=== PATIENT | female | born 1940 | race Caucasian/White ===

== ENCOUNTER → 2018-06-20 11:43 | Outpatient (CLI) | payer MEDICARE, OTHER, SELFPAY ==
[2018-06-20 12:21] LABS: Add Manual Diff / Slide Review NO; Basophils Percent Auto 0.9 % (0-2); Eosinophils Percent Auto 4.3 % (2-4); Hematocrit 35.1 % (36-46); Hemoglobin 11.6 g/dL (12.0-16.0); Lymphocytes Percent Auto 18.4 % (25-40); Mean Corpuscular HGB Conc 32.9 % (30-36); Mean Corpuscular Hemoglobin 31.2 PG (26-34); Mean Corpuscular Volume 94.6 fL (80-100); Monocytes Percent Auto 9.6 % (3-14); Neutrophils Absolute Auto 6400 /uL (3000-5900); Neutrophils Percent Auto 66.8 % (50-75); Platelet Count 270 X10^3/uL (150-400); Red Blood Cell Count 3.71 X10^6/uL (4.0-5.2); Red Cell Distribution Width 14.1 % (11.6-14.8); White Blood Cell Count 9.6 X10^3/uL (4.5-11.0)
[2018-06-20 12:30] LABS: Alanine Aminotransferase 37 IU/L (9-52); Albumin 4.2 g/dL (3.5-5.0); Albumin Globulin Ratio 1.2 (1.0-2.8); Alkaline Phosphatase 73 U/L (38-126); Aspartate Aminotransferase 25 IU/L (14-36); BUN Creatinine Ratio 19.2 (6-22); Bilirubin Total 0.5 mg/dL (0.2-1.3); Blood Urea Nitrogen 25 mg/dL (7-17); Calcium 9.4 mg/dL (8.4-10.2); Carbon Dioxide 23 mmol/L (22-32); Chloride 109 mmol/L (98-107); Estimated Glomerular Filt Rate 39.9 mL/min (>60); Globulin 3.4 g/dL (1.7-4.1); Glucose 107 mg/dL (80-110); HEMOLYSIS < 15 (0-50); Potassium 4.5 mmol/L (3.4-5.1); Sodium 146 mmol/L (137-145); Total Protein 7.6 g/dL (6.3-8.2)
== END ==
PROVIDERS: Family Provider Internal Medicine; PCP Internal Medicine; Visit Provider Internal Medicine Hematology & Oncology
DX: N18.9 Chronic kidney disease, unspecified (principal); D63.1 Anemia in chronic kidney disease
CPT/HCPCS: 36415; 80053; 82728; 85025

== ENCOUNTER 2018-06-24 11:16 | Oncology outpatient (ONC) | payer MEDICARE, OTHER, SELFPAY ==
[2018-06-24 11:56] VITALS: BP 123/42; PULSE 67; RESP 18; TEMP 36.4; O2SAT 97
--- NOTE | 2018-06-24 12:04 | P.PNONC_ITS ---
PN -Subjective Interval history: Chief complaint 77-year-old female with anemia of chronic kidney disease here for scheduled follow-up History of present illness 77-year-old female who has been followed by Dr. Mcgee and recently seen by Dr. Fisher for anemia of chronic kidney disease. In the past, she used to have erythropoietin injection. But recently he he has been off the treatment. And her hemoglobin and hematocrit level have been stable. The etiology of her chronic kidney disease has not been clear according to patient. Patient presents here today for scheduled follow-up visit. Patient had laboratory workup on June 20, 2018. And the lab showed WBC 9.6, hemoglobin 11.6, hematocrit 35.1, platelets 270, BUN 25, creatinine 1.3. She has other multiple chronic diseases including hypothyroidism, fibromyalgia, osteoarthritis, positive lupus anticoagulant, depression and anxiety. She also has chronic pain problems likely due to arthritis and fibromyalgia and is followed at the [facility] in [place]. - Additional ROS All systems PM: reviewed and no additional remarkable complaints except as stated Home Medications and Allergies Home Medications Medication Instructions Recorded Confirmed Type [CALCIUM W/ VIT D] 500 mg PO BID #0 05/02/13 05/13/18 History cyanocobalamin (vitamin B-12) 1,000 mcg IM #0 05/02/13 05/13/18 History ascorbic acid (vitamin C) 1,000 mg PO QDAY #0 tab 05/06/16 05/13/18 History ferrous sulfate [Iron (ferrous PO DAILY #0 05/06/16 05/13/18 History sulfate)] [stool softener] 2 tab PO BID #0 10/28/16 05/13/18 History Disabled Parking Permit ea #1 11/20/16 05/13/18 Rx oxycodone 20 mg PO TID #0 01/07/18 05/13/18 History oxycodone [OxyContin] 10 mg PO Q4H PRN #0 01/07/18 05/13/18 History topiramate 25 mg tablet 50 mg PO BID 02/04/18 05/13/18 History warfarin 1 mg tablet 1 mg PO SEE INSTRUCTIONS #200 tab 03/03/18 05/13/18 Rx warfarin 5 mg tablet 5 mg PO DAILY #100 tab 03/03/18 05/13/18 Rx nitroglycerin 0.4 mg sublingual 0.4 mg SUBLINGUAL PRN #25 tab 03/14/18 05/13/18 Rx tablet pantoprazole [Protonix] 40 mg PO BID #180 tab 03/31/18 05/13/18 Rx spironolactone [Aldactone] 0 PO Q DAY #90 tab 03/31/18 05/13/18 Rx bupropion HCl 300 mg PO QDAY #30 tab 04/27/18 05/13/18 Rx triamcinolone acetonide 0.1 % 1 applictn TOP BID #80 gram 05/02/18 05/13/18 Rx topical cream atomoxetine [Strattera] 40 mg PO QDAY #30 tab 06/23/18 Rx levothyroxine 100 mcg PO QAM #90 tab 06/23/18 Rx lisinopril 10 mg PO QDAY #90 tab 06/23/18 Rx alprazolam 0.5 mg PO QID PRN 06/24/18 History duloxetine 60 mg PO DAILY 06/24/18 06/24/18 History nortriptyline See Label Instructions .ROUTE 06/24/18 History .COMPLEX Allergies Allergy/AdvReac Type Severity Reaction Status Date / Time codeine [CODEINE] Allergy Severe Rash Verified 05/13/18 10:01 morphine [MORPHINE] Allergy Severe Rash, Verified 05/13/18 10:01 Agitation diphenhydramine Allergy Mild AGITATION Verified 05/13/18 10:01 [DIPHENHYDRAMINE] Iodine and Iodide Containing Allergy Mild Verified 05/13/18 10:01 Produc [IODINE AND IODIDE CONTAINING PRODUC] latex [LATEX] Allergy Mild ITCHING, Verified 05/13/18 10:01 SWELLING..BANDAIDS Penicillins [PENICILLINS] Allergy Mild Verified 05/13/18 10:01 CRAB Allergy Mild Uncoded 05/13/18 10:01 Exam Vital signs: Temperature 97.9?, heart rate 67, respiratory rate 18, blood pressure 123/42, saturation 97% on room air, weight 108 kilos. ECOG 1. Narrative: Constitutional: Well developed, well nourished, obese, not in any acute respiratory distress, well groomed, pleasant and cooperative. HEENT: Normocephalic atraumatic. Extraocular muscle movement intact. Pupils are round, equal and reactive to light and accommodations. Anicteric sclera. No hearing difficulty; Oral mucus membrane moist and without ulcers. Neck: Supple, symmetrical, and tracheal midline; No palpable thyromegaly and no palpable lymph nodes. Respiratory: No use of accessory muscles. Clear to auscultation, and no wheezes or rales or rubs. Cardiovascular: Regular rate and rhythm, S1 and S2 normal, no murmurs gallops or rubs. No JVD. No pitting edema of lower extremities. Abdomen: Soft, nontender, non-distended, bowel sounds normal, no palpable organomegaly, no hernia, no palpable masses. Lower extremities: No palpable pedal edema. Lymphatic: no palpable lymph nodes in the neck, axillae, or groins. Musculoskeletal: normal gait and station, no clubbing, no cyanosis, no pitting edema. Skin: no rashes, no ulcers, no petechiae Neurological: Awake and alert and oriented x3. CN II-XII grossly intact. No focal motor or sensory deficit. Psychiatric: Good judgment, good insight, normal affect, normal thought process , cooperative, no depression, no anxiety. Results - Labs See documentation in history of present illness - Imaging Additional studies: Procedures Closure of skin and subcutaneous tissue of other sites (11/25/11) Colonoscopy (10/24/12) Esophagogastroduodenoscopy [EGD] with closed biopsy (04/20/13) Insertion of intraocular lens prosthesis at time of cataract extraction, one- stage (06/12/14) Phacoemulsification and aspiration of cataract (06/12/14) Release of carpal tunnel (05/31/14) Assessment and Plan (1) Anemia in chronic kidney disease I talked with the patient that her hemoglobin and hematocrit level have been stable even without the use of erythropointin. I will continue current active surveillance. We will bring her back in 6 months, repeat CBC and CMP. I explained that if her hemoglobin level decreases to be below 10, I will recommend injection with erythropointin. I usually use Aranesp once a month. Patient verbalized understanding.
== END 2018-06-25 12:00 ==
LOC: ONC 11:17
PROVIDERS: Family Provider Internal Medicine; PCP Internal Medicine; Visit Provider Internal Medicine Hematology & Oncology
DX: N18.9 Chronic kidney disease, unspecified (principal); D63.1 Anemia in chronic kidney disease
CPT/HCPCS: 99213

== ENCOUNTER → 2018-11-22 15:49 | Outpatient (CLI) | payer MEDICARE, OTHER, SELFPAY ==
--- NOTE | 2018-11-22 | DI.MRI.S_ITS ---
PROCEDURE: MR LUMBAR SPINE WO CON INDICATIONS: RADICULOPATHY OF LUMBAR SPINE TECHNIQUE: Noncontrast sagittal T1 spin echo and T2 fast echo, sagittal STIR, axial T1 and T2 fast spin echo through the lumbar spine. In cases with scoliosis, additional coronal T2 fast spin echo may be performed. COMPARISON: [facility], MR, L-SPINE WITHOUT CONTRAST, 05/12/2010, 18:01. [facility], MR, L-SPINE WITHOUT CONTRAST, 10/30/2015, 9:49. FINDINGS: Image quality: Excellent. Alignment and Curvature: There is moderate to severe scoliosis. There is grade 1 anterolisthesis of L4-L5. Bone Marrow: Degenerative endplate signal changes are present. No acute vertebral body compression fractures. Spinal Cord: Conus medullaris terminates at the L1-L2 level. Visualized cord demonstrates normal signal and size. Paraspinous Soft Tissues: No paravertebral masses. L1-L2: Preserved disc height. Mild disc desiccation. There is diffuse posterior disc bulge. The central canal is patent. Mild left foraminal stenosis. There is no significant change compared to the last exam on 10/30/2015. L2-L3: Afmq-yh-lxpijhvo loss of disc height and disc signal. There is diffuse posterior disc bulge and disc osteophyte complex. Mild bilateral facet arthropathy and hypertrophy of ligamentum flavum. The central canal is mildly narrowed. Mild bilateral foraminal stenosis. There is no significant change compared to the last exam on 10/30/2015. L3-L4: Preserved disc height. Moderate loss of disc signal. There is diffuse posterior disc bulge and disc osteophyte complex. Severe bilateral facet arthropathy and hypertrophy of ligamentum flavum. The central canal is moderately narrowed. Afgnwhwf-re-dtnpjl right and mild left foraminal stenosis. There is no significant change compared to the last exam on 10/30/2015. L4-L5: Ujfo-vb-wzwlfelr loss of disc height and loss of disc signal. There is diffuse posterior disc bulge and broad posterior disc protrusion. Severe bilateral facet arthropathy and hypertrophy of ligamentum flavum. The central canal is severely narrowed. Severe right and mild left foraminal stenosis. There is increased central canal stenosis compared to the last exam on 10/30/2015. Foraminal stenoses appears unchanged. L5-S1: Preserved disc height. Mild loss of disc signal. There is mild posterior disc bulge. Mild bilateral facet arthropathy. The central canal is minimally narrowed. No foraminal stenosis. There is no significant change compared to the last exam on 10/30/2015. IMPRESSION: 1. Multilevel degenerative disc disease and facet arthropathy as described. 2. Severe central canal stenosis at L4-L5 and moderate central canal stenosis at L3-L4. 3. Multilevel foraminal stenosis as described. 4. Moderate to severe scoliosis. Dictated by: Hiren Haile M.D. on 11/22/2018 at 16:35 Approved by: Hiren Haile M.D. on 11/22/2018 at 17:30
== END ==
PROVIDERS: PCP Internal Medicine; Visit Provider Acupuncturist
DX: M51.16 Intervertebral disc disorders with radiculopathy, lumbar region (principal); M51.17 Intervertebral disc disorders with radiculopathy, lumbosacral region; M48.061 Spinal stenosis, lumbar region without neurogenic claudication; M47.26 Other spondylosis with radiculopathy, lumbar region; M47.27 Other spondylosis with radiculopathy, lumbosacral region; M41.9 Scoliosis, unspecified
CPT/HCPCS: 72148

== ENCOUNTER → 2019-03-28 12:06 | Outpatient (CLI) | payer MEDICARE, OTHER, SELFPAY ==
[2019-03-28 12:47] LABS: Add Manual Diff / Slide Review NO; Basophils Absolute Auto 0 /uL (0-100); Basophils Percent Auto 0.1 % (0-2); Eosinophils Absolute Auto 0 /uL (0-450); Hematocrit 40.4 % (36-46); Hemoglobin 13.2 g/dL (12.0-16.0); Lymphocytes Absolute Auto 700 /uL (1100-4500); Lymphocytes Percent Auto 10.7 % (25-40); Mean Corpuscular HGB Conc 32.7 % (30-36); Mean Corpuscular Volume 94.7 fL (80-100); Monocytes Absolute Auto 400 /uL (0-900); Monocytes Percent Auto 6.3 % (3-14); Neutrophils Absolute Auto 5500 /uL (1500-7000); Neutrophils Percent Auto 82.9 % (50-75); Platelet Count 298 X10^3/uL (150-400); Red Blood Cell Count 4.26 X10^6/uL (4.0-5.2); Red Cell Distribution Width 13.6 % (11.6-14.8); White Blood Cell Count 6.7 X10^3/uL (4.5-11.0)
[2019-03-28 13:15] LABS: Alanine Aminotransferase 62 IU/L (9-52); Albumin 4.6 g/dL (3.5-5.0); Albumin Globulin Ratio 1.2 (1.0-2.8); Alkaline Phosphatase 96 U/L (38-126); Aspartate Aminotransferase 48 IU/L (14-36); BUN Creatinine Ratio 14.4 (6-22); Bilirubin Total 0.6 mg/dL (0.2-1.3); Blood Urea Nitrogen 23 mg/dL (7-17); Carbon Dioxide 25 mmol/L (22-32); Chloride 105 mmol/L (98-107); Estimated Glomerular Filt Rate 31.3 mL/min (>60); Globulin 3.7 g/dL (1.7-4.1); Glucose 169 mg/dL (80-110); HEMOLYSIS < 15 (0-50); Potassium 5.3 mmol/L (3.4-5.1); Sodium 144 mmol/L (137-145); Total Protein 8.3 g/dL (6.3-8.2)
== END ==
PROVIDERS: PCP Internal Medicine; Visit Provider Internal Medicine Hematology & Oncology
DX: N18.9 Chronic kidney disease, unspecified (principal)
CPT/HCPCS: 36415; 80053; 85025

== ENCOUNTER → 2019-10-27 12:12 | Outpatient (CLI) | payer MEDICARE, OTHER, SELFPAY ==
[2019-10-27 13:40] LABS: Add Manual Diff / Slide Review NO; Basophils Absolute Auto 0 /uL (0-100); Basophils Percent Auto 0.3 % (0-2); Eosinophils Absolute Auto 100 /uL (0-450); Hematocrit 36.4 % (36-46); Lymphocytes Absolute Auto 1800 /uL (1100-4500); Lymphocytes Percent Auto 16.9 % (25-40); Mean Corpuscular Hemoglobin 30.7 PG (26-34); Monocytes Absolute Auto 1000 /uL (0-900); Neutrophils Absolute Auto 7500 /uL (1500-7000); Neutrophils Percent Auto 71.8 % (50-75); Platelet Count 270 X10^3/uL (150-400); Red Blood Cell Count 3.91 X10^6/uL (4.0-5.2); Red Cell Distribution Width 13.7 % (11.6-14.8); White Blood Cell Count 10.5 X10^3/uL (4.5-11.0)
[2019-10-27 14:00] LABS: Alanine Aminotransferase 47 IU/L (<35); Albumin 4.2 g/dL (3.5-5.0); Albumin Globulin Ratio 1.1 (1.0-2.8); Alkaline Phosphatase 90 U/L (38-126); Aspartate Aminotransferase 37 IU/L (14-36); BUN Creatinine Ratio 27.5 (6-22); Bilirubin Total 0.4 mg/dL (0.2-1.3); Blood Urea Nitrogen 33 mg/dL (7-17); Calcium 9.6 mg/dL (8.4-10.2); Carbon Dioxide 27 mmol/L (22-32); Chloride 106 mmol/L (98-107); Estimated Glomerular Filt Rate 43.7 mL/min (>60); Globulin 3.9 g/dL (1.7-4.1); Glucose 129 mg/dL (80-110); HEMOLYSIS < 15 (0-50); Potassium 4.5 mmol/L (3.4-5.1); Sodium 142 mmol/L (137-145); Total Protein 8.1 g/dL (6.3-8.2)
[2019-10-27 14:14] LABS: Free T4, Direct Thyroxine 0.98 ng/dL (0.78-2.19)
[2019-10-27 14:28] LABS: Thyroid Stimulating Hormone 2.82 uIU/mL (0.47-4.68)
== END ==
PROVIDERS: PCP Internal Medicine; Referring Provider Internal Medicine; Visit Provider Internal Medicine
DX: D68.51 Activated protein C resistance (principal); I10 Essential (primary) hypertension; N18.3 Chronic kidney disease, stage 3 (moderate); Z79.01 Long term (current) use of anticoagulants
CPT/HCPCS: 36415; 80053; 84439; 84443; 85025

== ENCOUNTER → 2019-11-24 12:18 | Outpatient (CLI) | payer MEDICARE, OTHER, SELFPAY ==
--- NOTE | 2019-11-24 12:21 | DI.RAD.S_ITS ---
PROCEDURE: XR CHEST 2V INDICATIONS: SOB TECHNIQUE: 2 views of the chest were acquired. COMPARISON: [facility], , CHEST 1 VIEW, 09/20/2012, 6:25. FINDINGS: Surgical changes and devices: None. Lungs and pleura: Bibasilar atelectasis/aspiration. No definite focal consolidation. No pleural effusions or pneumothorax. Mediastinum: Mediastinal contours are normal. Heart size is normal. Bones and chest wall: No suspicious bony abnormalities. Soft tissues appear unremarkable. IMPRESSION: Bilateral lower lobe atelectasis/aspiration versus scarring.If there is persistent clinical diagnostic uncertainty, continued surveillance with short interval chest radiographs after treatment is recommended. . Dictated by: Godwin Fisher M.D. on 11/24/2019 at 17:17 Approved by: Godwin Fisher M.D. on 11/24/2019 at 17:19
== END ==
PROVIDERS: PCP Internal Medicine; Referring Provider Internal Medicine; Visit Provider Internal Medicine
DX: R06.02 Shortness of breath (principal)
CPT/HCPCS: 71046

== ENCOUNTER → 2020-01-03 13:40 | Outpatient (CLI) | payer MEDICARE, OTHER, SELFPAY ==
--- NOTE | 2020-01-03 13:44 | DI.ECHO.S_ITS ---
[facility] +---------+ : : [address] [place] [address] : : : : [id number] : : : : Phone: [phone]+ Echocardiogram Report + + :Name: CINTIA ESCALERA Study Date: 01/03/2020 Height: 63 in : :[facility] Weight: 262 lb : : Gender: Female BSA: 2.2 m2 : :: 1940 Age: 79 yrs BP: 144/78 mmHg: :Reason For Study: Shortness of Breath : :Ordering Physician: Dr. Santana : :Angelica Performed By: Molly Bernabe : :Referring: INDIGO BRAND R : + + Interpretation Summary The ejection fraction is estimated to be 60-65%. There is mild aortic valve sclerosis. Procedure: A two-dimensional transthoracic echocardiogram with color flow and Doppler was performed. Most of the acoustic windows were suboptimal, but the best imaging was obtained from the apical window. There is no prior echocardiogram noted for this patient. The patient was in normal sinus rhythm during the exam. Left Ventricle: The left ventricle is normal in size. Left ventricular wall thickness is mildly increased. The ejection fraction is estimated to be 60- 65%. Left ventricular wall motion is normal. Right Ventricle: The right ventricle is normal in size and function. Atria: Both atria are normal in size. There is no Doppler evidence for an interatrial shunt. Mitral Valve: The mitral valve is normal in structure and function. There is trace mitral regurgitation. Aortic Valve: The aortic valve is not well visualized. There is mild aortic valve sclerosis. There is trace aortic regurgitation. Tricuspid Valve: The tricuspid valve is not well visualized, but is grossly normal. There is a trace or physiologic amount of tricuspid regurgitation. Pulmonic Valve: The pulmonic valve is not well visualized. Great Vessels: The aortic root is normal size. The ascending aorta could not be visualized. The inferior vena cava was not visualized. Pericardium/ Pleura There is no pericardial effusion. There is no pleural effusion. MMode/2D Measurements & Calculations LVIDd: 5.1 cm LVOT diam: 2.0 cm LVIDs: 3.3 cm Ao root diam: 2.7 cm FS: 35.6 % Ao Arch Diam (Prox Trans): 3.1 cm IVSd: 1.3 cm LVPWd: 1.1 cm LV klein. diameter/BSA (cm/m^2): 2.3 LV sys. diameter/BSA (cm/m^2): 1.5 LA A2 area: 18.5 cm2 RA long axis: 4.6 cm LA A4 area: 21.6 cm2 RA area: 17.8 cm2 LA length (vol): 5.7 cm RA vol: 58.6 ml LA vol: 59.6 ml RA : 27.0 ml/m2 LA vol index: 27.5 ml/m2 RVD1 (basal): 3.1 cm TAPSE: 2.7 cm Doppler Measurements & Calculations Ao V2 max: 202.2 cm/sec LVOT Max Dax: 128.8 cm/sec Ao V2 mean: 130.0 cm/sec LV V1 max P.7 mmHg Ao max P.4 mmHg LV V1 VTI: 26.1 cm Ao mean P.0 mmHg JENNIFER(I,D): 2.1 cm2 Ao V2 VTI: 38.6 cm JENNIFER(V,D): 1.9 cm2 sev ratio: 0.68 JENNIFER indexed to BSA (cm^2/m^2): 0.95 MV E max dax: 88.8 cm/sec TR max dax: 242.8 cm/sec MV A max dax: 90.8 cm/sec TR max P.6 mmHg MV E/A: 0.98 PA V2 max: 110.0 cm/sec Med Peak E' Dax: 7.7 cm/sec PA V2 mean: 70.8 cm/sec E/E' med: 11.5 PA mean P.4 mmHg Lat Peak E' Dax: 10.8 cm/sec PA pr(Accel): 34.5 mmHg E/E' lat: 8.2 E/e' average: 9.9 MV dec time: 0.28 sec SV(LVOT): 79.8 ml Reading Physician:11:28 AM
== END ==
PROVIDERS: PCP Internal Medicine; Referring Provider Internal Medicine; Visit Provider Internal Medicine
DX: I35.8 Other nonrheumatic aortic valve disorders (principal); R06.02 Shortness of breath
CPT/HCPCS: 93306

== ENCOUNTER → 2020-01-12 08:13 | Outpatient (CLI) | payer MEDICARE, OTHER, SELFPAY ==
--- NOTE | 2020-01-12 08:15 | DI.NM.S_ITS ---
PROCEDURE: NM EUGENE PERF SPECT SINGLE STUDY Exercise myocardial perfusion SPECT with gated imaging and ejection fraction RADIOPHARMACEUTICAL: 25.4 mCi Tc-99m sestamibi IV after injection of lexiscan. INDICATIONS: shortness of breath TECHNIQUE: Radiopharmaceutical was injected at peak stress test. SPECT images were obtained, with perfusion images in short axis, horizontal long axis, and vertical long axis views. Gated images were reviewed using [employer] software. COMPARISON: None. CARDIAC STRESS: Patien received lexiscan 0.4mg IV X1 as a stress agent. Symptoms: Patient denied anginal chest pain during exercise. EKG: No diagnostic changes of ischemia; no ectopy. FINDINGS: Raw data: There is good labeling of myocardium by radiotracer. No significant motion artifacts. Ahve-mm-dessf ratio is 0.18 (normal is less than 0.38 for sestamibi tracer, and less than 0.50 for thallium tracer). Left ventricular function: Gated images demonstrate normal left ventricle wall thickening. No segmental wall motion abnormalities. Left ventricle end diastolic volume is 113 mL. Left ventricle stress ejection fraction is 73% ; normal values are above 45%. Myocardial perfusion: There is normal distribution of activity in the left and right ventricular myocardium, without focal perfusion defects. IMPRESSION: Low risk, normal pharmaceutical nuclear stress only study. 1) No perfusion evidence of ischemia or infarction. 2) Normal left ventricular size, wall motion, and systolic function (EF post stress 73%). 3) No ECG evidence of ischemia. 4) No angina during the study. 5) No prior nuclear stress test available for comparison. Dictated by: Edwin Mandujano MD on 01/12/2020 at 13:08 Approved by: Edwin Mandujano MD on 01/12/2020 at 13:11
--- NOTE | 2020-01-12 09:21 | PM.TREADMILL ---
Cardiac Stress Test Report Referral & Results Date Patient Seen: 01/12/20 Requesting provider: Max Dominguez Indication: Severe shortness of breath with activity, minor at rest Rest ECG: Unremarkable Procedure Note: After both written and verbal informed consent the patient had an IV started by the diagnostic imaging RN, and then was hooked up to the treadmill monitoring system. The Lexiscan material, and then the Cardiolite tracer, were administered sequentially. An additional 3 min was spent monitoring the patient while supine on the gurney. The patient had a normal response to all infused materials. Impression: Patient quite dyspneic without obvious evidence ischemia. Await perfusion imaging report If negative strongly consider CT angiography of the chest despite her chronic anticoagulation Please note: Actual ECG tracings can be found in the PACS system.
== END ==
PROVIDERS: PCP Internal Medicine; Referring Provider Internal Medicine; Visit Provider Internal Medicine
DX: R06.02 Shortness of breath (principal); Z79.01 Long term (current) use of anticoagulants
CPT/HCPCS: 78451; 93016; 93017; 93018; A9502; J2785

== ENCOUNTER → 2020-01-18 10:51 | Outpatient (CLI) | payer MEDICARE, OTHER, SELFPAY ==
--- NOTE | 2020-01-18 10:54 | DI.CT.S_ITS ---
PROCEDURE: CT ANGIO CHEST INDICATIONS: SOB, DVT, chest pain TECHNIQUE: After the administration of intravenous contrast, 2 mm thick sections acquired from the pulmonary apices to the posterior costophrenic angles. 3-dimensional maximum intensity projection (MIP) coronal and sagittal reformats were then acquired through the thorax. For radiation dose reduction, the following was used: automated exposure control, adjustment of mA and/or kV according to patient size. COMPARISON: [facility], CT, ABDOMEN/PELVIS WITH CONTRAST, 09/29/2012, 10:28. FINDINGS: Image quality: Excellent. Pulmonary arteries: Pulmonary arteries are normal in size, and demonstrate no intraluminal filling defects to suggest central pulmonary embolism. Lungs and pleura: Lungs are clear. No pleural effusions or pneumothorax. Central and peripheral airways are patent. Mediastinum: Heart size is normal, without pericardial effusion. No mediastinal or hilar adenopathy. Thoracic aorta is normal in caliber and enhancement. Esophagus is normal in caliber, without hiatal hernia. Bones and chest wall: No suspicious bony lesions. Ribs and thoracic spine appear intact throughout. Thyroid gland is unremarkable. No axillary or supraclavicular adenopathy. Abdomen: Diffuse hepatic steatosis. Question cirrhotic change in the liver. Remote splenectomy. Shotty portal adenopathy. IMPRESSION: 1. No evidence pulmonary emboli. No evidence acute pulmonary process. 2. Diffuse hepatic steatosis. 3. Probable cirrhosis. 4. Remote splenectomy. Dictated by: Shahzad Calvo M.D. on 01/18/2020 at 12:07 Approved by: Shahzad Calvo M.D. on 01/18/2020 at 12:13
[2020-01-18 11:25] LABS: BUN Creatinine Ratio 21.1 (6-22); Blood Urea Nitrogen 31 mg/dL (7-17); Estimated Glomerular Filt Rate 34.5 mL/min (>60)
== END ==
PROVIDERS: PCP Internal Medicine; Referring Provider Internal Medicine; Visit Provider Internal Medicine
DX: I82.409 Acute embolism and thrombosis of unspecified deep veins of unspecified lower extremity (principal); R06.02 Shortness of breath; R07.9 Chest pain, unspecified; K76.0 Fatty (change of) liver, not elsewhere classified; Z01.812 Encounter for preprocedural laboratory examination
CPT/HCPCS: 36415; 71275; 82565; 84520; Q9967

== ENCOUNTER → 2020-01-24 10:46 | Outpatient (CLI) | payer MEDICARE, OTHER, SELFPAY ==
[2020-01-24 12:02] LABS: Alanine Aminotransferase 67 IU/L (<35); Albumin 4.2 g/dL (3.5-5.0); Albumin Globulin Ratio 1.1 (1.0-2.8); Alkaline Phosphatase 96 U/L (38-126); Aspartate Aminotransferase 52 IU/L (14-36); BUN Creatinine Ratio 19.2 (6-22); Bilirubin Total 0.5 mg/dL (0.2-1.3); Blood Urea Nitrogen 30 mg/dL (7-17); Calcium 9.9 mg/dL (8.4-10.2); Carbon Dioxide 22 mmol/L (22-32); Chloride 109 mmol/L (98-107); Estimated Glomerular Filt Rate 32.2 mL/min (>60); Globulin 3.9 g/dL (1.7-4.1); Glucose 131 mg/dL (80-110); HEMOLYSIS < 15 (0-50); Potassium 4.6 mmol/L (3.4-5.1); Sodium 140 mmol/L (137-145); Total Protein 8.1 g/dL (6.3-8.2)
[2020-01-24 12:15] LABS: Free T4, Direct Thyroxine 0.98 ng/dL (0.78-2.19)
[2020-01-24 12:28] LABS: Add Manual Diff / Slide Review NO; Basophils Absolute Auto 100 /uL (0-100); Basophils Percent Auto 0.7 % (0-2); Eosinophils Absolute Auto 100 /uL (0-450); Eosinophils Percent Auto 0.7 % (2-4); Hematocrit 35.1 % (36-46); Hemoglobin 11.7 g/dL (12.0-16.0); Lymphocytes Absolute Auto 1800 /uL (1100-4500); Lymphocytes Percent Auto 15.5 % (25-40); Mean Corpuscular HGB Conc 33.5 % (30-36); Mean Corpuscular Hemoglobin 31.2 PG (26-34); Mean Corpuscular Volume 93.2 fL (80-100); Monocytes Absolute Auto 1100 /uL (0-900); Monocytes Percent Auto 9.3 % (3-14); Neutrophils Absolute Auto 8300 /uL (1500-7000); Neutrophils Percent Auto 73.8 % (50-75); Platelet Count 259 X10^3/uL (150-400); Red Blood Cell Count 3.76 X10^6/uL (4.0-5.2); Red Cell Distribution Width 14.1 % (11.6-14.8); White Blood Cell Count 11.3 X10^3/uL (4.5-11.0)
[2020-01-24 12:30] LABS: Thyroid Stimulating Hormone 4.64 uIU/mL (0.47-4.68)
== END ==
PROVIDERS: PCP Internal Medicine; Referring Provider Internal Medicine; Visit Provider Internal Medicine
DX: E66.01 Morbid (severe) obesity due to excess calories (principal); I10 Essential (primary) hypertension; N18.3 Chronic kidney disease, stage 3 (moderate); Z68.41 Body mass index [BMI] 40.0-44.9, adult
CPT/HCPCS: 36415; 80053; 84439; 84443; 85025

== ENCOUNTER → 2020-02-13 15:11 | Outpatient (CLI) | payer MEDICARE, OTHER, SELFPAY ==
[2020-02-14 14:34] LABS: COVID19 Sendout Not Detected (Not Detect)
== END ==
PROVIDERS: PCP Internal Medicine; Visit Provider Registered Nurse
DX: Z01.818 Encounter for other preprocedural examination (principal)
CPT/HCPCS: 87635

== ENCOUNTER → 2020-02-16 14:47 | Outpatient (CLI) | payer MEDICARE, OTHER, SELFPAY ==
--- NOTE | 2020-02-21 10:30 | PM.PFT.1 ---
Pulmonary Function Test Referral & Results Date Patient Seen: 02/16/20 Requesting provider: Max Dominguez Indication: Shortness of breath Results: The spirometry demonstrates an FVC of 1.48 L which is 56% of predicted. The FEV1 was measured at 1.18 L which is 60% of predicted. The FEV1/FVC ratio was 80 which is 107% of predicted. Following the administration of bronchodilator there was a 60% improvement in FEV1 and a 67% improvement in FEF 25-75%. Lung volumes show an SVC of 4.0 L which is 152% of predicted. The diffusing capacity was measured at 11.16 which is 48% of predicted. No hemoglobin value was provided, so no correction for potential anemia could be made, if appropriate. The maximum voluntary ventilation was severely reduced Interpretation: This study suggests modestly severe obstructive lung disease based on significant reduction in FEV1 and there is some limited evidence of benefit following bronchodilator based on improvement in FEV1 and FEV 25-75% as above. However lung volumes are abnormally high suggesting element of air trapping although by report patient had difficulty performing the test which may have impacted this as well Patient's diffusing capacity is severely limited suggesting significant disease at the capillary alveolar level as well. Overall this is consistent with a pattern of possible restrictive lung disease, although she did benefit from bronchodilator as above Compared to PFTs performed in October 2007, current study shows decline in FEV1 a decline in diffusing capacity and previously the lung volumes were diminished somewhat which of course as above is not true on current study Clinical correlation suggested
== END ==
PROVIDERS: PCP Internal Medicine; Referring Provider Internal Medicine; Visit Provider Internal Medicine
DX: J44.9 Chronic obstructive pulmonary disease, unspecified (principal); R06.09 Other forms of dyspnea; Z87.891 Personal history of nicotine dependence
CPT/HCPCS: 94060; 94664; 94726; 94729

== ENCOUNTER 2020-03-23 21:06 | Emergency (ER) | payer MEDICARE, OTHER, SELFPAY ==
--- NOTE | 2020-03-23 21:08 | ED.GENADULT ---
HPI - General Adult General Chief complaint: Head Injury Stated complaint: GLF on Warfarin Time Seen by Provider: 03/23/20 21:06 Source: patient Mode of arrival: EMS Limitations: no limitations History of Present Illness HPI narrative: Patient is a 79-year-old female. States that she was coming out of her house and tripped over either the step for her feed her another object. She was unsure what it was. She states she 1st landed on her knees and then braced her fall with her right hand and then fell and hit her face on the ground. There was no loss of consciousness. She is on anticoagulation. Arrived by EMS. Reports bilateral knee pain and right hand pain and then also abrasions to her face. No neck pain. Arrived not on a backboard. Not in a cervical collar. Modified trauma called secondary to fall on anticoagulation. Related Data Home Medications Medication Instructions Recorded Confirmed [CALCIUM W/ VIT D] 500 mg PO BID #0 05/02/13 03/11/20 ascorbic acid (vitamin C) 1,000 mg PO QDAY #0 tab 05/06/16 03/11/20 ferrous sulfate [Iron (ferrous 324 mg PO BID #0 05/06/16 03/11/20 sulfate)] [stool softener] 2 tab PO BID #0 10/28/16 03/11/20 cyanocobalamin (vitamin B-12) 1,000 mcg IM Q2W #0 ml 08/28/19 03/11/20 1,000 mcg/mL injection solution oxycodone 10 mg tablet 10 mg PO Q6H tab 08/28/19 03/11/20 warfarin 5 mg tablet 7.5 mg PO .6DAYSWEEK tab 08/28/19 03/11/20 warfarin 5 mg tablet See Rx Instructions PO .COMPLEX 08/28/19 03/11/20 tab Previous Rx's Medication Instructions Recorded Disabled Parking Permit ea #1 11/20/16 nitroglycerin 0.4 mg sublingual 0.4 mg SUBLINGUAL PRN #25 tab 03/14/18 tablet pantoprazole 40 mg tablet,delayed 40 mg PO BID #180 tab 02/17/19 release mirabegron 25 mg tablet,extended 25 mg PO DAILY #90 tab 04/20/19 release 24 hr spironolactone 100 mg tablet See Rx Instructions .ROUTE 08/01/19 .COMPLEX #90 tablet duloxetine 60 mg capsule,delayed 60 mg PO DAILY #90 cap 12/25/19 release bupropion HCl 150 mg 24 hr tablet, 150 mg PO QAM #30 tab 01/24/20 extended release lisinopril 10 mg tablet 10 mg PO QDAY #90 tab 02/19/20 atomoxetine 40 mg capsule 40 mg PO QDAY #90 tab 02/27/20 levothyroxine 100 mcg tablet 100 mcg PO QAM #90 tab 02/27/20 fluticasone 500 mcg-salmeterol 50 1 inhalation INHALATION BID #60 03/11/20 mcg/dose blistr powdr for each inhalation Allergies Allergy/AdvReac Type Severity Reaction Status Date / Time codeine [CODEINE] Allergy Severe Rash Verified 03/23/20 21:13 morphine [MORPHINE] Allergy Severe Rash, Verified 03/23/20 21:13 Agitation diphenhydramine Allergy Mild AGITATION Verified 03/23/20 21:13 [DIPHENHYDRAMINE] Iodine and Iodide Containing Allergy Mild Verified 03/23/20 21:13 Produc [IODINE AND IODIDE CONTAINING PRODUC] latex [LATEX] Allergy Mild ITCHING, Verified 03/23/20 21:13 SWELLING..BANDAIDS Penicillins [PENICILLINS] Allergy Mild Verified 03/23/20 21:13 CRAB Allergy Mild Uncoded 03/23/20 21:13 Review of Systems Constitutional Constitutional: Denies frequent falls and Denies headache(s) Eyes Eyes: Denies blurry vision and Denies change in vision ENT Ears, Nose, Mouth, and Throat: Denies vertigo and Denies headache(s) Comments: No dental pain. Abrasions to upper lip and bridge of nose. Cardiovascular Cardiovascular: Denies chest pain, Denies rapid heart rate and Denies dyspnea Respiratory Respiratory: Denies dyspnea Gastrointestinal Gastrointestinal: Denies abdominal pain and Denies change in bowel habits Musculoskeletal Comments: Bilateral knee pain, right hand pain Integumentary/Breasts Comments: Abrasions to face Neurologic Neurologic: Denies behavioral changes, Denies confusion, Denies vertigo, Denies frequent falls and Denies headache(s) Psychiatric Psychiatric: Denies behavioral changes and Denies confusion Hematologic/Lymphatic Comments: On Coumadin Allergic/Immunologic Allergic/Immunologic: Denies urticaria Patient History Medical History Anemia in chronic kidney disease (Chronic 06/17/15) Arthralgia (Chronic 09/10/14) Arthralgia of both knees (Chronic 09/27/15) Attention deficit disorder with hyperactivity (Chronic) Body mass index (BMI) of 40.0 to 44.9 in adult (Chronic 12/10/16) Chronic midline thoracic back pain (Chronic 01/02/16) Chronic radicular lumbar pain (Chronic 09/27/15) Essential hypertension (Chronic) Factor 5 Leiden mutation, heterozygous (Chronic) Hypothyroidism (Chronic) [facility] current use of anticoagulant therapy (Chronic 02/15/13) Morbid obesity with body mass index (BMI) of 40.0 to 44.9 in adult (Chronic 09/27/15) VIRGEN (nonalcoholic steatohepatitis) (Chronic) Obstructive sleep apnea syndrome (Chronic 04/17/11) Restrictive lung disease (Chronic) Spinal stenosis (Chronic) Unspecified asthma (Chronic 04/17/11) Ventral incisional hernia (Chronic) Surgical History (Updated 05/04/19 @ 14:00 by Madelyn Contreras MD) History of bowel resection (Resolved) History of gynecologic surgery (Resolved) S/P total abdominal hysterectomy and bilateral salpingo-oophorectomy (Resolved) Status post appendectomy (Resolved) Status post tonsillectomy and adenoidectomy (Resolved 1994) Social History marital status: number of children: 2 household members: spouse lives independently: Yes caregiver/support person: No housing: house pets and animals: Yes education level: high school occupational status: other current occupational exposures/hazards: No 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 leisure activities: other Smoking Status: Former smoker Tobacco: How many years used: 5 Smokeless tobacco user: other quit status: quit date established second hand exposure: Yes alcohol intake: never substance use type: does not use Smoking Status: Former smoker Exam Initial Vital Signs Initial Vital Signs: Vital Signs Temperature 98.5 F 03/23/20 21:13 Pulse Rate 94 H 03/23/20 21:13 Respiratory Rate 28 H 03/23/20 21:13 Blood Pressure 176/79 H 03/23/20 21:13 Pulse Oximetry 95 03/23/20 21:13 Const General: cooperative and comfortable Limitations: mental status not altered HENMT Head: normal to inspection and normocephalic Ears: hearing grossly normal bilaterally Nose: other (Superficial cut over bridge of nose) Mouth: lip normal (Upper lip swelling) Eyes Pupils: PERRL Chest Chest: No crepitus and No tenderness Resp Effort & Inspection: normal respiratory effort Auscultation: clear to auscultation bilaterally Cardio Rate: regular rate Rhythm: regular rhythm GI Inspection: non-distended Palpation: soft Skin Other: Superficial abrasion under the right nares. Also over the bridge of the nose. Neuro General: patient alert, patient awake and patient oriented x3 Cognition: normal cognition Speech: speech normal Extrem General: normal to inspection and capillary refill normal Psych Appearance: grossly normal and well kempt Scores GCS [place] coma scale eye opening: Spontaneous [place] coma scale verbal response: Orientated [place] coma scale motor response: Obey commands [place] coma scale total score: 15 Course Orders Ordered: ED Orders 03/23/20 21:18 Urine Microscopic Stat 03/23/20 21:27 XR hand RT min 3V Stat XR knee LT 3V Stat XR knee RT 3V Stat 03/23/20 21:28 CT head/brain wo con Stat 03/23/20 22:05 Basic Metabolic Panel Stat Complete Blood Count AUTO DIFF Stat Prothrombin Time INR Stat Vital Signs Vital signs: Vital Signs - 8 hr 03/23/20 21:13 03/23/20 22:50 Temperature 98.5 F Pulse Rate 94 H 93 H Respiratory Rate 28 H Blood Pressure 176/79 H 145/65 H Pulse Oximetry 95 96 Medical Decision Making Lab Data Result diagrams: 03/23/20 22:05 03/23/20 22:05 Labs: Lab Results 03/23/20 03/23/20 03/23/20 Range/Units 21:18 22:05 22:05 WBC 12.4 H (4.5-11.0) X10^3/uL RBC 3.61 L (4.0-5.2) X10^6/uL Hgb 10.8 L (12.0-16.0) g/dL Hct 33.5 L (36-46) % MCV 92.9 (80-100) fL MCH 30.0 (26-34) PG MCHC 32.3 (30-36) % RDW 14.1 (11.6-14.8) % Plt Count 280 (150-400) X10^3/uL Neut % (Auto) 78.3 H (50-75) % Lymph % (Auto) 11.9 L (25-40) % [place] % (Auto) 7.7 (3-14) % Eos % (Auto) 1.5 L (2-4) % Baso % (Auto) 0.6 (0-2) % Neut # (Auto) 9700 H (7321-3740) /uL Lymph # (Auto) 1500 (0836-6478) /uL [place] # (Auto) 1000 H (0-900) /uL Eos # (Auto) 200 (0-450) /uL Baso # (Auto) 100 (0-100) /uL PT 59.3 H (10.1-12.7) SECONDS INR 5.2 H* (0.9-1.3) Sodium (137-145) mmol/L Potassium (3.4-5.1) mmol/L Chloride (98-107) mmol/L Carbon Dioxide (22-32) mmol/L BUN (7-17) mg/dL Creatinine (0.52-1.04) mg/dL Estimated GFR (>60) mL/min BUN/Creatinine Ratio (6-22) Glucose (80-110) mg/dL Calcium (8.4-10.2) mg/dL Urine RBC None seen (0-5/HPF) Urine WBC None seen (0-5/HPF) Ur Squamous Epith Cells 0-1 /hpf (0-5/HPF) Urine Bacteria None seen (None) Ur Culture Indicated? Cult not indicated 03/23/20 Range/Units 22:05 WBC (4.5-11.0) X10^3/uL RBC (4.0-5.2) X10^6/uL Hgb (12.0-16.0) g/dL Hct (36-46) % MCV (80-100) fL MCH (26-34) PG MCHC (30-36) % RDW (11.6-14.8) % Plt Count (150-400) X10^3/uL Neut % (Auto) (50-75) % Lymph % (Auto) (25-40) % [place] % (Auto) (3-14) % Eos % (Auto) (2-4) % Baso % (Auto) (0-2) % Neut # (Auto) (6320-2280) /uL Lymph # (Auto) (3558-8491) /uL [place] # (Auto) (0-900) /uL Eos # (Auto) (0-450) /uL Baso # (Auto) (0-100) /uL PT (10.1-12.7) SECONDS INR (0.9-1.3) Sodium 139 (137-145) mmol/L Potassium 4.9 (3.4-5.1) mmol/L Chloride 109 H (98-107) mmol/L Carbon Dioxide 24 (22-32) mmol/L BUN 34 H (7-17) mg/dL Creatinine 1.67 H (0.52-1.04) mg/dL Estimated GFR 29.7 L (>60) mL/min BUN/Creatinine Ratio 20.4 (6-22) Glucose 163 H (80-110) mg/dL Calcium 9.3 (8.4-10.2) mg/dL Urine RBC (0-5/HPF) Urine WBC (0-5/HPF) Ur Squamous Epith Cells (0-5/HPF) Urine Bacteria (None) Ur Culture Indicated? Urine Dip Bedside Urine Glucose Negative Bedside Urine Bilirubin - Negative Bedside Urine Ketone - Negative Urine Specific [place] 1.015 Bedside Urine Protein +++ 300 Bedside Urine Urobilinogen - Negative Bedside Urine Nitrite - Negative Bedside Urine Leukocytes - Negative Esterase Point of care testing: Urine Dip Bedside Urine Glucose Negative Bedside Urine Bilirubin - Negative Bedside Urine Ketone - Negative Urine Specific [place] 1.015 Bedside Urine Protein +++ 300 Bedside Urine Urobilinogen - Negative Bedside Urine Nitrite - Negative Bedside Urine Leukocytes - Negative Esterase Imaging Data CT scan - head: Radiologist's Impression: [address] [address] [address] Scan Report Signed Patient: Mirela CharlesMR#: [id number] : 3Acct:[id number] Age/Sex: 79 / FDate of Service: 03/23/20 Loc: ED Accession Number: [id number] Procedure: CT head/brain wo con Ordering Provider: Mal Dougherty D.O. PROCEDURE: CT HEAD/BRAIN WO CON INDICATIONS: Fall on Coumadin TECHNIQUE: Noncontrast 4.5 mm thick angled axial sections acquired from the foramen magnum to the vertex, with coronal and sagittal reformats. For radiation dose reduction, the following was used: automated exposure control, adjustment of mA and/or kV according to patient size. COMPARISON: CT, SINUS, 11/08/2007, 14:36. FINDINGS: Image quality: Excellent. CSF spaces: Basal cisterns are patent. No extra-axial fluid collections. The ventricles are symmetric in size and shape. Brain: No intracranial bleeds or masses. There is cerebral volume loss for age, with resultant ventricular and sulcal prominence. There are periventricular and deep white matter chronic small vessel ischemic changes. There is intracranial internal carotid artery atherosclerosis. Skull and face: Calvarium and visualized facial bones appear intact, without suspicious lesions. Sinuses: Visualized sinuses and mastoids are clear. IMPRESSION: 1. No acute intracranial process. 2. Moderate atrophy and chronic microvascular ischemic changes. Dictated by: Laina Flynn M.D. on 03/23/2020 at 22:01 Approved by: Laina Flynn M.D. on 03/23/2020 at 22:02 Extremity x-ray #1: Radiologist's Impression: [place] [address] XRay Report Signed Patient: Mriela CharlesMR#: [id number] : 3Acct:[id number] Age/Sex: 79 / FDate of Service: 03/23/20 Loc: ED Accession Number: [id number] Procedure: XR hand RT min 3V Ordering Provider: Mal Dougherty D.O. PROCEDURE: XR HAND RT MIN 3V INDICATIONS: pain after fall TECHNIQUE: 3 views of the hand(s) acquired. COMPARISON: [facility], , HAND MIN 3VW (RT), 05/06/2010, 15:49. FINDINGS: Bones: Small areas of ossification are noted at the base of the distal first phalanx. Carpal bones are normally aligned. No suspicious bony lesions. Moderate first CMC degenerative narrowing. Soft tissues: No suspicious soft tissue calcifications. IMPRESSION: Small calcifications noted at the base of the distal first phalanx. These could be related to recent trauma, remote, or degenerative change. Recommend correlation with point tenderness. Dictated by: Laina Flynn M.D. on 03/23/2020 at 22:02 Approved by: Laina Flynn M.D. on 03/23/2020 at 22:04 Extremity x-ray #2: Radiologist's Impression: [address] [address] XRay Report Signed Patient: Ross Charles#: [id number] : 3Acct:[id number] Age/Sex: 79 / FDate of Service: 03/23/20 Loc: ED Accession Number: [id number] Procedure: XR knee RT 3V Ordering Provider: Mal Dougherty D.O. PROCEDURE: XR KNEE RT 3V INDICATIONS: pain after fall TECHNIQUE: 3 views of the knee were acquired. COMPARISON: [facility], , KNEE 3V LEFT, 12/14/2013, 12:14. FINDINGS: Bones: No fractures or dislocations. No suspicious bony lesions. Patellar spur is present. Moderate degenerative medial and patellofemoral compartment narrowing. Soft tissues: Mild joint effusion. No suspicious soft tissue calcifications. IMPRESSION: Mild effusion. No visualized acute fracture or dislocation. However, if clinical concern and/or pain persist, short interval imaging followup in 7-10 days is recommended, as occult injury cannot be definitively excluded. Dictated by: Laina Flynn M.D. on 03/23/2020 at 22:07 Approved by: Laina Flynn M.D. on 03/23/2020 at 22:[address] [facility] Narrative Medical decision making narrative: Patient's CT scans/x-rays unremarkable. She is supratherapeutic on her INR. She does not have any active bleeding. We did discuss conservative treatment for the abrasions on her face and nose. Neither of which need intervention here in the ER. She will skip her dose of Coumadin tomorrow. She will take half the dose on Wednesday. She has follow-up next week to have her INR recheck did already scheduled. Will hold on further workup for now. Discharge Plan Departure Patient Disposition: Home Clinical Impression: Supratherapeutic INR Abrasion of face Qualifiers: Encounter type: initial encounter Qualified Code(s): S00.81XA - Abrasion of other part of head, initial encounter Fall Qualifiers: Encounter type: initial encounter Qualified Code(s): W19.XXXA - Unspecified fall, initial encounter Discharge Date/Time: 03/23/20 23:14 Instructions: How to Prevent Falls Activity Restrictions/Additional Instructions: Your INR level today was elevated. I recommend that tomorrow (Wednesday) you skip your Coumadin/warfarin dose altogether. On Wednesday I recommend that you take 5 mg and then on Wednesday start your regular dosing. Keep all of your scheduled medical appointments. Return to the emergency department for any new or worsening symptoms. Prescriptions: No Action [CALCIUM W/ VIT D] 500 mg PO BID Qty: 0 RF: 0 ascorbic acid (vitamin C) 500 MG tablet 1,000 mg PO QDAY Qty: 0 RF: 0 ferrous sulfate [Iron (ferrous sulfate)] 325 mg (65 mg iron) Tablet 324 mg PO BID Qty: 0 RF: 0 [stool softener] 2 tab PO BID Qty: 0 RF: 0 Disabled Parking Permit Qty: 1 RF: 0 pantoprazole [Protonix] 40 mg tablet,delayed release (DR/EC) 40 mg PO BID Qty: 180 RF: 3 Myrbetriq 25 mg tablet extended release 24 hr 25 mg PO DAILY Qty: 90 RF: 3 spironolactone 100 mg tablet See Rx Instructions .ROUTE .COMPLEX Qty: 90 RF: 3 cyanocobalamin (vitamin B-12) 1,000 mcg/mL solution 1,000 mcg IM Q2W Qty: 0 RF: 0 duloxetine 60 mg capsule,delayed release(DR/EC) 60 mg PO DAILY Qty: 90 RF: 3 lisinopril 10 mg tablet 10 mg PO QDAY Qty: 90 RF: 3 atomoxetine [Strattera] 40 mg capsule 40 mg PO QDAY Qty: 90 RF: 3 levothyroxine 100 mcg tablet 100 mcg PO QAM Qty: 90 RF: 3 warfarin 5 mg tablet See Rx Instructions PO .COMPLEX RF: 0 warfarin 5 mg tablet 7.5 mg PO .6DAYSWEEK RF: 0 oxycodone 10 mg tablet 10 mg PO Q6H RF: 0 fluticasone propion-salmeterol [Advair Diskus] 500-50 mcg/dose blister with device 1 inhalation INHALATION BID Qty: 60 RF: 4 nitroglycerin [Nitrostat] 0.4 mg tablet, sublingual 0.4 mg Sublingual PRN Qty: 25 RF: 4 bupropion HCl 150 mg tablet extended release 24 hr 150 mg PO QAM Qty: 30 RF: 3 Referrals: Max Dominguez MD [Primary Care Provider] -
[2020-03-23 21:13] VITALS: BP 176/79; PULSE 94; RESP 28; TEMP 36.9; O2SAT 95; BMI 45.1
--- NOTE | 2020-03-23 21:27 | DI.RAD.S_ITS ---
PROCEDURE: XR KNEE RT 3V INDICATIONS: pain after fall TECHNIQUE: 3 views of the knee were acquired. COMPARISON: [facility], , KNEE 3V LEFT, 12/14/2013, 12:14. FINDINGS: Bones: No fractures or dislocations. No suspicious bony lesions. Patellar spur is present. Moderate degenerative medial and patellofemoral compartment narrowing. Soft tissues: Mild joint effusion. No suspicious soft tissue calcifications. IMPRESSION: Mild effusion. No visualized acute fracture or dislocation. However, if clinical concern and/or pain persist, short interval imaging followup in 7-10 days is recommended, as occult injury cannot be definitively excluded. Dictated by: Laina Flynn M.D. on 03/23/2020 at 22:07 Approved by: Laina Flynn M.D. on 03/23/2020 at 22:08
--- NOTE | 2020-03-23 21:27 | DI.RAD.S_ITS ---
PROCEDURE: XR HAND RT MIN 3V INDICATIONS: pain after fall TECHNIQUE: 3 views of the hand(s) acquired. COMPARISON: [facility], [place], HAND MIN 3VW (RT), 05/06/2010, 15:49. FINDINGS: Bones: Small areas of ossification are noted at the base of the distal first phalanx. Carpal bones are normally aligned. No suspicious bony lesions. Moderate first CMC degenerative narrowing. Soft tissues: No suspicious soft tissue calcifications. IMPRESSION: Small calcifications noted at the base of the distal first phalanx. These could be related to recent trauma, remote, or degenerative change. Recommend correlation with point tenderness. Dictated by: Laina Flynn M.D. on 03/23/2020 at 22:02 Approved by: Laina Flynn M.D. on 03/23/2020 at 22:04
--- NOTE | 2020-03-23 21:27 | DI.RAD.S_ITS ---
PROCEDURE: XR KNEE LT 3V INDICATIONS: pain after fall TECHNIQUE: A 12/14/13 views of the knee were acquired. COMPARISON: None. FINDINGS: Bones: No fractures or dislocations. No suspicious bony lesions. Moderate to severe degenerative arthritis with tricompartment osteophytes and moderately severe medial compartment joint space loss. Soft tissues: No joint effusion. No suspicious soft tissue calcifications. IMPRESSION: Degenerative arthritis of the knee. No evidence acute bony abnormality of the left knee. If clinical suspicion and/or symptoms persist, further assessment with repeat plain films, or advanced imaging (e.g., CT, MRI, or bone scan) may be helpful for further assessment. Dictated by: Shahzad Calvo M.D. on 03/24/2020 at 7:02 Approved by: Shahzad Calvo M.D. on 03/24/2020 at 7:03
--- NOTE | 2020-03-23 21:28 | DI.CT.S_ITS ---
PROCEDURE: CT HEAD/BRAIN WO CON INDICATIONS: Fall on Coumadin TECHNIQUE: Noncontrast 4.5 mm thick angled axial sections acquired from the foramen magnum to the vertex, with coronal and sagittal reformats. For radiation dose reduction, the following was used: automated exposure control, adjustment of mA and/or kV according to patient size. COMPARISON: CT, SINUS, 11/08/2007, 14:36. FINDINGS: Image quality: Excellent. CSF spaces: Basal cisterns are patent. No extra-axial fluid collections. The ventricles are symmetric in size and shape. Brain: No intracranial bleeds or masses. There is cerebral volume loss for age, with resultant ventricular and sulcal prominence. There are periventricular and deep white matter chronic small vessel ischemic changes. There is intracranial internal carotid artery atherosclerosis. Skull and face: Calvarium and visualized facial bones appear intact, without suspicious lesions. Sinuses: Visualized sinuses and mastoids are clear. IMPRESSION: 1. No acute intracranial process. 2. Moderate atrophy and chronic microvascular ischemic changes. Dictated by: Laina Flynn M.D. on 03/23/2020 at 22:01 Approved by: Laina Flynn M.D. on 03/23/2020 at 22:02
[2020-03-23 21:35] LABS: Bacteria Urine None Seen; RBC Urine None Seen (0-5/HPF); WBC Urine None Seen (0-5/HPF)
[2020-03-23 21:49] LABS: Culture Indicated Urine Cult Not Indicated; Squamous Epithelial Cell Urine 0-1 /HPF (0-5/HPF)
[2020-03-23 22:15] LABS: Add Manual Diff / Slide Review NO; Basophils Absolute Auto 100 /uL (0-100); Basophils Percent Auto 0.6 % (0-2); Eosinophils Absolute Auto 200 /uL (0-450); Eosinophils Percent Auto 1.5 % (2-4); Hematocrit 33.5 % (36-46); Hemoglobin 10.8 g/dL (12.0-16.0); Lymphocytes Absolute Auto 1500 /uL (1100-4500); Lymphocytes Percent Auto 11.9 % (25-40); Mean Corpuscular HGB Conc 32.3 % (30-36); Mean Corpuscular Volume 92.9 fL (80-100); Monocytes Absolute Auto 1000 /uL (0-900); Monocytes Percent Auto 7.7 % (3-14); Neutrophils Absolute Auto 9700 /uL (1500-7000); Neutrophils Percent Auto 78.3 % (50-75); Platelet Count 280 X10^3/uL (150-400); Red Blood Cell Count 3.61 X10^6/uL (4.0-5.2); Red Cell Distribution Width 14.1 % (11.6-14.8); White Blood Cell Count 12.4 X10^3/uL (4.5-11.0)
[2020-03-23 22:22] LABS: BUN Creatinine Ratio 20.4 (6-22); Blood Urea Nitrogen 34 mg/dL (7-17); Calcium 9.3 mg/dL (8.4-10.2); Carbon Dioxide 24 mmol/L (22-32); Chloride 109 mmol/L (98-107); Estimated Glomerular Filt Rate 29.7 mL/min (>60); Glucose 163 mg/dL (80-110); HEMOLYSIS < 15 (0-50); Potassium 4.9 mmol/L (3.4-5.1); Sodium 139 mmol/L (137-145)
[2020-03-23 22:24] LABS: Prothrombin Time 59.3 SECONDS (10.1-12.7)
[2020-03-23 22:33] LABS: INR 5.2 (0.9-1.3)
[2020-03-23 22:50] VITALS: BP 145/65; PULSE 93; O2SAT 96
== END 2020-03-23 23:14 | disposition home or self-care (01) ==
PROVIDERS: Emergency Provider Emergency Medicine; PCP Internal Medicine
DX: S00.81XA Abrasion of other part of head, initial encounter (principal); R79.1 Abnormal coagulation profile; Z79.01 Long term (current) use of anticoagulants; W19.XXXA Unspecified fall, initial encounter; M79.641 Pain in right hand; M25.562 Pain in left knee; M25.561 Pain in right knee
CPT/HCPCS: 36415; 70450; 73130; 73562; 80048; 81003; 81015; 85025; 85610; 99284

== ENCOUNTER → 2020-04-08 12:10 | Outpatient (CLI) | payer MEDICARE, OTHER, SELFPAY ==
--- NOTE | 2020-04-08 12:12 | DI.RAD.S_ITS ---
PROCEDURE: XR SHOULDER RT MIN 2V INDICATIONS: right shoulder pain TECHNIQUE: 3 views of the shoulder were acquired. COMPARISON: [facility], , SHOULDER MINIMUM 2VIEW RIGHT, 10/08/2017, 12:15. FINDINGS: Bones: No fractures or dislocations. No new suspicious bony lesions. There has been progression of an osteochondral defect at the superior margin of the right humeral head, with the osseous fragment within the defect now largely absent. This likely has fragmented and likely is present within the joint space as several angular intra-articular loose bodies seen on plain film imaging. A total of 5-6 loose bodies are found, and additional smaller fragments may be present within the inferior recess of the joint space seen on the frontal projection imaging. Visualized ribs appear intact. Soft tissues: No suspicious soft tissue calcifications separate from the joint space.. IMPRESSION: Osteochondral loose body appears to have fragmented, the osteochondral defect is present at the humeral head superior surface and multiple small faintly visualized intra-articular loose bodies now are present with reference to the prior plain film imaging from September 2017. Dictated by: Titi Humphries M.D. on 04/08/2020 at 14:41 Approved by: Titi Humphries M.D. on 04/08/2020 at 14:44
== END ==
PROVIDERS: PCP Internal Medicine; Referring Provider Internal Medicine; Visit Provider Internal Medicine
DX: M25.511 Pain in right shoulder (principal); M24.011 Loose body in right shoulder
CPT/HCPCS: 73030

== ENCOUNTER → 2020-04-26 11:51 | Outpatient (CLI) | payer MEDICARE, OTHER, SELFPAY | PROVIDERS: PCP Internal Medicine; Referring Provider Anesthesiology Pain Medicine; Visit Provider Anesthesiology Pain Medicine | DX: M25.519 Pain in unspecified shoulder (principal); Z53.20 Procedure and treatment not carried out because of patient's decision for unspecified reasons ==

== ENCOUNTER → 2020-04-26 12:38 | Oncology outpatient (ONC) | payer MEDICARE, OTHER, SELFPAY ==
[2018-12-29 12:14] LABS: Add Manual Diff / Slide Review NO; Basophils Absolute Auto 0 /uL (0-100); Basophils Percent Auto 0.6 % (0-2); Eosinophils Absolute Auto 300 /uL (0-450); Eosinophils Percent Auto 3.8 % (2-4); Hematocrit 34.9 % (36-46); Hemoglobin 11.5 g/dL (12.0-16.0); Lymphocytes Absolute Auto 1900 /uL (1100-4500); Lymphocytes Percent Auto 22.5 % (25-40); Mean Corpuscular Hemoglobin 31.3 PG (26-34); Mean Corpuscular Volume 94.9 fL (80-100); Monocytes Absolute Auto 1000 /uL (0-900); Monocytes Percent Auto 11.5 % (3-14); Neutrophils Absolute Auto 5200 /uL (1500-7000); Neutrophils Percent Auto 61.6 % (50-75); Platelet Count 269 X10^3/uL (150-400); Red Blood Cell Count 3.68 X10^6/uL (4.0-5.2); Red Cell Distribution Width 13.7 % (11.6-14.8); White Blood Cell Count 8.4 X10^3/uL (4.5-11.0)
[2018-12-29 12:54] LABS: Alanine Aminotransferase 45 IU/L (9-52); Albumin 4.2 g/dL (3.5-5.0); Albumin Globulin Ratio 1.2 (1.0-2.8); Alkaline Phosphatase 84 U/L (38-126); Aspartate Aminotransferase 37 IU/L (14-36); BUN Creatinine Ratio 13.6 (6-22); Bilirubin Total 0.3 mg/dL (0.2-1.3); Blood Urea Nitrogen 19 mg/dL (7-17); Calcium 9.1 mg/dL (8.4-10.2); Carbon Dioxide 21 mmol/L (22-32); Chloride 110 mmol/L (98-107); Estimated Glomerular Filt Rate 36.6 mL/min (>60); Globulin 3.4 g/dL (1.7-4.1); Glucose 102 mg/dL (80-110); HEMOLYSIS < 15 (0-50); Potassium 4.7 mmol/L (3.4-5.1); Sodium 143 mmol/L (137-145); Total Protein 7.6 g/dL (6.3-8.2)
[2019-04-17 15:52] VITALS: BP 150/46; PULSE 68; RESP 20; TEMP 37.2; O2SAT 96
--- NOTE | 2019-04-17 16:03 | P.PNONC_ITS ---
PN -Subjective Interval history: Chief complaint 78-year-old female with anemia of chronic kidney disease here for scheduled follow-up. Interim Events: Since her previous visit, she has been complaining of back pain. She said it is not new. She has been dealing with more years. No bleeding events. No nausea and vomiting. No shortness of breath, no chest pain, no abdominal pain. Patient is also being followed by Dr. Dominguez. No other new events. - Patient Self-Reported Symptoms SR Constitution: Fatigue/Malaise SR ears, nose, mouth, throat issues: Ears ringing, Congestion SR respiratory issues: Cough, Shortness of breath SR Skin issues: Skin rash or itching SR Gastrointestinal issues: Nausea SR Neuro issues: Numbness or tingling - Additional ROS All systems PM: reviewed and no additional remarkable complaints except as stated Home Medications and Allergies Home Medications Medication Instructions Recorded Confirmed Type [CALCIUM W/ VIT D] 500 mg PO BID #0 05/02/13 03/27/19 History cyanocobalamin (vitamin B-12) 1,000 mcg IM #0 05/02/13 03/27/19 History ascorbic acid (vitamin C) 1,000 mg PO QDAY #0 tab 05/06/16 03/27/19 History ferrous sulfate [Iron (ferrous 324 mg PO BID #0 05/06/16 03/27/19 History sulfate)] [stool softener] 2 tab PO BID #0 10/28/16 03/27/19 History Disabled Parking Permit ea #1 11/20/16 03/27/19 Rx nitroglycerin 0.4 mg sublingual 0.4 mg SUBLINGUAL PRN #25 tab 03/14/18 03/27/19 Rx tablet spironolactone [Aldactone] 0 PO Q DAY #90 tab 09/14/18 03/27/19 Rx duloxetine 60 mg capsule,delayed 60 mg PO DAILY #90 cap 01/03/19 03/27/19 Rx release warfarin 1 mg tablet 1 mg PO SEE INSTRUCTIONS #200 tab 01/03/19 03/27/19 Rx mirabegron ER 25 mg 25 mg PO DAILY #30 tab 02/03/19 03/27/19 Rx tablet,extended release 24 hr atomoxetine 40 mg capsule 40 mg PO QDAY #90 tab 02/17/19 03/27/19 Rx levothyroxine 100 mcg tablet 100 mcg PO QAM #90 tab 02/17/19 03/27/19 Rx lisinopril 10 mg tablet 10 mg PO QDAY #90 tab 02/17/19 03/27/19 Rx pantoprazole 40 mg tablet,delayed 40 mg PO BID #180 tab 02/17/19 03/27/19 Rx release warfarin 5 mg tablet See Rx Instructions PO .COMPLEX 03/20/19 03/27/19 Rx #30 tab doxycycline hyclate 100 mg capsule 100 mg PO BID #20 cap 03/27/19 Rx Allergies Allergy/AdvReac Type Severity Reaction Status Date / Time codeine [CODEINE] Allergy Severe Rash Verified 03/27/19 11:42 morphine [MORPHINE] Allergy Severe Rash, Verified 03/27/19 11:42 Agitation diphenhydramine Allergy Mild AGITATION Verified 03/27/19 11:42 [DIPHENHYDRAMINE] Iodine and Iodide Containing Allergy Mild Verified 03/27/19 11:42 Produc [IODINE AND IODIDE CONTAINING PRODUC] latex [LATEX] Allergy Mild ITCHING, Verified 03/27/19 11:42 SWELLING..BANDAIDS Penicillins [PENICILLINS] Allergy Mild Verified 03/27/19 11:42 CRAB Allergy Mild Uncoded 03/27/19 11:42 Exam Vital signs: Vital Signs Temp Pulse Resp BP Pulse Ox 04/17/19 15:52 99.0 F 68 20 150/46 H 96 Intake and Output 04/17/19 04/17/19 04/17/19 07:59 15:59 23:59 Other: Weight 105.5 kg Patient Weight 04/17/19 23:59 Weight 105.5 kg ECOG 1 - Constitutional positive no acute distress, positive morbidly obese, positive chronically ill appearing, positive cooperative - Routine HEENT Exam Head: Present: normocephalic, atraumatic Eye: Present: EOMI, PERRL, normal accommodation. Absent: conjunctival icterus ENT: Present: mucous membranes moist - Routine Neck Exam Present: supple, full ROM. Absent: lymphadenopathy, thyromegaly - Routine Chest/Breast/Axilla Exam Axillae: Absent: lymphadenopathy - Routine Respiratory Exam Present: Clear to auscultation bilaterally - Routine Cardiovascular Exam Present: RRR, S1, S2. Absent: murmur, gallop, rubs - Routine Abdominal Exam Present: soft. Absent: tenderness, organomegaly - Routine Extremities Exam Absent: edema - Routine Neurological Exam Present: alert, oriented X3, CN II-XII intact. Absent: sensory deficit, motor deficit Results - Labs LAB RESULTS FROM 03/28/2019 Sodium 144, potassium 5.3, chloride 105, carbon dioxide 25, BUN 23, creatinine 1.6, glucose 169, calcium 10.0, total bilirubin 0.6, AST 48, ALT 62, total protein 8.3, albumin 4.6, WBC 6.7, hemoglobin 13.2, hematocrit 40.4, platelets 298. - Imaging Additional studies: Procedures Closure of skin and subcutaneous tissue of other sites (11/25/11) Esophagogastroduodenoscopy [EGD] with closed biopsy (04/20/13) Insertion of intraocular lens prosthesis at time of cataract extraction, one- stage (06/12/14) Phacoemulsification and aspiration of cataract (06/12/14) Release of carpal tunnel (05/31/14) Assessment and Plan (1) Anemia in chronic kidney disease I talked with the patient about the hemoglobin and hematocrit level. The are 13.2/40.4. No need for erythropoietin injection. Next I talked with the patient about the complete metabolic panel. It showed worsening hyperca anemia, worsening serum creatinine level, and also increase level of total protein. Given these above abnormal findings, I will repeat the laboratory tests with evaluation of serum protein electrophoresis. I will see the patient after the results are available for review. Patient also has appointment to see Dr. Dominguez next week.
[2019-04-17 17:06] LABS: Add Manual Diff / Slide Review NO; Basophils Absolute Auto 0 /uL (0-100); Basophils Percent Auto 0.5 % (0-2); Eosinophils Absolute Auto 100 /uL (0-450); Eosinophils Percent Auto 1.6 % (2-4); Hemoglobin 12.2 g/dL (12.0-16.0); Lymphocytes Absolute Auto 1800 /uL (1100-4500); Lymphocytes Percent Auto 19.7 % (25-40); Mean Corpuscular HGB Conc 33.1 % (30-36); Mean Corpuscular Hemoglobin 31.3 PG (26-34); Mean Corpuscular Volume 94.5 fL (80-100); Monocytes Absolute Auto 800 /uL (0-900); Monocytes Percent Auto 8.6 % (3-14); Neutrophils Absolute Auto 6500 /uL (1500-7000); Neutrophils Percent Auto 69.6 % (50-75); Platelet Count 278 X10^3/uL (150-400); Red Blood Cell Count 3.92 X10^6/uL (4.0-5.2); Red Cell Distribution Width 13.6 % (11.6-14.8); White Blood Cell Count 9.4 X10^3/uL (4.5-11.0)
[2019-04-17 17:21] LABS: Alanine Aminotransferase 45 IU/L (9-52); Albumin Globulin Ratio 1.3 (1.0-2.8); Alkaline Phosphatase 84 U/L (38-126); Aspartate Aminotransferase 31 IU/L (14-36); BUN Creatinine Ratio 19.2 (6-22); Bilirubin Total 0.4 mg/dL (0.2-1.3); Blood Urea Nitrogen 23 mg/dL (7-17); Calcium 9.4 mg/dL (8.4-10.2); Carbon Dioxide 26 mmol/L (22-32); Chloride 105 mmol/L (98-107); Estimated Glomerular Filt Rate 43.7 mL/min (>60); Glucose 107 mg/dL (80-110); HEMOLYSIS < 15 (0-50); Potassium 4.5 mmol/L (3.4-5.1); Sodium 142 mmol/L (137-145)
[2019-04-21 10:55] LABS: Albumin 3.4 g/dL (3.8-4.8); Alpha 1 Globulin 0.3 g/dL (0.2-0.3); Alpha 2 Globulin 1.1 g/dL (0.5-0.9); Beta 1 Globulin 0.4 g/dL (0.4-0.6); Protein, Total 6.7 g/dL (6.1-8.1)
[2019-05-04 13:34] VITALS: BP 129/76; PULSE 88; RESP 18; TEMP 36.4; O2SAT 95
--- NOTE | 2019-05-04 13:37 | ONC.PN ---
PN -Subjective Interval history: Chief complaint 78-year-old female with anemia of chronic kidney disease here for scheduled follow-up. Hematology History: 78-year-old female who has been followed by Dr. Mcgee and recently seen by Dr. Fisher for anemia of chronic kidney disease. In the past, she used to have erythropoietin injection. But recently he he has been off the treatment. And her hemoglobin and hematocrit level have been stable. The etiology of her chronic kidney disease has not been clear according to patient. Interim Events: During her previous visit, we noticed that she had a slightly elevated serum calcium level. Therefore we proceed with tests protein electrophoresis with immunofixation. Both tests came back negative for any evidence of monoclonal protein in the peripheral blood. Patient presents here today for scheduled follow-up visit to review the results - Patient Self-Reported Symptoms SR Constitution: Fatigue/Malaise SR ears, nose, mouth, throat issues: Ears ringing, Congestion SR respiratory issues: Cough, Coughing blood, Shortness of breath SR Skin issues: Skin rash or itching SR Gastrointestinal issues: Nausea SR Neuro issues: Numbness or tingling - Additional ROS All systems PM: reviewed and no additional remarkable complaints except as stated Home Medications and Allergies Home Medications Medication Instructions Recorded Confirmed Type [CALCIUM W/ VIT D] 500 mg PO BID #0 05/02/13 04/27/19 History cyanocobalamin (vitamin B-12) 1,000 mcg IM #0 05/02/13 04/27/19 History ascorbic acid (vitamin C) 1,000 mg PO QDAY #0 tab 05/06/16 04/27/19 History ferrous sulfate [Iron (ferrous 324 mg PO BID #0 05/06/16 04/27/19 History sulfate)] [stool softener] 2 tab PO BID #0 10/28/16 04/27/19 History Disabled Parking Permit ea #1 11/20/16 04/27/19 Rx nitroglycerin 0.4 mg sublingual 0.4 mg SUBLINGUAL PRN #25 tab 03/14/18 04/27/19 Rx tablet duloxetine 60 mg capsule,delayed 60 mg PO DAILY #90 cap 01/03/19 04/27/19 Rx release warfarin 1 mg tablet 1 mg PO SEE INSTRUCTIONS #200 tab 01/03/19 04/27/19 Rx atomoxetine 40 mg capsule 40 mg PO QDAY #90 tab 02/17/19 04/27/19 Rx levothyroxine 100 mcg tablet 100 mcg PO QAM #90 tab 02/17/19 04/27/19 Rx lisinopril 10 mg tablet 10 mg PO QDAY #90 tab 02/17/19 04/27/19 Rx pantoprazole 40 mg tablet,delayed 40 mg PO BID #180 tab 02/17/19 04/27/19 Rx release warfarin 5 mg tablet See Rx Instructions PO .COMPLEX 03/20/19 04/27/19 Rx #30 tab doxycycline hyclate 100 mg capsule 100 mg PO BID #20 cap 03/27/19 04/27/19 Rx mirabegron ER 25 mg 25 mg PO DAILY #90 tab 04/20/19 04/27/19 Rx tablet,extended release 24 hr spironolactone [Aldactone] 100 mg PO Q DAY 05/04/19 05/04/19 History Allergies Allergy/AdvReac Type Severity Reaction Status Date / Time codeine [CODEINE] Allergy Severe Rash Verified 04/27/19 13:39 morphine [MORPHINE] Allergy Severe Rash, Verified 04/27/19 13:39 Agitation diphenhydramine Allergy Mild AGITATION Verified 04/27/19 13:39 [DIPHENHYDRAMINE] Iodine and Iodide Containing Allergy Mild Verified 04/27/19 13:39 Produc [IODINE AND IODIDE CONTAINING PRODUC] latex [LATEX] Allergy Mild ITCHING, Verified 04/27/19 13:39 SWELLING..BANDAIDS Penicillins [PENICILLINS] Allergy Mild Verified 04/27/19 13:39 CRAB Allergy Mild Uncoded 04/27/19 13:39 Exam Vital signs: Vital Signs Temp Pulse Resp BP Pulse Ox 05/04/19 13:34 97.6 F 88 18 129/76 95 Intake and Output 05/03/19 05/04/19 05/04/19 23:59 07:59 15:59 Other: Weight 107 kg Patient Weight 05/04/19 23:59 Weight 107 kg Narrative: ECOG 1. I did not perform for physical examination today. Patient appears comfortable not in any acute respiratory distress. She is pleasant and cooperative. Results - Labs Laboratory Last Values WBC 9.4 X10^3/uL (4.5-11.0) 04/17/19 16:50 RBC 3.92 X10^6/uL (4.0-5.2) L 04/17/19 16:50 Hgb 12.2 g/dL (12.0-16.0) 04/17/19 16:50 Hct 37.0 % (36-46) 04/17/19 16:50 MCV 94.5 fL (80-100) 04/17/19 16:50 MCH 31.3 PG (26-34) 04/17/19 16:50 MCHC 33.1 % (30-36) 04/17/19 16:50 RDW 13.6 % (11.6-14.8) 04/17/19 16:50 Plt Count 278 X10^3/uL (150-400) 04/17/19 16:50 Neut % (Auto) 69.6 % (50-75) 04/17/19 16:50 Lymph % (Auto) 19.7 % (25-40) L 04/17/19 16:50 [place] % (Auto) 8.6 % (3-14) 04/17/19 16:50 Eos % (Auto) 1.6 % (2-4) L 04/17/19 16:50 Baso % (Auto) 0.5 % (0-2) 04/17/19 16:50 Neut # (Auto) 6500 /uL (6369-6793) 04/17/19 16:50 Lymph # (Auto) 1800 /uL (5758-6758) 04/17/19 16:50 [place] # (Auto) 800 /uL (0-900) 04/17/19 16:50 Eos # (Auto) 100 /uL (0-450) 04/17/19 16:50 Baso # (Auto) 0 /uL (0-100) 04/17/19 16:50 Sodium 142 mmol/L (137-145) 04/17/19 16:50 Potassium 4.5 mmol/L (3.4-5.1) 04/17/19 16:50 Chloride 105 mmol/L (98-107) 04/17/19 16:50 Carbon Dioxide 26 mmol/L (22-32) 04/17/19 16:50 BUN 23 mg/dL (7-17) H 04/17/19 16:50 Creatinine 1.20 mg/dL (0.52-1.04) H 04/17/19 16:50 Estimated GFR 43.7 mL/min (>60) L 04/17/19 16:50 BUN/Creatinine Ratio 19.2 (6-22) 04/17/19 16:50 Glucose 107 mg/dL (80-110) 04/17/19 16:50 Calcium 9.4 mg/dL (8.4-10.2) 04/17/19 16:50 Total Bilirubin 0.4 mg/dL (0.2-1.3) 04/17/19 16:50 AST 31 IU/L (14-36) 04/17/19 16:50 ALT 45 IU/L (9-52) 04/17/19 16:50 Alkaline Phosphatase 84 U/L (38-126) 04/17/19 16:50 Serum Total Protein 6.7 g/dL (6.1-8.1) 04/17/19 16:50 Total Protein 7.0 g/dL (6.3-8.2) 04/17/19 16:50 Albumin 3.4 g/dL (3.8-4.8) L 04/17/19 16:50 Globulin 3.0 g/dL (1.7-4.1) 04/17/19 16:50 Albumin/Globulin Ratio 1.3 (1.0-2.8) 04/17/19 16:50 Vabup-5-Tmuyfaqns 0.3 g/dL (0.2-0.3) 04/17/19 16:50 Nudup-7-Ruwpemkcy 1.1 g/dL (0.5-0.9) H 04/17/19 16:50 Uzni-3-Nbqqewhz 0.4 g/dL (0.4-0.6) 04/17/19 16:50 Crqu-5-Bhzeytaw 0.5 g/dL (0.2-0.5) 04/17/19 16:50 Gamma Globulins 1.0 g/dL (0.8-1.7) 04/17/19 16:50 Abnorm Protein Band 1 Not Reportable 04/17/19 16:50 Abnorm Protein Band 2 Not Reportable 04/17/19 16:50 Abn Gamma Band 3 Serum Not Reportable 04/17/19 16:50 PEP Comment See note 04/17/19 16:50 CHARLES & SPEP Interp See note 04/17/19 16:50 - Imaging Additional studies: Procedures Closure of skin and subcutaneous tissue of other sites (11/25/11) Esophagogastroduodenoscopy [EGD] with closed biopsy (04/20/13) Insertion of intraocular lens prosthesis at time of cataract extraction, one-stage (06/12/14) Phacoemulsification and aspiration of cataract (06/12/14) Release of carpal tunnel (05/31/14) Assessment and Plan (1) Anemia in chronic kidney disease 78 year old with anemia of CKD. She is complaining some skin itching which I believe probably is related to the chronic kidney disease. Today I explained to the patient about the laboratory tests results. During her previous visit, she was found to have slightly elevated calcium level, worsening serum creatinine level and elevated serum protein level. Therefore we obtained protein electrophoresis with immunofixation. Explained to the patient that there is no evidence of monoclonal protein present in the peripheral blood. Patient's CBC is within the normal range. I will continue current active surveillance. Plan: 1. RTC in 6 months, CBC, CMP.
--- NOTE | 2019-06-27 16:12 | PC.NURSE ---
FOR DR. MCKEON: Dr. Dominguez wishes Dr. Mckeon to call and consult with him re whether or not ok to take patient off warfarin for an epidural injection which the pain clinic is planning. Dr. Dominguez does not feel comfortable taking her off due to clotting risk. He requests a call back from Dr. Mckeon at [phone]. Message given by Megan of Dr. Dominguez office.
[2019-11-13 12:22] VITALS: BP 142/98; PULSE 71; RESP 20; TEMP 36.3; O2SAT 100
--- NOTE | 2019-11-13 12:41 | ONC.PN ---
PN -Subjective Interval history: Identification and Chief complaint 78-year-old female with anemia of chronic kidney disease and heterozygous Factor V Leiden Hematology History: 78-year-old female with prolonged history of anemia of chronic kidney disease at least dated back to 2007. She used to have erythropoietin injection, but later she has been off the treatment. Her hemoglobin and hematocrit level have been stable. The etiology of her chronic kidney disease has not been clear according to patient. She used to be followed by Dr. Mcgee every 6 months since 2008. Since 2013, erythropoietin injection has been stopped. It seems that she has a past history of lupus anticoagulant diagnosed in 2000 with a history of splenic infarct and had been managed on chronic warfarin use. In Dec 2010, Mirela was being considered for spinal surgery. Due to questionable history of blood clot and seroma after surgery in the past, Dr. Mcgee therefore decided to repeat hyercoagulatable work-up. Lupus anticoagulant was negative, DRVVT, anticardiolipin IgG, IgM and IgA were all negative, KAT negative, Factor V Leiden, prothrombin II gene mutation negative, antithrombin III activity normal, factor VIII activity normal and homocysteine level slightly elevated. Interim Events: She is having constant pain in the back and Dr. Guillaume at [facility] is planning to do injection of medications. She presents today for discussion if coumadin can be held for the procedure. - Patient Self-Reported Symptoms SR Constitution: Fatigue/Malaise SR ears, nose, mouth, throat issues: Ears ringing, Congestion SR respiratory issues: Shortness of breath, Difficulty breathing SR Skin issues: Skin rash or itching SR Gastrointestinal issues: Nausea SR Musculoskeletal issues: Cold hands or feet SR Neuro issues: Numbness or tingling - Additional ROS All systems PM: reviewed and no additional remarkable complaints except as stated Home Medications and Allergies Home Medications Medication Instructions Recorded Confirmed Type [CALCIUM W/ VIT D] 500 mg PO BID #0 05/02/13 10/27/19 History ascorbic acid (vitamin C) 1,000 mg PO QDAY #0 tab 05/06/16 10/27/19 History ferrous sulfate [Iron (ferrous 324 mg PO BID #0 05/06/16 10/27/19 History sulfate)] [stool softener] 2 tab PO BID #0 10/28/16 10/27/19 History Disabled Parking Permit ea #1 11/20/16 10/27/19 Rx nitroglycerin 0.4 mg sublingual 0.4 mg SUBLINGUAL PRN #25 tab 03/14/18 10/27/19 Rx tablet duloxetine 60 mg capsule,delayed 60 mg PO DAILY #90 cap 01/03/19 10/27/19 Rx release atomoxetine 40 mg capsule 40 mg PO QDAY #90 tab 02/17/19 10/27/19 Rx levothyroxine 100 mcg tablet 100 mcg PO QAM #90 tab 02/17/19 10/27/19 Rx lisinopril 10 mg tablet 10 mg PO QDAY #90 tab 02/17/19 10/27/19 Rx pantoprazole 40 mg tablet,delayed 40 mg PO BID #180 tab 02/17/19 10/27/19 Rx release mirabegron 25 mg tablet,extended 25 mg PO DAILY #90 tab 04/20/19 10/27/19 Rx release 24 hr spironolactone 100 mg tablet See Rx Instructions .ROUTE 08/01/19 10/27/19 Rx .COMPLEX #90 tablet cyanocobalamin (vitamin B-12) 1,000 mcg IM Q2W #0 ml 08/28/19 10/27/19 History 1,000 mcg/mL injection solution oxycodone 10 mg tablet 10 mg PO Q6H tab 08/28/19 10/27/19 History warfarin 5 mg tablet 7.5 mg PO .6DAYSWEEK tab 08/28/19 10/27/19 History warfarin 5 mg tablet See Rx Instructions PO .COMPLEX 08/28/19 10/27/19 History tab Allergies Allergy/AdvReac Type Severity Reaction Status Date / Time codeine [CODEINE] Allergy Severe Rash Verified 10/27/19 11:45 morphine [MORPHINE] Allergy Severe Rash, Verified 10/27/19 11:45 Agitation diphenhydramine Allergy Mild AGITATION Verified 10/27/19 11:45 [DIPHENHYDRAMINE] Iodine and Iodide Containing Allergy Mild Verified 10/27/19 11:45 Produc [IODINE AND IODIDE CONTAINING PRODUC] latex [LATEX] Allergy Mild ITCHING, Verified 10/27/19 11:45 SWELLING..BANDAIDS Penicillins [PENICILLINS] Allergy Mild Verified 10/27/19 11:45 CRAB Allergy Mild Uncoded 10/27/19 11:45 Exam Vital signs: Last Vital Signs Temp 97.4 F L 11/13/19 12:22 Pulse 71 11/13/19 12:22 Resp 20 11/13/19 12:22 BP 142/98 H 11/13/19 12:22 Pulse Ox 100 11/13/19 12:22 Narrative: ECOG 1 Gen: WDWN, NAD, morbid obese, cooperative HEENT: NCAT, EOMI, PERLLA, anicteric Neck: supple, no palpable thyromegaly, no palpable lymphadenopathy Chest: CTAB, no wheezes, appeared difficulty breathing due to obesity. Card: RRR, S1 and S normal, no MRG Abd: Soft, nontender, no papable organomegaly Ext: no pitting edema noted. Neuro: AOx3, nonfocal Results - Labs 10/27/2019: WBC 10.5, HGB 12, HCT 36.4, PLT 270 Na 142, K4.5, Cl 106, Bun 33, Cr 1.2, glucose 129, Ca 9.6, TB 0.4, AST 37, ALT 47. - Imaging Additional studies: Procedures Closure of skin and subcutaneous tissue of other sites (11/25/11) Esophagogastroduodenoscopy [EGD] with closed biopsy (04/20/13) Insertion of intraocular lens prosthesis at time of cataract extraction, one-stage (06/12/14) Phacoemulsification and aspiration of cataract (06/12/14) Release of carpal tunnel (05/31/14) Assessment and Plan (1) senior living current use of anticoagulant therapy Overview: I have reviewed the records in [facility]. It seems that the patient has been on chronic anticoagulation with coumadin since at least 2000 due to occurrence of splenic multiple infarcts and positive lupus coagulant. But in 12/2010, Dr. Mcgee repeat the hypercoagulable status work. The only positive findings is Factor V Leiden. APS was unlikely because repeat test was normal. The other positive finding was slightly elevated homocysteine level. Assessment: She has planned to have Dr. Guillaume to perform back injection for pain control, which has been scheduled early Nov 2019. Dr. Lizarraga is here to discuss if chronic coumadin can be held for the procedure. I think Mirela is at significant risk of developing VTE if coumdin is stopped completely. She is heterozygous for Factor V Leiden, she is obese, she has severe sleep apnea and her mobility seemed to be limited. All of these are risk factors for VTE. In order to proceed to back injection, I recommend bridging with lovenox during the procedures. Plan: Continue Coumadin for now, being followed by Dr. Max Dominguez. For bridging lovenox use, based on [facility] Anticoagulation guideline: Hold warfarin day -5 through day -1 pre procedure. Start LMWH 1 mg/kg q12h when INR < lower limit of range Hold evening dose of LMWH on day -1 Resume warfarin 12-24 hrs post-procedure at 1 to 1.5 times usual maintenance dose Resume LMWH 24 hrs post-procedure and continue until INR > lower limit of therapeutic range (2) Anemia in chronic kidney disease Overview: 78 year old with anemia of CKD. She used to use OTILIA, and now has been off since mid 2013. Assessment: H/H have been very stable. Plan: RTC in 6 months, CBC, CMP.
--- NOTE | 2020-04-08 08:42 | PC.NURSE ---
Medication Clearance sent to [facility] regarding Warfarin Rx, see scanning.
[2020-04-26 12:52] LABS: Add Manual Diff / Slide Review NO; Basophils Absolute Auto 0 /uL (0-100); Basophils Percent Auto 0.4 % (0-2); Eosinophils Absolute Auto 300 /uL (0-450); Eosinophils Percent Auto 3.3 % (2-4); Hematocrit 31.4 % (36-46); Hemoglobin 10.3 g/dL (12.0-16.0); Lymphocytes Absolute Auto 1300 /uL (1100-4500); Lymphocytes Percent Auto 12.3 % (25-40); Mean Corpuscular HGB Conc 32.8 % (30-36); Mean Corpuscular Hemoglobin 31.1 PG (26-34); Mean Corpuscular Volume 94.9 fL (80-100); Monocytes Absolute Auto 1000 /uL (0-900); Monocytes Percent Auto 9.8 % (3-14); Neutrophils Absolute Auto 7800 /uL (1500-7000); Neutrophils Percent Auto 74.2 % (50-75); Platelet Count 279 X10^3/uL (150-400); Red Blood Cell Count 3.31 X10^6/uL (4.0-5.2); Red Cell Distribution Width 14.1 % (11.6-14.8); White Blood Cell Count 10.5 X10^3/uL (4.5-11.0)
[2020-04-26 13:03] LABS: Alanine Aminotransferase 41 IU/L (<35); Albumin 3.6 g/dL (3.5-5.0); Alkaline Phosphatase 105 U/L (38-126); Aspartate Aminotransferase 35 IU/L (14-36); Bilirubin Total 0.5 mg/dL (0.2-1.3); Blood Urea Nitrogen 23 mg/dL (7-17); Calcium 9.5 mg/dL (8.4-10.2); Carbon Dioxide 22 mmol/L (22-32); Chloride 113 mmol/L (98-107); Estimated Glomerular Filt Rate 43.1 mL/min (>60); Globulin 3.7 g/dL (1.7-4.1); Glucose 108 mg/dL (80-110); HEMOLYSIS < 15 (0-50); Potassium 4.6 mmol/L (3.4-5.1); Sodium 142 mmol/L (137-145); Total Protein 7.3 g/dL (6.3-8.2)
--- NOTE | 2020-05-14 13:57 | ONC.SCHED ---
patient called call center saying that they are not feeling well and can't come in for their appt. call test center manager called us to let us know. patient said that they would call to reschedule.
== END ==
PROVIDERS: PCP Internal Medicine; Visit Provider Internal Medicine Hematology & Oncology
DX: N18.9 Chronic kidney disease, unspecified (principal); D63.1 Anemia in chronic kidney disease
CPT/HCPCS: 36415; 80053; 84155; 84165; 85025; 99213; 99214

== ENCOUNTER → 2020-07-08 16:29 | Outpatient (CLI) | payer MEDICARE, OTHER, SELFPAY ==
[2020-07-08 18:16] LABS: Prothrombin Time 92.1 SECONDS (10.1-12.7)
[2020-07-08 18:37] LABS: INR 8.1 (0.9-1.3)
== END ==
PROVIDERS: Family Provider Internal Medicine; PCP Internal Medicine; Referring Provider Internal Medicine; Visit Provider Internal Medicine
DX: D68.51 Activated protein C resistance (principal); Z79.01 Long term (current) use of anticoagulants
CPT/HCPCS: 36415; 85610

== ENCOUNTER → 2020-11-14 12:03 | Outpatient (CLI) | payer OTHER, SELFPAY ==
[2020-11-14 12:30] LABS: Add Manual Diff / Slide Review NO; Basophils Absolute Auto 100 /uL (0-100); Basophils Percent Auto 0.5 % (0-2); Eosinophils Absolute Auto 200 /uL (0-450); Eosinophils Percent Auto 1.3 % (2-4); Hematocrit 31.5 % (36-46); Hemoglobin 9.9 g/dL (12.0-16.0); Lymphocytes Absolute Auto 1200 /uL (1100-4500); Lymphocytes Percent Auto 10.4 % (25-40); Mean Corpuscular HGB Conc 31.5 % (30-36); Mean Corpuscular Volume 95.4 fL (80-100); Monocytes Absolute Auto 1100 /uL (0-900); Monocytes Percent Auto 9.2 % (3-14); Neutrophils Absolute Auto 9400 /uL (1500-7000); Neutrophils Percent Auto 78.6 % (50-75); Platelet Count 346 X10^3/uL (150-400); Red Blood Cell Count 3.31 X10^6/uL (4.0-5.2); Red Cell Distribution Width 13.5 % (11.6-14.8)
[2020-11-14 12:54] LABS: Alanine Aminotransferase 22 IU/L (<35); Alkaline Phosphatase 92 U/L (38-126); Aspartate Aminotransferase 24 IU/L (14-36); BUN Creatinine Ratio 21.9 (6-22); Bilirubin Total 0.3 mg/dL (0.2-1.3); Blood Urea Nitrogen 37 mg/dL (7-17); Calcium 9.8 mg/dL (8.4-10.2); Carbon Dioxide 20 mmol/L (22-32); Chloride 111 mmol/L (98-107); Estimated Glomerular Filt Rate 29.3 mL/min (>60); Glucose 99 mg/dL (80-110); HEMOLYSIS < 15 (0-50); Sodium 139 mmol/L (137-145)
[2020-11-14 13:07] LABS: Free T4, Direct Thyroxine 1.28 ng/dL (0.78-2.19)
[2020-11-14 13:20] LABS: Thyroid Stimulating Hormone 1.67 uIU/mL (0.47-4.68)
== END ==
PROVIDERS: Family Provider Internal Medicine; PCP Internal Medicine; Referring Provider Internal Medicine; Visit Provider Internal Medicine
DX: D68.51 Activated protein C resistance (principal); I10 Essential (primary) hypertension; G89.4 Chronic pain syndrome; J98.4 Other disorders of lung; N18.30 Chronic kidney disease, stage 3 unspecified
CPT/HCPCS: 36415; 80053; 84439; 84443; 85025

== ENCOUNTER → 2020-12-18 10:52 | Outpatient (CLI) | payer MEDICARE, SELFPAY ==
[2020-12-16 11:24] VITALS: PULSE 76
[2020-12-18] MEDS: COVID-19 VACC #1, MRNA(MOD) 100 MCG/0.5 ML VIAL IM (11:04)
== END ==
PROVIDERS: Family Provider Internal Medicine; PCP Internal Medicine; Visit Provider Internal Medicine
DX: Z23 Encounter for immunization (principal)
CPT/HCPCS: 0011A; 91301

== ENCOUNTER → 2021-01-15 10:54 | Outpatient (CLI) | payer MEDICARE, SELFPAY ==
[2020-12-16 11:24] VITALS: PULSE 76
[2020-12-23 11:23] VITALS: PULSE 71; PULSE 74; O2SAT 90
[2021-01-15] MEDS: COVID-19 VACC #2, MRNA(MOD) 100 MCG/0.5 ML VIAL IM (11:04)
== END ==
PROVIDERS: Family Provider Internal Medicine; PCP Internal Medicine; Visit Provider Internal Medicine
DX: Z23 Encounter for immunization (principal)
CPT/HCPCS: 0012A; 91301

== ENCOUNTER 2021-02-10 11:15 | Outpatient (RCR) | payer OTHER, SELFPAY ==
[2020-12-16 11:24] VITALS: BP 130/86; PULSE 76
--- NOTE | 2020-12-16 16:25 | PT.OIE ---
Current Diagnoses Pain in right shoulder (12/16/20) Stiffness of left hip, not elsewhere classified (12/16/20) Muscle weakness (generalized) (12/16/20) Pain in left leg (12/16/20) Other abnormalities of gait and mobility (12/16/20) Past Medical History (Last Reviewed 10/22/20 @ 13:00 by Hardeep Jorge MD) Anemia in chronic kidney disease (06/17/15) Arthralgia (09/10/14) Arthralgia of both knees (09/27/15) Attention deficit disorder with hyperactivity Body mass index (BMI) of 40.0 to 44.9 in adult (12/10/16) Chronic midline thoracic back pain (01/02/16) Chronic radicular lumbar pain (09/27/15) Essential hypertension Factor 5 Leiden mutation, heterozygous 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 (02/15/13) Morbid obesity with body mass index (BMI) of 40.0 to 44.9 in adult (09/27/15) VIRGEN (nonalcoholic steatohepatitis) Obstructive sleep apnea syndrome (04/17/11) Restrictive lung disease Spinal stenosis Unspecified asthma (04/17/11) Ventral incisional hernia Past Surgical History (Last Reviewed 10/22/20 @ 13:00 by Hardeep Jorge MD) History of bowel resection History of gynecologic surgery S/P total abdominal hysterectomy and bilateral salpingo-oophorectomy Status post appendectomy Status post tonsillectomy and adenoidectomy (1994) Visit Care Team Role Provider Type Max Dominguez MD Attending Provider Physician Family Provider Primary Care Provider Referring Provider Specialty: Internal Medicine Address: [address] [place] [address], [address], [facility] Email: [email or web address] Physical Therapy Initial Evaluation PT-OP-A Visit Information Start: 12/06/20 18:48 Freq: Status: Active Protocol: Document 12/16/20 11:24 LRN (Rec: 12/16/20 12:30 LRN [id number]) Out-Patient Physical Therapy Visit Information Visit Information Visit Type Initial Evaluation Visit Start Time 11:24 Visit Stop Time 12:24 Total Visit Minutes 60 Visit Number 1 Evaluation Information Evaluation Date 12/16/20 Precautions Precautions LATEX ALLERGY, general outdoor allergies, all body arthritis, controlled HBP, Polio as child, SOB, multiple foot surgeries (history unknown) PT-OP-B Current Condition Start: 12/06/20 18:48 Freq: Status: Active Protocol: Document 12/16/20 11:24 LRN (Rec: 12/16/20 12:30 LRN [id number]) Current Condition History of Current Condition Onset Date 03/23/2020 Current Complaints R shoulder hurts all the time and L lateral hip to foot. History of Current Condition Walking out a back door of son 's house and stumbled forward, landing on the R shoulder (pt is R handed) and layed on ground until ambulance came to take her to the hospital. Has had SOB for years. 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 Pt reports 5-10 surgeries that she can't remember what or where, but one on the feet. PMH: Prior Treatments and Tests X-rays (04/08/21) taken at ER of R shoulder showed osteochondral defect at the humeral head superior surface and multiple small intra- articular loose bodies. R Knee X-ray (03/23/20) showed no bony changes. Treatment Goals Patient/Caregiver Goals Take 1.5 hours to get ready to leave house. Walk from car to PT without pain. Prior Functional Status Baseline Function- ADL's Independent Baseline Function- Mobility Independent Baseline Function- Gait SOB with gait, no pain in LLE with gait. 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 Baseline Function- Other Took 1 hour to prepare to leave the house. Current Functional Impairments (Reported) Functional Limitations- ADL's ADLs take longer. Takes 2 hours to prepare to leave the house. Functional Limitations- Mobility/Gait Pain with LLE with walking most of the time (intermittent ). Functional Limitations- Recreation/ Puzzles, not limited. Hobbies Functional Limitations- Other Transfers, shifting around is painful. Personal Factors Other Personal Factors That May Effect Sedentary lifestyle (pt has Therapy/Recovery spouse to help), polio as child, reportedly unknown foot and other surgeries, SOB of unknown cause, multiple stairs in home. Records indicate hgt is 5'3, wgt is 104 kg, BMI is 40.6 (obese) PT-OP-C Subjective Start: 12/06/20 18:48 Freq: Status: Active Protocol: Document 12/16/20 11:24 LRN (Rec: 12/16/20 12:30 LRN [id number]) Patient Questionnaires Quick Dash- Upper Extremity Quick Dash UE Score 34.09 Quick Dash UE Impairment 20 to 39% Impaired (Score 20- 39) OP-PT Pain Assessment Pain Assessment Grid Paper Pain Assessment Grid Completed Yes Location R shoulder Pain Location Details Top & lateral side of R shoulder Intensity 9 Scale Used Numeric (0 - 10) Description Aching,Burning Frequency Intermittent Pain Alleviating Factors Cold,Heat,Medication Other Pain Alleviating Factors IBP L LE (hip to foot) Pain Location Details Lateral lower leg and anterior lower leg Intensity 9 Scale Used Numeric (0 - 10) Description- Other Variable pain 4-9 Frequency Constant Pain Aggravating Factors Walking,Stair Climbing Pain Alleviating Factors Cold,Heat,Medication Other Pain Alleviating Factors IBP PT-OP-H Neuro Start: 12/06/20 18:48 Freq: Status: Active Protocol: Document 12/16/20 11:24 LRN (Rec: 12/16/20 12:30 LRN [id number]) Vital Signs Pulse Sitting at rest Pulse at Rest (bpm) 76 Pulse Assessment Method Palpation Blood Pressure Sitting Blood Pressure (90/60-120/80 mmHg) 130/86 H Blood Pressure Source Manual Cuff,Left Upper Extremity PT-OP-J Posture/Palpation/Skin Start: 12/06/20 18:48 Freq: Status: Active Protocol: Document 12/16/20 11:24 LRN (Rec: 12/16/20 12:30 LRN [id number]) Posture Evaluation Position Standing T-Spine Posture Increased Kyphosis Shoulder Posture (R) Elevated Arm Posture (L) Internally Rotated,(R) Internally Rotated Pelvis Posture Anteriorly Tilted Weight Distribution Weight Shifted Right,Decreased Wt.Bear on (L) Palpation Assessment Location L LE Palpation Location Very tender lower leg anterior & posterior Palpation Findings Edema,Soft Tissue Tightness, Tenderness Palpation Details No pitting edema R shoulder Palpation Location Generally around shoulder joint & upper brachium Palpation Findings Tenderness Palpation Details Decreased posterior shoulder Skin Assessment Edema Assessment Right Leg Edema Type Non-Pitting Edema Degree 1+ Edema Appearance Discolored,Firm,Puffy,Taut Subjective Edema Description Pain,Tightness PT-OP-K Range of Motion Start: 12/06/20 18:48 Freq: Status: Active Protocol: Document 12/16/20 11:24 LRN (Rec: 12/16/20 12:30 LRN [id number]) Shoulder Goniometric Range of Motion Shoulder Right Active Shoulder ROM WFL No Testing Position Sitting Flexion 90 Abduction 85 External Rotation at 0 degrees Abduction 20 Internal Rotation Behind Back (text) Lateral trunk Comments Pt R handed. Left Active Shoulder ROM WFL Yes Testing Position Sitting Flexion 160 External Rotation at 0 degrees Abduction 35 Internal Rotation Behind Back (text) ~L1 Hip Goniometric Range of Motion Hip Left Passive Hip ROM WFL No Testing Position Supine Internal Rotation 20 External Rotation 20 Comments 11 deg's hip flex at rest Right Passive Hip ROM WFL Yes Testing Position Supine Internal Rotation 30 External Rotation 50 PT-OP-M Strength Start: 12/06/20 18:48 Freq: Status: Active Protocol: Document 12/16/20 11:24 LRN (Rec: 12/16/20 12:30 LRN [id number]) Shoulder Strength Shoulder Manual Muscle Testing Right Comments Generally 2/5 due to pain Left Comments Generally at least 3+/5 PT-OP-Q Treatments Start: 12/06/20 18:48 Freq: Status: Active Protocol: Document 12/16/20 11:24 LRN (Rec: 12/16/20 12:30 LRN [id number]) Self-Care/Home Management Treatment Education Other Education Discussed results of evaluation, goals and Plan of Care. Activities Self-Care/Home Management Activities I/S pt in HEP: Sitting shoulder ER/IR, shoulder rolls , Hip ER/IR. PT-OP-T Assessment and Plan Start: 12/06/20 18:48 Freq: Status: Active Protocol: Document 12/16/20 11:24 LRN (Rec: 12/16/20 12:30 LRN [id number]) Physical Therapy Assessment Rehab Potential Rehabilitation Potential Good Evaluation Complexity Number of Personal Factors/Comorbidities 3 or More Number of Body Systems Impaired 4 or More Clinical Presentation at Evaluation Evolving Impairments Impairments Activity Tolerance,Gait,Pain, Posture,ROM,Soft Tissue Mobility,Strength Other Concerns Age Related Concerns Sedentary nature. Barriers to Rehabilitation History of Polio as child. Goals Three Impairment Pain with gait Short Term Goal (STG) Improve R LE strength STG Duration 01/18/21 Group Home Goal (LTG) Walk from car to PT without pain. LTG Duration 03/16/21 Two Impairment 2 hrs prep time for leaving the house (used to take 1 hour ) Short Term Goal (STG) Improve R shoulder AROM. STG Duration 01/18/21 [employer] Goal (LTG) Pt will take 1.5 hours to get ready to leave house. LTG Duration 03/16/21 One Impairment Lacks appropriate self care HEP [employer] Goal (LTG) Pt will be independent in a self care HEP. LTG Duration 03/16/21 Assessment Summary Assessment Pt presents with poor tolerance to the evaluation of her R shoulder with muscle guarding and soft tissue dysfunction, limiting the ability to perform special tests and causing deferral on strength testing. Treatment to decrease her soft tissue pain will be needed first before assessing for possible RC or mechanical joint dysfunction. Her R hip is extremely limited in external and internal rotation ability and her R LE presents with soft tissue dysfunction and multiple trigger points down the lateral side of her leg. She is swollen in the lower leg and is painful to compression pressure. I had difficulty palpating a pedal pulse but she did demonstrate some return of color with pressure in the anterior lower leg. Pt skin coloration appeared the same on both legs with a mottled dark coloration. Pt should be assessed for circulatory restriction in the R lower leg . The pt needs her soft tissue dysfunction/pain addressed in order for her to tolerate further assessment of the R shoulder and L LE. The pt will benefit from skilled physical therapy to reduce her pain, improve her mobility and strength to return her to her prior level of function. Physical Therapy Plan Frequency and Duration Frequency of Treatment 2x/Week Plan of Care Start Date 12/16/20 Plan of Care End Date 03/16/21 Therapeutic Interventions Therapeutic Interventions Home Exercise Program,Joint Mobilizations,Manual Therapy, Neuromuscular Re-education, Patient/Caregiver Education, Self-Care/Home Management,Soft Tissue Mobilization,Taping, Therapeutic Exercises Modalities Cold Pack/Ice Massage,Electric Stimulation,Hot Packs, Ultrasound Other Referrals/Consults Referrals/Consults Recommended Recommend US of L lower leg due to decreased Pedal pulse. Next Visit Focus/Plan Next Note Type Treatment Note Next Visit Plan Review & issue HEP: R shoulder /L Hip AROM exercise. Assess for L LE circulatory dysfunction, STM to R shoulder f/b self care I/S for HEP of ROM exercise. MMT LE, and neuro assess for LE DTR's and general sensation UE/LE's. Try MH/IFES to sacrum for L lateral LE pain if pt able to tolerate positioning. Progress toward hip ROM ex's. Hold Lower leg ex's until circulation can be assessed ( try oximeter on toes for O2 sat reading if pulse not palpable). Special testing of R shoulder when pt is able to tolerate movement testing.
[2020-12-23 11:23] VITALS: PULSE 71; PULSE 74; O2SAT 90
--- NOTE | 2020-12-23 12:21 | PT.OTN ---
Current Diagnoses Pain in right shoulder (12/23/20) Stiffness of left hip, not elsewhere classified (12/23/20) Muscle weakness (generalized) (12/23/20) Pain in left leg (12/23/20) Other abnormalities of gait and mobility (12/23/20) Physical Therapy Treatment Note PT-OP-A Visit Information Start: 12/06/20 18:48 Freq: Status: Active Protocol: Document 12/23/20 11:23 LRN (Rec: 12/23/20 12:19 LRN [id number]) Out-Patient Physical Therapy Visit Information Visit Information Visit Type Treatment Note Visit Start Time 11:23 Visit Stop Time 12:10 Total Visit Minutes 47 Visit Number 2 Evaluation Information Evaluation Date 12/16/20 Precautions Precautions LATEX ALLERGY, general outdoor allergies, all body arthritis, controlled HBP, Polio as child, SOB, multiple foot surgeries (history unknown) PT-OP-B Current Condition Start: 12/06/20 18:48 Freq: Status: Active Protocol: Document 12/16/20 11:24 LRN (Rec: 12/16/20 12:30 LRN [id number]) Current Condition History of Current Condition Onset Date 03/23/2020 Current Complaints R shoulder hurts all the time and L lateral hip to foot. History of Current Condition Walking out a back door of son 's house and stumbled forward, landing on the R shoulder (pt is R handed) and layed on ground until ambulance came to take her to the hospital. Has had SOB for years. 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 Pt reports 5-10 surgeries that she can't remember what or where, but one on the feet. PMH: Prior Treatments and Tests X-rays (04/08/21) taken at ER of R shoulder showed osteochondral defect at the humeral head superior surface and multiple small intra- articular loose bodies. R Knee X-ray (03/23/20) showed no bony changes. Treatment Goals Patient/Caregiver Goals Take 1.5 hours to get ready to leave house. Walk from car to PT without pain. Prior Functional Status Baseline Function- ADL's Independent Baseline Function- Mobility Independent Baseline Function- Gait SOB with gait, no pain in LLE with gait. 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 Baseline Function- Other Took 1 hour to prepare to leave the house. Current Functional Impairments (Reported) Functional Limitations- ADL's ADLs take longer. Takes 2 hours to prepare to leave the house. Functional Limitations- Mobility/Gait Pain with LLE with walking most of the time (intermittent ). Functional Limitations- Recreation/ Puzzles, not limited. Hobbies Functional Limitations- Other Transfers, shifting around is painful. Personal Factors Other Personal Factors That May Effect Sedentary lifestyle (pt has Therapy/Recovery spouse to help), polio as child, reportedly unknown foot and other surgeries, SOB of unknown cause, multiple stairs in home. Records indicate hgt is 5'3, wgt is 104 kg, BMI is 40.6 (obese) PT-OP-C Subjective Start: 12/06/20 18:48 Freq: Status: Active Protocol: Document 12/23/20 11:23 LRN (Rec: 12/23/20 12:19 LRN [id number]) OP-PT Subjective Patient Comments Patient Comments States feels about the same. States she has 8 x 2 steps to go down to get out of house. PT-OP-H Neuro Start: 12/06/20 18:48 Freq: Status: Active Protocol: Document 12/23/20 11:23 LRN (Rec: 12/23/20 12:19 LRN [id number]) Sensation Evaluation Gross Sensation Gross Sensation WNL Vital Signs Pulse L big toe sup @ rest Pulse at Rest (bpm) 71 Pulse Assessment Method Pulse Ox/Monitor R big toe sup @ rest Pulse at Rest (bpm) 74 Pulse Assessment Method Pulse Ox/Monitor Oxygen Pulse Oximetry at Rest (%) (95-100 %) 90 L Comments Vital Signs Comments Pulse & SpO2 taken via pulse oximeter off big toes. PT-OP-J Posture/Palpation/Skin Start: 12/06/20 18:48 Freq: Status: Active Protocol: Document 12/16/20 11:24 LRN (Rec: 12/16/20 12:30 LRN [id number]) Posture Evaluation Position Standing T-Spine Posture Increased Kyphosis Shoulder Posture (R) Elevated Arm Posture (L) Internally Rotated,(R) Internally Rotated Pelvis Posture Anteriorly Tilted Weight Distribution Weight Shifted Right,Decreased Wt.Bear on (L) Palpation Assessment Location L LE Palpation Location Very tender lower leg anterior & posterior Palpation Findings Edema,Soft Tissue Tightness, Tenderness Palpation Details No pitting edema R shoulder Palpation Location Generally around shoulder joint & upper brachium Palpation Findings Tenderness Palpation Details Decreased posterior shoulder Skin Assessment Edema Assessment Right Leg Edema Type Non-Pitting Edema Degree 1+ Edema Appearance Discolored,Firm,Puffy,Taut Subjective Edema Description Pain,Tightness PT-OP-K Range of Motion Start: 12/06/20 18:48 Freq: Status: Active Protocol: Document 12/16/20 11:24 LRN (Rec: 12/16/20 12:30 LRN [id number]) Shoulder Goniometric Range of Motion Shoulder Right Active Shoulder ROM WFL No Testing Position Sitting Flexion 90 Abduction 85 External Rotation at 0 degrees Abduction 20 Internal Rotation Behind Back (text) Lateral trunk Comments Pt R handed. Left Active Shoulder ROM WFL Yes Testing Position Sitting Flexion 160 External Rotation at 0 degrees Abduction 35 Internal Rotation Behind Back (text) ~L1 Hip Goniometric Range of Motion Hip Left Passive Hip ROM WFL No Testing Position Supine Internal Rotation 20 External Rotation 20 Comments 11 deg's hip flex at rest Right Passive Hip ROM WFL Yes Testing Position Supine Internal Rotation 30 External Rotation 50 PT-OP-L Special Tests Start: 12/06/20 18:48 Freq: Status: Active Protocol: Document 12/23/20 11:23 LRN (Rec: 12/23/20 12:19 LRN [id number]) Special Tests Shoulder Special Tests IR/Horizontal ADD Impingement Test Results R shoulder: +test Comments Indicates possible RC dysfunction Elevation Impingement Test Results R shoulder: + test Comments Indicates possible RC dysfunction PT-OP-M Strength Start: 12/06/20 18:48 Freq: Status: Active Protocol: Document 12/16/20 11:24 LRN (Rec: 12/16/20 12:30 LRN [id number]) Shoulder Strength Shoulder Manual Muscle Testing Right Comments Generally 2/5 due to pain Left Comments Generally at least 3+/5 PT-OP-Q Treatments Start: 12/06/20 18:48 Freq: Status: Active Protocol: Document 12/23/20 11:23 LRN (Rec: 12/23/20 12:19 LRN [id number]) Therapeutic Exercises Supine Exercises Alternate arm lifts Supine Exercise Name Alternate arms lifts Side bilateral Reps/Minutes 15 x 2 Chest Press Supine Exercise Name Chest Press Side bilateral Reps/Minutes 15 x 2 Sitting Exercises Elbow Curls Sitting Exercise Name Elbow Curls Side bilateral Reps/Minutes 15x 2 Shoulder ER/IR Sitting Exercise Name Shoulder ER/IR with scapular retraction Reps/Minutes 15 x 2 Shoulder rolls Sitting Exercise Name Shoulder rolls (posterior) Side bilateral Reps/Minutes 30x Self-Care/Home Management Treatment Education Patient Education Home Exercise Program Activities Self-Care/Home Management Activities Issued & EXTRA time taken to review each HEP exercise: AROM strengthening: Shoulder ER/IR, Chest Press, Alternate Arm Lifts, Biceps Curls. PT-OP-T Assessment and Plan Start: 12/06/20 18:48 Freq: Status: Active Protocol: Document 12/23/20 11:23 LRN (Rec: 12/23/20 12:19 LRN [id number]) Physical Therapy Assessment Goals Three Impairment Pain with gait Short Term Goal (STG) Improve R LE strength STG Duration 01/18/21 Alf Goal (LTG) Walk from car to PT without pain. LTG Duration 03/16/21 Two Impairment 2 hrs prep time for leaving the house (used to take 1 hour ) Short Term Goal (STG) Improve R shoulder AROM. STG Duration 01/18/21 Alf Goal (LTG) Pt will take 1.5 hours to get ready to leave house. 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 HEP ISSUED TO DATE: AROM strengthening: Shoulder ER/IR, Chest Press, Alternate Arm Lifts, Biceps Curls. LTG Duration 03/16/21 (12/23/20: Progressed ) Progress Towards Goals Progress Comments Progressed HEP. Assessment Summary Assessment Pt demonstrates R shldr + impingement syndrome. Pt demonstrates good LE circulation bilaterally with normal pulse and SpO2 values. Pt becomes SOB with all activities. Good knowledge of her HEP. Extra time needed for resting between exercises due to SOB. Pt also needed extra time for review of HEP issued today. Physical Therapy Plan Frequency and Duration Frequency of Treatment 2x/Week Plan of Care Start Date 12/16/20 Plan of Care End Date 03/16/21 Next Visit Focus/Plan Next Note Type Treatment Note Next Visit Plan Review new HEP ex's issued. MMT LE, and neuro assess for LE DTR's and general sensation UE/LE's. STM to R shoulder f /b self care I/S for HEP of ROM exercise. Try MH/IFES to sacrum for L lateral LE pain if pt able to tolerate positioning. Progress toward hip ROM ex's. US to R shoulder for pain.
--- NOTE | 2020-12-31 09:48 | PT-OP ANOTE ---
Cancelled due to conflicting apps.
--- NOTE | 2021-01-02 14:07 | PT-OP ANOTE ---
Pt cancelled same day appt, needed to get into immergent follow up with specialist for orthopedic when had opening. Confirmed appt with PT.
--- NOTE | 2021-01-07 11:50 | PT-OP ANOTE ---
Pt cancelled due to washer broke.
--- NOTE | 2021-01-09 13:27 | PT-OP ANOTE ---
Pt canceled due to washing machine still broke. Msg left for pt to return call to discuss plan of care.
--- NOTE | 2021-01-13 17:09 | PT.OTN ---
Current Diagnoses Pain in right shoulder (01/13/21) Stiffness of left hip, not elsewhere classified (01/13/21) Muscle weakness (generalized) (01/13/21) Pain in left leg (01/13/21) Other abnormalities of gait and mobility (01/13/21) Physical Therapy Treatment Note PT-OP-A Visit Information Start: 12/06/20 18:48 Freq: Status: Active Protocol: Document 01/13/21 09:03 LRN (Rec: 01/13/21 09:46 LRN [id number]) Out-Patient Physical Therapy Visit Information Visit Information Visit Type Treatment Note Visit Start Time 09:03 Visit Stop Time 09:44 Total Visit Minutes 41 Visit Number 3 Evaluation Information Evaluation Date 12/16/20 Precautions Precautions LATEX ALLERGY, general outdoor allergies, all body arthritis, controlled HBP, Polio as child, SOB, multiple foot surgeries (history unknown) PT-OP-B Current Condition Start: 12/06/20 18:48 Freq: Status: Active Protocol: Document 12/16/20 11:24 LRN (Rec: 12/16/20 12:30 LRN [id number]) Current Condition History of Current Condition Onset Date 03/23/2020 Current Complaints R shoulder hurts all the time and L lateral hip to foot. History of Current Condition Walking out a back door of son 's house and stumbled forward, landing on the R shoulder (pt is R handed) and layed on ground until ambulance came to take her to the hospital. Has had SOB for years. 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 Pt reports 5-10 surgeries that she can't remember what or where, but one on the feet. PMH: Prior Treatments and Tests X-rays (04/08/21) taken at ER of R shoulder showed osteochondral defect at the humeral head superior surface and multiple small intra- articular loose bodies. R Knee X-ray (03/23/20) showed no bony changes. Treatment Goals Patient/Caregiver Goals Take 1.5 hours to get ready to leave house. Walk from car to PT without pain. Prior Functional Status Baseline Function- ADL's Independent Baseline Function- Mobility Independent Baseline Function- Gait SOB with gait, no pain in LLE with gait. 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 Baseline Function- Other Took 1 hour to prepare to leave the house. Current Functional Impairments (Reported) Functional Limitations- ADL's ADLs take longer. Takes 2 hours to prepare to leave the house. Functional Limitations- Mobility/Gait Pain with LLE with walking most of the time (intermittent ). Functional Limitations- Recreation/ Puzzles, not limited. Hobbies Functional Limitations- Other Transfers, shifting around is painful. Personal Factors Other Personal Factors That May Effect Sedentary lifestyle (pt has Therapy/Recovery spouse to help), polio as child, reportedly unknown foot and other surgeries, SOB of unknown cause, multiple stairs in home. Records indicate hgt is 5'3, wgt is 104 kg, BMI is 40.6 (obese) PT-OP-C Subjective Start: 12/06/20 18:48 Freq: Status: Active Protocol: Document 01/13/21 09:03 LRN (Rec: 01/13/21 09:46 LRN [id number]) OP-PT Subjective Patient Comments Patient Comments States she would like to stop due to financial strain and difficulty getting to therap, but would like to try 1x/week to see if she can afford it. Has done the ex's given for HEP. PT-OP-H Neuro Start: 12/06/20 18:48 Freq: Status: Active Protocol: Document 12/23/20 11:23 LRN (Rec: 12/23/20 12:19 LRN [id number]) Sensation Evaluation Gross Sensation Gross Sensation WNL Vital Signs Pulse L big toe sup @ rest Pulse at Rest (bpm) 71 Pulse Assessment Method Pulse Ox/Monitor R big toe sup @ rest Pulse at Rest (bpm) 74 Pulse Assessment Method Pulse Ox/Monitor Oxygen Pulse Oximetry at Rest (%) (95-100 %) 90 L Comments Vital Signs Comments Pulse & SpO2 taken via pulse oximeter off big toes. PT-OP-J Posture/Palpation/Skin Start: 12/06/20 18:48 Freq: Status: Active Protocol: Document 12/16/20 11:24 LRN (Rec: 12/16/20 12:30 LRN [id number]) Posture Evaluation Position Standing T-Spine Posture Increased Kyphosis Shoulder Posture (R) Elevated Arm Posture (L) Internally Rotated,(R) Internally Rotated Pelvis Posture Anteriorly Tilted Weight Distribution Weight Shifted Right,Decreased Wt.Bear on (L) Palpation Assessment Location L LE Palpation Location Very tender lower leg anterior & posterior Palpation Findings Edema,Soft Tissue Tightness, Tenderness Palpation Details No pitting edema R shoulder Palpation Location Generally around shoulder joint & upper brachium Palpation Findings Tenderness Palpation Details Decreased posterior shoulder Skin Assessment Edema Assessment Right Leg Edema Type Non-Pitting Edema Degree 1+ Edema Appearance Discolored,Firm,Puffy,Taut Subjective Edema Description Pain,Tightness PT-OP-K Range of Motion Start: 12/06/20 18:48 Freq: Status: Active Protocol: Document 12/16/20 11:24 LRN (Rec: 12/16/20 12:30 LRN [id number]) Shoulder Goniometric Range of Motion Shoulder Right Active Shoulder ROM WFL No Testing Position Sitting Flexion 90 Abduction 85 External Rotation at 0 degrees Abduction 20 Internal Rotation Behind Back (text) Lateral trunk Comments Pt R handed. Left Active Shoulder ROM WFL Yes Testing Position Sitting Flexion 160 External Rotation at 0 degrees Abduction 35 Internal Rotation Behind Back (text) ~L1 Hip Goniometric Range of Motion Hip Left Passive Hip ROM WFL No Testing Position Supine Internal Rotation 20 External Rotation 20 Comments 11 deg's hip flex at rest Right Passive Hip ROM WFL Yes Testing Position Supine Internal Rotation 30 External Rotation 50 PT-OP-L Special Tests Start: 12/06/20 18:48 Freq: Status: Active Protocol: Document 12/23/20 11:23 LRN (Rec: 12/23/20 12:19 LRN [id number]) Special Tests Shoulder Special Tests IR/Horizontal ADD Impingement Test Results R shoulder: +test Comments Indicates possible RC dysfunction Elevation Impingement Test Results R shoulder: + test Comments Indicates possible RC dysfunction PT-OP-M Strength Start: 12/06/20 18:48 Freq: Status: Active Protocol: Document 12/16/20 11:24 LRN (Rec: 12/16/20 12:30 LRN [id number]) Shoulder Strength Shoulder Manual Muscle Testing Right Comments Generally 2/5 due to pain Left Comments Generally at least 3+/5 PT-OP-Q Treatments Start: 12/06/20 18:48 Freq: Status: Active Protocol: Document 01/13/21 09:03 LRN (Rec: 01/13/21 09:46 LRN [id number]) Therapeutic Exercises Supine Exercises Heel slides Supine Exercise Name Heel slides Side right Glut squeeze Supine Exercise Name Glut squeeze Side bilateral Reps/Minutes 8x Comments Pt unable to do a bridge SLR Supine Exercise Name SLR Side bilateral Reps/Minutes 5x Shoulder ER/IR Supine Exercise Name Active shoulder IR/ER rotation Side bilateral Reps/Minutes 15x Alternate arm lifts Supine Exercise Name Alternate arms lifts Side bilateral Reps/Minutes 15 x 2 Chest Press Supine Exercise Name Chest Press Side bilateral Reps/Minutes 15 x 2 Sidelying Exercises Hip ADD Sidelying Exercise Name Hip ADD Side bilateral Clamshell Sidelying Exercise Name Clamshell Side bilateral Reps/Minutes 5x Hip AB Sidelying Exercise Name Hip AB Side right Reps/Minutes 5x Sitting Exercises Elbow Curls Sitting Exercise Name Elbow Curls Side bilateral Reps/Minutes 15x 2 Shoulder ER/IR Sitting Exercise Name Shoulder ER/IR with scapular retraction Equipment Used Lev 1 TB Reps/Minutes 10x 3 Shoulder rolls Sitting Exercise Name Shoulder rolls (posterior) Side bilateral Reps/Minutes 30x Self-Care/Home Management Treatment Education Patient Education Home Exercise Program Activities Self-Care/Home Management Activities Issued & reviewed HEP: Hip strengthening: SLR, Hip AB/AD , Clamshell, heel slides. Shoulder AROM: ER/IR in supine and sidelie. Issued Lev 1 TB for shoulder ER/IR strengthening. PT-OP-T Assessment and Plan Start: 12/06/20 18:48 Freq: Status: Active Protocol: Document 01/13/21 09:03 LRN (Rec: 01/13/21 09:46 LRN [id number]) Physical Therapy Assessment Goals Three Impairment Pain with gait Short Term Goal (STG) Improve R LE strength. (01/13/21: Issued HEP of LE strengthening). STG Duration 01/18/21 Fpc Goal (LTG) Walk from car to PT without pain. (11/15/20: No change, but the pain comes and goes) LTG Duration 03/16/21 Two Impairment 2 hrs prep time for leaving the house (used to take 1 hour ) Short Term Goal (STG) Improve R shoulder AROM. STG Duration 01/18/21 Fpc Goal (LTG) Pt will take 1.5 hours to get ready to leave house. LTG Duration 03/16/21 One Impairment Lacks appropriate self care HEP Fpc Goal (LTG) Pt will be independent in a self care HEP. HEP ISSUED TO DATE: AROM strengthening: Shoulder ER/IR, Chest Press, Alternate Arm Lifts, Biceps Curls, SLR, heel slides, GS>bridge, hip AB /AD, clamshell. LTG Duration 03/16/21 (01/13/21: Progressed) Progress Towards Goals Progress Comments Progressed HEP. Assessment Summary Assessment Decrease in frequency of treatments due to pt financial constraints. Pt endurance is very poor with SOB walking from waiting room to treatment room. Her pain complaints are the same, but the pt has reported doing the exercises. Pt appears enthusiastic in continuing therapy for her R shoulder impingement and sciatic pain, even though exercises are difficult. Physical Therapy Plan Frequency and Duration Frequency of Treatment 1x/Week Plan of Care Start Date 12/16/20 Plan of Care End Date 03/16/21 Next Visit Focus/Plan Next Note Type Treatment Note Next Visit Plan NOTE: Pt with LATEX allergy. Review new HEP ex's issued. MMT LE, and neuro assess for LE DTR's and general sensation UE/LE's. STM to R shoulder f /b self care I/S for HEP of ROM exercise. Try MH/IFES to sacrum for L lateral LE pain if pt able to tolerate positioning. Progress toward hip ROM ex's. US to R shoulder for pain.
[2021-01-23 12:46] VITALS: BP 130/64; BP 150/70; PULSE 88; PULSE 90
--- NOTE | 2021-01-24 17:04 | PT.OTN ---
Current Diagnoses Pain in right shoulder (01/23/21) Stiffness of left hip, not elsewhere classified (01/23/21) Muscle weakness (generalized) (01/23/21) Pain in left leg (01/23/21) Other abnormalities of gait and mobility (01/23/21) Physical Therapy Treatment Note PT-OP-A Visit Information Start: 12/06/20 18:48 Freq: Status: Active Protocol: Document 01/23/21 12:46 LRN (Rec: 01/23/21 13:32 LRN [id number]) Out-Patient Physical Therapy Visit Information Visit Information Visit Type Treatment Note Visit Start Time 12:46 Visit Stop Time 13:32 Total Visit Minutes 46 Visit Number 4 Evaluation Information Evaluation Date 12/16/20 Precautions Precautions LATEX ALLERGY, general outdoor allergies, all body arthritis, controlled HBP, Polio as child, SOB, multiple foot surgeries (history unknown) PT-OP-B Current Condition Start: 12/06/20 18:48 Freq: Status: Active Protocol: Document 12/16/20 11:24 LRN (Rec: 12/16/20 12:30 LRN [id number]) Current Condition History of Current Condition Onset Date 03/23/2020 Current Complaints R shoulder hurts all the time and L lateral hip to foot. History of Current Condition Walking out a back door of son 's house and stumbled forward, landing on the R shoulder (pt is R handed) and layed on ground until ambulance came to take her to the hospital. Has had SOB for years. 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 Pt reports 5-10 surgeries that she can't remember what or where, but one on the feet. PMH: Prior Treatments and Tests X-rays (04/08/21) taken at ER of R shoulder showed osteochondral defect at the humeral head superior surface and multiple small intra- articular loose bodies. R Knee X-ray (03/23/20) showed no bony changes. Treatment Goals Patient/Caregiver Goals Take 1.5 hours to get ready to leave house. Walk from car to PT without pain. Prior Functional Status Baseline Function- ADL's Independent Baseline Function- Mobility Independent Baseline Function- Gait SOB with gait, no pain in LLE with gait. 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 Baseline Function- Other Took 1 hour to prepare to leave the house. Current Functional Impairments (Reported) Functional Limitations- ADL's ADLs take longer. Takes 2 hours to prepare to leave the house. Functional Limitations- Mobility/Gait Pain with LLE with walking most of the time (intermittent ). Functional Limitations- Recreation/ Puzzles, not limited. Hobbies Functional Limitations- Other Transfers, shifting around is painful. Personal Factors Other Personal Factors That May Effect Sedentary lifestyle (pt has Therapy/Recovery spouse to help), polio as child, reportedly unknown foot and other surgeries, SOB of unknown cause, multiple stairs in home. Records indicate hgt is 5'3, wgt is 104 kg, BMI is 40.6 (obese) PT-OP-C Subjective Start: 12/06/20 18:48 Freq: Status: Active Protocol: Document 01/23/21 12:46 LRN (Rec: 01/23/21 13:32 LRN [id number]) OP-PT Subjective Patient Comments Patient Comments States she is all over the place, very short of breath. PT-OP-H Neuro Start: 12/06/20 18:48 Freq: Status: Active Protocol: Document 01/23/21 12:46 LRN (Rec: 01/23/21 13:32 LRN [id number]) Sensation Evaluation Gross Sensation Gross Sensation WNL Deep Tendon Reflex & Clonus Assessment Deep Tendon Reflex Bilateral Achilles Deep Tendon Reflex 2+ Normal Bilateral Patellar Deep Tendon Reflex 1+ Diminished Vital Signs Pulse Exercise Pulse at Rest (bpm) 90 Walking into treatment rool Pulse at Rest (bpm) 88 Blood Pressure Exercise Blood Pressure (90/60-120/80 mmHg) 150/70 H At Rest Blood Pressure (90/60-120/80 mmHg) 130/64 H Blood Pressure Source Manual Cuff,Left Upper Extremity Comments Vital Signs Comments Pulse & BP (at rest) taken in sitting. PT-OP-J Posture/Palpation/Skin Start: 12/06/20 18:48 Freq: Status: Active Protocol: Document 12/16/20 11:24 LRN (Rec: 12/16/20 12:30 LRN [id number]) Posture Evaluation Position Standing T-Spine Posture Increased Kyphosis Shoulder Posture (R) Elevated Arm Posture (L) Internally Rotated,(R) Internally Rotated Pelvis Posture Anteriorly Tilted Weight Distribution Weight Shifted Right,Decreased Wt.Bear on (L) Palpation Assessment Location L LE Palpation Location Very tender lower leg anterior & posterior Palpation Findings Edema,Soft Tissue Tightness, Tenderness Palpation Details No pitting edema R shoulder Palpation Location Generally around shoulder joint & upper brachium Palpation Findings Tenderness Palpation Details Decreased posterior shoulder Skin Assessment Edema Assessment Right Leg Edema Type Non-Pitting Edema Degree 1+ Edema Appearance Discolored,Firm,Puffy,Taut Subjective Edema Description Pain,Tightness PT-OP-K Range of Motion Start: 12/06/20 18:48 Freq: Status: Active Protocol: Document 12/16/20 11:24 LRN (Rec: 12/16/20 12:30 LRN [id number]) Shoulder Goniometric Range of Motion Shoulder Right Active Shoulder ROM WFL No Testing Position Sitting Flexion 90 Abduction 85 External Rotation at 0 degrees Abduction 20 Internal Rotation Behind Back (text) Lateral trunk Comments Pt R handed. Left Active Shoulder ROM WFL Yes Testing Position Sitting Flexion 160 External Rotation at 0 degrees Abduction 35 Internal Rotation Behind Back (text) ~L1 Hip Goniometric Range of Motion Hip Left Passive Hip ROM WFL No Testing Position Supine Internal Rotation 20 External Rotation 20 Comments 11 deg's hip flex at rest Right Passive Hip ROM WFL Yes Testing Position Supine Internal Rotation 30 External Rotation 50 PT-OP-L Special Tests Start: 12/06/20 18:48 Freq: Status: Active Protocol: Document 12/23/20 11:23 LRN (Rec: 12/23/20 12:19 LRN [id number]) Special Tests Shoulder Special Tests IR/Horizontal ADD Impingement Test Results R shoulder: +test Comments Indicates possible RC dysfunction Elevation Impingement Test Results R shoulder: + test Comments Indicates possible RC dysfunction PT-OP-M Strength Start: 12/06/20 18:48 Freq: Status: Active Protocol: Document 12/16/20 11:24 LRN (Rec: 12/16/20 12:30 LRN [id number]) Shoulder Strength Shoulder Manual Muscle Testing Right Comments Generally 2/5 due to pain Left Comments Generally at least 3+/5 PT-OP-Q Treatments Start: 12/06/20 18:48 Freq: Status: Active Protocol: Document 01/23/21 12:46 LRN (Rec: 01/23/21 13:32 LRN [id number]) Therapeutic Exercises Sitting Exercises 8 rep max elbow curl Sitting Exercise Name 8 rep max for elbow flexion Side bilateral Resistance 3# Elbow Curls Sitting Exercise Name Elbow Curls Side bilateral Equipment Used 5#, 4#, 3# Reps/Minutes 1x, 4x, 10x Comments 4# 4 reps, 3# 10 reps. Monitoring SOB through ex with many rests needed. Shoulder ER/IR Sitting Exercise Name Shoulder ER/IR with scapular retraction Side bilateral Equipment Used No TB & Lev 1 TB Reps/Minutes 10x 3 Comments V. & phys cuing to keep elbow at 90 deg's flex, monitoring SOB w/many rests Shoulder rolls Sitting Exercise Name Shoulder rolls (posterior) Side bilateral Reps/Minutes 30x Comments Monitoring SOB through ex with 1 rest needed. Self-Care/Home Management Treatment Education Patient Education Home Exercise Program Activities Self-Care/Home Management Activities I/S pt to return previoiusly issued T-Band for a non-latex T-Band, but pt felt she might be okay and will return if she finds it irritating to the skin. Issued & reviewed HEP: Shoulder TB strengthening ex's for ER, row, and elbow curls PT-OP-T Assessment and Plan Start: 12/06/20 18:48 Freq: Status: Active Protocol: Document 01/23/21 12:46 LRN (Rec: 01/23/21 13:32 LRN [id number]) Physical Therapy Assessment Goals Three Impairment Pain with gait Short Term Goal (STG) Improve R LE strength. (01/13/21: Issued HEP of LE strengthening). STG Duration 01/18/21 Flight Inspector Goal (LTG) Walk from car to PT without pain. (11/15/20: No change, but the pain comes and goes) LTG Duration 03/16/21 Two Impairment 2 hrs prep time for leaving the house (used to take 1 hour ) Short Term Goal (STG) Improve R shoulder AROM. STG Duration 01/18/21 Correction Goal (LTG) Pt will take 1.5 hours to get ready to leave house. LTG Duration 03/16/21 One Impairment Lacks appropriate self care HEP Correction Goal (LTG) Pt will be independent in a self care HEP. HEP ISSUED TO DATE: AROM strengthening: Shoulder ER/IR, Chest Press, Alternate Arm Lifts, Biceps Curls, SLR, heel slides, GS>bridge, hip AB /AD, clamshell. LTG Duration 03/16/21 (01/13/21: Progressed) Progress Towards Goals Progress Comments Progressed HEP. Assessment Summary Assessment Poor tolerance to exercise and walking into the treatment room for the waiting room with the pt becoming short of breath and needing rest once in treatment room prior to exercise and numerous times throughout the treatment. BP/ HR taken showed pt at max limit of exercise during her bouts of exercise; therefore extra time was needed to take vital with each exercise to give pt time to decrease shortness of breath. Pt didn' t appear in distress, only SOB ; therefore she appears extremely deconditioned. Pt' s LE's sensation and DTR's are symmetrical; therefore no indication of lumbar involvement of LE pain. Physical Therapy Plan Frequency and Duration Frequency of Treatment 1x/Week Plan of Care Start Date 12/16/20 Plan of Care End Date 03/16/21 Next Visit Focus/Plan Next Note Type Treatment Note Next Visit Plan NOTE: LATEX allergy. Review new shouler strengthening HEP ex's issued. MMT LE's. STM to R shoulder f/b self care I/ S for HEP of ROM exercise. Try Iliopsoas STM and/or MH/ IFES to sacrum for L lateral LE pain (sciatic pain) if pt able to tolerate positioning. Progress toward hip ROM ex's. US to R shoulder for pain.
--- NOTE | 2021-01-27 14:04 | PT.OTN ---
Current Diagnoses Pain in right shoulder (01/27/21) Stiffness of left hip, not elsewhere classified (01/27/21) Muscle weakness (generalized) (01/27/21) Pain in left leg (01/27/21) Other abnormalities of gait and mobility (01/27/21) Physical Therapy Treatment Note PT-OP-A Visit Information Start: 12/06/20 18:48 Freq: Status: Active Protocol: Document 01/27/21 11:21 LRN (Rec: 01/27/21 12:32 LRN [id number]) Out-Patient Physical Therapy Visit Information Visit Information Visit Type Treatment Note Visit Start Time 11:21 Visit Stop Time 12:16 Total Visit Minutes 55 Visit Number 5 Evaluation Information Evaluation Date 12/16/20 Precautions Precautions LATEX ALLERGY, general outdoor allergies, all body arthritis, controlled HBP, Polio as child, SOB, multiple foot surgeries (history unknown) PT-OP-B Current Condition Start: 12/06/20 18:48 Freq: Status: Active Protocol: Document 12/16/20 11:24 LRN (Rec: 12/16/20 12:30 LRN [id number]) Current Condition History of Current Condition Onset Date 03/23/2020 Current Complaints R shoulder hurts all the time and L lateral hip to foot. History of Current Condition Walking out a back door of son 's house and stumbled forward, landing on the R shoulder (pt is R handed) and layed on ground until ambulance came to take her to the hospital. Has had SOB for years. 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 Pt reports 5-10 surgeries that she can't remember what or where, but one on the feet. PMH: Prior Treatments and Tests X-rays (04/08/21) taken at ER of R shoulder showed osteochondral defect at the humeral head superior surface and multiple small intra- articular loose bodies. R Knee X-ray (03/23/20) showed no bony changes. Treatment Goals Patient/Caregiver Goals Take 1.5 hours to get ready to leave house. Walk from car to PT without pain. Prior Functional Status Baseline Function- ADL's Independent Baseline Function- Mobility Independent Baseline Function- Gait SOB with gait, no pain in LLE with gait. 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 Baseline Function- Other Took 1 hour to prepare to leave the house. Current Functional Impairments (Reported) Functional Limitations- ADL's ADLs take longer. Takes 2 hours to prepare to leave the house. Functional Limitations- Mobility/Gait Pain with LLE with walking most of the time (intermittent ). Functional Limitations- Recreation/ Puzzles, not limited. Hobbies Functional Limitations- Other Transfers, shifting around is painful. Personal Factors Other Personal Factors That May Effect Sedentary lifestyle (pt has Therapy/Recovery spouse to help), polio as child, reportedly unknown foot and other surgeries, SOB of unknown cause, multiple stairs in home. Records indicate hgt is 5'3, wgt is 104 kg, BMI is 40.6 (obese) PT-OP-C Subjective Start: 12/06/20 18:48 Freq: Status: Active Protocol: Document 01/27/21 11:21 LRN (Rec: 01/27/21 12:32 LRN [id number]) OP-PT Subjective Patient Comments Patient Comments States her legs are bothering her today and she is quite short of breath. Patient Questionnaires Lower Extremity Functional Scale LEFS Score 41 LEFS Impairment 40 to 59% Impaired (Score 32- 47) Quick Dash- Upper Extremity Quick Dash UE Score 38.63 Quick Dash UE Impairment 20 to 39% Impaired (Score 20- 39) PT-OP-H Neuro Start: 12/06/20 18:48 Freq: Status: Active Protocol: Document 01/23/21 12:46 LRN (Rec: 01/23/21 13:32 LRN [id number]) Sensation Evaluation Gross Sensation Gross Sensation WNL Deep Tendon Reflex & Clonus Assessment Deep Tendon Reflex Bilateral Achilles Deep Tendon Reflex 2+ Normal Bilateral Patellar Deep Tendon Reflex 1+ Diminished Vital Signs Pulse Exercise Pulse at Rest (bpm) 90 Walking into treatment rool Pulse at Rest (bpm) 88 Blood Pressure Exercise Blood Pressure (90/60-120/80 mmHg) 150/70 H At Rest Blood Pressure (90/60-120/80 mmHg) 130/64 H Blood Pressure Source Manual Cuff,Left Upper Extremity Comments Vital Signs Comments Pulse & BP (at rest) taken in sitting. PT-OP-J Posture/Palpation/Skin Start: 12/06/20 18:48 Freq: Status: Active Protocol: Document 12/16/20 11:24 LRN (Rec: 12/16/20 12:30 LRN [id number]) Posture Evaluation Position Standing T-Spine Posture Increased Kyphosis Shoulder Posture (R) Elevated Arm Posture (L) Internally Rotated,(R) Internally Rotated Pelvis Posture Anteriorly Tilted Weight Distribution Weight Shifted Right,Decreased Wt.Bear on (L) Palpation Assessment Location L LE Palpation Location Very tender lower leg anterior & posterior Palpation Findings Edema,Soft Tissue Tightness, Tenderness Palpation Details No pitting edema R shoulder Palpation Location Generally around shoulder joint & upper brachium Palpation Findings Tenderness Palpation Details Decreased posterior shoulder Skin Assessment Edema Assessment Right Leg Edema Type Non-Pitting Edema Degree 1+ Edema Appearance Discolored,Firm,Puffy,Taut Subjective Edema Description Pain,Tightness PT-OP-K Range of Motion Start: 12/06/20 18:48 Freq: Status: Active Protocol: Document 01/27/21 11:21 LRN (Rec: 01/27/21 12:32 LRN [id number]) Shoulder Goniometric Range of Motion Shoulder Right Active Shoulder ROM WFL No Testing Position Sitting Flexion 110 Abduction 110 External Rotation at 0 degrees Abduction 32 Internal Rotation Behind Back (text) Lateral trunk Left Active Shoulder ROM WFL Yes Testing Position Sitting Flexion 160 External Rotation at 0 degrees Abduction 35 Internal Rotation Behind Back (text) ~L1 PT-OP-L Special Tests Start: 12/06/20 18:48 Freq: Status: Active Protocol: Document 12/23/20 11:23 LRN (Rec: 12/23/20 12:19 LRN [id number]) Special Tests Shoulder Special Tests IR/Horizontal ADD Impingement Test Results R shoulder: +test Comments Indicates possible RC dysfunction Elevation Impingement Test Results R shoulder: + test Comments Indicates possible RC dysfunction PT-OP-M Strength Start: 12/06/20 18:48 Freq: Status: Active Protocol: Document 01/27/21 11:21 LRN (Rec: 01/27/21 12:32 LRN [id number]) Shoulder Strength Shoulder Manual Muscle Testing Right Flexion 2+ Poor+ Abduction (C5) 2 Poor External Rotation 2 Poor Left Comments Generally 3+/5 Hip Strength Hip Manual Muscle Testing Left Flexion (L2) 5 Normal Extension (S1) 2 Poor Abduction 2 Poor Adduction 5 Normal External Rotation 5 Normal Internal Rotation 5 Normal PT-OP-Q Treatments Start: 12/06/20 18:48 Freq: Status: Active Protocol: Document 01/27/21 11:21 LRN (Rec: 01/27/21 12:32 LRN [id number]) Therapeutic Exercises Supine Exercises Hip AB/AD Supine Exercise Name Hip AB/AD Side left Reps/Minutes 2' Comments MMT taken Bridge Supine Exercise Name Bridge Side left Reps/Minutes 3' Comments Extra time for positioning & MMT taken SLR Supine Exercise Name SLR Side left Reps/Minutes 3' Comments Extra time for positioning & MMT taken Sitting Exercises Shoulder AROM Sitting Exercise Name Flex & AB & ER Side right Reps/Minutes 2 reps each. Comments ROM taken. Pt experiencing pain with lowering of R arm. Sit to Stand Sitting Exercise Name Sit to stand Reps/Minutes 5x Comments With short rest between reps. 8 rep max elbow curl Sitting Exercise Name 8 rep max for elbow flexion Side bilateral Resistance 4# Elbow Curls Sitting Exercise Name Elbow Curls Side bilateral Equipment Used 4#, 3# Reps/Minutes 10x 2 each Comments SOB w/rests needed Shoulder ER/IR Sitting Exercise Name Shoulder ER/IR with scapular retraction Side bilateral Equipment Used No TB & Lev 1 TB Reps/Minutes 10x 3 Comments V. & phys cuing to keep elbow at 90 deg's flex, monitoring SOB w/many rests Shoulder rolls Sitting Exercise Name Shoulder rolls (posterior) Side bilateral Reps/Minutes 30x Comments Pain in R shoulder Standing Exercises Hip AB Standing Exercise Name Hip AB Side bilateral Reps/Minutes 10x each Comments Pt required rests due to SOB with ex Hip Ext Standing Exercise Name Hip Ext Side bilateral Reps/Minutes 10x each Comments Pt required rests due to SOB with ex PT-OP-T Assessment and Plan Start: 12/06/20 18:48 Freq: Status: Active Protocol: Document 01/27/21 11:21 LRN (Rec: 01/27/21 12:32 LRN [id number]) Physical Therapy Assessment Goals Three Impairment Pain with gait Short Term Goal (STG) Improve R LE strength. (01/13/21: Issued HEP of LE strengthening). STG Duration 01/18/21 Hand Riveter Goal (LTG) Walk from car to PT without pain. (11/15/20: No change, but the pain comes and goes) LTG Duration 03/16/21 Two Impairment 2 hrs prep time for leaving the house (used to take 1 hour ) Short Term Goal (STG) Improve R shoulder AROM. 01/27/21: R shoulder AROM (in sitting) for flex and AB improved from flex 90 deg's, AB 85 deg's to 110 deg's flex & AB. ER (@ 0 deg's AB) was 20 deg's, today 32 deg's. STG Duration 01/18/21 (01/27/21: R shoulder improved, not yet normal) Hand Riveter Goal (LTG) Pt will take 1.5 hours to get ready to leave house. LTG Duration 03/16/21 One Impairment Lacks appropriate self care HEP Hand Riveter Goal (LTG) Pt will be independent in a self care HEP. HEP ISSUED TO DATE: AROM strengthening: Shoulder ER/IR, Chest Press, Alternate Arm Lifts, Biceps Curls, SLR, heel slides, GS>bridge, hip AB /AD, clamshell. LTG Duration 03/16/21 (01/27/21: Progressed) Progress Towards Goals Progress Comments Goal #1: Progressed HEP. STG #2: Progressing. R shoulder AROM (in sitting) for flex and AB improved from flex 90 deg's, AB 85 deg's to 110 deg's flex & AB. ER (@ 0 deg's AB) was 20 deg's, today 32 deg's. Assessment Summary Assessment Pt demonstrates improved R shoulder ROM, and improved tolerance to ex with shorter rest periods throughout exercises. Pt able to tolerate more ex without significant SOB. Pt shows no functional improvement per UE QuickDASH score today of 38.6 (initial was 34.04). No comparison for LEFS. Pt does indicate on pain scale a decrease in pain overall from 4/10 to 1/10. Pt weak in R hip with ext and AB. Poor progress due to poor cardiovascular tolerance to exercise. Physical Therapy Plan Frequency and Duration Frequency of Treatment 1x/Week Plan of Care Start Date 12/16/20 Plan of Care End Date 03/16/21 Next Visit Focus/Plan Next Note Type Treatment Note Next Visit Plan NOTE: LATEX allergy. MMT L LE. STM to R shoulder, self care I/S for HEP of hamstring stretch. L Sciatic pain rehab : Try Iliopsoas STM and/or MH /IFES to sacrum for L lateral LE pain (sciatic pain) if pt able to tolerate positioning. Add hip ROM ex's. US to R shoulder for pain.
[2021-02-03 11:20] VITALS: BP 126/70; BP 140/78; PULSE 76; PULSE 86
--- NOTE | 2021-02-03 12:21 | PT.OTN ---
Current Diagnoses Pain in right shoulder (02/03/21) Stiffness of left hip, not elsewhere classified (02/03/21) Muscle weakness (generalized) (02/03/21) Pain in left leg (02/03/21) Other abnormalities of gait and mobility (02/03/21) Physical Therapy Treatment Note PT-OP-A Visit Information Start: 12/06/20 18:48 Freq: Status: Active Protocol: Document 02/03/21 11:20 LRN (Rec: 02/03/21 12:21 LRN [id number]) Out-Patient Physical Therapy Visit Information Visit Information Visit Type Treatment Note Visit Start Time 11:21 Visit Stop Time 12:05 Total Visit Minutes 44 Visit Number 6 Evaluation Information Evaluation Date 12/16/20 Precautions Precautions LATEX ALLERGY, general outdoor allergies, all body arthritis, controlled HBP, Polio as child, SOB, multiple foot surgeries (history unknown) PT-OP-B Current Condition Start: 12/06/20 18:48 Freq: Status: Active Protocol: Document 12/16/20 11:24 LRN (Rec: 12/16/20 12:30 LRN [id number]) Current Condition History of Current Condition Onset Date 03/23/2020 Current Complaints R shoulder hurts all the time and L lateral hip to foot. History of Current Condition Walking out a back door of son 's house and stumbled forward, landing on the R shoulder (pt is R handed) and layed on ground until ambulance came to take her to the hospital. Has had SOB for years. 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 Pt reports 5-10 surgeries that she can't remember what or where, but one on the feet. PMH: Prior Treatments and Tests X-rays (04/08/21) taken at ER of R shoulder showed osteochondral defect at the humeral head superior surface and multiple small intra- articular loose bodies. R Knee X-ray (03/23/20) showed no bony changes. Treatment Goals Patient/Caregiver Goals Take 1.5 hours to get ready to leave house. Walk from car to PT without pain. Prior Functional Status Baseline Function- ADL's Independent Baseline Function- Mobility Independent Baseline Function- Gait SOB with gait, no pain in LLE with gait. 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 Baseline Function- Other Took 1 hour to prepare to leave the house. Current Functional Impairments (Reported) Functional Limitations- ADL's ADLs take longer. Takes 2 hours to prepare to leave the house. Functional Limitations- Mobility/Gait Pain with LLE with walking most of the time (intermittent ). Functional Limitations- Recreation/ Puzzles, not limited. Hobbies Functional Limitations- Other Transfers, shifting around is painful. Personal Factors Other Personal Factors That May Effect Sedentary lifestyle (pt has Therapy/Recovery spouse to help), polio as child, reportedly unknown foot and other surgeries, SOB of unknown cause, multiple stairs in home. Records indicate hgt is 5'3, wgt is 104 kg, BMI is 40.6 (obese) PT-OP-C Subjective Start: 12/06/20 18:48 Freq: Status: Active Protocol: Document 02/03/21 11:20 LRN (Rec: 02/03/21 12:21 LRN [id number]) OP-PT Subjective Patient Comments Patient Comments States everything hurts. Seeing Dr. Dominguez tomorrow PT-OP-H Neuro Start: 12/06/20 18:48 Freq: Status: Active Protocol: Document 02/03/21 11:20 LRN (Rec: 02/03/21 12:21 LRN [id number]) Vital Signs Pulse Walking into treatment rool Pulse at Rest (bpm) 76 Pulse Assessment Method Pulse Ox/Monitor Sitting at rest Pulse at Rest (bpm) 86 Blood Pressure At Rest Blood Pressure (90/60-120/80 mmHg) 126/70 H Blood Pressure Source Manual Cuff,Left Upper Extremity Sitting Blood Pressure (90/60-120/80 mmHg) 140/78 H Blood Pressure Source Manual Cuff,Left Upper Extremity Comments Vital Signs Comments BP sitting was after walking from waiting room to treatment room , ~90' PT-OP-J Posture/Palpation/Skin Start: 12/06/20 18:48 Freq: Status: Active Protocol: Document 12/16/20 11:24 LRN (Rec: 12/16/20 12:30 LRN [id number]) Posture Evaluation Position Standing T-Spine Posture Increased Kyphosis Shoulder Posture (R) Elevated Arm Posture (L) Internally Rotated,(R) Internally Rotated Pelvis Posture Anteriorly Tilted Weight Distribution Weight Shifted Right,Decreased Wt.Bear on (L) Palpation Assessment Location L LE Palpation Location Very tender lower leg anterior & posterior Palpation Findings Edema,Soft Tissue Tightness, Tenderness Palpation Details No pitting edema R shoulder Palpation Location Generally around shoulder joint & upper brachium Palpation Findings Tenderness Palpation Details Decreased posterior shoulder Skin Assessment Edema Assessment Right Leg Edema Type Non-Pitting Edema Degree 1+ Edema Appearance Discolored,Firm,Puffy,Taut Subjective Edema Description Pain,Tightness PT-OP-K Range of Motion Start: 12/06/20 18:48 Freq: Status: Active Protocol: Document 02/03/21 11:20 LRN (Rec: 02/03/21 12:21 LRN [id number]) Shoulder Goniometric Range of Motion Shoulder Right Active Shoulder ROM WFL No Testing Position Sitting Flexion 113 Abduction 80 Internal Rotation Behind Back (text) Medial to Lateral trunk PT-OP-L Special Tests Start: 12/06/20 18:48 Freq: Status: Active Protocol: Document 12/23/20 11:23 LRN (Rec: 12/23/20 12:19 LRN [id number]) Special Tests Shoulder Special Tests IR/Horizontal ADD Impingement Test Results R shoulder: +test Comments Indicates possible RC dysfunction Elevation Impingement Test Results R shoulder: + test Comments Indicates possible RC dysfunction PT-OP-M Strength Start: 12/06/20 18:48 Freq: Status: Active Protocol: Document 01/27/21 11:21 LRN (Rec: 01/27/21 12:32 LRN [id number]) Shoulder Strength Shoulder Manual Muscle Testing Right Flexion 2+ Poor+ Abduction (C5) 2 Poor External Rotation 2 Poor Left Comments Generally 3+/5 Hip Strength Hip Manual Muscle Testing Left Flexion (L2) 5 Normal Extension (S1) 2 Poor Abduction 2 Poor Adduction 5 Normal External Rotation 5 Normal Internal Rotation 5 Normal PT-OP-Q Treatments Start: 12/06/20 18:48 Freq: Status: Active Protocol: Document 02/03/21 11:20 LRN (Rec: 02/03/21 12:21 LRN [id number]) Therapeutic Exercises Sitting Exercises Hamstring/LE neural stretch Sitting Exercise Name Hamstring/LE neural stretch Side bilateral Reps/Minutes 4' Shoulder AROM Sitting Exercise Name Flex & AB & ER Side right Reps/Minutes 2 reps each. Comments ROM taken. Pt experiencing pain with lowering of R arm. Sit to Stand Sitting Exercise Name Sit to stand Reps/Minutes 8x Comments With short rest between reps. 8 rep max elbow curl Sitting Exercise Name 8 rep max for elbow flexion Side bilateral Resistance 5# Reps/Minutes 8x 2 Comments SOB w/rests needed Shoulder ER/IR Sitting Exercise Name Shoulder ER/IR with scapular retraction Side bilateral Equipment Used No TB & Lev 1 TB Reps/Minutes 15x 1 each Comments V. & phys cuing to keep elbow at 90 deg's flex, monitoring SOB w/many rests Shoulder rolls Sitting Exercise Name Shoulder rolls (posterior) Side bilateral Reps/Minutes 30x Comments Pain in R shoulder Self-Care/Home Management Treatment Education Patient Education Home Exercise Program Other Education Educated pt in home walking program, starting with a distance of 50' (1/2 distance from waiting room to treatment room). Activities Self-Care/Home Management Activities I/S pt in home walking program and raising of arm for shoulder AROM. PT-OP-R Modalities Start: 12/06/20 18:48 Freq: Status: Active Protocol: Document 02/03/21 11:20 LRN (Rec: 02/03/21 12:21 LRN [id number]) Ultrasound Therapy Treatment R shoulder Treatment Duration (minutes) 8 Patient Position Sitting Applicator Size (cm2) 10 Mode Setting Pulsed Intensity Setting (w/cm2) 1.5 PT-OP-T Assessment and Plan Start: 12/06/20 18:48 Freq: Status: Active Protocol: Document 02/03/21 11:20 LRN (Rec: 02/03/21 12:21 LRN [id number]) Physical Therapy Assessment Goals Three Impairment Pain with gait Short Term Goal (STG) Improve R LE strength. (01/13/21: Issued HEP of LE strengthening). STG Duration 01/18/21 Roll Machine Operator Goal (LTG) Walk from car to PT without pain. (11/15/20: No change, but the pain comes and goes) LTG Duration 03/16/21 Two Impairment 2 hrs prep time for leaving the house (used to take 1 hour ) Short Term Goal (STG) Improve R shoulder AROM. 01/27/21: R shoulder AROM (in sitting) for flex and AB improved from flex 90 deg's, AB 85 deg's to 110 deg's flex & AB. ER (@ 0 deg's AB) was 20 deg's, today 32 deg's. STG Duration 01/18/21 (01/27/21: R shoulder improved, not yet normal) Roll Machine Operator Goal (LTG) Pt will take 1.5 hours to get ready to leave house. LTG Duration 03/16/21 One Impairment Lacks appropriate self care HEP Roll Machine Operator Goal (LTG) Pt will be independent in a self care HEP. HEP ISSUED TO DATE: AROM strengthening: Shoulder ER/IR, Chest Press, Alternate Arm Lifts, Biceps Curls, SLR, heel slides, GS>bridge, hip AB /AD, clamshell. LTG Duration 03/16/21 (01/27/21: Progressed) Progress Towards Goals Progress Comments R shoulder AROM: Flexion: 3 deg's improvement AB: no improvement IR: increase in ability to reach behind back. Assessment Summary Assessment Extra time is needed to monitor vitals throughout therapy. Pt appears to recover from SOB episodes more quickly, but still requires many rests durint therapy. Pt 's R shoulder active flexion is slightly improved, AB is worse, IR iw improved with pt able to reach farther behind her back. Physical Therapy Plan Frequency and Duration Frequency of Treatment 1x/Week Plan of Care Start Date 12/16/20 Plan of Care End Date 03/16/21 Next Visit Focus/Plan Next Note Type Treatment Note Next Visit Plan NOTE: LATEX allergy. Pt last approved visit; therefore reassess for need for more therapy. Assess pain reponse to US to R shoulder. MMT L LE. STM to R shoulder, self care I/S for HEP of hamstring stretch. L Sciatic pain rehab: Try Iliopsoas STM and/or MH/IFES to sacrum for L lateral LE pain (sciatic pain) if pt able to tolerate positioning. Add hip ROM ex's.
[2021-02-10 11:23] VITALS: BP 138/76; BP 151/89; PULSE 84; PULSE 85
--- NOTE | 2021-02-10 12:31 | PT.OTN ---
Current Diagnoses Pain in right shoulder (02/10/21) Stiffness of left hip, not elsewhere classified (02/10/21) Muscle weakness (generalized) (02/10/21) Pain in left leg (02/10/21) Other abnormalities of gait and mobility (02/10/21) Physical Therapy Treatment Note PT-OP-A Visit Information Start: 12/06/20 18:48 Freq: Status: Active Protocol: Document 02/10/21 11:23 LRN (Rec: 02/10/21 12:29 LRN [id number]) Out-Patient Physical Therapy Visit Information Visit Information Visit Type Treatment Note Visit Start Time 11:23 Visit Stop Time 12:08 Total Visit Minutes 45 Visit Number 7 PT-OP-B Current Condition Start: 12/06/20 18:48 Freq: Status: Active Protocol: Document 12/16/20 11:24 LRN (Rec: 12/16/20 12:30 LRN [id number]) Current Condition History of Current Condition Onset Date 03/23/2020 Current Complaints R shoulder hurts all the time and L lateral hip to foot. History of Current Condition Walking out a back door of son 's house and stumbled forward, landing on the R shoulder (pt is R handed) and layed on ground until ambulance came to take her to the hospital. Has had SOB for years. 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 Pt reports 5-10 surgeries that she can't remember what or where, but one on the feet. PMH: Prior Treatments and Tests X-rays (04/08/21) taken at ER of R shoulder showed osteochondral defect at the humeral head superior surface and multiple small intra- articular loose bodies. R Knee X-ray (03/23/20) showed no bony changes. Treatment Goals Patient/Caregiver Goals Take 1.5 hours to get ready to leave house. Walk from car to PT without pain. Prior Functional Status Baseline Function- ADL's Independent Baseline Function- Mobility Independent Baseline Function- Gait SOB with gait, no pain in LLE with gait. 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 Baseline Function- Other Took 1 hour to prepare to leave the house. Current Functional Impairments (Reported) Functional Limitations- ADL's ADLs take longer. Takes 2 hours to prepare to leave the house. Functional Limitations- Mobility/Gait Pain with LLE with walking most of the time (intermittent ). Functional Limitations- Recreation/ Puzzles, not limited. Hobbies Functional Limitations- Other Transfers, shifting around is painful. Personal Factors Other Personal Factors That May Effect Sedentary lifestyle (pt has Therapy/Recovery spouse to help), polio as child, reportedly unknown foot and other surgeries, SOB of unknown cause, multiple stairs in home. Records indicate hgt is 5'3, wgt is 104 kg, BMI is 40.6 (obese) PT-OP-C Subjective Start: 12/06/20 18:48 Freq: Status: Active Protocol: Document 02/10/21 11:23 LRN (Rec: 02/10/21 12:29 LRN [id number]) OP-PT Subjective Patient Comments Patient Comments C/o R leg hurting today. States she is very SOB, like usual. PT-OP-H Neuro Start: 12/06/20 18:48 Freq: Status: Active Protocol: Document 02/10/21 11:23 LRN (Rec: 02/10/21 12:29 LRN [id number]) Vital Signs Pulse Exercise Pulse at Rest (bpm) 85 Pulse Assessment Method Pulse Ox/Monitor Walking into treatment rool Pulse at Rest (bpm) 84 Pulse Assessment Method Pulse Ox/Monitor Blood Pressure After ex in sitting Blood Pressure (90/60-120/80 mmHg) 138/76 H Blood Pressure Source Automatic Cuff,Left Upper Extremity Sitting Blood Pressure (90/60-120/80 mmHg) 151/89 H Blood Pressure Source Automatic Cuff,Left Upper Extremity PT-OP-J Posture/Palpation/Skin Start: 12/06/20 18:48 Freq: Status: Active Protocol: Document 12/16/20 11:24 LRN (Rec: 12/16/20 12:30 LRN [id number]) Posture Evaluation Position Standing T-Spine Posture Increased Kyphosis Shoulder Posture (R) Elevated Arm Posture (L) Internally Rotated,(R) Internally Rotated Pelvis Posture Anteriorly Tilted Weight Distribution Weight Shifted Right,Decreased Wt.Bear on (L) Palpation Assessment Location L LE Palpation Location Very tender lower leg anterior & posterior Palpation Findings Edema,Soft Tissue Tightness, Tenderness Palpation Details No pitting edema R shoulder Palpation Location Generally around shoulder joint & upper brachium Palpation Findings Tenderness Palpation Details Decreased posterior shoulder Skin Assessment Edema Assessment Right Leg Edema Type Non-Pitting Edema Degree 1+ Edema Appearance Discolored,Firm,Puffy,Taut Subjective Edema Description Pain,Tightness PT-OP-K Range of Motion Start: 12/06/20 18:48 Freq: Status: Active Protocol: Document 02/03/21 11:20 LRN (Rec: 02/03/21 12:21 LRN [id number]) Shoulder Goniometric Range of Motion Shoulder Right Active Shoulder ROM WFL No Testing Position Sitting Flexion 113 Abduction 80 Internal Rotation Behind Back (text) Medial to Lateral trunk PT-OP-L Special Tests Start: 12/06/20 18:48 Freq: Status: Active Protocol: Document 12/23/20 11:23 LRN (Rec: 12/23/20 12:19 LRN [id number]) Special Tests Shoulder Special Tests IR/Horizontal ADD Impingement Test Results R shoulder: +test Comments Indicates possible RC dysfunction Elevation Impingement Test Results R shoulder: + test Comments Indicates possible RC dysfunction PT-OP-M Strength Start: 12/06/20 18:48 Freq: Status: Active Protocol: Document 01/27/21 11:21 LRN (Rec: 01/27/21 12:32 LRN [id number]) Shoulder Strength Shoulder Manual Muscle Testing Right Flexion 2+ Poor+ Abduction (C5) 2 Poor External Rotation 2 Poor Left Comments Generally 3+/5 Hip Strength Hip Manual Muscle Testing Left Flexion (L2) 5 Normal Extension (S1) 2 Poor Abduction 2 Poor Adduction 5 Normal External Rotation 5 Normal Internal Rotation 5 Normal PT-OP-Q Treatments Start: 12/06/20 18:48 Freq: Status: Active Protocol: Document 02/10/21 11:23 LRN (Rec: 02/10/21 12:29 LRN [id number]) Therapeutic Exercises Supine Exercises Chest Press Supine Exercise Name Chest Press Side bilateral Reps/Minutes 20x (fatigue), 10x more after rest Sidelying Exercises Shoulder IR Sidelying Exercise Name Shoulder IR Side bilateral Reps/Minutes to fatigue Comments Much phys and v. cuing needed, but less than w/ER Shoulder ER Sidelying Exercise Name Shoulder ER Side bilateral Reps/Minutes to fatigue Comments Much phys and v. cuing needed TA Sidelying Exercise Name TA Side bilateral Reps/Minutes 5 hold x 15 Comments Extra time to train for TA pulling belly button in. Clamshell Sidelying Exercise Name Clamshell Side bilateral Reps/Minutes 6' Comments Manual assist to stabilize on L clamshell, v. cuing R. Manual Therapy Treatment Soft Tissue Mobilization Iliopsoas Body Location Iliopsoas in sidelie Mobilization Type Sustained Pressure,Trigger Point Release Intensity/Depth Moderate Body Position Sidelying PT-OP-R Modalities Start: 12/06/20 18:48 Freq: Status: Active Protocol: Document 02/10/21 11:23 LRN (Rec: 02/10/21 12:29 LRN [id number]) Ultrasound Therapy Treatment R shoulder Treatment Duration (minutes) 8 Patient Position Sitting Applicator Size (cm2) 10 Mode Setting Pulsed Intensity Setting (w/cm2) 1.5 PT-OP-T Assessment and Plan Start: 12/06/20 18:48 Freq: Status: Active Protocol: Document 02/10/21 11:23 LRN (Rec: 02/10/21 12:29 LRN [id number]) Physical Therapy Assessment Goals Three Impairment Pain with gait Short Term Goal (STG) Improve R LE strength. (01/13/21: Issued HEP of LE strengthening). STG Duration 01/18/21 Financial Aid Goal (LTG) Walk from car to PT without pain. (11/15/20: No change, but the pain comes and goes) LTG Duration 03/16/21 Two Impairment 2 hrs prep time for leaving the house (used to take 1 hour ) Short Term Goal (STG) Improve R shoulder AROM. 01/27/21: R shoulder AROM (in sitting) for flex and AB improved from flex 90 deg's, AB 85 deg's to 110 deg's flex & AB. ER (@ 0 deg's AB) was 20 deg's, today 32 deg's. STG Duration 01/18/21 (01/27/21: R shoulder improved, not yet normal) Care Home Goal (LTG) Pt will take 1.5 hours to get ready to leave house. LTG Duration 03/16/21 One Impairment Lacks appropriate self care HEP Financial Aid Goal (LTG) Pt will be independent in a self care HEP. HEP ISSUED TO DATE: AROM strengthening: Shoulder ER/IR, Chest Press, Alternate Arm Lifts, Biceps Curls, SLR, heel slides, GS>bridge, hip AB /AD, clamshell. LTG Duration 03/16/21 (5/10/21: Progressed) Progress Towards Goals Progress Comments Pt R LE hurt more than LLE to start, ending the RLE hurt less than the LLE. Decreased BP (sitting) after sidelie exercises. Assessment Summary Assessment Pt noted less pain in R shoulder after ultrasound last visit. Today she appeared to recover more quickly with reduced SOB time walking into treatment room. Pt appears to be following through with home walking program as she has measured out 150' in her home and notes she is walking 2x/day. Pt tends to work into excessive SOB; therefore further monitoring of SOB with walking into treatment room is needed. Physical Therapy Plan Frequency and Duration Frequency of Treatment 1x/Week Plan of Care Start Date 12/16/20 Plan of Care End Date 03/16/21 Next Visit Focus/Plan Next Note Type Progress Note Next Visit Plan NOTE: LATEX allergy. Pt has one more approved visit; therefore reassess and request more therapy if needed. Monitor pt's recover time for walking into treatment room. MMT L LE. Self care I/S for HEP of hamstring stretch. Add hip ROM ex's. L Sciatic pain rehab: Iliopsoas STM and/or MH/IFES to sacrum for L lateral LE pain (sciatic pain) if pt able to tolerate positioning.
--- NOTE | 2021-03-25 16:47 | PT-OP ANOTE ---
Pt canceled due to not feeling well.
--- NOTE | 2021-04-24 16:48 | PT-OP ANOTE ---
Per phone conversation, the pt reports she is having trouble with her blood not clotting so she is not doing very well. Pt was notified that she had no further PT visits scheduled, and that due to the DNS/CX policy she is being discharged from therapy. The pt states she was not surprised and thought she had already been discharged. Pt was encouraged to continue with her HEP to promote improved strength and mobility. Pt is being discharged from PT.
--- NOTE | 2021-04-24 16:58 | PT.OPDS ---
Current Diagnoses Pain in right shoulder (02/10/21) Stiffness of left hip, not elsewhere classified (02/10/21) Muscle weakness (generalized) (02/10/21) Pain in left leg (02/10/21) Other abnormalities of gait and mobility (02/10/21) Visit Care Team Role Provider Type Max Dominguez MD Attending Provider Physician Family Provider Primary Care Provider Referring Provider Specialty: Internal Medicine Address: [address] [place] [address], [address], [employer] Email: [email or web address] Visit Number Visit Number 7 Discharge Summary PT-OP-B Current Condition Start: 12/06/20 18:48 Freq: Status: Active Protocol: Document 12/16/20 11:24 LRN (Rec: 12/16/20 12:30 LRN [id number]) Current Condition History of Current Condition Onset Date 03/23/2020 Current Complaints R shoulder hurts all the time and L lateral hip to foot. History of Current Condition Walking out a back door of son 's house and stumbled forward, landing on the R shoulder (pt is R handed) and layed on ground until ambulance came to take her to the hospital. Has had SOB for years. 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 Pt reports 5-10 surgeries that she can't remember what or where, but one on the feet. PMH: Prior Treatments and Tests X-rays (04/08/21) taken at ER of R shoulder showed osteochondral defect at the humeral head superior surface and multiple small intra- articular loose bodies. R Knee X-ray (03/23/20) showed no bony changes. Treatment Goals Patient/Caregiver Goals Take 1.5 hours to get ready to leave house. Walk from car to PT without pain. Prior Functional Status Baseline Function- ADL's Independent Baseline Function- Mobility Independent Baseline Function- Gait SOB with gait, no pain in LLE with gait. 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 Baseline Function- Other Took 1 hour to prepare to leave the house. Current Functional Impairments (Reported) Functional Limitations- ADL's ADLs take longer. Takes 2 hours to prepare to leave the house. Functional Limitations- Mobility/Gait Pain with LLE with walking most of the time (intermittent ). Functional Limitations- Recreation/ Puzzles, not limited. Hobbies Functional Limitations- Other Transfers, shifting around is painful. Personal Factors Other Personal Factors That May Effect Sedentary lifestyle (pt has Therapy/Recovery spouse to help), polio as child, reportedly unknown foot and other surgeries, SOB of unknown cause, multiple stairs in home. Records indicate hgt is 5'3, wgt is 104 kg, BMI is 40.6 (obese) PT-OP-C Subjective Start: 12/06/20 18:48 Freq: Status: Active Protocol: Document 02/10/21 11:23 LRN (Rec: 02/10/21 12:29 LRN [id number]) OP-PT Subjective Patient Comments Patient Comments C/o R leg hurting today. States she is very SOB, like usual. PT-OP-H Neuro Start: 12/06/20 18:48 Freq: Status: Active Protocol: Document 02/10/21 11:23 LRN (Rec: 02/10/21 12:29 LRN [id number]) Vital Signs Pulse Exercise Pulse at Rest (bpm) 85 Pulse Assessment Method Pulse Ox/Monitor Walking into treatment rool Pulse at Rest (bpm) 84 Pulse Assessment Method Pulse Ox/Monitor Blood Pressure After ex in sitting Blood Pressure (90/60-120/80 mmHg) 138/76 H Blood Pressure Source Automatic Cuff,Left Upper Extremity Sitting Blood Pressure (90/60-120/80 mmHg) 151/89 H Blood Pressure Source Automatic Cuff,Left Upper Extremity PT-OP-J Posture/Palpation/Skin Start: 12/06/20 18:48 Freq: Status: Active Protocol: Document 12/16/20 11:24 LRN (Rec: 12/16/20 12:30 LRN [id number]) Posture Evaluation Position Standing T-Spine Posture Increased Kyphosis Shoulder Posture (R) Elevated Arm Posture (L) Internally Rotated,(R) Internally Rotated Pelvis Posture Anteriorly Tilted Weight Distribution Weight Shifted Right,Decreased Wt.Bear on (L) Palpation Assessment Location L LE Palpation Location Very tender lower leg anterior & posterior Palpation Findings Edema,Soft Tissue Tightness, Tenderness Palpation Details No pitting edema R shoulder Palpation Location Generally around shoulder joint & upper brachium Palpation Findings Tenderness Palpation Details Decreased posterior shoulder Skin Assessment Edema Assessment Right Leg Edema Type Non-Pitting Edema Degree 1+ Edema Appearance Discolored,Firm,Puffy,Taut Subjective Edema Description Pain,Tightness PT-OP-K Range of Motion Start: 12/06/20 18:48 Freq: Status: Active Protocol: Document 02/03/21 11:20 LRN (Rec: 02/03/21 12:21 LRN [id number]) Shoulder Goniometric Range of Motion Shoulder Right Active Shoulder ROM WFL No Testing Position Sitting Flexion 113 Abduction 80 Internal Rotation Behind Back (text) Medial to Lateral trunk PT-OP-L Special Tests Start: 12/06/20 18:48 Freq: Status: Active Protocol: Document 12/23/20 11:23 LRN (Rec: 12/23/20 12:19 LRN [id number]) Special Tests Shoulder Special Tests IR/Horizontal ADD Impingement Test Results R shoulder: +test Comments Indicates possible RC dysfunction Elevation Impingement Test Results R shoulder: + test Comments Indicates possible RC dysfunction PT-OP-M Strength Start: 12/06/20 18:48 Freq: Status: Active Protocol: Document 01/27/21 11:21 LRN (Rec: 01/27/21 12:32 LRN [id number]) Shoulder Strength Shoulder Manual Muscle Testing Right Flexion 2+ Poor+ Abduction (C5) 2 Poor External Rotation 2 Poor Left Comments Generally 3+/5 Hip Strength Hip Manual Muscle Testing Left Flexion (L2) 5 Normal Extension (S1) 2 Poor Abduction 2 Poor Adduction 5 Normal External Rotation 5 Normal Internal Rotation 5 Normal PT-OP-T Assessment and Plan Start: 12/06/20 18:48 Freq: Status: Active Protocol: Document 04/24/21 16:51 LRN (Rec: 04/24/21 16:58 LRN [id number]) Physical Therapy Assessment Goals Three Impairment Pain with gait Short Term Goal (STG) Improve R LE strength. (01/13/21: Issued HEP of LE strengthening). STG Duration 01/18/21 Usp Goal (LTG) Walk from car to PT without pain. (11/15/20: No change, but the pain comes and goes) LTG Duration 03/16/21 Two Impairment 2 hrs prep time for leaving the house (used to take 1 hour ) Short Term Goal (STG) Improve R shoulder AROM. 01/27/21: R shoulder AROM (in sitting) for flex and AB improved from flex 90 deg's, AB 85 deg's to 110 deg's flex & AB. ER (@ 0 deg's AB) was 20 deg's, today 32 deg's. 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 LTG Duration 03/16/21 One Impairment Lacks appropriate self care HEP Usp Goal (LTG) Pt will be independent in a self care HEP. HEP ISSUED TO DATE: AROM strengthening: Shoulder ER/IR, Chest Press, Alternate Arm Lifts, Biceps Curls, SLR, heel slides, GS>bridge, hip AB /AD, clamshell. LTG Duration 03/16/21 (01/27/21: Progressed) Assessment Summary Assessment Pt has been seen for 6 PT visits from 12/16/20 to 02/10/21 . Her last attended appointment on 02/10/21. The pt made poor progress towards her goals due to inconsistency and lack of attendance. Her goals were not met. Physical Therapy Plan Discharge Physical Therapy Discharge Reasons No Longer Attending PT Discharge Comments Pt made poor progress due to inconsistency and lack of attendance. The pt would benefit from PT if she could be consistent with attendance and exercise at home. Thank you for referriing your pt to physical therapy.
== END 2021-04-25 13:45 | disposition home or self-care (01) ==
LOC: PHYS 11:15
PROVIDERS: Family Provider Internal Medicine; PCP Internal Medicine; Referring Provider Internal Medicine; Visit Provider Internal Medicine
DX: M25.511 Pain in right shoulder (principal); M79.605 Pain in left leg; M62.81 Muscle weakness (generalized); R26.89 Other abnormalities of gait and mobility; M25.652 Stiffness of left hip, not elsewhere classified
CPT/HCPCS: 97035; 97110; 97140; 97162; 97535

== ENCOUNTER → 2021-04-22 14:04 | Outpatient (CLI) | payer OTHER, SELFPAY ==
[2021-04-22 15:19] LABS: INR 1.2 (0.9-1.3); Prothrombin Time 13.5 SECONDS (10.1-12.7)
== END ==
PROVIDERS: Family Provider Internal Medicine; PCP Internal Medicine; Referring Provider Internal Medicine; Visit Provider Internal Medicine
DX: Z79.01 Long term (current) use of anticoagulants (principal)
CPT/HCPCS: 36415; 85610

== ENCOUNTER → 2021-06-17 14:01 | Outpatient (CLI) | payer OTHER, SELFPAY ==
[2021-06-17 14:57] LABS: Alanine Aminotransferase 24 IU/L (<35); Albumin 3.9 g/dL (3.5-5.0); Albumin Globulin Ratio 1.2 (1.0-2.8); Alkaline Phosphatase 85 U/L (38-126); Aspartate Aminotransferase 26 IU/L (14-36); BUN Creatinine Ratio 21.5 (6-22); Bilirubin Total 0.4 mg/dL (0.2-1.3); Blood Urea Nitrogen 31 mg/dL (7-17); Calcium 9.2 mg/dL (8.4-10.2); Carbon Dioxide 23 mmol/L (22-32); Chloride 113 mmol/L (98-107); Estimated Glomerular Filt Rate 35.2 mL/min (>60); Globulin 3.2 g/dL (1.7-4.1); Glucose 138 mg/dL (80-110); HEMOLYSIS < 15 (0-50); Sodium 143 mmol/L (137-145); Total Protein 7.1 g/dL (6.3-8.2)
[2021-06-17 14:59] LABS: Hemoglobin 9.3 g/dL (12.0-16.0); Mean Corpuscular HGB Conc 31.2 % (30-36); Mean Corpuscular Hemoglobin 27.9 PG (26-34); Mean Corpuscular Volume 89.6 fL (80-100); Platelet Count 365 X10^3/uL (150-400); Red Blood Cell Count 3.35 X10^6/uL (4.0-5.2); Red Cell Distribution Width 17.2 % (11.6-14.8); White Blood Cell Count 14.2 X10^3/uL (4.5-11.0)
[2021-06-17 15:02] LABS: Potassium 5.4 mmol/L (3.4-5.1)
[2021-06-17 15:05] LABS: Add Manual Diff / Slide Review YES
[2021-06-17 15:26] LABS: Anisocytosis 2+; Hypochromasia 1+; Neutrophils Absolute Manual 13490 /uL (3000-5900); Target Cells 1+; Total Cells Counted 100
[2021-06-17 15:31] LABS: Free T4, Direct Thyroxine 1.04 ng/dL (0.78-2.19)
[2021-06-17 15:45] LABS: Thyroid Stimulating Hormone 1.43 uIU/mL (0.47-4.68)
== END ==
PROVIDERS: Family Provider Internal Medicine; PCP Internal Medicine; Referring Provider Internal Medicine; Visit Provider Internal Medicine
DX: D68.51 Activated protein C resistance (principal); I10 Essential (primary) hypertension; G47.33 Obstructive sleep apnea (adult) (pediatric); N18.30 Chronic kidney disease, stage 3 unspecified
CPT/HCPCS: 36415; 80053; 84439; 84443; 85007; 85025

== ENCOUNTER 2021-09-03 16:36 | Inpatient (IN) | payer OTHER, SELFPAY ==
[2021-09-03] VITALS (17 sets, daily range): BP systolic 119–162; BP diastolic 57–73; PULSE 97–110; RESP 17–40; TEMP 37.5–37.6; O2SAT 93–98; BMI 46.3; BMI 38.9
[2021-09-03 17:40] LABS: Hematocrit 27.8 % (36-46); Hemoglobin 9.1 g/dL (12.0-16.0); Mean Corpuscular HGB Conc 32.6 % (30-36); Mean Corpuscular Hemoglobin 29.7 PG (26-34); Mean Corpuscular Volume 91.3 fL (80-100); Platelet Count 410 X10^3/uL (150-400); Red Blood Cell Count 3.05 X10^6/uL (4.0-5.2); Red Cell Distribution Width 18.4 % (11.6-14.8); White Blood Cell Count 29.1 X10^3/uL (4.5-11.0)
[2021-09-03 17:41] LABS: Add Manual Diff / Slide Review YES
[2021-09-03] MEDS: SODIUM CHLORIDE 0.9% 1,000 ML 125 ML IV (17:53)
[2021-09-03 18:03] LABS: Alanine Aminotransferase 22 IU/L (<35); Albumin 3.7 g/dL (3.5-5.0); Albumin Globulin Ratio 1.1 (1.0-2.8); Alkaline Phosphatase 79 U/L (38-126); Aspartate Aminotransferase 48 IU/L (14-36); Bilirubin Total 2.2 mg/dL (0.2-1.3); Blood Urea Nitrogen 26 mg/dL (7-17); Calcium 9.1 mg/dL (8.4-10.2); Carbon Dioxide 24 mmol/L (22-32); Chloride 101 mmol/L (98-107); Creatine Kinase 250 U/L (30-135); Estimated Glomerular Filt Rate 30.5 mL/min (>60); Globulin 3.3 g/dL (1.7-4.1); Glucose 122 mg/dL (80-110); HEMOLYSIS 28 (0-50); Lipase 31 U/L (23-300); Potassium 4.3 mmol/L (3.4-5.1); Sodium 134 mmol/L (137-145)
--- NOTE | 2021-09-03 18:09 | ED_ITS ---
HPI - Sepsis General Chief Complaint: Urogenital-Female Mode of arrival: EMS Source: patient and EMS Limitations: altered mental status Evaluation Sepsis Screen: No Definite Risk Sepsis Infection Criteria Present: None Narrative: Patient is a 80-year-old female history of factor 5 Leiden on anticoagulation, restrictive lung disease, hypothyroid, morbid obesity, essential hypertension presenting today with generalized weakness, urinary incontinence is. The son is primary historian he states that she has been on a steady decline for the last couple of weeks however over the last 24 hours she has not moved. She is incontinent of urine wearing adult diapers currently her adult diaper is saturated and degraded. States that she is extremely short of breath she is more short of breath with minimal exertion. With minimal exertion just in the bed her O2 dropped to 88% she is tachypneic. She denies any cough. She has not had any fever or chills although son says she did have a fever of 103 earlier today but is afebrile in the emergency department. She is complaining of right- sided abdominal pain. She denies any nausea or vomiting. She generally does n ot feel well. Son states that she is also on few times this week which is abnormal for her. Review of Systems Review of Systems Narrative: GENERAL: Generalized weakness HEENT: Denies sinus pain, ear pain, sore throat, difficulty swallowing, neck pain RESPIRATORY: See HPI CARDIOVASCULAR: Denies chest pain, palpitations, orthopnea, edema GASTROINTESTINAL: Denies nausea, vomiting, abdominal pain, diarrhea, constipation, melena. : Incontinent of urine MUSCULOSKELETAL: Denies weakness, joint pain, or bony pain SKIN: Skin break down and least infection noted and perineal area NEUROLOGIC: Denies weakness, dizziness, headache, numbness, change in speech, confusion PSYCHIATRIC: No concerning psychosocial issues. 12 point review of systems is negative except for those stated above and HPI Patient History Medical History (Updated 09/04/21 @ 00:04 by Марина Luna DO) Anemia in chronic kidney disease (06/17/15) Arthralgia (09/10/14) Arthralgia of both knees (09/27/15) Attention deficit disorder with hyperactivity Body mass index (BMI) of 40.0 to 44.9 in adult (12/10/16) Chronic midline thoracic back pain (01/02/16) Chronic radicular lumbar pain (09/27/15) Essential hypertension Factor 5 Leiden mutation, heterozygous Hypothyroidism [facility] current use of anticoagulant therapy (02/15/13) Morbid obesity with body mass index (BMI) of 40.0 to 44.9 in adult (09/27/15) VIRGEN (nonalcoholic steatohepatitis) Obstructive sleep apnea syndrome (04/17/11) Restrictive lung disease Spinal stenosis Unspecified asthma (04/17/11) Ventral incisional hernia Surgical History History of bowel resection History of gynecologic surgery S/P total abdominal hysterectomy and bilateral salpingo-oophorectomy Status post appendectomy Status post tonsillectomy and adenoidectomy (1994) Social History marital status: number of children: 2 household members: spouse lives independently: Yes caregiver/support person: No housing: house pets and animals: Yes education level: high school occupational status: other current occupational exposures/hazards: No 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: [employer] leisure activities: other Smoking Status: Former smoker Tobacco: How many years used: 5 Smokeless tobacco user: other quit status: quit date established second hand exposure: Yes alcohol intake: never substance use type: does not use Smoking Status: Former smoker Substance Use Type: does not use Exam Initial Vital Signs Initial Vital Signs: Vital Signs Temperature 99.5 F 09/03/21 17:06 Pulse Rate 109 H 09/03/21 17:06 Respiratory Rate 19 09/03/21 17:06 Blood Pressure 162/67 H 09/03/21 17:06 Pulse Oximetry 96 09/03/21 17:06 GENERAL: Awake alert 80 year old female who is in moderate respiratory distress HEENT: Head atraumatic,EOMI, pupils reactive, face symmetric, moist mucous membranes, no meningeal signs CARDIOVASCULAR: Tachycardic regular no RESPIRATORY: Tachypneic clear bilaterally no wheeze ABDOMEN: Soft, tender right upper quadrant positive Lane sign no guarding or rebound : Incontinent of urine least infection noted in perineal area EXTREMITIES: Normal range of motion, no clubbing or edema. Neurovascularly intact NEUROLOGICAL: Alert and oriented x4. 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) Stat 09/03/21 18:28 CT abdomen pelvis w con Stat 09/03/21 18:29 CT head/brain wo con Stat 09/03/21 18:35 CT angio chest PE protocol Stat 09/03/21 19:11 UA Complete [Urinalysis and Microscopic] Stat Urine Culture Stat Acetaminophen (Acetaminophen 325 Mg Tablet) 650 mg PO Q6HR PRN PRN Reason: Fever/Mild Pain (1-3) Sodium Chloride (Normal Saline 0.9%) 1,000 mls @ 150 mls/hr IV CONT RODRIGO Last Admin: 09/03/21 23:06 Dose: 150 mls/hr Documented by: Admin: 09/03/21 22:45 Dose: Not Given Documented by: RIGO Influenza Virus Vaccine (Influenza Hd Vaccine 0.7 Ml Syringe) 0.7 ml IM .ONCE ONE Stop: 09/04/21 09:01 Ondansetron HCl (Ondansetron 4 Mg/2 Ml Inj) 4 mg IV Q4HR PRN PRN Reason: Nausea And Vomiting Discontinued Medications Sodium Chloride (Normal Saline 0.9%) 1,000 mls @ 125 mls/hr IV CONT RODRIGO Last Infusion: 09/03/21 22:03 Dose: 150 mls/hr Documented by: Admin: 09/03/21 17:53 Dose: 125 mls/hr Documented by: JAZMIN Levofloxacin (Levaquin) 750 mg in 150 mls @ 100 mls/hr IV NOW ONE Stop: 09/03/21 19:51 Last Infusion: 09/03/21 20:22 Dose: 0 mls/hr Documented by: Admin: 09/03/21 18:58 Dose: 100 mls/hr Documented by: JAZMIN Sodium Chloride (Normal Saline 0.9%) 1,000 mls @ 1,000 mls/hr IV BOLUS ONE Stop: 09/03/21 19:50 Last Infusion: 09/03/21 20:36 Dose: 0 mls/hr Documented by: Admin: 09/03/21 18:57 Dose: 1,000 mls/hr Documented by: JAZMIN Vancomycin HCl/Dextrose (Vancomycin) 2,000 mg in 400 mls @ 200 mls/hr IV NOW ONE Stop: 09/03/21 22:43 Last Infusion: 09/03/21 22:44 Dose: 200 mls/hr Documented by: Admin: 09/03/21 20:56 Dose: 200 mls/hr Documented by: RIGO Methylprednisolone (Methylprednisolone 125 Mg/2 Ml Vial) 125 mg IV NOW ONE Stop: 09/03/21 18:51 Last Admin: 09/03/21 18:55 Dose: 125 mg Documented by: JAZMIN Vital Signs Vital signs: Vital Signs - 8 hr 09/03/21 19:00 09/03/21 19:01 09/03/21 19:30 Pulse Rate 104 H 104 H 106 H Respiratory Rate 31 H 39 H 35 H Blood Pressure 125/58 L Pulse Oximetry 96 97 96 09/03/21 20:00 09/03/21 20:30 09/03/21 21:00 Pulse Rate 101 H 100 H 101 H Respiratory Rate 30 H 40 H 40 H Blood Pressure 121/58 L Pulse Oximetry 96 96 93 09/03/21 21:30 Pulse Rate 98 H Respiratory Rate 36 H Blood Pressure 126/60 Pulse Oximetry 95 Sepsis Guideline Criteria Level 1 - Infection Sepsis Infection Criteria Present: None Treatment Initiated Antibiotics:: IV antimicrobials will be initiated as soon as possible after recognition of sepsis state and within one hour for both sepsis and septic shock. MDM - Sepsis Lab Data Result diagrams: 09/03/21 16:40 09/03/21 16:40 Labs: Lab Results 09/03/21 09/03/21 09/03/21 Range/Units 16:40 16:40 16:40 WBC 29.1 H (4.5-11.0) X10^3/uL RBC 3.05 L (4.0-5.2) X10^6/uL Hgb 9.1 L (12.0-16.0) g/dL Hct 27.8 L (36-46) % MCV 91.3 (80-100) fL MCH 29.7 (26-34) PG MCHC 32.6 (30-36) % RDW 18.4 H (11.6-14.8) % Plt Count 410 H (150-400) X10^3/uL Neut % (Auto) Not Reportable Lymph % (Auto) Not Reportable [place] % (Auto) Not Reportable Eos % (Auto) Not Reportable Baso % (Auto) Not Reportable Lymph # (Auto) Not Reportable [place] # (Auto) Not Reportable Baso # (Auto) Not Reportable Total Counted 100 Seg Neutrophils % 59.0 (38-70) % Band Neutrophils % 25.0 H (3-7) % Lymphocytes % (Manual) 5.0 L (25-45) % Monocytes % (Manual) 7.0 (2-11) % Metamyelocytes % 3.0 H (-0) % Myelocytes % 1.0 H (-0) % Neutrophils # (Manual) 41900 H (5865-8797) /uL Platelet Estimate Increased on smear RBC Morphology Normal morphology PT (10.1-12.7) SECONDS INR (0.9-1.3) APTT (26.4-36.2) SECONDS Sodium 134 L (137-145) mmol/L Potassium 4.3 (3.4-5.1) mmol/L Chloride 101 (98-107) mmol/L Carbon Dioxide 24 (22-32) mmol/L BUN 26 H (7-17) mg/dL Creatinine 1.63 H (0.52-1.04) mg/dL Estimated GFR 30.5 L (>60) mL/min BUN/Creatinine Ratio 16.0 (6-22) Glucose 122 H (80-110) mg/dL Lactate (0.7-2.1) mmol/L Calcium 9.1 (8.4-10.2) mg/dL Total Bilirubin 2.2 H (0.2-1.3) mg/dL AST 48 H (14-36) IU/L ALT 22 (<35) IU/L Alkaline Phosphatase 79 (38-126) U/L Total Creatine Kinase 250 H (30-135) U/L CK-MB (CK-2) 1.13 (<2.37) ng/mL CK-MB (CK-2) Rel Index 0.5 L (1.5-5.0) % Troponin I < 0.012 (0.01-0.034) ng/mL NT-Pro-B Natriuret Pep 623 H (<450) pg/mL Total Protein 7.0 (6.3-8.2) g/dL Albumin 3.7 (3.5-5.0) g/dL Globulin 3.3 (1.7-4.1) g/dL Albumin/Globulin Ratio 1.1 (1.0-2.8) Lipase 31 (23-300) U/L Procalcitonin 11.5 H (<0.5) ng/mL Urine Color Urine Appearance Urine pH (4.5-8.0) Ur Specific [place] (1.000-1.035) Urine Protein (Negative) Urine Glucose (UA) (Negative) g/dL Urine Ketones (NEGATIVE) Urine Occult Blood (Negative) Urine Nitrate (Negative) Urine Bilirubin (NEGATIVE) Urine Urobilinogen (0.2) E.U./dL Ur Leukocyte Esterase (NEGATIVE) Urine RBC (0-5/HPF) Urine WBC (0-5/HPF) Amorphous Sediment Urine Bacteria (None) Ur Culture Indicated? SARS-CoV-2 (PCR) (Negative) 09/03/21 09/03/21 09/03/21 Range/Units 16:40 17:51 18:25 WBC (4.5-11.0) X10^3/uL RBC (4.0-5.2) X10^6/uL Hgb (12.0-16.0) g/dL Hct (36-46) % MCV (80-100) fL MCH (26-34) PG MCHC (30-36) % RDW (11.6-14.8) % Plt Count (150-400) X10^3/uL Neut % (Auto) Lymph % (Auto) [place] % (Auto) Eos % (Auto) Baso % (Auto) Lymph # (Auto) [place] # (Auto) Baso # (Auto) Total Counted Seg Neutrophils % (38-70) % Band Neutrophils % (3-7) % Lymphocytes % (Manual) (25-45) % Monocytes % (Manual) (2-11) % Metamyelocytes % (-0) % Myelocytes % (-0) % Neutrophils # (Manual) (1098-9197) /uL Platelet Estimate RBC Morphology PT 22.6 H (10.1-12.7) SECONDS INR 2.0 H (0.9-1.3) APTT 33 (26.4-36.2) SECONDS Sodium (137-145) mmol/L Potassium (3.4-5.1) mmol/L Chloride (98-107) mmol/L Carbon Dioxide (22-32) mmol/L BUN (7-17) mg/dL Creatinine (0.52-1.04) mg/dL Estimated GFR (>60) mL/min BUN/Creatinine Ratio (6-22) Glucose (80-110) mg/dL Lactate 1.5 (0.7-2.1) mmol/L Calcium (8.4-10.2) mg/dL Total Bilirubin (0.2-1.3) mg/dL AST (14-36) IU/L ALT (<35) IU/L Alkaline Phosphatase (38-126) U/L Total Creatine Kinase (30-135) U/L CK-MB (CK-2) (<2.37) ng/mL CK-MB (CK-2) Rel Index (1.5-5.0) % Troponin I (0.01-0.034) ng/mL NT-Pro-B Natriuret Pep (<450) pg/mL Total Protein (6.3-8.2) g/dL Albumin (3.5-5.0) g/dL Globulin (1.7-4.1) g/dL Albumin/Globulin Ratio (1.0-2.8) Lipase (23-300) U/L Procalcitonin (<0.5) ng/mL Urine Color Urine Appearance Urine pH (4.5-8.0) Ur Specific [place] (1.000-1.035) Urine Protein (Negative) Urine Glucose (UA) (Negative) g/dL Urine Ketones (NEGATIVE) Urine Occult Blood (Negative) Urine Nitrate (Negative) Urine Bilirubin (NEGATIVE) Urine Urobilinogen (0.2) E.U./dL Ur Leukocyte Esterase (NEGATIVE) Urine RBC (0-5/HPF) Urine WBC (0-5/HPF) Amorphous Sediment Urine Bacteria (None) Ur Culture Indicated? SARS-CoV-2 (PCR) Negative (Negative) 09/03/21 Range/Units 19:11 WBC (4.5-11.0) X10^3/uL RBC (4.0-5.2) X10^6/uL Hgb (12.0-16.0) g/dL Hct (36-46) % MCV (80-100) fL MCH (26-34) PG MCHC (30-36) % RDW (11.6-14.8) % Plt Count (150-400) X10^3/uL Neut % (Auto) Lymph % (Auto) [place] % (Auto) Eos % (Auto) Baso % (Auto) Lymph # (Auto) [place] # (Auto) Baso # (Auto) Total Counted Seg Neutrophils % (38-70) % Band Neutrophils % (3-7) % Lymphocytes % (Manual) (25-45) % Monocytes % (Manual) (2-11) % Metamyelocytes % (-0) % Myelocytes % (-0) % Neutrophils # (Manual) (4042-7654) /uL Platelet Estimate RBC Morphology PT (10.1-12.7) SECONDS INR (0.9-1.3) APTT (26.4-36.2) SECONDS Sodium (137-145) mmol/L Potassium (3.4-5.1) mmol/L Chloride (98-107) mmol/L Carbon Dioxide (22-32) mmol/L BUN (7-17) mg/dL Creatinine (0.52-1.04) mg/dL Estimated GFR (>60) mL/min BUN/Creatinine Ratio (6-22) Glucose (80-110) mg/dL Lactate (0.7-2.1) mmol/L Calcium (8.4-10.2) mg/dL Total Bilirubin (0.2-1.3) mg/dL AST (14-36) IU/L ALT (<35) IU/L Alkaline Phosphatase (38-126) U/L Total Creatine Kinase (30-135) U/L CK-MB (CK-2) (<2.37) ng/mL CK-MB (CK-2) Rel Index (1.5-5.0) % Troponin I (0.01-0.034) ng/mL NT-Pro-B Natriuret Pep (<450) pg/mL Total Protein (6.3-8.2) g/dL Albumin (3.5-5.0) g/dL Globulin (1.7-4.1) g/dL Albumin/Globulin Ratio (1.0-2.8) Lipase (23-300) U/L Procalcitonin (<0.5) ng/mL Urine Color Yellow Urine Appearance Clear Urine pH 5.5 (4.5-8.0) Ur Specific [place] 1.010 (1.000-1.035) Urine Protein Negative (Negative) Urine Glucose (UA) Negative (Negative) g/dL Urine Ketones Trace H (NEGATIVE) Urine Occult Blood Trace-lysed (Negative) Urine Nitrate Positive H (Negative) Urine Bilirubin Negative (NEGATIVE) Urine Urobilinogen 0.2 (0.2) E.U./dL Ur Leukocyte Esterase 3+ H (NEGATIVE) Urine RBC None seen (0-5/HPF) Urine WBC 5-10/hpf H (0-5/HPF) Amorphous Sediment 2+ Urine Bacteria Many (>30) H (None) Ur Culture Indicated? Specimen cultured SARS-CoV-2 (PCR) (Negative) Imaging Data CT scan - head: Radiologist's Impression: PROCEDURE:? CT HEAD/BRAIN WO CON ? INDICATIONS:? falls ? TECHNIQUE:? Noncontrast 4.5 mm thick angled axial sections acquired from the foramen magnum to the vertex, with coronal and sagittal reformats.? For radiation dose reduction, the following was used:? automated exposure control, adjustment of mA and/or kV according to patient size.? ? COMPARISON:? [facility], CT, CT HEAD/BRAIN WO CON, 03/23/2020, 21:24. ? FINDINGS:? Image quality:? Excellent.? ? CSF spaces:? Basal cisterns are patent.? No extra-axial fluid collections.? The ventricles are symmetric in size and shape.? There is moderate cerebral volume loss, with resultant ventricular and sulcal prominence.? ? Brain:? No intracranial hemorrhage, mass, or mass effect.? There are subcortical, periventricular and deep white matter hypodensities consistent with moderate chronic small vessel ischemic changes.? The spring-white matter junction appears preserved.? There is intracranial internal carotid artery atherosclerosis.? ? Skull and face:? Calvarium and visualized facial bones appear intact, without suspicious lesions.? ? Sinuses:? Visualized sinuses and mastoids are clear.? ? IMPRESSION:? ? 1. No acute intracranial abnormality. ? 2. Moderate cerebral volume loss and chronic white matter small vessel ischemic changes.? Dictated by: José Miguel Drake M.D. on 09/03/2021 at 20:37 Chest x-ray: Radiologist's Impression: PROCEDURE:? XR CHEST 1V ? INDICATIONS:? short of breath ? TECHNIQUE:? One view of the chest was acquired.? ? COMPARISON:? [facility], CR, XR CHEST 2V, 11/24/2019, 12:35. ? FINDINGS:? ? Surgical changes and devices:? None.? ? Lungs and pleura:? There are increased confluent left basilar opacities suggestive of consolidation and pneumonia.? There is also a likely component atelectasis.? There is a small left pleural effusion.? There is a possible small right pleural effusion, with the costophrenic angle obscured by overlying wires. ? Mediastinum:? Mediastinal contours appear widened likely due to rotation.? Heart size is enlarged.? ? Bones and chest wall:? No suspicious bony lesions.? Overlying soft tissues appear unremarkable.? ? IMPRESSION:? ? 1. Left basilar opacities consistent with consolidation/pneumonia versus atelectasis. ? 2. Small left pleural effusion and possible small right effusion.? ? ? Dictated by: José Miguel Drake M.D. on 09/03/2021 at 20:15 ? US - abdomen: Radiologist's Impression: PROCEDURE: US ABDOMEN LIMITED ? INDICATIONS:? RUQ PAIN ? TECHNIQUE:? Real-time focused scanning was performed of the gallbladder and biliary system, with image documentation.? ? COMPARISON:? [facility], CT, CT ABDOMEN PELVIS W CON, 09/03/2021, 18:46. ? FINDINGS:? ? There is a dependent hypoechoic filling defect within the gallbladder measuring up to approximately 6.1 x 2.0 x 2.2 cm.? No associated internal vascularity on color Doppler interrogation.? Findings likely represent biliary sludge.? There are internal echogenic shadowing foci within this region compatible with gallstones.? No gallbladder wall thickening or pericholecystic fluid. ? No intra or extrahepatic biliary ductal dilatation. ? There is a small hypoechoic region in the liver along the gallbladder fossa measuring up to 2.5 x 1.2 x 3.5 cm likely representing focal fatty infiltration. ? IMPRESSION:? ? 1. Dependent filling defect within the gallbladder likely representing biliary sludge.? Cholelithiasis also noted without sonographic evidence of cholecystitis. ? 2. Right hepatic mass seen on subsequent CT not visualized sonographically on this limited study of the gallbladder.? ? ? Dictated by: José Migeul Drake M.D. on 09/03/2021 at 21:57? CT scan - chest: Radiologist's Impression: PROCEDURE:? CT ANGIO CHEST PE PROTOCOL ? INDICATIONS:? hypoxia ? TECHNIQUE:? After the administration of intravenous contrast, 2 mm thick sections acquired from the pulmonary apices to the posterior costophrenic angles.? 3-dimensional maximum intensity projection (MIP) coronal and sagittal reformats were then acquired through the thorax.? For radiation dose reduction, the following was used:? automated exposure control, adjustment of mA and/or kV according to patient size.? ? COMPARISON:? [facility], CT, CT ABDOMEN PELVIS W CON, 09/03/2021, 18:46.? [facility], CT, CT ANGIO CHEST, 01/18/2020, 11:35. ? FINDINGS:? Image quality:? There is motion artifact limiting evaluation.? ? Pulmonary arteries:? Evaluation of subsegmental pulmonary arteries is limited by suboptimal contrast opacification and motion artifact.? No definite filling defects to suggest central pulmonary embolism to the level of the segmental pulmonary arteries.? Pulmonary arteries are normal in size. ? Lungs and pleura:? There is dependent atelectasis bilaterally.? No focal consolidation.? No pleural effusions or pneumothorax.? Central and peripheral airways are patent.? ? Mediastinum:? Heart size is normal, without pericardial effusion.? No mediastinal or hilar adenopathy.? Thoracic aorta is normal in caliber and enhancement.? Esophagus is normal in caliber, with a small hiatal hernia.? ? Bones and chest wall:? No suspicious bony lesions.? Ribs and thoracic spine appear intact throughout.? The thyroid demonstrates no discrete nodules.? No axillary or supraclavicular adenopathy.? ? Abdomen:? Visualized upper abdomen demonstrates a heterogeneous mass within the posterior right hepatic lobe. ? IMPRESSION:? ? 1. Limited study demonstrates no central pulmonary embolism to the level of the segmental pulmonary arteries. ? 2. Large heterogeneous mass within the posterior right hepatic lobe.? Findings are incompletely evaluated on the current study .? Recommend correlation with concurrent study of the abdomen. ? Dictated by: José Miguel Drake M.D. on 09/03/2021 at 20:38 ?? CT scan - abdomen/pelvis: Radiologist's Impression: PROCEDURE:? CT ABDOMEN PELVIS W CON ? INDICATIONS:? right sided pain ? TECHNIQUE:? After the administration of oral and IV contrast, axial sections were acquired from the lung bases to the pubic symphysis.? Coronal and sagittal reformats were performed.? For radiation dose reduction, the following was used:? automated exposure control, adjustment of mA and/or kV according to patient size. ? COMPARISON:? [facility], CT, CT ANGIO CHEST PE PROTOCOL, 09/03/2021, 18:46.? [facility], CT, CT ANGIO CHEST PE PROTOCOL, 09/03/2021, 18:46.? [facility], CT, ABDOMEN/PELVIS WITH CONTRAST, 09/29/2012, 10:28. ? FINDINGS:? Image quality:? There is motion artifact limiting evaluation.? ? Lung bases:? There is dependent atelectasis bilaterally within the visualized lung bases. ?? Heart:? Heart is normal in enlarged. ? ABDOMEN: Liver:? There is a heterogeneous mass within the posterior right hepatic lobe centered in segment 7. This measures approximately 8.9 x 8.1 x 9.1 cm.? There are internal curvilinear hypoattenuating cystic components.? There is mild adjacent shunting within the right hepatic lobe.? Gallbladder:? There are calcified gallstones in the gallbladder which is distended.? No definite wall thickening or pericholecystic fat stranding. Biliary ducts:? No biliary ductal dilatation.? ? Pancreas:? Unremarkable.? ? Spleen:? Normal in size.? ? Adrenal Glands:? No adrenal nodules.? ? Kidneys and Ureters:? No hydronephrosis.? ? ? Stomach and Bowel:? There are postsurgical changes consistent with prior right hemicolectomy with a anastomosis in the right mid abdomen.? Bowel loops appear normal in caliber and wall thickness.? There is a small amount of intraperitoneal free fluid within the right abdomen and pelvis.? No free air.? ? Ventral Wall: ? No hernia.? Abdominal Nodes:? No retroperitoneal or mesenteric adenopathy by size criteria.? Vessels:? Aorta and inferior vena cava are normal in size.? ? PELVIS: Pelvic Organs:? Unremarkable.? ? Bladder:? There is a Mack catheter within a nondistended urinary bladder. Pelvic Nodes: No enlarged lymph nodes.? Miscellaneous: No inguinal hernias are seen. ? ? ? Bones:? Visualized osseous structures demonstrate no suspicious focal lesions. ? ? IMPRESSION:? ? 1. Large heterogeneous mass within the right hepatic lobe highly suspicious for a neoplasm such as metastatic disease. Recommend further evaluation with a liver protocol MRI or CT. ? 2. Cholelithiasis without CT evidence of acute cholecystitis. ? 3. Postsurgical changes status post right hemicolectomy.? No discrete bowel mass identified. ? 4. Small amount of intraperitoneal free fluid within the right abdomen and pelvis.? Findings are nonspecific but likely reactive secondary to a nonspecific infectious or inflammatory process.? ? Dictated by: José Miguel Drake M.D. on 09/03/2021 at 20:18 ? ? ECG Data Interpretation: A artifact noted sinus rhythm rate 108, no ST changes, p.r. interval 154 MDM Narrative Medical decision making narrative: Patient initially incontinent of urine with foul smell tachycardic and low-grade fever. Concern for UTI and sepsis. However she is complaining of right upper quadrant pain. She is found have elevated bilirubin of 2.2 but normal alkaline phosphate 79, normal ALT at 22 in minimal elevation of AST at 48. Also normal lipase. She has cholelithiasis on CT without signs of acute cholecystitis ultr asound shows sludge and cholelithiasis a pulse are showing a right hepatic mass as well. She has leukocytosis of 29,000 with a normal lactate and significantly elevated procalcitonin of 11. She has an obvious UTI positive nitrates need leukocytes. Mildly tachycardic which improved with fluid and normal blood pressure. She is mildly tender in her right upper quadrant concern for possible cholecystitis, possible common bile duct stone. However blood work may be abnormal secondary to liver mass as well. Both of these will need further testing and imaging and probable MRCP. She was also extremely tachypneic with minimal exertion. She required 2 people assist to help change her depends she required a Mack catheter as well. Based on symptoms or reports of significant increased shortness of breath CT angio was also done which is fortunately negative and again shows a liver mass. Patient is empirically given Levaquin and vancomycin for UTI, possible cholecystitis and sepsis. Severe bed shortage unable to find any place for ERCP at this time, reasonable to treat with antibiotics and further imaging studies of MRCP, with transfer if needed. [id number]-Dr. Dawkins updated patient's symptoms test results at this time agrees with no surgery consultation will treat UTI and sepsis at this time. Discharge Plan Departure Patient Disposition: Admitted As Inpatient Clinical Impression: Acute UTI, Cholelithiasis, Liver mass Admit Date/Time: 09/03/21 21:34 Admit Provider: Roni Dawkins
[2021-09-03 18:15] LABS: Troponin I < 0.012 ng/mL (0.01-0.034)
[2021-09-03 18:20] LABS: Procalcitonin 11.5 ng/mL (<0.5)
--- NOTE | 2021-09-03 18:22 | DI.US.S_ITS ---
PROCEDURE: US ABDOMEN LIMITED INDICATIONS: RUQ PAIN TECHNIQUE: Real-time focused scanning was performed of the gallbladder and biliary system, with image documentation. COMPARISON: [facility], CT, CT ABDOMEN PELVIS W CON, 09/03/2021, 18:46. FINDINGS: There is a dependent hypoechoic filling defect within the gallbladder measuring up to approximately 6.1 x 2.0 x 2.2 cm. No associated internal vascularity on color Doppler interrogation. Findings likely represent biliary sludge. There are internal echogenic shadowing foci within this region compatible with gallstones. No gallbladder wall thickening or pericholecystic fluid. No intra or extrahepatic biliary ductal dilatation. There is a small hypoechoic region in the liver along the gallbladder fossa measuring up to 2.5 x 1.2 x 3.5 cm likely representing focal fatty infiltration. IMPRESSION: 1. Dependent filling defect within the gallbladder likely representing biliary sludge. Cholelithiasis also noted without sonographic evidence of cholecystitis. 2. Right hepatic mass seen on subsequent CT not visualized sonographically on this limited study of the gallbladder. Dictated by: José Miguel Drake M.D. on 09/03/2021 at 21:57 Approved by: José Miguel Drake M.D. on 09/03/2021 at 22:00
--- NOTE | 2021-09-03 18:22 | DI.RAD.S_ITS ---
PROCEDURE: XR CHEST 1V INDICATIONS: short of breath TECHNIQUE: One view of the chest was acquired. COMPARISON: [facility], CR, XR CHEST 2V, 11/24/2019, 12:35. FINDINGS: Surgical changes and devices: None. Lungs and pleura: There are increased confluent left basilar opacities suggestive of consolidation and pneumonia. There is also a likely component atelectasis. There is a small left pleural effusion. There is a possible small right pleural effusion, with the costophrenic angle obscured by overlying wires. Mediastinum: Mediastinal contours appear widened likely due to rotation. Heart size is enlarged. Bones and chest wall: No suspicious bony lesions. Overlying soft tissues appear unremarkable. IMPRESSION: 1. Left basilar opacities consistent with consolidation/pneumonia versus atelectasis. 2. Small left pleural effusion and possible small right effusion. Dictated by: José Miguel Drake M.D. on 09/03/2021 at 20:15 Approved by: José Miguel Drake M.D. on 09/03/2021 at 20:18
[2021-09-03 18:23] LABS: Lactate (Lactic Acid) 1.5 mmol/L (0.7-2.1)
--- NOTE | 2021-09-03 18:28 | DI.CT.S_ITS ---
PROCEDURE: CT ABDOMEN PELVIS W CON INDICATIONS: right sided pain TECHNIQUE: After the administration of oral and IV contrast, axial sections were acquired from the lung bases to the pubic symphysis. Coronal and sagittal reformats were performed. For radiation dose reduction, the following was used: automated exposure control, adjustment of mA and/or kV according to patient size. COMPARISON: [facility], CT, CT ANGIO CHEST PE PROTOCOL, 09/03/2021, 18:46. [facility], CT, CT ANGIO CHEST PE PROTOCOL, 09/03/2021, 18:46. [facility], CT, ABDOMEN/PELVIS WITH CONTRAST, 09/29/2012, 10:28. FINDINGS: Image quality: There is motion artifact limiting evaluation. Lung bases: There is dependent atelectasis bilaterally within the visualized lung bases. Heart: Heart is normal in enlarged. ABDOMEN: Liver: There is a heterogeneous mass within the posterior right hepatic lobe centered in segment 7. This measures approximately 8.9 x 8.1 x 9.1 cm. There are internal curvilinear hypoattenuating cystic components. There is mild adjacent shunting within the right hepatic lobe. Gallbladder: There are calcified gallstones in the gallbladder which is distended. No definite wall thickening or pericholecystic fat stranding. Biliary ducts: No biliary ductal dilatation. Pancreas: Unremarkable. Spleen: Normal in size. Adrenal Glands: No adrenal nodules. Kidneys and Ureters: No hydronephrosis. Stomach and Bowel: There are postsurgical changes consistent with prior right hemicolectomy with a anastomosis in the right mid abdomen. Bowel loops appear normal in caliber and wall thickness. There is a small amount of intraperitoneal free fluid within the right abdomen and pelvis. No free air. Ventral Wall: No hernia. Abdominal Nodes: No retroperitoneal or mesenteric adenopathy by size criteria. Vessels: Aorta and inferior vena cava are normal in size. PELVIS: Pelvic Organs: Unremarkable. Bladder: There is a Mack catheter within a nondistended urinary bladder. Pelvic Nodes: No enlarged lymph nodes. Miscellaneous: No inguinal hernias are seen. Bones: Visualized osseous structures demonstrate no suspicious focal lesions. IMPRESSION: 1. Large heterogeneous mass within the right hepatic lobe highly suspicious for a neoplasm such as metastatic disease. Recommend further evaluation with a liver protocol MRI or CT. 2. Cholelithiasis without CT evidence of acute cholecystitis. 3. Postsurgical changes status post right hemicolectomy. No discrete bowel mass identified. 4. Small amount of intraperitoneal free fluid within the right abdomen and pelvis. Findings are nonspecific but likely reactive secondary to a nonspecific infectious or inflammatory process. Dictated by: José Miguel Drake M.D. on 09/03/2021 at 20:18 Approved by: José Miguel Drake M.D. on 09/03/2021 at 20:24
--- NOTE | 2021-09-03 18:29 | DI.CT.S_ITS ---
PROCEDURE: CT HEAD/BRAIN WO CON INDICATIONS: falls TECHNIQUE: Noncontrast 4.5 mm thick angled axial sections acquired from the foramen magnum to the vertex, with coronal and sagittal reformats. For radiation dose reduction, the following was used: automated exposure control, adjustment of mA and/or kV according to patient size. COMPARISON: [facility], CT, CT HEAD/BRAIN WO CON, 03/23/2020, 21:24. FINDINGS: Image quality: Excellent. CSF spaces: Basal cisterns are patent. No extra-axial fluid collections. The ventricles are symmetric in size and shape. There is moderate cerebral volume loss, with resultant ventricular and sulcal prominence. Brain: No intracranial hemorrhage, mass, or mass effect. There are subcortical, periventricular and deep white matter hypodensities consistent with moderate chronic small vessel ischemic changes. The spring-white matter junction appears preserved. There is intracranial internal carotid artery atherosclerosis. Skull and face: Calvarium and visualized facial bones appear intact, without suspicious lesions. Sinuses: Visualized sinuses and mastoids are clear. IMPRESSION: 1. No acute intracranial abnormality. 2. Moderate cerebral volume loss and chronic white matter small vessel ischemic changes. Dictated by: José Miguel Drake M.D. on 09/03/2021 at 20:37 Approved by: José Miguel Drake M.D. on 09/03/2021 at 20:38
--- NOTE | 2021-09-03 18:29 | PC.NURSE ---
Patient arrives EMS soaked in her own urine x multiple days. This RN and hydrology technician bathed and gowned the patient x 40 minutes.
[2021-09-03 18:31] LABS: Neutrophils Absolute Manual 24444 /uL (3000-5900); RBC Morphology Normal Morphology; Total Cells Counted 100
[2021-09-03 18:35] LABS: CKMB % Relative Index 0.5 % (1.5-5.0); Creatine Kinase MB 1.13 ng/mL (<2.37)
--- NOTE | 2021-09-03 18:35 | DI.CT.S_ITS ---
PROCEDURE: CT ANGIO CHEST PE PROTOCOL INDICATIONS: hypoxia TECHNIQUE: After the administration of intravenous contrast, 2 mm thick sections acquired from the pulmonary apices to the posterior costophrenic angles. 3-dimensional maximum intensity projection (MIP) coronal and sagittal reformats were then acquired through the thorax. For radiation dose reduction, the following was used: automated exposure control, adjustment of mA and/or kV according to patient size. COMPARISON: [facility], CT, CT ABDOMEN PELVIS W CON, 09/03/2021, 18:46. [facility], CT, CT ANGIO CHEST, 01/18/2020, 11:35. FINDINGS: Image quality: There is motion artifact limiting evaluation. Pulmonary arteries: Evaluation of subsegmental pulmonary arteries is limited by suboptimal contrast opacification and motion artifact. No definite filling defects to suggest central pulmonary embolism to the level of the segmental pulmonary arteries. Pulmonary arteries are normal in size. Lungs and pleura: There is dependent atelectasis bilaterally. No focal consolidation. No pleural effusions or pneumothorax. Central and peripheral airways are patent. Mediastinum: Heart size is normal, without pericardial effusion. No mediastinal or hilar adenopathy. Thoracic aorta is normal in caliber and enhancement. Esophagus is normal in caliber, with a small hiatal hernia. Bones and chest wall: No suspicious bony lesions. Ribs and thoracic spine appear intact throughout. The thyroid demonstrates no discrete nodules. No axillary or supraclavicular adenopathy. Abdomen: Visualized upper abdomen demonstrates a heterogeneous mass within the posterior right hepatic lobe. IMPRESSION: 1. Limited study demonstrates no central pulmonary embolism to the level of the segmental pulmonary arteries. 2. Large heterogeneous mass within the posterior right hepatic lobe. Findings are incompletely evaluated on the current study . Recommend correlation with concurrent study of the abdomen. Dictated by: José Miguel Drake M.D. on 09/03/2021 at 20:38 Approved by: José Miguel Drake M.D. on 09/03/2021 at 20:42
[2021-09-03 18:41] LABS: Platelet Estimate Increased on smear
[2021-09-03 18:50] LABS: Prothrombin Time 22.6 SECONDS (10.1-12.7)
[2021-09-03 18:53] LABS: PTT Partial Thromboplastin Tim 33 SECONDS (26.4-36.2)
[2021-09-03] MEDS: methylPREDNISolone 125 MG/2 ML VIAL IV (18:55)
[2021-09-03] MEDS: SODIUM CHLORIDE 0.9% 1,000 ML 1000 ML IV (18:57)
[2021-09-03] MEDS: levoFLOXacin 750 MG/150 ML PIGGYBACK 100 MG IV (18:58)
[2021-09-03 19:06] LABS: NT-proBNP (BNP-Adult 18+) 623 pg/mL (<450)
[2021-09-03 19:24] LABS: Appearance Urine UA CLEAR; Bilirubin Urine UA NEGATIVE (NEGATIVE); Color Urine UA YELLOW; Glucose Urine UA NEGATIVE (Negative); Ketones Urine UA TRACE (NEGATIVE); Leukocyte Esterase Urine UA 3+ (NEGATIVE); Nitrite Urine UA POSITIVE (Negative); Occult Blood Urine UA TRACE-LYSED (Negative); Protein Urine UA NEGATIVE (Negative); Urobilinogen Urine UA 0.2 E.U./dL (0.2)
[2021-09-03 19:31] LABS: pH Urine UA 5.5 (4.5-8.0)
[2021-09-03 19:50] LABS: COVID19 - ADMIT (NP swab/PCR) Negative (Negative)
[2021-09-03 20:08] LABS: RBC Urine None Seen (0-5/HPF)
[2021-09-03 20:09] LABS: Amorphous Sediment Urine 2+; Bacteria Urine Many (>30); Culture Indicated Urine Specimen Cultured; WBC Urine 5-10/HPF (0-5/HPF)
--- NOTE | 2021-09-03 20:18 | PC.NURSE ---
Received in report that the patient has rash under ABD fold, pt has bilat open area to lower glutial folds and cleft, brief that pt was in when she arrived was saturated and disintegrating while on pt. Son was making jokes when he arrived and did not seem to understand the significance of the patients condition.
[2021-09-03] MEDS: VANCOMYCIN 2,000 MG/400 ML PIGGYBACK 200 MG IV (20:56)
[2021-09-03] MEDS: SODIUM CHLORIDE 0.9% 1,000 ML 150 ML IV (23:06)
[2021-09-04] VITALS (8 sets, daily range): BP systolic 103–140; BP diastolic 55–70; PULSE 92–101; RESP 17–26; TEMP 36.9–37.7; O2SAT 94–97
[2021-09-04] MEDS: ACETAMINOPHEN 325 MG TABLET 650 MG PO ×2 (04:13→23:45)
[2021-09-04] MEDS: SODIUM CHLORIDE 0.9% 1,000 ML 150 ML IV ×3 (06:21→20:30)
--- NOTE | 2021-09-04 08:06 | P.HP_ITS ---
History of Present Illness History of Present Illness Date Patient Seen: 09/04/21 Time Patient Seen: 08:07 Chief complaint: Weakness/UTI Narrative: 80-year-old female well known to me with multiple complex medical problems as listed in this note. She has been slowly failing at home with increased lethargy inability to get out of bed etcetera. She has longstanding severe dyspnea that is failed to really accurately be diagnosed or treated despite evaluation from Cardiology and Pulmonary Medicine. Apparently in the last several days she has become increasingly lethargic not leaving the bed becoming increasingly incontinent of urine. She apparently had a fever of 103 at home but has been afebrile here She presented to the emergency department via EMS where she is found to have a UTI and borderline hypoxia which has been seen previously. This was evaluated in the process she was also discovered to have a mass in the right hepatic lobe. She also had a prominent leukocytosis and there is some possible concern for possible cholecystitis giving some right upper quadrant discomfort and minimal findings on imaging Patient History Medical History Anemia in chronic kidney disease (06/17/15) Arthralgia (09/10/14) Arthralgia of both knees (09/27/15) Attention deficit disorder with hyperactivity Body mass index (BMI) of 40.0 to 44.9 in adult (12/10/16) Chronic midline thoracic back pain (01/02/16) Chronic radicular lumbar pain (09/27/15) Essential hypertension Factor 5 Leiden mutation, heterozygous Hypothyroidism [facility] current use of anticoagulant therapy (02/15/13) Morbid obesity with body mass index (BMI) of 40.0 to 44.9 in adult (09/27/15) VIRGEN (nonalcoholic steatohepatitis) Obstructive sleep apnea syndrome (04/17/11) Restrictive lung disease Spinal stenosis Unspecified asthma (04/17/11) Ventral incisional hernia Surgical History History of bowel resection History of gynecologic surgery S/P total abdominal hysterectomy and bilateral salpingo-oophorectomy Status post appendectomy Status post tonsillectomy and adenoidectomy (1994) Family & Social History Social History: household members spouse Prior Living Arrangements House lives independently Yes caregiver/support person No Safety & Behavioral: Feels Safe in Current Yes Environment Been Physically Hurt or No Threatened By a Person Suicidal Ideation Description None Suicide Plan Description No Plan Tobacco & Substance use: Smoking Status Former smoker alcohol intake never Substance Use Type does not use Meds Home Medications and Allergies Home Medications Medication Instructions Recorded Confirmed Type [CALCIUM W/ VIT D] 500 mg PO BID #0 05/02/13 06/17/21 History ascorbic acid (vitamin C) 500 mg 1,000 mg PO QDAY #0 tab 05/06/16 06/17/21 History tablet ferrous sulfate 325 mg (65 mg 324 mg PO BID #0 05/06/16 06/17/21 History iron) tablet (Iron (ferrous sulfate)) [stool softener] 2 tab PO BID #0 10/28/16 06/17/21 History Disabled Parking Permit ea #1 11/20/16 06/17/21 Rx nitroglycerin 0.4 mg sublingual 0.4 mg SUBLINGUAL PRN #25 tab 03/14/18 06/17/21 Rx tablet (Nitrostat) cyanocobalamin (vitamin B-12) 1,000 mcg IM Q2W #0 ml 08/28/19 06/17/21 History 1,000 mcg/mL injection solution oxycodone 10 mg tablet 10 mg PO Q6H tab 08/28/19 06/17/21 History warfarin 5 mg tablet See Rx Instructions PO .COMPLEX 08/28/19 06/17/21 History tab atomoxetine 40 mg capsule 40 mg PO QDAY #90 tab 02/27/20 06/17/21 Rx (Strattera) fluticasone 500 mcg-salmeterol 50 1 inhalation INHALATION BID #60 03/11/20 06/17/21 Rx mcg/dose blistr powdr for each inhalation (Advair Diskus) bupropion HCl 150 mg 24 hr tablet, 150 mg PO QAM #90 tab 11/19/20 06/17/21 Rx extended release duloxetine 60 mg capsule,delayed 60 mg PO DAILY #90 cap 11/19/20 06/17/21 Rx release oxybutynin chloride 15 mg 15 mg PO DAILY #90 tab 01/10/21 06/17/21 Rx tablet,extended release 24 hr levothyroxine 100 mcg tablet 100 mcg PO QAM #90 tab 01/24/21 06/17/21 Rx spironolactone 100 mg tablet See Rx Instructions .ROUTE 01/24/21 06/17/21 Rx .COMPLEX #90 tab warfarin 5 mg tablet 7.5 mg PO .6DAYSWEEK #120 tab 04/04/21 06/17/21 Rx pantoprazole 40 mg tablet,delayed 40 mg PO BID #180 tab 04/17/21 06/17/21 Rx release (Protonix) prednisone 20 mg tablet 20 mg PO DAILY #30 tab 07/23/21 Rx Allergies Allergy/AdvReac Type Severity Reaction Status Date / Time codeine [CODEINE] Allergy Severe Rash Verified 06/17/21 13:23 morphine [MORPHINE] Allergy Severe Rash, Verified 06/17/21 13:23 Agitation diphenhydramine Allergy Mild AGITATION Verified 06/17/21 13:23 [DIPHENHYDRAMINE] Iodine and Iodide Containing Allergy Mild Verified 06/17/21 13:23 Produc [IODINE AND IODIDE CONTAINING PRODUC] latex [LATEX] Allergy Mild ITCHING, Verified 06/17/21 13:23 SWELLING..BANDAIDS Penicillins [PENICILLINS] Allergy Mild Verified 06/17/21 13:23 CRAB Allergy Mild Uncoded 06/17/21 13:23 Review of Systems Constitutional Constitutional: Denies excessive sweating, Reports fever(s), Denies headache(s), Reports weakness, Denies weight gain and Denies weight loss Eyes Eyes: Denies change in vision, Denies itchy eyes, Denies loss of vision and Denies other visual disturbances ENT Ears, Nose, Mouth, and Throat: No change in voice, No dysphagia, No dizziness, No otalgia, No headache(s), No hoarseness, No lip swelling, No sore throat, No throat swelling and No tongue swelling Cardiovascular Cardiovascular: Denies chest pain, Denies syncope, Denies rapid heart rate, Denies irregular heart rhythm, Denies palpitations, Reports dyspnea (Chronic), Reports dyspnea on exertion (Chronic) and Denies slow heart rate Respiratory Respiratory: Denies chest congestion, Reports cough, Denies hemoptysis, Reports dyspnea (Chronic), Reports dyspnea on exertion (Chronic), Denies stridor and Reports wheezing Gastrointestinal Gastrointestinal: Reports abdominal pain (Chronic right-sided), Denies bloating, Denies change in bowel habits, Denies change in stool character, Denies dysphagia, Denies nausea, Denies vomiting and Denies hematemesis Genitourinary Genitourinary: Denies hematuria, Denies urinary frequency, Denies difficulty voiding and Reports urinary incontinence Integumentary/Breasts Skin/Breast: Denies bleeding lesions, Denies change in pigmentation, Denies changing lesions, Denies new lesions, Denies rash, Denies skin swelling, Denies sores and Denies jaundice Neurologic Neurologic: Denies abnormal speech, Denies behavioral changes, Denies confusion, Denies dizziness, Denies syncope, Denies headache(s), Denies loss of vision, Denies memory loss, Denies seizure-like activity, Denies paresthesias and Reports weakness Psychiatric Psychiatric: Denies behavioral changes, Denies change in appetite, Denies confusion, Denies difficulty concentrating, Denies auditory hallucinations, Denies memory loss, Denies mood swings and Denies suicidal ideation Endocrine Endocrine: Denies excessive sweating, Denies flushing, Reports polyuria and Denies palpitations Hematologic/Lymphatic Hematologic/Lymphatic: Denies easy bleeding, Denies easy bruising and Denies lymphadenopathy Allergic/Immunologic Allergic/Immunologic: Denies urticaria, Denies itchy eyes, Denies lip swelling, Denies throat swelling, Denies tongue swelling and Reports wheezing Exam Vital Signs (past 8 hours): - 09/04/21 04:00 09/04/21 04:13 09/04/21 04:43 Temperature 99.8 F H 99.8 F H 99.2 F Pulse Rate 101 H Respiratory Rate 26 H Blood Pressure 135/62 Pulse Oximetry 94 Oxygen Delivery Method Nasal Cannula Oxygen Flow Rate 1 Narrative Exam Narrative: Elderly female who appears to be uncomfortable lying in hospital bed kind of persistently writhing/moving her lower extremities HEENT-normocephalic atraumatic Neck-no bruits no lymphadenopathy although size and neck would obscure this Lungs-decreased breath sounds throughout no wheezes or crackles, consistent with baseline Heart-regular rate and rhythm Abdomen-tenderness right upper quadrant without rebound or guarding positive bowel tones obesity limits exam otherwise Extremities-no cyanosis clubbing or edema Neuro-alert oriented x3 Objective Labs Result Diagrams: 09/03/21 16:40 09/03/21 16:40 Labs: Laboratory Results - last 24 hr 09/03/21 09/03/21 09/03/21 16:40 16:40 16:40 WBC 29.1 H RBC 3.05 L Hgb 9.1 L Hct 27.8 L MCV 91.3 MCH 29.7 MCHC 32.6 RDW 18.4 H Plt Count 410 H Neut % (Auto) Not Reportable Lymph % (Auto) Not Reportable [place] % (Auto) Not Reportable Eos % (Auto) Not Reportable Baso % (Auto) Not Reportable Lymph # (Auto) Not Reportable [place] # (Auto) Not Reportable Baso # (Auto) Not Reportable Total Counted 100 Seg Neutrophils % 59.0 Band Neutrophils % 25.0 H Lymphocytes % (Manual) 5.0 L Monocytes % (Manual) 7.0 Metamyelocytes % 3.0 H Myelocytes % 1.0 H Neutrophils # (Manual) 47612 H Platelet Estimate Increased on smear RBC Morphology Normal morphology PT INR APTT Sodium 134 L Potassium 4.3 Chloride 101 Carbon Dioxide 24 BUN 26 H Creatinine 1.63 H Estimated GFR 30.5 L BUN/Creatinine Ratio 16.0 Glucose 122 H Lactate Calcium 9.1 Total Bilirubin 2.2 H AST 48 H ALT 22 Alkaline Phosphatase 79 Total Creatine Kinase 250 H CK-MB (CK-2) 1.13 CK-MB (CK-2) Rel Index 0.5 L Troponin I < 0.012 NT-Pro-B Natriuret Pep 623 H Total Protein 7.0 Albumin 3.7 Globulin 3.3 Albumin/Globulin Ratio 1.1 Lipase 31 Procalcitonin 11.5 H Urine Color Urine Appearance Urine pH Ur Specific [place] Urine Protein Urine Glucose (UA) Urine Ketones Urine Occult Blood Urine Nitrate Urine Bilirubin Urine Urobilinogen Ur Leukocyte Esterase Urine RBC Urine WBC Amorphous Sediment Urine Bacteria Ur Culture Indicated? SARS-CoV-2 (PCR) 09/03/21 09/03/21 09/03/21 16:40 17:51 18:25 WBC RBC Hgb Hct MCV MCH MCHC RDW Plt Count Neut % (Auto) Lymph % (Auto) [place] % (Auto) Eos % (Auto) Baso % (Auto) Lymph # (Auto) [place] # (Auto) Baso # (Auto) Total Counted Seg Neutrophils % Band Neutrophils % Lymphocytes % (Manual) Monocytes % (Manual) Metamyelocytes % Myelocytes % Neutrophils # (Manual) Platelet Estimate RBC Morphology PT 22.6 H INR 2.0 H APTT 33 Sodium Potassium Chloride Carbon Dioxide BUN Creatinine Estimated GFR BUN/Creatinine Ratio Glucose Lactate 1.5 Calcium Total Bilirubin AST ALT Alkaline Phosphatase Total Creatine Kinase CK-MB (CK-2) CK-MB (CK-2) Rel Index Troponin I NT-Pro-B Natriuret Pep Total Protein Albumin Globulin Albumin/Globulin Ratio Lipase Procalcitonin Urine Color Urine Appearance Urine pH Ur Specific [place] Urine Protein Urine Glucose (UA) Urine Ketones Urine Occult Blood Urine Nitrate Urine Bilirubin Urine Urobilinogen Ur Leukocyte Esterase Urine RBC Urine WBC Amorphous Sediment Urine Bacteria Ur Culture Indicated? SARS-CoV-2 (PCR) Negative 09/03/21 19:11 WBC RBC Hgb Hct MCV MCH MCHC RDW Plt Count Neut % (Auto) Lymph % (Auto) [place] % (Auto) Eos % (Auto) Baso % (Auto) Lymph # (Auto) [place] # (Auto) Baso # (Auto) Total Counted Seg Neutrophils % Band Neutrophils % Lymphocytes % (Manual) Monocytes % (Manual) Metamyelocytes % Myelocytes % Neutrophils # (Manual) Platelet Estimate RBC Morphology PT INR APTT Sodium Potassium Chloride Carbon Dioxide BUN Creatinine Estimated GFR BUN/Creatinine Ratio Glucose Lactate Calcium Total Bilirubin AST ALT Alkaline Phosphatase Total Creatine Kinase CK-MB (CK-2) CK-MB (CK-2) Rel Index Troponin I NT-Pro-B Natriuret Pep Total Protein Albumin Globulin Albumin/Globulin Ratio Lipase Procalcitonin Urine Color Yellow Urine Appearance Clear Urine pH 5.5 Ur Specific [place] 1.010 Urine Protein Negative Urine Glucose (UA) Negative Urine Ketones Trace H Urine Occult Blood Trace-lysed Urine Nitrate Positive H Urine Bilirubin Negative Urine Urobilinogen 0.2 Ur Leukocyte Esterase 3+ H Urine RBC None seen Urine WBC 5-10/hpf H Amorphous Sediment 2+ Urine Bacteria Many (>30) H Ur Culture Indicated? Specimen cultured SARS-CoV-2 (PCR) Assessment & Plan Assessment & Plan narrative: 1. UTI-culture still pending at this point. Patient was given Levaquin and vancomycin in the ER. Continue with Levaquin for now. Not sure that a simple UTI explains her leukocytosis frankly. However certainly treat the UTI at this point awaiting culture maybe look tailor antibiotics based on culture results in the future 2. GI-patient's right upper quadrant discomfort some distention of her ga llbladder suggestive perhaps some cholecystitis or biliary tract issue. I think she deserves more advanced imaging of her biliary tract will try and obtain an MRCP although patient's body habitus and frankly her inability to lie still may significantly compromise this study. This may better explain her leukocytosis etcetera 3. Liver mass-unclear whether this may be coming from. This could be primary liver patient with longstanding history of liver disease/cirrhosis. No evidence of primary source if this is a metastatic lesion the rest of her abdominal CT and chest CT is unremarkable. She also had a head CT performed which was also unremarkable. Plan to check some tumor markers including AFP and re-evaluate. Also will be looking at this with the MRI assuming we can obtain that as well. She may require biopsy to further delineate which would be somewhat complicated given her need for chronic anticoagulation etcetera 4. Respiratory-patient with severe respiratory symptoms and significant respiratory distress at baseline. This is failed to be fully characterized by Cardiology and or Pulmonary Medicine. She has an element of restrictive lung disease in part probably related to her obesity. She is intermittently mildly hypoxic with activity although recovers relatively rapidly. She also has some underlying obstructive lung disease but is not really benefited from oral or inhaled steroids although she does continue on both at this time. I am going to go ahead and put her on some IV steroids at this point 5. Factor 5 Leiden mutation-continue patient's warfarin for now. This is the etiology or indication for chronic anticoagulation. She has had issues with clotting when this is been discontinued in the distant past. 6. Chronic renal failure stage 3-patient's numbers appear to be a baseline. She is not overly anticoagulated I do not believe there is any evidence of acute kidney injury. Continue to hydrate patient given her contrast based imaging studies that were performed as part of her admission process 7. Morbid obesity-patient's BMI is actually 39 upon admission now which is a bit down for her. Obviously her size going to complicate her ability to be evaluated with advanced imaging as well as in combination with her other medical problems affect her ability to be cared for ambulation etcetera. Continue to monitor and encourage appropriate dietary choices 8. Chronic radicular lumbar pain/spinal stenosis-patient with chronic pain iss ues. Intermittently on oxycodone. Not an active issue at this time beyond the chronic nature of the disease 9. Attention deficit disorder-patient normally on medication for this. Hold off on that for now but may need to re-evaluate depending on her clinical course Patient clearly deserves inpatient hospitalization given the complex nature of her presentation as above as well as active medical issues as above. She clearly be in the hospital greater than 48 hours that will span 2 separate midnights at least.
--- NOTE | 2021-09-04 08:18 | DI.MRI.S_ITS ---
PROCEDURE: MR ABDOMEN WO/W CON INDICATIONS: abnl CT/LFTs TECHNIQUE: Coronal HASTE, axial 2D FLASH in- and [id number]; axial breath-hold T2 FSE. Dynamic axial VIBE during the administration of contrast; post-contrast coronal VIBE or 2D FLASH with fat saturation from the hepatic dome to the iliac crests. Optional diffusion weighted imaging and ADC may be performed. COMPARISON: [facility], CT, CT ANGIO CHEST, 01/18/2020, 11:35. [facility], US, US ABDOMEN LIMITED, 09/03/2021, 18:57. [facility], CT, CT ABDOMEN PELVIS W CON, 09/03/2021, 18:46. FINDINGS: Image quality: Fair. Motion artifact. Lung bases: No basal pleural effusions. Heart size is normal. Small hiatal hernia. Solid organs: Right lobe of the liver at the dome large rounded mass measuring 7.8 x 7.7 cm, (25/28). The lesion demonstrates hypoenhancement, heterogeneous T2 hyperintense signal, and no restricted diffusion. No intralesional fat is seen. No additional hepatic lesions identified. Gallbladder is distended. Small gallstones. No pericholecystic fluid. Biliary system is non dilated. Cyst in the head of the pancreas measuring 1.4 cm, (4/33). No enhancement is seen. No restricted diffusion. No pancreatic ductal dilatation. Spleen is absent. Small splenules. No adrenal nodules. Both kidneys demonstrate normal size and enhancement, without hydronephrosis. Small cyst at the inferior pole the right kidney. Nodes and vessels: No retroperitoneal or mesenteric adenopathy by size criteria. Aorta and inferior vena cava are normal in size. Bowel and peritoneum: Unenhanced bowel loops are normal in caliber. Trace free fluid adjacent to the liver. Bones and soft tissues: No ventral hernias. Bone marrow is normal in overall signal. Scoliosis. IMPRESSION: Exam is degraded by motion artifact. 1. Right lobe of the liver large lesion measuring 7.8 cm. The lesion appears heterogeneously cystic and hypoenhancing. No additional liver lesions are seen. The differential diagnosis is broad. This could represent benign or malignant cystic neoplasm, biliary neoplasm, necrotic metastasis such as neuroendocrine tumor, less likely abscess given the absence of restricted diffusion. Recommend ultrasound-guided biopsy for tissue diagnosis when clinically feasible. 2. Distended gallbladder. Small gallstones. No pericholecystic fluid is demonstrated. 3. Small cyst in the head of the pancreas measuring 1.4 cm. No suspicious imaging features demonstrated. 4. Trace free fluid adjacent to the liver. 5. Small splenules. Spleen is absent. Dictated by: Giorgio Mccann M.D. on 09/04/2021 at 11:48 Approved by: Giorgio Mccann M.D. on 09/04/2021 at 12:14
--- NOTE | 2021-09-04 08:52 | PC.NURSE ---
Addendum entered by Joselin Batista R.N. 09/04/21 18:16: Patient given her coumadin around 1715, she is resting comfortably and has o complaints. Addendum entered by Joselin Batista R.N. 09/04/21 14:49: Patient smelled of urine, given a bed bath and cleaned up. Patient has a soar to her r.inner buttock that looks like a shearing accident from sliding on her bottom in her chair, she has another one distal to this, under her breasts are red and lower extremities dry. She is having pain on the open area to her r.inner buttocks. Moved to her left side with waffle cushion under her bottom. Original Note: Assess- Patient is alert and oriented x2, she does have some confusion. She states that she has some discomfort to her r.lower quadrant. BS cta, she is on 1L of o2 and sats are in the mid 90s. She will go down for an mri at 1030. Resting now.
[2021-09-04 09:13] LABS: Cancer Antigen 125 22.8 U/mL (0-35); Carcinoembryonic Antigen 41.5 ng/mL (0.1-3.0)
[2021-09-04] MEDS: DULOXETINE 30 MG CAPSULE 60 MG PO (10:15)
[2021-09-04] MEDS: OXYBUTYNIN 5 MG ER TAB 15 MG PO (10:15)
[2021-09-04] MEDS: buPROPion XL 150 MG TAB PO (10:15)
--- NOTE | 2021-09-04 13:15 | CM.DANOTE ---
DCP assessment- Patient is a 80 yr old female who was admitted for UTI/ Sepsis- patient when she arrived was in a several day old brief and patients son stated his mother has not gotten up in a few days. CM met with patient at the bedside and explained role, patient was alert and oriented x3 but seemed groggy and didn't really seem to understand the condition she was in when she arrived at the ED. CM asked patient if she usually needs to use a brief? patient stated she never needs to use one she can walk to the bathroom with out any problem. when asked if she was getting up the last few days she said she wasn't because she wasn't feeling well. CM asked if she remembered coming into the ED? patient said she didn't remember coming in. CM asked patient about her living situation she stated she lives with her Antwan in [place] and her son Michele Worthington lives near by but he isn't always around to help. CM asked if patient was open to going to SNF if it was determined she needed to for a time to get strong. she said she would if it was needed. Patient stated her [facility] SN[facility] placement would [facility]. CM asked if she would go to SNF in [place] she stated no. IF she has to go to SNF she wants to go [facility] if not to [facility] then she will go home and is open to HH if it is determined she will need it. I: [employer] medicare advantage and self pay Plan: DC to SNF VS Home with HH- [facility] is reviewing once she determines if she can accept or not she will submit [employer] auth. if [employer] auth goes through patient will go to SNF if not home with HH is secondary option PASRR completed. Belinda Collier Discharge Planning/Care Management CM Discharge Assessment Start: 09/04/21 13:10 Freq: Status: Active Protocol: Document 09/04/21 13:11 HS (Rec: 09/04/21 13:15 HS [id number]) Discharge Planning Assessment Assigned Cad Intern Belinda collier DPOA/Assigned Designee Name Antwan Charles (Spouse) Contact Information [phone] Advance Directives? No History Provided By Patient,Medical Record Has Patient been admitted in last 30 No days? Prior Living Arrangements House Household Members spouse Type of transporation used prior to Relies on Others admit Independent with ADL's Yes: Patient states she is independent but in brief here and is incontinent Is patient alert and oriented? Alert and oriented x2 Caregiver for Another No DME Already Rented / Owned FWW / Walker Patient/Family Preference [facility] Facility Comment Anticipate will need SNF care- agreed to [facility] -February reviewing Barriers to Discharge Yes Comment unsure of DC needs at this time- Home with HH vs SNF Discharge Plan [facility] Facility Referrals Initiated [facility] If patient plan is SNF: Has PASSR been Yes completed? Medicare Choice List Provided Yes SNF/HH Preference Patient requested [facility] only- will submit when patient has PT and OT notes to submit - MD has not put in OT/ PT orders CM called and LVM will check in with MD later today to see if Okay to request PT and OT evals Contact Name/Phone February at [facility] [phone] Has Agency SNF been contacted Yes Whiteboard Updated in Patient Room with Yes name and ext. # of Cad Intern Review Status In Process Next Review Type Continued Stay Review
[2021-09-04] MEDS: INFLUENZA HD VACCINE 0.7 ML SYRINGE IM (15:42)
[2021-09-04] MEDS: WARFARIN 5 MG TABLET 7.5 MG PO (17:23)
[2021-09-04] MEDS: PANTOPRAZOLE DR 40 MG TABLET PO (20:30)
[2021-09-05] VITALS (8 sets, daily range): BP systolic 123–138; BP diastolic 50–65; PULSE 86–94; RESP 17–24; TEMP 36.6–37.7; O2SAT 94–98
[2021-09-05] MEDS: SODIUM CHLORIDE 0.9% 1,000 ML 150 ML IV ×3 (02:57→18:08)
[2021-09-05] MEDS: LEVOTHYROXINE 100 MCG TABLET PO (05:58)
[2021-09-05] MEDS: PANTOPRAZOLE DR 40 MG TABLET PO ×2 (06:00→20:38)
[2021-09-05 07:15] LABS: Cancer (Carbohydrate) Ag 19-9 18 U/mL (0-35)
[2021-09-05 08:00] LABS: Add Manual Diff / Slide Review NO; Basophils Absolute Auto 100 /uL (0-100); Basophils Percent Auto 0.2 % (0-2); Eosinophils Absolute Auto 0 /uL (0-450); Hematocrit 25.7 % (36-46); Hemoglobin 8.3 g/dL (12.0-16.0); Lymphocytes Absolute Auto 600 /uL (1100-4500); Lymphocytes Percent Auto 2.7 % (25-40); Mean Corpuscular HGB Conc 32.3 % (30-36); Mean Corpuscular Hemoglobin 29.7 PG (26-34); Monocytes Absolute Auto 800 /uL (0-900); Monocytes Percent Auto 3.2 % (3-14); Neutrophils Absolute Auto 22400 /uL (1500-7000); Neutrophils Percent Auto 93.9 % (50-75); Platelet Count 365 X10^3/uL (150-400); Red Cell Distribution Width 18.3 % (11.6-14.8); White Blood Cell Count 23.9 X10^3/uL (4.5-11.0)
[2021-09-05 08:06] LABS: INR 1.9 (0.9-1.3); Prothrombin Time 21.8 SECONDS (10.1-12.7)
[2021-09-05 08:16] LABS: Alanine Aminotransferase 20 IU/L (<35); Albumin 3.4 g/dL (3.5-5.0); Albumin Globulin Ratio 1.1 (1.0-2.8); Alkaline Phosphatase 81 U/L (38-126); Aspartate Aminotransferase 32 IU/L (14-36); BUN Creatinine Ratio 18.5 (6-22); Bilirubin Total 0.8 mg/dL (0.2-1.3); Blood Urea Nitrogen 28 mg/dL (7-17); Calcium 8.6 mg/dL (8.4-10.2); Carbon Dioxide 17 mmol/L (22-32); Chloride 110 mmol/L (98-107); Estimated Glomerular Filt Rate 33.3 mL/min (>60); Globulin 3.2 g/dL (1.7-4.1); Glucose 110 mg/dL (80-110); HEMOLYSIS < 15 (0-50); Potassium 4.6 mmol/L (3.4-5.1); Sodium 136 mmol/L (137-145); Total Protein 6.6 g/dL (6.3-8.2)
[2021-09-05] MEDS: DULOXETINE 30 MG CAPSULE 60 MG PO (08:23)
[2021-09-05] MEDS: buPROPion XL 150 MG TAB PO (08:23)
--- NOTE | 2021-09-05 08:25 | PM.PN.1 ---
Subjective Subjective Date Patient Seen: 09/05/21 Time Patient Seen: 08:26 Interval history: Patient much more awake and alert than she was yesterday. Of course I woke her up from complete sleep yesterday. Really no new complaints. Has not been up out of bed however MRI yesterday showed no evidence of biliary tract obstruction no biliary dilatation some mild gallbladder distention but no active evidence of cholecystitis. Mass in the liver could be a simple cyst that is benign or could be more malignant. Radiology recommended ultrasound-guided biopsy Exam Vital Signs (past 8 hours): - 09/05/21 00:42 09/05/21 05:31 Temperature 98 F 98.4 F Pulse Rate 92 H Respiratory Rate 17 Blood Pressure 126/57 L Pulse Oximetry 97 Oxygen Delivery Method Nasal Cannula Oxygen Flow Rate 1 Objective Imaging MRI - abdomen: Radiologist's impression: 1. Right lobe of the liver large lesion measuring 7.8 cm.? The lesion appears heterogeneously cystic and hypoenhancing.? No additional liver lesions are seen.? The differential diagnosis is broad.? This could represent benign or malignant cystic neoplasm, biliary neoplasm, necrotic metastasis such as neuroendocrine tumor, less likely abscess given the absence of restricted diffusion.? Recommend ultrasound-guided biopsy for tissue diagnosis when clinically feasible. ? 2. Distended gallbladder.? Small gallstones.? No pericholecystic fluid is demonstrated. ? 3. Small cyst in the head of the pancreas measuring 1.4 cm.? No suspicious imaging features demonstrated.? ? 4. Trace free fluid adjacent to the liver.? ? 5. Small splenules.? Spleen is absent.? Labs Result Diagrams: 09/05/21 07:32 09/05/21 07:32 Labs: Laboratory Results - last 24 hr 09/03/21 09/03/21 09/05/21 16:40 16:40 07:32 WBC 23.9 H RBC 2.80 L Hgb 8.3 L Hct 25.7 L MCV 92.0 MCH 29.7 MCHC 32.3 RDW 18.3 H Plt Count 365 Neut % (Auto) 93.9 H Lymph % (Auto) 2.7 L Mcdonald % (Auto) 3.2 Eos % (Auto) 0.0 L Baso % (Auto) 0.2 Neut # (Auto) 98457 H Lymph # (Auto) 600 L Mcdonald # (Auto) 800 Eos # (Auto) 0 Baso # (Auto) 100 PT INR Sodium Potassium Chloride Carbon Dioxide BUN Creatinine Estimated GFR BUN/Creatinine Ratio Glucose Calcium Total Bilirubin AST ALT Alkaline Phosphatase Total Protein Albumin Globulin Albumin/Globulin Ratio Alpha Fetoprotein 227.0 H Carcinoembryonic Ag 41.5 H CA 19-9 Antigen 18 CA 125 Antigen 22.8 09/05/21 09/05/21 07:32 07:32 WBC RBC Hgb Hct MCV MCH MCHC RDW Plt Count Neut % (Auto) Lymph % (Auto) Mcdonald % (Auto) Eos % (Auto) Baso % (Auto) Neut # (Auto) Lymph # (Auto) Mcdonald # (Auto) Eos # (Auto) Baso # (Auto) PT 21.8 H INR 1.9 H Sodium 136 L Potassium 4.6 Chloride 110 H Carbon Dioxide 17 L BUN 28 H Creatinine 1.51 H Estimated GFR 33.3 L BUN/Creatinine Ratio 18.5 Glucose 110 Calcium 8.6 Total Bilirubin 0.8 AST 32 ALT 20 Alkaline Phosphatase 81 Total Protein 6.6 Albumin 3.4 L Globulin 3.2 Albumin/Globulin Ratio 1.1 Alpha Fetoprotein Carcinoembryonic Ag CA 19-9 Antigen CA 125 Antigen [facility] Medical History Anemia in chronic kidney disease (06/17/15) Arthralgia (09/10/14) Arthralgia of both knees (09/27/15) Attention deficit disorder with hyperactivity Body mass index (BMI) of 40.0 to 44.9 in adult (12/10/16) Chronic midline thoracic back pain (01/02/16) Chronic radicular lumbar pain (09/27/15) Essential hypertension Factor 5 Leiden mutation, heterozygous 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 (02/15/13) Morbid obesity with body mass index (BMI) of 40.0 to 44.9 in adult (09/27/15) VIRGEN (nonalcoholic steatohepatitis) Obstructive sleep apnea syndrome (04/17/11) Restrictive lung disease Spinal stenosis Unspecified asthma (04/17/11) Ventral incisional hernia Surgical History History of bowel resection History of gynecologic surgery S/P total abdominal hysterectomy and bilateral salpingo-oophorectomy Status post appendectomy Status post tonsillectomy and adenoidectomy (1994) Social History marital status: number of children: 2 household members: spouse lives independently: Yes caregiver/support person: No housing: house pets and animals: Yes education level: high school occupational status: other current occupational exposures/hazards: No 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 UTI-urine culture not growing anything thus far. Continue with current IV antibiotics for now however. 2. GI-no evidence of active cholecystitis. Blood cultures are also negative. Any discomfort she may have there is sort of chronic as she does have some element of chronic abdominal pain including focused on the right upper quadrant. However the mass within the liver is clearly new not seen on previous imaging. I think this unfortunate makes it less likely to be a benign finding more likely to be something such as malignancy. I am going to go ahead hold her warfarin in preparation for possible ultrasound-guided biopsy early next week. 3. Respiratory-patient appears to be stable. Again combination of significant restrictive lung disease an element of obstructive lung disease probably pulmonary hypertension/cor pulmonale as well as her obesity and hypoventilation. Nothing really reversible. I am going to stop the IV steroids but dose her with slightly higher dose of oral steroids. 4. Factor 5 Leiden-patient's warfarin will be held in preparation for probable liver biopsy as above. I would advocate not bridging her with anything at this point. She has had some issues with clotting in the past but also has been quite stable with her INR within the normal range for extended periods of time. I think in this case she is not and should not be considered high risk to have temporary interruption her long-term anticoagulation 5. Chronic renal failure-numbers are stable as of this morning. No changes in meds or therapies Note: Greater than 30 minutes total time was spent on day of service, evaluating the patient on the floor, including examining the patient, discussing clinical course with clinical and nursing staff, reviewing clinical course in the computer, preparing documentation and writing orders for continued management of care, discussing status with family as appropriate, reviewing plans for the next 24 hours with both patient/family and nursing staff as appropriate.
[2021-09-05] MEDS: predniSONE 20 MG TABLET 40 MG PO (09:11)
[2021-09-05] MEDS: OXYBUTYNIN 5 MG ER TAB 15 MG PO (09:12)
--- NOTE | 2021-09-05 09:40 | PT.IIE ---
Current Diagnoses Elevated white blood cell count, unspecified (09/03/21) Surgical History (Last Reviewed 09/04/21 @ 08:37 by Max Dominguez MD) History of bowel resection S/P total abdominal hysterectomy and bilateral salpingo-oophorectomy Status post appendectomy Status post tonsillectomy and adenoidectomy (1994) Medical History (Last Reviewed 09/04/21 @ 08:37 by Max Dominguez MD) Anemia in chronic kidney disease (06/17/15) Arthralgia (09/10/14) Arthralgia of both knees (09/27/15) Attention deficit disorder with hyperactivity Body mass index (BMI) of 40.0 to 44.9 in adult (12/10/16) Chronic midline thoracic back pain (01/02/16) Chronic radicular lumbar pain (09/27/15) Essential hypertension Factor 5 Leiden mutation, heterozygous Hypothyroidism 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 current use of anticoagulant therapy (02/15/13) Morbid obesity with body mass index (BMI) of 40.0 to 44.9 in adult (09/27/15) VIRGEN (nonalcoholic steatohepatitis) Obstructive sleep apnea syndrome (04/17/11) Restrictive lung disease Spinal stenosis Unspecified asthma (04/17/11) Ventral incisional hernia Physical Therapy Inpatient Evaluation/Re-Eval M1 PT/OT-IP Prior Functional Status Start: 09/05/21 12:03 Freq: NEEDED Status: Active Protocol: Document 09/05/21 09:40 AB (Rec: 09/05/21 12:14 AB [email or web address]) Medical Review Prior Functional Status Medical History Reviewed Yes Communication able to make needs known Mobility and Gait pt stated that she is modified independent with all mobilities and ambulation without AD but occasionally uses a 4WW depending on how she feels per pt (for balance) Social History Household Members spouse Living Arrangements House Number of Floors (Floors) Two Floors Number of Stairs To Enter/Railing? 5 steps B rails to enter 16 steps R rail ascending to bedroom level Home Environment Standard Height Toilet,Walk in Shower Home Equipment Front Wheel Walker,Four Wheel Walker,Hand Held Shower,Grab Bars In Shower M2 PT-IP Current Condition Start: 09/05/21 12:03 Freq: NEEDED Status: Active Protocol: Document 09/05/21 09:40 AB (Rec: 09/05/21 12:14 AB [email or web address]) Physical Therapy Current Condition Current Condition Evaluation Date 09/05/21 Treatment Diagnosis UTI; sepsis; difficulty in walking Onset Date 09/03/21 M3 PT-IP Subjective Start: 09/05/21 12:03 Freq: NEEDED Status: Active Protocol: Document 09/05/21 09:40 AB (Rec: 09/05/21 12:14 AB [email or web address]) Subjective Physical Therapy Visit Type Type Initial Evaluation Visit Start Time 09:40 Visit Stop Time 10:15 Total Visit Minutes 35 Number of IMMUNOHEMATOLOGIST Visits 0 Physical Therapy Visit Comments Patient Comments agreeable to do PT Therapy Pain Assessment Pain When Pain Assessed At Rest Pain Present Pain Present Pain Reported Location Abdomen Intensity 8 Scale Used Numeric (0 - 10) Pain Management Techniques Distraction,Modification of Treatment,Re-positioning, Timing of Activity with Medications M4 PT-IP Mobility and Gait Start: 09/05/21 12:03 Freq: NEEDED Status: Active Protocol: Document 09/05/21 09:40 AB (Rec: 09/05/21 12:14 AB [email or web address]) PT-Bed Mobility Assessment Supine to Sit Supine to Sit Maximum Assistance,1 Person Assistance,2 Person Assistance ,Head of Bed Elevated,Bedrails Scooting Scooting to Edge of Bed Maximum Assistance PT-Transfer Assessment Sit to and From Stand Sit to and from Stand Maximum Assistance,1 Person Assistance,2 Person Assistance ,Use of Upper Extremities Equipment Transfer Assistive Device Front Wheeled Walker Orthotic/Prosthetic Devices or Brace: No Transfers Transfer Destination Chair Transfer Technique Stand Step Pivot Transfer Ability Level of Assist Maximum Assistance,1 Person Assistance,2 Person Assistance ,Use of Upper Extremities Comments Mobility Comments (+) SOB but O2 sat 97 %. completed supine to sit max A and max cues. mod A for initial sitting balance with increase posterior trunk lean. continues to have SOB but O2 sat 94%. completed sit to stand max A x 1-2 and max cues . initially tried to ambulated but only took ~ 2 steps max A x 1-2 FWW and pt just wanted to sit on the chair and completed transfer using FWW max A 1-2. positioned pt on chair. call light and table placed within reach. Gait Assessment Comments Gait Comments took a few steps during transfers using FWW PT-Balance Assessment Sitting Balance and Reactions Static Sitting Balance Ability Fair Dynamic Sitting Balance Ability Fair Standing Balance and Reactions Static Standing Balance Ability Fair Dynamic Standing Balance Ability Poor Device Used FWW M5 PT-IP Objective Assessments Start: 09/05/21 12:03 Freq: NEEDED Status: Active Protocol: Document 09/05/21 09:40 AB (Rec: 09/05/21 12:14 AB [email or web address]) Orientation Orientation/Cognition Level of Alertness Alert Orientation Name Safety Awareness Decreased Safety Awareness Memory Description Short Term Impaired,Taper And Floater Impaired Gross Range of Motion Lower Extremity ROM Assessment Within Functional Limits Strength Lower Extremity Strength Hip 3+/5 Knee 4-/5 Coordination Assessment Gross Coordination Gross Coordination WNL Sensation Assessment Sensation Gross Sensation WNL Muscle Tone Muscle Tone WNL Yes M6 PT-IP Treatment Start: 09/05/21 12:03 Freq: NEEDED Status: Active Protocol: Document 09/05/21 09:40 AB (Rec: 09/05/21 12:14 AB [email or web address]) Physical Therapy Treatment Education Education Provided Safety M7 PT-IP Assessment and Plan Start: 09/05/21 12:03 Freq: NEEDED Status: Active Protocol: Document 09/05/21 09:40 AB (Rec: 09/05/21 12:14 AB [email or web address]) PT Summary Assessment and Plan Potential Rehabilitation Potential Fair Status of Condition at Evaluation Evolving Summary Impairments Pain,ROM,Strength,Balance, Coordination,Sensation,Tone, Cognition,Bed Mobility, Transfers,Gait,Activity Tolerance Assessment Summary pt requiring max A 1-2 and max cues and has decrease activity tolerance with (+) SOB. pt will require SNF rehab to improve strength and mobility. Goals Bed Mobility Goal Independent Transfer Goal Independent,Front Wheeled Walker Gait Goal Independent,Front Wheel Walker Gait Distance 150 Other Goals up/down 16 steps R rail CGA Days to Meet Goals 10 Frequency of Treatment Frequency Of Treatment Once a Day Treatment Plan Physical Therapy Treatment Plan Bed Mobility Training,Transfer Training,Gait Training, Therapeutic Exercise,Balance Retraining,Discharge Planning, Hot or Cold Pack,Neuromuscular Re-ed,Coordination Retraining Precautions Other Precautions falls Recommendations To Nursing Amount of Assist Needed 2 Person Assist Discharge Recommendations PT Discharge Recommendations SNF Rehab Transportation Needs at Discharge Wheelchair/Cabulance
--- NOTE | 2021-09-05 10:30 | ST.IPCSEOM ---
Visit Care Team Role Provider Type Марина Luna DO Emergency Provider Physician Referring Provider Specialty: Emergency Medicine Address: [address] [place] [address], [address] Email: [email or web address] Max Dominguez MD Attending Provider Physician Family Provider Primary Care Provider Specialty: Internal Medicine Address: [address] [place] [address], [address], [address] Email: [email or web address] Roni Dawkins MD Admit Provider Physician Other Providers Specialty: Family Practice Address: [address] [place] [address], [id number] Email: [email or web address] Current Diagnoses Elevated white blood cell count, unspecified (09/03/21) Past Medical History (Last Reviewed 09/04/21 @ 08:37 by Max Dominguez MD) Anemia in chronic kidney disease (Medical 06/17/15) Arthralgia (Medical 09/10/14) Arthralgia of both knees (Medical 09/27/15) Attention deficit disorder with hyperactivity (Medical) Body mass index (BMI) of 40.0 to 44.9 in adult (Medical 12/10/16) Chronic midline thoracic back pain (Medical 01/02/16) Chronic radicular lumbar pain (Medical 09/27/15) Essential hypertension (Medical) Factor 5 Leiden mutation, heterozygous (Medical) History of gynecologic surgery (Medical) rectocele & cystocele repair Hypothyroidism (Medical) residential current use of anticoagulant therapy (Medical 02/15/13) Morbid obesity with body mass index (BMI) of 40.0 to 44.9 in adult (Medical 09/27/15) VIRGEN (nonalcoholic steatohepatitis) (Medical) Obstructive sleep apnea syndrome (Medical 04/17/11) Restrictive lung disease (Medical) PFTs February 2020 Spinal stenosis (Medical) Unspecified asthma (Medical 04/17/11) Ventral incisional hernia (Medical) Speech-Language Pathology Swallow Evaluation [employer] Clinical Swallow Evaluation Start: 09/05/21 09:23 Freq: Status: Active Protocol: Document 09/05/21 09:23 ZS (Rec: 09/05/21 09:30 ZS [id number]) Clinical Swallow Evaluation Session Time Visit Start Time 09:00 Visit Stop Time 09:15 Total Visit Minutes 15 Setting Assessment Location Acute Care Visit Type Note Type Initial evaluation Patient Information Identification Type Name,Wristband History 80-year-old female has been slowly failing at home with increased lethargy inability to get out of bed etcetera. She has longstanding severe dyspnea that is failed to really accurately be diagnosed or treated despite evaluation from Cardiology and Pulmonary Medicine. Apparently in the last several days she has become increasingly lethargic not leaving the bed becoming increasingly incontinent of urine. She apparently had a fever of 103 at home but has been afebrile here. She presented to the emergency department via EMS where she is found to have a UTI and borderline hypoxia which has been seen previously. This was evaluated in the process she was also discovered to have a mass in the right hepatic lobe. She also had a prominent leukocytosis and there is some possible concern for possible cholecystitis giving some right upper quadrant discomfort and minimal findings on imaging. Subjective Observations Mirela was seated upright in bed when clinician arrived. She exhibited effortful and audible breathing, though was awake, alert, and agreed to participate in assessment. Reported by Patient Other Symptoms Coughing Comment Mirela and nursing reported consistent coughing throughout the day. Current Diet Thin liquids Baseline Feeding Method Independent in self-feeding Results Mirela is currently on a clear liquid diet. Objective Assessment Mental Status Alert,Responsive,Cooperative Oral Integrity WFL Dentition Within normal limits Lip Function Within normal limits Observation of Lips at Rest Symmetrical Pucker Within normal limits Alternating Pucker/Lip Retraction Within normal limits Tongue Function Within normal limits Observations of Tongue at Rest Within normal limits Tongue Protrusion Within normal limits Tongue Lateralization Within normal limits Jaw Function Within normal limits Observations of Jaw at Rest Within normal limits Jaw Opening Within normal limits Jaw Closing Within normal limits Hard/Soft Palate Function Within normal limits Observations of Hard/Soft Palate Within normal limits,Abnormal uvula Comment Completed oral motor exam with Mirela. Tongue, lips, and jaw strength and ROM were WNL. Structures were symmetrical at rest and in motion. Mirela reported her tonsils and uvula had been removed. Continued effortful breathing throughout assessment, though participation in exercises was not limited by breath support . Structure and function of oral mechanism appeared WNL for the purposes of speech and swallowing. Food and Liquid Trials Position During Assessment Upright (90 degrees) Liquids Trialed Thin Administration Type Straw,Self-feeding Oral Impairment Within normal limits Oral Phase Comments Observed Mirela drink water through a straw cup and take pills with water through straw cup. No anterior loss of bolus observed. Mirela tilted her head back to move pills to back of throat, but did not demonstrate this behavior when drinking water with no pills. Pharyngeal Impairment Within normal limits Pharyngeal Phase Comments No overt signs or symptoms of aspiration observed across trials. Mirela reported coughing occurs throughout the day, indicating it is likely due to respiratory difficulties more than swallowing. Comment Limited trials observed, though fatigue may be a concern due to respiratory difficulty. Mirela did not report difficulty with eating or drinking and expressed no concerns for fatigue across a meal. Results Mirela presents with an oral mechanism WNL and swallowing WNL. No overt signs or symptoms of aspiration observed. Mirela reports coughing is consistent throughout the day, indicating it is likely due to respiratory difficulty and not swallowing. Findings Swallowing Function Within normal limits Severity of Swallow Impairment Within normal limits Prognosis Good Based on Cognitive status,Age, Comorbidities,Duration of symptoms/severity Impact on Safety and Functioning No limitations Recommendations Instrumental Assessment No Swallowing Treatment No Recommended Liquids Thin Other Recommendations Continue current diet and advance as needed. Medication Recommendations As Tolerated Education Patient/Caregiver Education Described results of evaluation,Patient expressed understanding of evaluation, Patient expressed agreement with goals & treatment plans
--- NOTE | 2021-09-05 14:00 | PC.NURSE ---
Patient up with physical therapy and sitting up in the chair. She denies pain or discomfort. We are trying to turn her q two hours but she is refusing. Will talk to patient about this as she has two open area's to her buttocks. She did have some coughing episodes this morning but this has resolved. Speech therapy in to see patient and she states that her swollow is good. Visiting with her son now.
[2021-09-05] MEDS: levoFLOXacin 750 MG/150 ML PIGGYBACK 100 MG IV (20:38)
[2021-09-06] VITALS (7 sets, daily range): BP systolic 124–146; BP diastolic 50–76; PULSE 84–87; RESP 16–20; TEMP 36.2–37.2; O2SAT 94–98
[2021-09-06] MEDS: SODIUM CHLORIDE 0.9% 1,000 ML 150 ML IV ×2 (02:33→12:04)
[2021-09-06] MEDS: PANTOPRAZOLE DR 40 MG TABLET PO ×2 (06:25→22:02)
[2021-09-06] MEDS: LEVOTHYROXINE 100 MCG TABLET PO (06:25)
--- NOTE | 2021-09-06 06:57 | P.PN_ITS ---
Subjective Subjective Date Patient Seen: 09/06/21 Time Patient Seen: 06:59 Interval history: Patient is sleeping soundly easy to arouse. She says yesterday she sat in the chair was able to walk a little bit with physical therapy. She had a good meal yesterday but had lots of coughing. She says she has been doing that a lot lately. She is also complaining of abdominal pain and discomfort. We discussed her findings on her laboratory test about holding her warfarin. And her needing a biopsy of the mass on her liver. Patient understands this. She was on a little bit of oxygen last night. Exam Vital Signs (past 8 hours): - 09/05/21 23:47 09/06/21 05:47 Temperature 99.8 F H 97.9 F Pulse Rate 89 84 Respiratory Rate 18 16 Blood Pressure 129/65 146/76 H Pulse Oximetry 94 96 Oxygen Delivery Method Nasal Cannula Oxygen Flow Rate 1 Narrative Exam Narrative: General: Alert easy arousable good historian. Obese. HEENT: pupils equal round and reactive or mucosa is dry neck is supple. Cardio: S1-S2 heart sounds are distant. Respiratory: Normal respiratory effort. Some faint crackles on lower lung gonzalez. No wheezes or rhonchi Abdomen: Obese no rebound or guarding no significant tenderness. Extremities: Warm dry perfused some mild edema Objective Labs Result Diagrams: 09/05/21 07:32 09/05/21 07:32 Labs: Laboratory Results - last 24 hr 09/03/21 09/05/21 09/05/21 16:40 07:32 07:32 WBC 23.9 H RBC 2.80 L Hgb 8.3 L Hct 25.7 L MCV 92.0 MCH 29.7 MCHC 32.3 RDW 18.3 H Plt Count 365 Neut % (Auto) 93.9 H Lymph % (Auto) 2.7 L [place] % (Auto) 3.2 Eos % (Auto) 0.0 L Baso % (Auto) 0.2 Neut # (Auto) 82605 H Lymph # (Auto) 600 L [place] # (Auto) 800 Eos # (Auto) 0 Baso # (Auto) 100 PT 21.8 H INR 1.9 H Sodium Potassium Chloride Carbon Dioxide BUN Creatinine Estimated GFR BUN/Creatinine Ratio Glucose Calcium Total Bilirubin AST ALT Alkaline Phosphatase Total Protein Albumin Globulin Albumin/Globulin Ratio Alpha Fetoprotein 227.0 H CA 19-9 Antigen 18 09/05/21 07:32 WBC RBC Hgb Hct MCV MCH MCHC RDW Plt Count Neut % (Auto) Lymph % (Auto) [place] % (Auto) Eos % (Auto) Baso % (Auto) Neut # (Auto) Lymph # (Auto) [place] # (Auto) Eos # (Auto) Baso # (Auto) PT INR Sodium 136 L Potassium 4.6 Chloride 110 H Carbon Dioxide 17 L BUN 28 H Creatinine 1.51 H Estimated GFR 33.3 L BUN/Creatinine Ratio 18.5 Glucose 110 Calcium 8.6 Total Bilirubin 0.8 AST 32 ALT 20 Alkaline Phosphatase 81 Total Protein 6.6 Albumin 3.4 L Globulin 3.2 Albumin/Globulin Ratio 1.1 Alpha Fetoprotein CA 19-9 Antigen [facility] Medical History Anemia in chronic kidney disease (06/17/15) Arthralgia (09/10/14) Arthralgia of both knees (09/27/15) Attention deficit disorder with hyperactivity Body mass index (BMI) of 40.0 to 44.9 in adult (12/10/16) Chronic midline thoracic back pain (01/02/16) Chronic radicular lumbar pain (09/27/15) Essential hypertension Factor 5 Leiden mutation, heterozygous Hypothyroidism senior care current use of anticoagulant therapy (02/15/13) Morbid obesity with body mass index (BMI) of 40.0 to 44.9 in adult (09/27/15) VIRGEN (nonalcoholic steatohepatitis) Obstructive sleep apnea syndrome (04/17/11) Restrictive lung disease Spinal stenosis Unspecified asthma (04/17/11) Ventral incisional hernia Surgical History History of bowel resection History of gynecologic surgery S/P total abdominal hysterectomy and bilateral salpingo-oophorectomy Status post appendectomy Status post tonsillectomy and adenoidectomy (1994) Social History marital status: number of children: 2 household members: spouse lives independently: Yes caregiver/support person: No housing: house pets and animals: Yes education level: high school occupational status: other current occupational exposures/hazards: No 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 Blood cultures no growth after 48 hours. Patient is afebrile. She is less tachycardic blood pressure stable. White blood cell count is still quite high. Patient remains on levofloxacin. Continue with IV antibiotics. Will recheck white blood cell count. Monitor closely for increasing temperature tachycardia or hypotension. Will follow culture results including urine culture and blood culture. Acute anemia. Patient with decreased hemoglobin hematocrit normal MCV. Possibility of delusional and also due to acute illness. She is also anticoagulated. Will recheck her hemoglobin hematocrit and guaiac stools. Recheck hemoglobin hematocrit. Order iron studies and we will follow. Liver mass. Patient with liver mass evaluated on CT scan ultrasound and now MRI. This is new compared to previous imaging. Recommendation is for biopsy of this. Patient is anticoagulated on warfarin. Her warfarin is being held her INR is gently trending down. We will discuss with Radiology to see if there can be an interventional procedure for further delineation of this mass with biopsy. Acute renal failure on top of chronic renal failure. BUN and creatinine trend ing back down to baseline. Monitor closely electrolytes and fluid and urine output. We will go ahead and decrease her IV fluids today. Restrictive and obstructive lung disease with concomitant pulmonary hypertension exacerbated by her obesity and hypoventilation. We will continue with her oral steroids. O2 requirements are stable. Factor 5 Leiden deficiency. Warfarin on hold. Not on bridging. Anticipating biopsy of her liver. Disposition and plan continue working up anemia improvement of renal function. Will hold her warfarin. Discussed with Interventional Radiology to see if we ca n biopsy her liver mass. Anticipate hospitalization further over the weekend. Continue work with PT OT. Time Spent With Patient Critical Care time: I spent a total of [] minutes of critical care time on this patient's care today; this time is exclusive of procedural time.
[2021-09-06 07:42] LABS: Add Manual Diff / Slide Review NO; Basophils Absolute Auto 0 /uL (0-100); Basophils Percent Auto 0.1 % (0-2); Eosinophils Absolute Auto 0 /uL (0-450); Lymphocytes Absolute Auto 700 /uL (1100-4500); Mean Corpuscular HGB Conc 32.2 % (30-36); Mean Corpuscular Hemoglobin 29.8 PG (26-34); Mean Corpuscular Volume 92.4 fL (80-100); Monocytes Absolute Auto 1300 /uL (0-900); Monocytes Percent Auto 7.4 % (3-14); Neutrophils Absolute Auto 15900 /uL (1500-7000); Neutrophils Percent Auto 88.5 % (50-75); Platelet Count 356 X10^3/uL (150-400); Red Cell Distribution Width 17.7 % (11.6-14.8)
[2021-09-06] MEDS: OXYBUTYNIN 5 MG ER TAB 15 MG PO (08:44)
[2021-09-06] MEDS: DULOXETINE 30 MG CAPSULE 60 MG PO (08:44)
[2021-09-06] MEDS: predniSONE 20 MG TABLET 40 MG PO (08:45)
[2021-09-06] MEDS: buPROPion XL 150 MG TAB PO (08:45)
[2021-09-06] MEDS: ACETAMINOPHEN 325 MG TABLET 650 MG PO ×2 (08:49→22:02)
--- NOTE | 2021-09-06 10:40 | PT-IP ANOTE ---
Attempted to see pt at 10:40, pt refused due to fatigue and stomach pain.
[2021-09-06] MEDS: ONDANSETRON 4 MG/2 ML INJ IV (12:05)
--- NOTE | 2021-09-06 14:05 | PT-IP ANOTE ---
Pt sleeping upon arrival, hold per RN due to fatigue and abdominal pain.
--- NOTE | 2021-09-06 15:17 | CM.DPC ---
DCP Cont: Spoke to Valentina at [facility]. She indicated, she did get authorization from patient's insurance, [employer]. She indicated, if patient is medically ready, can accept tomorrow. P: DCP to continue to follow. Will update Dr. Dawkins tomorrow to see if she is medically ready for discharge. Britni Thomas RN/Wire Inserter
[2021-09-07] VITALS (12 sets, daily range): BP systolic 131–162; BP diastolic 43–69; PULSE 78–89; RESP 14–18; TEMP 36.6–37.5; O2SAT 95–98
[2021-09-07] MEDS: SODIUM CHLORIDE 0.9% 1,000 ML 150 ML IV (04:19)
[2021-09-07 06:06] LABS: INR 2.4 (0.9-1.3)
[2021-09-07 06:09] LABS: Add Manual Diff / Slide Review NO; Basophils Absolute Auto 0 /uL (0-100); Eosinophils Absolute Auto 0 /uL (0-450); Hematocrit 24.1 % (36-46); Hemoglobin 7.6 g/dL (12.0-16.0); Lymphocytes Absolute Auto 500 /uL (1100-4500); Lymphocytes Percent Auto 3.1 % (25-40); Mean Corpuscular HGB Conc 31.4 % (30-36); Mean Corpuscular Hemoglobin 28.9 PG (26-34); Mean Corpuscular Volume 92.2 fL (80-100); Monocytes Absolute Auto 1400 /uL (0-900); Monocytes Percent Auto 9.1 % (3-14); Neutrophils Absolute Auto 13300 /uL (1500-7000); Neutrophils Percent Auto 87.8 % (50-75); Platelet Count 343 X10^3/uL (150-400); Red Blood Cell Count 2.62 X10^6/uL (4.0-5.2); Red Cell Distribution Width 17.3 % (11.6-14.8); White Blood Cell Count 15.1 X10^3/uL (4.5-11.0)
[2021-09-07 06:11] LABS: Alanine Aminotransferase 25 IU/L (<35); Albumin 2.9 g/dL (3.5-5.0); Alkaline Phosphatase 66 U/L (38-126); Aspartate Aminotransferase 29 IU/L (14-36); BUN Creatinine Ratio 21.5 (6-22); Bilirubin Total 0.6 mg/dL (0.2-1.3); Blood Urea Nitrogen 31 mg/dL (7-17); Calcium 8.3 mg/dL (8.4-10.2); Carbon Dioxide 21 mmol/L (22-32); Chloride 112 mmol/L (98-107); Estimated Glomerular Filt Rate 35.2 mL/min (>60); Glucose 105 mg/dL (80-110); HEMOLYSIS < 15 (0-50); Potassium 4.4 mmol/L (3.4-5.1); Sodium 137 mmol/L (137-145); Total Protein 5.9 g/dL (6.3-8.2)
[2021-09-07] MEDS: ONDANSETRON 4 MG/2 ML INJ IV (06:15)
[2021-09-07] MEDS: LEVOTHYROXINE 100 MCG TABLET PO (06:16)
[2021-09-07 06:46] LABS: Ferritin 218 ng/mL (11-264)
--- NOTE | 2021-09-07 07:23 | PC.NURSE ---
Pt is alert and oriented when nursing staff is in the room. Pt confused and talking to self when no one is in the room. Lungs are CTA with occasional wheezing and loud snoring noise when sleeping. Pt right AC IV became dislodged and IV to left FA was infiltrated this am. This nurse tried starting an IV on her 3 times and another nurse tried once. We both used the vain finders. Report was given to dayshift nurse and she will be trying to restart IV.
[2021-09-07 07:34] LABS: HEMOLYSIS < 15 (0-50); Iron 22 ug/dL (37-170)
[2021-09-07 07:45] LABS: Percent Iron Saturation 8 % (15-50); Total Iron Binding Capacity 279 ug/dL (265-497); Transferrin 172 mg/dL (206-381)
[2021-09-07] MEDS: predniSONE 20 MG TABLET 40 MG PO (08:00)
[2021-09-07] MEDS: buPROPion XL 150 MG TAB PO (08:01)
[2021-09-07] MEDS: DULOXETINE 30 MG CAPSULE 60 MG PO (08:01)
[2021-09-07] MEDS: OXYBUTYNIN 5 MG ER TAB 15 MG PO (08:01)
[2021-09-07] MEDS: PANTOPRAZOLE DR 40 MG TABLET PO ×2 (08:04→20:11)
--- NOTE | 2021-09-07 10:18 | PT-IP ANOTE ---
Pt refused treatment. Stated she was too tired, however, would try this afternoon.
--- NOTE | 2021-09-07 11:03 | CM.DPC ---
DCP Cont: Spoke to Dr. Dawkins and asked him if patient is ready for discharge, for [facility] can accept patient today. He indicated, he is working on trying to get liver biopsy for patient tomorrow. Is unavailable today, this is done by radiology department. Plan is for this to be done tomorrow. She may be able to go to [facility] tomorrow. P: DCP to continue to follow. Plan is for [facility] tomorrow, after biopsy is completed. Britni Thomas RN/Digital Media Representative
--- NOTE | 2021-09-07 11:35 | PM.PN.1 ---
Subjective Subjective Date Patient Seen: 09/07/21 Time Patient Seen: 11:36 Interval history: Patient seen and evaluated. Still weak did not want to get out of bed yesterday to work with physical therapy. Patient looks somewhat pale. Mild increased work of breathing just with talking. White blood cell counts better. Blood pressure stable. She says she is eating okay. Has a Mack catheter in place she says she was able to sit in the chair a little bit yesterday. Hemoglobin 7.6 hematocrit 24.1 guaiac of the stools was not done yesterday. No significant bright red blood per rectum. Exam Vital Signs (past 8 hours): - 09/07/21 05:30 09/07/21 07:50 09/07/21 11:08 Temperature 99.5 F 98.4 F 98.4 F Pulse Rate 83 78 83 Respiratory Rate 16 14 16 Blood Pressure 131/43 L 152/69 H 148/53 H Pulse Oximetry 98 98 95 Oxygen Delivery Method Nasal Cannula Oxygen Flow Rate 1 Narrative Exam Narrative: Gen.: Alert good historian. A little bit of breathlessness with talking HEENT: Pupils equal round and reactive or mucosa is dry Cardio: S1-S2 heart sounds are distant regular rhythm Respiratory: Lungs show decreased breath sounds at bases mild increased work of breathing hard to distinguish rhonchi or rales due to obesity Abdomen: Soft Extremities: Lower extremity edema Objective Labs Result Diagrams: 09/07/21 05:25 09/07/21 05:25 Labs: Laboratory Results - last 24 hr 09/07/21 09/07/21 09/07/21 05:25 05:25 05:25 WBC 15.1 H RBC 2.62 L Hgb 7.6 L Hct 24.1 L MCV 92.2 MCH 28.9 MCHC 31.4 RDW 17.3 H Plt Count 343 Neut % (Auto) 87.8 H Lymph % (Auto) 3.1 L [place] % (Auto) 9.1 Eos % (Auto) 0.0 L Baso % (Auto) 0.0 Neut # (Auto) 27838 H Lymph # (Auto) 500 L [place] # (Auto) 1400 H Eos # (Auto) 0 Baso # (Auto) 0 PT 28.0 H D INR 2.4 H Sodium 137 Potassium 4.4 Chloride 112 H Carbon Dioxide 21 L BUN 31 H Creatinine 1.44 H Estimated GFR 35.2 L BUN/Creatinine Ratio 21.5 Glucose 105 Calcium 8.3 L Iron TIBC % Saturation Transferrin Ferritin Total Bilirubin 0.6 AST 29 ALT 25 Alkaline Phosphatase 66 Total Protein 5.9 L Albumin 2.9 L Globulin 3.0 Albumin/Globulin Ratio 1.0 09/07/21 09/07/21 05:25 05:25 WBC RBC Hgb Hct MCV MCH MCHC RDW Plt Count Neut % (Auto) Lymph % (Auto) [place] % (Auto) Eos % (Auto) Baso % (Auto) Neut # (Auto) Lymph # (Auto) [place] # (Auto) Eos # (Auto) Baso # (Auto) PT INR Sodium Potassium Chloride Carbon Dioxide BUN Creatinine Estimated GFR BUN/Creatinine Ratio Glucose Calcium Iron 22 L TIBC 279 % Saturation 8 L Transferrin 172 L Ferritin 218 Total Bilirubin AST ALT Alkaline Phosphatase Total Protein Albumin Globulin Albumin/Globulin Ratio [facility] Medical History Anemia in chronic kidney disease (06/17/15) Arthralgia (09/10/14) Arthralgia of both knees (09/27/15) Attention deficit disorder with hyperactivity Body mass index (BMI) of 40.0 to 44.9 in adult (12/10/16) Chronic midline thoracic back pain (01/02/16) Chronic radicular lumbar pain (09/27/15) Essential hypertension Factor 5 Leiden mutation, heterozygous Hypothyroidism assisted current use of anticoagulant therapy (02/15/13) Morbid obesity with body mass index (BMI) of 40.0 to 44.9 in adult (09/27/15) VIRGEN (nonalcoholic steatohepatitis) Obstructive sleep apnea syndrome (04/17/11) Restrictive lung disease Spinal stenosis Unspecified asthma (04/17/11) Ventral incisional hernia Surgical History History of bowel resection History of gynecologic surgery S/P total abdominal hysterectomy and bilateral salpingo-oophorectomy Status post appendectomy Status post tonsillectomy and adenoidectomy (1994) Social History marital status: number of children: 2 household members: spouse lives independently: Yes caregiver/support person: No housing: house pets and animals: Yes education level: high school occupational status: other current occupational exposures/hazards: No 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 Patient has had improvement of white blood cell count vital signs of blood pressure stable. Continue with IV Levaquin. Acute anemia.? Patient with decreased hemoglobin hematocrit normal MCV.? Guaiac stools were not done yesterday. Now bright red blood per rectum. Due to her age comorbid risk factors for potential need for liver biopsy. Reviewed risks benefits and common complications of blood transfusion with the patient. Patient will be transfused 2 units of packed red blood cells. Fluid overload. Patient receiving IV fluids due to infection and renal failure. Patient's has mild increased work of breathing and concerning for increased fluids. Will go ahead and stop her IV fluids she is going to be getting blood today. We will start her on IV Lasix 40 mg twice a day. Liver mass.? Patient with liver mass evaluated on CT scan ultrasound and now MRI.? This is new compared to previous imaging.? INR still prolonged despite heart early in warfarin. Provide oral vitamin K today. Hopefully arrangements can be made for ultrasound-guided liver biopsy through Interventional Radiology. Acute renal failure on top of chronic renal failure.? BUN and creatinine trending back down to baseline.? Monitor closely electrolytes and fluid and urine output.? Stop IV fluids start diuresis. Restrictive and obstructive lung disease with concomitant pulmonary hypertension exacerbated by her obesity and hypoventilation.? We will continue with her oral steroids.? O2 requirements are stable. Factor 5 Leiden deficiency.? Warfarin on hold.? Disposition and plan. 2 units of packed red blood cells due to significantly low hemoglobin hematocrit due to patient's age and comorbid factors reviewed risks benefits of the transfusion with her. Provide oral vitamin K. Hold warfarin. Make arrangements for liver biopsy ultrasound-guided by Interventional Radiology. Time Spent With Patient Critical Care time: I spent a total of [] minutes of critical care time on this patient's care today; this time is exclusive of procedural time.
[2021-09-07] MEDS: PHYTONADIONE (VIT K1) 5 MG TABLET PO (12:40)
[2021-09-07] MEDS: FUROSEMIDE 40 MG/4 ML VIAL IV ×2 (12:40→20:11)
--- NOTE | 2021-09-07 13:32 | PT-IP ANOTE ---
Pt awake and in bed upon arrival. Refused participation in PT treatment do to increased fatigue. States she will try to participate tomorrow.
--- NOTE | 2021-09-07 14:41 | PC.NURSE ---
pt up in chair for lunch, 2 person PT assist. denies pain this afternoon cms intact drains and drsg patent and intact.
--- NOTE | 2021-09-07 18:16 | PC.NURSE ---
first unit prbc's infusing vss pt valeri well.
[2021-09-08] VITALS (9 sets, daily range): BP systolic 139–157; BP diastolic 44–69; PULSE 75–89; RESP 16–19; TEMP 36.4–37.4; O2SAT 94–98
[2021-09-08] MEDS: levoFLOXacin 750 MG/150 ML PIGGYBACK 100 MG IV (00:58)
[2021-09-08 06:16] LABS: INR 1.7 (0.9-1.3); Prothrombin Time 19.9 SECONDS (10.1-12.7)
[2021-09-08] MEDS: FUROSEMIDE 40 MG/4 ML VIAL IV ×2 (06:16→18:19)
[2021-09-08] MEDS: LEVOTHYROXINE 100 MCG TABLET PO (06:17)
[2021-09-08 06:18] LABS: Basophils Absolute Auto 0 /uL (0-100); Basophils Percent Auto 0.1 % (0-2); Eosinophils Absolute Auto 100 /uL (0-450); Eosinophils Percent Auto 0.5 % (2-4); Hemoglobin 9.7 g/dL (12.0-16.0); Lymphocytes Absolute Auto 1300 /uL (1100-4500); Lymphocytes Percent Auto 9.7 % (25-40); Mean Corpuscular HGB Conc 32.2 % (30-36); Mean Corpuscular Hemoglobin 28.9 PG (26-34); Mean Corpuscular Volume 89.7 fL (80-100); Monocytes Absolute Auto 1700 /uL (0-900); Monocytes Percent Auto 12.3 % (3-14); Neutrophils Absolute Auto 10500 /uL (1500-7000); Neutrophils Percent Auto 77.4 % (50-75); Platelet Count 342 X10^3/uL (150-400); Red Blood Cell Count 3.36 X10^6/uL (4.0-5.2); Red Cell Distribution Width 16.4 % (11.6-14.8); White Blood Cell Count 13.6 X10^3/uL (4.5-11.0)
[2021-09-08 06:21] LABS: Add Manual Diff / Slide Review SLIDE REVIEW; Hematocrit 30.1 % (36-46)
[2021-09-08] MEDS: PANTOPRAZOLE DR 40 MG TABLET PO ×2 (06:25→20:06)
[2021-09-08 06:31] LABS: Alanine Aminotransferase 28 IU/L (<35); Albumin 3.1 g/dL (3.5-5.0); Alkaline Phosphatase 86 U/L (38-126); Aspartate Aminotransferase 32 IU/L (14-36); BUN Creatinine Ratio 20.6 (6-22); Bilirubin Total 0.7 mg/dL (0.2-1.3); Blood Urea Nitrogen 32 mg/dL (7-17); Calcium 8.5 mg/dL (8.4-10.2); Carbon Dioxide 23 mmol/L (22-32); Chloride 105 mmol/L (98-107); Estimated Glomerular Filt Rate 32.3 mL/min (>60); Globulin 3.1 g/dL (1.7-4.1); Glucose 93 mg/dL (80-110); HEMOLYSIS < 15 (0-50); Potassium 3.7 mmol/L (3.4-5.1); Sodium 134 mmol/L (137-145); Total Protein 6.2 g/dL (6.3-8.2)
[2021-09-08 07:35] LABS: Anisocytosis 2+; Poikilocytosis 1+
--- NOTE | 2021-09-08 07:40 | P.PN_ITS ---
Subjective Subjective Date Patient Seen: 09/08/21 Time Patient Seen: 07:40 Interval history: Patient's care the weekend discussed with Dr. Dawkins. She is refusing to participate in physical therapy claiming she is too fatigued. Discharge planning has been working on placing her in [facility] and [facility] does have a space She was given vitamin K in effort to normalize her INR which is improved this morning but not yet normalized certainly not appropriate for liver biopsy at this point Also has become more anemic and received transfusion. Had a bit of a greater than expected increase in blood counts suggesting maybe she was bit hemodiluted as well Also seem to have some evidence of volume overload and has had some diuresis, including approximately8 L on the (yesterday). Renal function stable with that including electrolytes Urine culture growing E coli sensitive to all tested antibiotics. Blood cultures remained negative Exam Vital Signs (past 8 hours): - 09/08/21 00:40 09/08/21 00:55 09/08/21 05:40 Temperature 98.6 F 99.4 F 98.9 F Pulse Rate 84 84 89 Respiratory Rate 18 19 16 Blood Pressure 157/68 H 157/68 H 149/68 H Pulse Oximetry 98 97 Oxygen Delivery Method Nasal Cannula Oxygen Flow Rate 1 Objective Labs Result Diagrams: 09/08/21 05:30 09/08/21 05:30 Labs: Laboratory Results - last 24 hr 09/07/21 09/07/21 09/08/21 05:25 13:25 05:30 WBC 13.6 H RBC 3.36 L Hgb 9.7 L Hct 30.1 L MCV 89.7 MCH 28.9 MCHC 32.2 RDW 16.4 H Plt Count 342 Neut % (Auto) 77.4 H Lymph % (Auto) 9.7 L [place] % (Auto) 12.3 Eos % (Auto) 0.5 L Baso % (Auto) 0.1 Neut # (Auto) 29228 H Lymph # (Auto) 1300 [place] # (Auto) 1700 H Eos # (Auto) 100 Baso # (Auto) 0 RBC Morphology Not Reportable Poikilocytosis 1+ H Anisocytosis 2+ H PT INR Sodium Potassium Chloride Carbon Dioxide BUN Creatinine Estimated GFR BUN/Creatinine Ratio Glucose Calcium Iron 22 L TIBC 279 % Saturation 8 L Transferrin 172 L Total Bilirubin AST ALT Alkaline Phosphatase Total Protein Albumin Globulin Albumin/Globulin Ratio Blood Type O Positive Antibody Screen Negative Crossmatch See Detail 09/08/21 09/08/21 05:30 05:30 WBC RBC Hgb Hct MCV MCH MCHC RDW Plt Count Neut % (Auto) Lymph % (Auto) [place] % (Auto) Eos % (Auto) Baso % (Auto) Neut # (Auto) Lymph # (Auto) [place] # (Auto) Eos # (Auto) Baso # (Auto) RBC Morphology Poikilocytosis Anisocytosis PT 19.9 H D INR 1.7 H Sodium 134 L Potassium 3.7 Chloride 105 Carbon Dioxide 23 BUN 32 H Creatinine 1.55 H Estimated GFR 32.3 L BUN/Creatinine Ratio 20.6 Glucose 93 Calcium 8.5 Iron TIBC % Saturation Transferrin Total Bilirubin 0.7 AST 32 ALT 28 Alkaline Phosphatase 86 Total Protein 6.2 L Albumin 3.1 L Globulin 3.1 Albumin/Globulin Ratio 1.0 Blood Type Antibody Screen Crossmatch FOR[facility]LY [facility], [facility] Medical History Anemia in chronic kidney disease (06/17/15) Arthralgia (09/10/14) Arthralgia of both knees (09/27/15) Attention deficit disorder with hyperactivity Body mass index (BMI) of 40.0 to 44.9 in adult (12/10/16) Chronic midline thoracic back pain (01/02/16) Chronic radicular lumbar pain (09/27/15) Essential hypertension Factor 5 Leiden mutation, heterozygous Hypothyroidism half-way current use of anticoagulant therapy (02/15/13) Morbid obesity with body mass index (BMI) of 40.0 to 44.9 in adult (09/27/15) VIRGEN (nonalcoholic steatohepatitis) Obstructive sleep apnea syndrome (04/17/11) Restrictive lung disease Spinal stenosis Unspecified asthma (04/17/11) Ventral incisional hernia Surgical History History of bowel resection History of gynecologic surgery S/P total abdominal hysterectomy and bilateral salpingo-oophorectomy Status post appendectomy Status post tonsillectomy and adenoidectomy (1994) Social History marital status: number of children: 2 household members: spouse lives independently: Yes caregiver/support person: No housing: house pets and animals: Yes education level: high school occupational status: other current occupational exposures/hazards: No 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 Liver mass-still hoping to have liver biopsy done prior to discharge. Will need additional vitamin K today to try and normalize her INR before this can be accomplished. Tumor markers show elevation of her CEA and her alpha fetoprotein. Certainly concerning for a GI source of malignancy, colon cancer verses I guess still possible for primary hepatic malignancy 2. Weakness-patient not really participating with skilled therapies. Clearly is not going to be able to return home. When stable for discharge will plan to discharge to jail facility 3. UTI-switched to oral fluoroquinolones today. 4. Anemia-patient chronically anemic although somewhat worse currently. I believe there is an element of hemodilution here as well. Continue to monitor numbers for now after transfusion. Uncertain if this is connected to the liver mass or not (i.e. some sort of GI malignancy causing blood loss etcetera) 5. Volume overload-patient with minimal symptoms of volume overload but clearly is somewhat overloaded given the 8 L of diuresis yesterday. Continue with IV L asix today and continue to monitor electrolytes and renal function 6. Respiratory-patient continues to have significant respiratory issues which are long-term for her. Multiple mixed pulmonary issues and her obesity all contributing to this. 7. Chronic renal failure-numbers are stable for her. Do not believe there is any evidence of acute kidney injury at this time. Not convinced there was any along the way I believe if anything she has been more volume overloaded rather than any sort of worsening of her renal failure 8. Disposition-patient will need to go to jail when ready for discharge. She is not ready for discharge until her volume status is improved we have had time to monitor her hemoglobin hematocrit and she hopefully is had liver mass biopsy performed. This may not be for several days depending on her INR and/or her overall clinical status Note: Greater than 30 minutes total time was spent on day of service, evaluating the patient on the floor, including examining the patient, discussing clinical course with clinical and nursing staff, reviewing clinical course in the computer, preparing documentation and writing orders for continued management of care, discussing status with family as appropriate, reviewing plans for the next 24 hours with both patient/family and nursing staff as appropriate.
[2021-09-08] MEDS: DULOXETINE 30 MG CAPSULE 60 MG PO (08:46)
[2021-09-08] MEDS: buPROPion XL 150 MG TAB PO (08:46)
[2021-09-08] MEDS: POTASSIUM CHLORIDE 20 MEQ TAB PO ×2 (08:46→18:19)
[2021-09-08] MEDS: PHYTONADIONE (VIT K1) 5 MG TABLET PO (08:46)
[2021-09-08] MEDS: predniSONE 20 MG TABLET PO (08:46)
[2021-09-08] MEDS: OXYBUTYNIN 5 MG ER TAB 15 MG PO (08:50)
--- NOTE | 2021-09-08 10:26 | PT.IPTN ---
Current Diagnoses Elevated white blood cell count, unspecified (09/03/21) Urinary tract infection, site not specified (09/03/21) Hepatomegaly, not elsewhere classified (09/03/21) Physical Therapy Treatment Note M2 PT-IP Current Condition Start: 09/05/21 12:03 Freq: NEEDED Status: Active Protocol: Document 09/05/21 09:40 AB (Rec: 09/05/21 12:14 AB [email or web address]) Physical Therapy Current Condition Current Condition Evaluation Date 09/05/21 Treatment Diagnosis UTI; sepsis; difficulty in walking Onset Date 09/03/21 M3 PT-IP Subjective Start: 09/05/21 12:03 Freq: NEEDED Status: Active Protocol: Document 09/08/21 10:16 KS (Rec: 09/08/21 11:41 KS [email or web address]) Subjective Physical Therapy Visit Type Type Treatment Note Visit Start Time 10:16 Visit Stop Time 10:26 Total Visit Minutes 10 Number of ENVIRONMENTAL QUALITY ANALYST Visits 1 Physical Therapy Visit Comments Patient Comments Pt required convincing to participate. M4 PT-IP Mobility and Gait Start: 09/05/21 12:03 Freq: NEEDED Status: Active Protocol: Document 09/08/21 10:16 KS (Rec: 09/08/21 11:41 KS [email or web address]) PT-Transfer Assessment Comments Mobility Comments Pt refused to get out of bed due to fatigue, but agreed to perform LE exercises to promote blood flow and strengthening. Pt able to complete 1x10 bilateral ankle pumps, quad sets, heel slides, glute sets, and SLR w/ difficulty, SOB, and fatigue. Pt stated she was too worn out to perform any more but hopes to have more energy tomorrow. M5 PT-IP Objective Assessments Start: 09/05/21 12:03 Freq: NEEDED Status: Active Protocol: Document 09/05/21 09:40 AB (Rec: 09/05/21 12:14 AB [email or web address]) Orientation Orientation/Cognition Level of Alertness Alert Orientation Name Safety Awareness Decreased Safety Awareness Memory Description Short Term Impaired,Parking Enforcer Impaired Gross Range of Motion Lower Extremity ROM Assessment Within Functional Limits Strength Lower Extremity Strength Hip 3+/5 Knee 4-/5 Coordination Assessment Gross Coordination Gross Coordination WNL Sensation Assessment Sensation Gross Sensation WNL Muscle Tone Muscle Tone WNL Yes M6 PT-IP Treatment Start: 09/05/21 12:03 Freq: NEEDED Status: Active Protocol: Document 09/08/21 10:16 KS (Rec: 09/08/21 11:41 KS [email or web address]) Physical Therapy Treatment Exercises Exercises Ankle Pumps,Gluteal Sets,Quad Sets,Heel Slides,Straight Leg Raises Education Education Provided Safety M7 PT-IP Assessment and Plan Start: 09/05/21 12:03 Freq: NEEDED Status: Active Protocol: Document 09/08/21 10:16 KS (Rec: 09/08/21 11:41 KS [email or web address]) PT Summary Assessment and Plan Potential Rehabilitation Potential Fair Status of Condition at Evaluation Evolving Summary Impairments Pain,ROM,Strength,Balance, Coordination,Sensation,Tone, Cognition,Bed Mobility, Transfers,Gait,Activity Tolerance Progress Towards Goals Slow Progress due to Activity Tolerance Assessment Summary Pt unwilling to attempt getting out of bed today. Able to perform LE exercises but c /o increase in fatigue and demonstrated labored breathing . She will require SNF to improve strength and functional mobility. Goals Bed Mobility Goal Independent Transfer Goal Independent,Front Wheeled Walker Gait Goal Independent,Front Wheel Walker Gait Distance 150 Other Goals up/down 16 steps R rail CGA Days to Meet Goals 10 Frequency of Treatment Frequency Of Treatment Once a Day Treatment Plan Physical Therapy Treatment Plan Bed Mobility Training,Transfer Training,Gait Training, Therapeutic Exercise,Balance Retraining,Discharge Planning, Hot or Cold Pack,Neuromuscular Re-ed,Coordination Retraining Precautions Other Precautions falls Recommendations To Nursing Amount of Assist Needed 2 Person Assist Discharge Recommendations PT Discharge Recommendations SNF Rehab Transportation Needs at Discharge Wheelchair/Cabulance
[2021-09-08] MEDS: MAGNESIUM OXIDE 400 MG TABLET PO (12:19)
[2021-09-08] MEDS: SODIUM CHLORIDE 0.9% FLUSH 10 ML IV ×2 (12:19→20:06)
--- NOTE | 2021-09-08 16:09 | CM.DANOTE ---
DCP/continued: Reviewed chart. Current d/c plan is for patient to go to [facility] when medically stable. CNS placed call to February at [facility] to see if they could accept on 09-09 if medically stable. February reports that they do have authorization if patient ready tomorrow. Patient will need COVID test prior to d/c to SNF. P: [facility] when stable. CM team following. JORDANA
[2021-09-09] MEDS: LEVOTHYROXINE 100 MCG TABLET PO (05:15)
[2021-09-09 05:54] VITALS: BP 155/71; PULSE 76; RESP 16; TEMP 36.1; O2SAT 96
[2021-09-09 06:21] LABS: Hemoglobin 10.3 g/dL (12.0-16.0)
[2021-09-09 06:27] LABS: INR 1.4 (0.9-1.3); Prothrombin Time 15.9 SECONDS (10.1-12.7)
[2021-09-09] MEDS: FUROSEMIDE 40 MG/4 ML VIAL IV (06:33)
[2021-09-09] MEDS: PANTOPRAZOLE DR 40 MG TABLET PO ×2 (06:33→21:07)
[2021-09-09 06:35] LABS: BUN Creatinine Ratio 23.5 (6-22); Blood Urea Nitrogen 38 mg/dL (7-17); Calcium 8.5 mg/dL (8.4-10.2); Carbon Dioxide 33 mmol/L (22-32); Chloride 100 mmol/L (98-107); Estimated Glomerular Filt Rate 30.7 mL/min (>60); Glucose 104 mg/dL (80-110); HEMOLYSIS < 15 (0-50); Potassium 3.6 mmol/L (3.4-5.1); Sodium 136 mmol/L (137-145)
--- NOTE | 2021-09-09 06:54 | PM.PN.1 ---
Subjective Subjective Date Patient Seen: 09/09/21 Time Patient Seen: 06:54 Interval history: Fairly uneventful day yesterday. Patient did work with physical therapy. [place] to be appropriate for [facility] placement Continues with vigorous diuresis with IV Lasix Awaiting normalization of her INR for potential biopsy of liver mass Exam Vital Signs (past 8 hours): - 09/08/21 23:43 09/09/21 05:54 Temperature 98.2 F 97.0 F L Pulse Rate 84 76 Respiratory Rate 16 16 Blood Pressure 139/61 155/71 H Pulse Oximetry 95 96 Oxygen Delivery Method Room Air Oxygen Flow Rate 0 Objective Labs Result Diagrams: 09/09/21 05:50 09/09/21 05:50 Labs: Laboratory Results - last 24 hr 09/08/21 09/09/21 09/09/21 05:30 05:50 05:50 Hgb 10.3 L Hct 32.0 L RBC Morphology Not Reportable Poikilocytosis 1+ H Anisocytosis 2+ H PT 15.9 H INR 1.4 H Sodium Potassium Chloride Carbon Dioxide BUN Creatinine Estimated GFR BUN/Creatinine Ratio Glucose Calcium 09/09/21 05:50 Hgb Hct RBC Morphology Poikilocytosis Anisocytosis PT INR Sodium 136 L Potassium 3.6 Chloride 100 Carbon Dioxide 33 H BUN 38 H Creatinine 1.62 H Estimated GFR 30.7 L BUN/Creatinine Ratio 23.5 H Glucose 104 Calcium 8.5 PFSH Medical History Anemia in chronic kidney disease (06/17/15) Arthralgia (09/10/14) Arthralgia of both knees (09/27/15) Attention deficit disorder with hyperactivity Body mass index (BMI) of 40.0 to 44.9 in adult (12/10/16) Chronic midline thoracic back pain (01/02/16) Chronic radicular lumbar pain (09/27/15) Essential hypertension Factor 5 Leiden mutation, heterozygous Hypothyroidism technician terminal and repeater current use of anticoagulant therapy (02/15/13) Morbid obesity with body mass index (BMI) of 40.0 to 44.9 in adult (09/27/15) VIRGEN (nonalcoholic steatohepatitis) Obstructive sleep apnea syndrome (04/17/11) Restrictive lung disease Spinal stenosis Unspecified asthma (04/17/11) Ventral incisional hernia Surgical History History of bowel resection History of gynecologic surgery S/P total abdominal hysterectomy and bilateral salpingo-oophorectomy Status post appendectomy Status post tonsillectomy and adenoidectomy (1994) Social History marital status: number of children: 2 household members: spouse lives independently: Yes caregiver/support person: No housing: house pets and animals: Yes education level: high school occupational status: other current occupational exposures/hazards: No 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 Liver mass-INR improved this morning to 1.4. Still would like it to be lower before initiating liver biopsy. Will discuss with Radiology but anticipate further improvement tomorrow and will recheck INR tomorrow. Tumor markers show positive AFP and CEA but would not really expect colon cancer to have metastasized without other evidence of intra-abdominal process on imaging which we have not seen. Therefore I am beginning to believe this may indeed be more likely a hepatoma Will tentatively plan on biopsy tomorrow. Plan to recheck platelet count as well as her INR tomorrow. 2. Weakness-patient will need to be placed in [facility]. Physical therapy is in agreement. Had discussion with patient's son yesterday and apparently she really has nothing in the way of assistance at home. Spouse is unable to provide primary caregiver role due to his own illness and other issues. 3.? UTI-switched to oral fluoroquinolones. 4. Anemia-patient chronically anemic although somewhat worse currently.? Patient's hemoglobin hematocrit somewhat improved this morning thus suggesting hemodilution is a factor here. Pretty much at baseline. No evidence of active large volume bleeding. 5. Volume overload-patient continues vigorous diuresis. Will switch to oral diuretics for now and continue with monitoring of electrolytes and renal function 6.? Respiratory-patient continues to have significant respiratory issues which are long-term for her.? Multiple mixed pulmonary issues and her obesity all contributing to this. 7. Chronic renal failure-numbers are stable for her.? Her creatinine is up slightly which is why I think backing off a little bit on diuretics makes sense. However still within her usual baseline creatinine 8.? Disposition-patient will need to go to [facility] when ready for discharge.? She is not ready for discharge until her volume status is improved we have had time to monitor her hemoglobin hematocrit and she hopefully is had liver mass biopsy performed.? This may not be for several days depending on her INR and/or her overall clinical status Note: Greater than 30 minutes total time was spent on day of service, evaluating the patient on the floor, including examining the patient, discussing clinical course with clinical and nursing staff, reviewing clinical course in the computer, preparing documentation and writing orders for continued management of care, discussing status with family as appropriate, reviewing plans for the next 24 hours with both patient/family and nursing staff as appropriate.
[2021-09-09 08:33] VITALS: BP 131/79; PULSE 77; RESP 16; TEMP 36.3; O2SAT 95
[2021-09-09] MEDS: OXYBUTYNIN 5 MG ER TAB 15 MG PO (08:56)
[2021-09-09] MEDS: levoFLOXacin 250 MG TABLET PO (08:56)
[2021-09-09] MEDS: POTASSIUM CHLORIDE 20 MEQ TAB PO ×2 (08:56→18:38)
[2021-09-09] MEDS: DULOXETINE 30 MG CAPSULE 60 MG PO (08:56)
[2021-09-09] MEDS: predniSONE 20 MG TABLET PO (08:57)
[2021-09-09] MEDS: buPROPion XL 150 MG TAB PO (08:57)
[2021-09-09] MEDS: SODIUM CHLORIDE 0.9% FLUSH 10 ML IV ×2 (08:57→21:07)
--- NOTE | 2021-09-09 10:05 | PT-IP ANOTE ---
Pt refused therapy x2 this AM. She reports feeling too tired and stressed to participate. I asked pt Is that a firm no? and she responded It is a very firm no. Encouraged pt to perform LE exercises in bed and transfers to chair for meals.
[2021-09-09] MEDS: MAGNESIUM OXIDE 400 MG TABLET PO (12:05)
[2021-09-09 13:00] VITALS: BP 139/72; PULSE 87; RESP 16; TEMP 36.7; O2SAT 94
--- NOTE | 2021-09-09 14:03 | DIET.CONS2 ---
Dietary Inpatient Consultation Note Admission Date: 09/03/2021 21:34 RD Note: Pt screened by RD for LOS day 5. Pt tolerating PO intake, general diet with excellent POs. Pt awaiting lowering of INR before liver biopsy and d/c. Diet: 09/05/21 Lunch General (Regular) Diet Diet Modifications: Nutrition Percent Meal Consumed 100% 09/09/21 13:47 Percent Meal Consumed 100% 09/09/21 08:45 Percent Meal Consumed 100% 09/08/21 17:20 Percent Meal Consumed 100% 09/08/21 08:48 Percent Meal Consumed 100% 09/07/21 18:55 Electronically Signed by: Jackeline Chicas 09/09/21 14:03 Clinical Dietitian [address] [address]
[2021-09-09 17:00] VITALS: BP 125/64; PULSE 93; RESP 16; TEMP 36.9; O2SAT 93
[2021-09-09 20:08] VITALS: BP 134/56; PULSE 83; RESP 16; TEMP 36.2; O2SAT 96
--- NOTE | 2021-09-10 | DI.US.S_ITS ---
PROCEDURE: US ABDOMEN LIMITED INDICATIONS: LIVER MASS TECHNIQUE: Real-time focused scanning was performed of the abdomen, with image documentation. COMPARISON: None. FINDINGS: 8.8 x 7.1 x 6.3 centimeter solid mass in the superior right lobe of the liver is suboptimally visualized via intercostal examination. Liver masses not accessible via ultrasound guidance. IMPRESSION: 8.8 x 7.1 x 6.3 centimeter right hepatic mass not accessible via ultrasound guidance for biopsy. Dictated by: Michelle Smith MD, PhD on 09/10/2021 at 13:43 Approved by: Michelle Smith MD, PhD on 09/10/2021 at 13:45
[2021-09-10 00:08] VITALS: RESP 18
[2021-09-10 05:00] VITALS: BP 153/66; PULSE 78; RESP 16; TEMP 36.7; O2SAT 95
[2021-09-10] MEDS: LEVOTHYROXINE 100 MCG TABLET PO (06:15)
[2021-09-10 06:53] LABS: INR 1.3 (0.9-1.3); Prothrombin Time 15.1 SECONDS (10.1-12.7)
[2021-09-10 06:54] LABS: Hematocrit 31.9 % (36-46); Hemoglobin 10.5 g/dL (12.0-16.0); Mean Corpuscular HGB Conc 32.8 % (30-36); Mean Corpuscular Hemoglobin 29.2 PG (26-34); Mean Corpuscular Volume 89.1 fL (80-100); Platelet Count 403 X10^3/uL (150-400); Red Blood Cell Count 3.58 X10^6/uL (4.0-5.2); Red Cell Distribution Width 16.1 % (11.6-14.8); White Blood Cell Count 12.8 X10^3/uL (4.5-11.0)
[2021-09-10 06:56] LABS: Add Manual Diff / Slide Review YES
[2021-09-10 06:59] LABS: BUN Creatinine Ratio 29.8 (6-22); Blood Urea Nitrogen 39 mg/dL (7-17); Calcium 8.8 mg/dL (8.4-10.2); Carbon Dioxide 35 mmol/L (22-32); Chloride 98 mmol/L (98-107); Estimated Glomerular Filt Rate 39.3 mL/min (>60); Glucose 98 mg/dL (80-110); HEMOLYSIS < 15 (0-50); Potassium 3.7 mmol/L (3.4-5.1); Sodium 134 mmol/L (137-145)
[2021-09-10 07:51] LABS: Neutrophils Absolute Manual 8960 /uL (3000-5900); Nucleated Red Blood Cells 1 #/Diff; Total Cells Counted 100
[2021-09-10 07:52] LABS: Anisocytosis 2+; Target Cells 1+
[2021-09-10 08:06] VITALS: BP 157/71; PULSE 75; RESP 18; TEMP 36.5; O2SAT 94
[2021-09-10] MEDS: FUROSEMIDE 40 MG TABLET PO (08:40)
[2021-09-10] MEDS: POTASSIUM CHLORIDE 20 MEQ TAB PO (08:40)
[2021-09-10] MEDS: OXYBUTYNIN 5 MG ER TAB 15 MG PO (08:41)
[2021-09-10] MEDS: buPROPion XL 150 MG TAB PO (08:41)
[2021-09-10] MEDS: levoFLOXacin 250 MG TABLET PO (08:41)
[2021-09-10] MEDS: PANTOPRAZOLE DR 40 MG TABLET PO (08:41)
[2021-09-10] MEDS: DULOXETINE 30 MG CAPSULE 60 MG PO (08:41)
[2021-09-10] MEDS: predniSONE 20 MG TABLET PO (08:42)
[2021-09-10] MEDS: SODIUM CHLORIDE 0.9% FLUSH 10 ML IV (08:42)
--- NOTE | 2021-09-10 09:00 | P.PN_ITS ---
Subjective Subjective Date Patient Seen: 09/10/21 Time Patient Seen: 09:01 Interval history: Patient is essentially unchanged. Still has abdominal pain in the right side twitches in her ongoing complaint for years frankly I am not absolutely convinced it is related to whatever is going on her liver but certainly very possible. INR 1.3 so normal today. Platelet count good. Should be okay for biopsy detention has availability today hopefully we can get her out today Exam Vital Signs (past 8 hours): - 09/10/21 05:00 09/10/21 08:06 Temperature 98.0 F 97.7 F Pulse Rate 78 75 Respiratory Rate 16 18 Blood Pressure 153/66 H 157/71 H Pulse Oximetry 95 94 Oxygen Delivery Method Room Air Oxygen Flow Rate 0 Objective Labs Result Diagrams: 09/10/21 06:30 09/10/21 06:30 Labs: Laboratory Results - last 24 hr 09/10/21 09/10/21 09/10/21 06:30 06:30 06:30 WBC 12.8 H RBC 3.58 L Hgb 10.5 L Hct 31.9 L MCV 89.1 MCH 29.2 MCHC 32.8 RDW 16.1 H Plt Count 403 H Neut % (Auto) Not Reportable Lymph % (Auto) Not Reportable [place] % (Auto) Not Reportable Eos % (Auto) Not Reportable Baso % (Auto) Not Reportable Lymph # (Auto) Not Reportable [place] # (Auto) Not Reportable Baso # (Auto) Not Reportable Total Counted 100 Seg Neutrophils % 60.0 Band Neutrophils % 10.0 H Lymphocytes % (Manual) 14.0 L Monocytes % (Manual) 10.0 Eosinophils % (Manual) 3.0 Metamyelocytes % 2.0 H Myelocytes % 1.0 H Neutrophils # (Manual) 8960 H Nucleated RBCs 1 H RBC Morphology See below Anisocytosis 2+ H Target Cells 1+ H PT 15.1 H INR 1.3 Sodium 134 L Potassium 3.7 Chloride 98 Carbon Dioxide 35 H BUN 39 H Creatinine 1.31 H Estimated GFR 39.3 L BUN/Creatinine Ratio 29.8 H Glucose 98 Calcium 8.8 PFSH Medical History Anemia in chronic kidney disease (06/17/15) Arthralgia (09/10/14) Arthralgia of both knees (09/27/15) Attention deficit disorder with hyperactivity Body mass index (BMI) of 40.0 to 44.9 in adult (12/10/16) Chronic midline thoracic back pain (01/02/16) Chronic radicular lumbar pain (09/27/15) Essential hypertension Factor 5 Leiden mutation, heterozygous Hypothyroidism longterm current use of anticoagulant therapy (02/15/13) Morbid obesity with body mass index (BMI) of 40.0 to 44.9 in adult (09/27/15) VIRGEN (nonalcoholic steatohepatitis) Obstructive sleep apnea syndrome (04/17/11) Restrictive lung disease Spinal stenosis Unspecified asthma (04/17/11) Ventral incisional hernia Surgical History History of bowel resection History of gynecologic surgery S/P total abdominal hysterectomy and bilateral salpingo-oophorectomy Status post appendectomy Status post tonsillectomy and adenoidectomy (1994) Social History marital status: number of children: 2 household members: spouse lives independently: Yes caregiver/support person: No housing: house pets and animals: Yes education level: high school occupational status: other current occupational exposures/hazards: No 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 Liver mass- should be able to have biopsy later today. I spoke with Radiology yesterday and ordered the ultrasound guided biopsy. Also recheck CBC to ensure platelet count is satisfactory and it certainly is. 2. Weakness- patient still struggling to participate with physical therapy. Still requires additional assistance. I am going to discontinue her Mack perhaps is bit of a motivating factor but still think she needs to participate with physical therapy and go from hospital to [facility]. Discussed this with her at length and she is agreeable and understands the need to work and put forth effort in order to get stronger so that she can go home and be cared for in the home setting which is our ultimate goal. She is somewhat concerned about what may be going on her liver but understands that no matter what that is she needs to get stronger 3. UTI- so far so good with the oral fluoroquinolones. Going to discontinue the Mack catheter as above 4. Anemia -patient's blood counts have been stable. No evidence of active blood loss. I still believe that there is some hemodilution causing her counts to drop to some degree has been stable post transfusion 5. Volume overload-continue with oral diuretic therapy. Obviously had less with diuresis after switching from parental diuretics but continues to have significant urine output. Continue to monitor electrolytes and renal function I believe this is best characterized as generalized fluid overload and do not believe there is any element of pulmonary edema 6. Chronic renal failure- numbers are stable slightly improved today verses yesterday but overall stable 7. wounds on right buttock -unclear what this represents exactly. I cannot clearly determine that this is a pressure sore does not appear to be due to trauma. Therefore I am uncertain as to etiology but continue with simple management 8. Factor 5 Leiden- will need to be back on her anticoagulation as soon as is safe post biopsy. Can probably restart warfarin tomorrow and will need to monitor carefully Overall patient should be stable for discharge to [facility] assuming we can get biopsy performed today since we have normalized her INR for this purpose. Note: Greater than 30 minutes total time was spent on day of service, evaluating the patient on the floor, including examining the patient, discussing clinical course with clinical and nursing staff, reviewing clinical course in the computer, preparing documentation and writing orders for continued management of care, discussing status with family as appropriate, reviewing plans for the next 24 hours with both patient/family and nursing staff as appropriate.
--- NOTE | 2021-09-10 09:09 | P.DS_ITS ---
History of Present Illness History of Present Illness Date Patient Seen: 09/10/21 Time Patient Seen: 09:10 Chief complaint: Weakness/UTI Narrative: 80-year-old female well known to me with multiple complex medical problems as listed in this note. She has been slowly failing at home with increased lethargy inability to get out of bed etcetera. She has longstanding severe dyspnea that is failed to really accurately be diagnosed or treated despite evaluation from Cardiology and Pulmonary Medicine. Apparently in the last several days she has become increasingly lethargic not leaving the bed becoming increasingly incontinent of urine. She apparently had a fever of 103 at home but has been afebrile here She presented to the emergency department via EMS where she is found to have a UTI and borderline hypoxia which has been seen previously. This was evaluated in the process she was also discovered to have a mass in the right hepatic lobe. She also had a prominent leukocytosis and there is some possible concern for possible cholecystitis giving some right upper quadrant discomfort and minimal findings on imaging Discharge Providers Provider Date of admission: 09/03/21 21:34 Discharge Date: 09/10/21 Primary care physician: Max Dominguez MD Consults: 09/05/21 07:17 Consult to Physical Therapy Evaluate & Treat Comment: Physician Instructions: Evaluate and Treat 09/05/21 08:27 Consult to Speech Therapy Evaluate & Treat Comment: Physician Instructions: Evaluate and treat Discharge provider: Max Dominguez MD Summary Hospital Course Discharge Diagnosis: 1. Liver mass, etiology uncertain, biopsy pending 2. Acute UTI with E coli 3. Cholelithiasis without evidence of cholecystitis 4. Morbid obesity with BMI 41.2 5. Restrictive lung disease with severe dyspnea 6. Pulmonary hypertension with cor pulmonale 7. Factor 5 Leiden mutation, heterozygous 8. Long-term anticoagulation due to factor 5 Leiden mutation with prior history of clotting issues 9. Chronic renal failure stage 3 10. Obstructive sleep apnea of the adult 11. Attention deficit disorder 12. Essential hypertension 13. Volume overload without evidence of congestive heart failure or pulmonary edema 14. Spinal stenosis with chronic back pain 15 global weakness Hospital Course: patient was evaluated in the ER admitted as above. Further evaluation of this right upper quadrant masses in her liver suggested multiple potential etiologies. However given the relatively subacute nature of his presentation is concerning for some sort of malignant process. Tumor markers were performed which suggested a possible hepatoma verses maybe colonic origin although no other imaging demonstrated any evidence of disease elsewhere including her chest and the remainder of her abdomen and pelvis. Patient's anticoagulation was held so ultrasound-guided biopsy could be performed. There is no evidence of active biliary tract disease based on advanced imaging with magnetic resonance that is not felt to be a source of infection or cause of symptoms at this time. Unfortunately this mass was not accessible via ultrasound safely per radiology (despite prior recommendation). This will have to be approached via CT if possible. This will have to be done as an outpatient therefore. Patient did have evidence of UTI in fact we coli that was sensitive to all tested organisms from her urine. This was treated with parental then oral antibiotics Patient's respiratory status was stable required low dose oxygen therapy for comfort. Not felt to be any real reversible component to her long-term lung disease related to both restrictive lung disease an element of pulmonary hypertension/ cor pulmonale Patient is morbidly obese and struggle to move as part of this as well as overall debilitated state. Was seen in consultation by Physical therapy and participated on limited basis with physical therapy. Is felt to require additional skilled therapies before being safe to return home and will be discharged to half-way therefore Patient's other medical problems are numerous but remained stable including her chronic renal failure etcetera She was somewhat more anemic than usual during this hospitalization did receive 2 units of blood cell transfusion. Is believe that this is mostly a hemodilution factor as she had showed evidence of significant volume overload as well and had quite a vigorous diuresis with parental diuretics. There is no evidence of ongoing active bleeding either GI or otherwise. After transfusion blood counts remained stable to slightly improved thus being consistent with the concept of more be hemodilution process in the setting of chronic anemia which is well documented Exam Vital Signs (past 8 hours): - 09/10/21 05:00 09/10/21 08:06 Temperature 98.0 F 97.7 F Pulse Rate 78 75 Respiratory Rate 16 18 Blood Pressure 153/66 H 157/71 H Pulse Oximetry 95 94 Oxygen Delivery Method Room Air Oxygen Flow Rate 0 Objective Labs Result Diagrams: 09/10/21 06:30 09/10/21 06:30 Labs: Laboratory Results - last 24 hr 09/10/21 09/10/21 09/10/21 06:30 06:30 06:30 WBC 12.8 H RBC 3.58 L Hgb 10.5 L Hct 31.9 L MCV 89.1 MCH 29.2 MCHC 32.8 RDW 16.1 H Plt Count 403 H Neut % (Auto) Not Reportable Lymph % (Auto) Not Reportable [place] % (Auto) Not Reportable Eos % (Auto) Not Reportable Baso % (Auto) Not Reportable Lymph # (Auto) Not Reportable [place] # (Auto) Not Reportable Baso # (Auto) Not Reportable Total Counted 100 Seg Neutrophils % 60.0 Band Neutrophils % 10.0 H Lymphocytes % (Manual) 14.0 L Monocytes % (Manual) 10.0 Eosinophils % (Manual) 3.0 Metamyelocytes % 2.0 H Myelocytes % 1.0 H Neutrophils # (Manual) 8960 H Nucleated RBCs 1 H RBC Morphology See below Anisocytosis 2+ H Target Cells 1+ H PT 15.1 H INR 1.3 Sodium 134 L Potassium 3.7 Chloride 98 Carbon Dioxide 35 H BUN 39 H Creatinine 1.31 H Estimated GFR 39.3 L BUN/Creatinine Ratio 29.8 H Glucose 98 Calcium 8.8 PFSH Medical History Anemia in chronic kidney disease (06/17/15) Arthralgia (09/10/14) Arthralgia of both knees (09/27/15) Attention deficit disorder with hyperactivity Body mass index (BMI) of 40.0 to 44.9 in adult (12/10/16) Chronic midline thoracic back pain (01/02/16) Chronic radicular lumbar pain (09/27/15) Essential hypertension Factor 5 Leiden mutation, heterozygous Hypothyroidism correction current use of anticoagulant therapy (02/15/13) Morbid obesity with body mass index (BMI) of 40.0 to 44.9 in adult (09/27/15) VIRGEN (nonalcoholic steatohepatitis) Obstructive sleep apnea syndrome (04/17/11) Restrictive lung disease Spinal stenosis Unspecified asthma (04/17/11) Ventral incisional hernia Surgical History History of bowel resection History of gynecologic surgery S/P total abdominal hysterectomy and bilateral salpingo-oophorectomy Status post appendectomy Status post tonsillectomy and adenoidectomy (1994) Social History marital status: number of children: 2 household members: spouse lives independently: Yes caregiver/support person: No housing: house pets and animals: Yes education level: high school occupational status: other current occupational exposures/hazards: No 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: Hindu leisure activities: other Smoking Status: Former smoker Tobacco: How many years used: 5 Smokeless tobacco user: other quit status: quit date established second hand exposure: Yes alcohol intake: never substance use type: does not use Discharge Assessment & Plan Assessment and Plan Plan of Treatment: Patient need to complete her course of oral antibiotics for UTI Patient will need to have her warfarin restarted and monitored with a goal of an INR of 2.5 for her chronic coagulation defect ( factor 5 Leiden) Definitive therapy for her liver mass be determined based on results of biopsy Patient will need half-way to improve her overall strength and stamina before she is able to return home and will require significant assistance at home as well Discharge Plan Discharge Plan Patient Disposition: SNF Transfer to: [facility] Consult as needed: Dental, Hearing, Mental health, Podiatry and Vision Discharge orders & Medications Prescriptions: New furosemide 40 mg Tablet 40 mg PO DAILY Qty: 30 0RF levofloxacin 250 mg Tablet 250 mg PO DAILY Qty: 2 0RF Rx Instructions: Last day of treatment is 09/13/21 magnesium oxide 400 mg (241.3 mg magnesium) Tablet 400 mg PO DAILY@1100 Qty: 30 0RF prednisone 20 mg Tablet 20 mg PO DAILY Qty: 30 0RF warfarin 5 mg tablet 5 mg PO DAILY Qty: 30 0RF Continued duloxetine 60 mg capsule,delayed release(DR/EC) 60 mg PO DAILY Qty: 90 3RF bupropion HCl 150 mg tablet extended release 24 hr 150 mg PO QAM Qty: 90 3RF oxybutynin chloride 15 mg tablet extended release 24 hr 15 mg PO DAILY Qty: 90 3RF levothyroxine 100 mcg tablet 100 mcg PO QAM Qty: 90 2RF spironolactone 100 mg tablet See Rx Instructions .ROUTE .COMPLEX Qty: 90 2RF Dose Instruction: TAKE 1-2 TABLETS BY MOUTH IN THE MORNING DAILY Rx Instructions: takes 100mg in the morning. pantoprazole [Protonix] 40 mg tablet,delayed release (DR/EC) 40 mg PO BID Qty: 180 3RF lisinopril 10 mg Tablet 10 mg PO DAILY 0RF Discontinued warfarin 5 mg tablet 7.5 mg PO .6DAYSWEEK Qty: 120 2RF Rx Instructions: patient takes 7.5mg M,,,wed,wed,wed and 5mg on wed. warfarin 5 mg tablet See Rx Instructions PO .COMPLEX 0RF Dose Instruction: Take 8mg daily. PO ; Take 8mg by mouth on and Wednesday. Take 7mg the other 5 days. Combine with the 1mg Warfarin RX for correct dose. Rx Instructions: Take 5MG ON WEDNESDAY Follow up/Referrals: Max Dominguez MD [Primary Care Provider] - Discharge Health Status Multidrug resistant organism: No MDRO Precautions: [place] Diet/Activity/Treatments Diet: Diet as Tolerated Liquid consistency: Normal/Thin Food texture: Regular [facility] Rehab type: Physical therapy and Occupational therapy Discharge Data Primary Care Provider: Max Dominguez
--- NOTE | 2021-09-10 09:37 | PT.IPTN ---
Addendum entered and electronically signed by Alia Reyes, PARKING ASSISTANT 09/10/21 12:55: vital signs taken during tx: supine BP 142/72 HR 89, 93% on RA, seated 113/47 HR 88, post mobilitiy: 179/ 90. Nonsymptomatic throughout tx. Original Note: Current Diagnoses Elevated white blood cell count, unspecified (09/03/21) Urinary tract infection, site not specified (09/03/21) Hepatomegaly, not elsewhere classified (09/03/21) Physical Therapy Treatment Note M2 PT-IP Current Condition Start: 09/05/21 12:03 Freq: NEEDED Status: Active Protocol: Document 09/10/21 09:14 SP (Rec: 09/10/21 12:55 SP [id number]) Physical Therapy Current Condition Current Condition Evaluation Date 09/05/21 Treatment Diagnosis UTI; sepsis; difficulty in walking Onset Date 09/03/21 M3 PT-IP Subjective Start: 09/05/21 12:03 Freq: NEEDED Status: Active Protocol: Document 09/10/21 09:14 SP (Rec: 09/10/21 12:55 SP [id number]) Subjective Physical Therapy Visit Type Type Treatment Note Visit Start Time 09:14 Visit Stop Time 09:37 Total Visit Minutes 23 Number of PARKING ASSISTANT Visits 2 Physical Therapy Visit Comments Patient Comments Pt agreeable to participate after education on importance of mobilizing consistantly for strength and functional independence. Patient Goals Agreeable to going to skilled rehab to progress strength before returning home. I don' t have the strength right now to get up my stairs. Therapy Pain Assessment Pain When Pain Assessed At Rest Pain Present Pain Present Pain Reported Location Abdomen Intensity 7 Scale Used Numeric (0 - 10) Description With Movement Pain Management Techniques Distraction,Modification of Treatment,Re-positioning, Timing of Activity with Medications M4 PT-IP Mobility and Gait Start: 09/05/21 12:03 Freq: NEEDED Status: Active Protocol: Document 09/10/21 09:14 SP (Rec: 09/10/21 12:55 SP [id number]) PT-Bed Mobility Assessment Supine to Sit Supine to Sit Minimal Assistance,1 Person Assistance,Bedrails Scooting Scooting to Edge of Bed Contact Guard Assistance PT-Transfer Assessment Sit to and From Stand Sit to and from Stand Minimal Assistance,Use of Upper Extremities Equipment Transfer Assistive Device Gait Belt,Front Wheeled Walker Orthotic/Prosthetic Devices or Brace: No Transfers Transfer Destination Chair Transfer Technique Pt ambulated using FWW Transfer Ability Level of Assist Contact Guard Assistance, Minimal Assistance,1 Person Assistance,Use of Upper Extremities Comments Mobility Comments Pt agreeable to working with therapy. Completed supine> LR L use of bed rails Min A, L SL > sit Min A for trunk righting support, scoot EOB CGA, Sit>stand CG- Min A with cues proper hand placement push from seated surface. SPT w/FWW bed>chair, cued HP Min A slow descent to chair on chair arms. Seated rest 2 min to recover from elevated breath rate. SIt>stand CGA- min A w/FWW, further gait around room and back to chair Min A with intermittent cues for body staying closer to FWW and inside FWW for improved posture and UE downward pressure self support. SPT with education cuing and Min support for FWW repositioning full backing up to chair then reach back for chair arms for safety decrease risk for fall CG- Luke. Pt able to scoot back in chair self. PARKING ASSISTANT called WOOD FUEL PELLETIZER for assist if needed pre out of bed mobiltiy, WOOD FUEL PELLETIZER provided SBA for safety, not needed for physical help throughout tx. WOOD FUEL PELLETIZER complete set up call light and allneeds in reach and was getting chair alarm for safety noted before PARKING ASSISTANT left. Gait Assessment Gait Gait Assistance Required: Contact Guard Assist,Minimum Assistance,1 Person Assist Distance (Feet) 30 Able to Maintain Weight Bearing Status Yes During Gait Assistive Devices Assistive Device Gait Belt,Front Wheeled Walker Orthotic/Prosthetic Devices or Brace: No Gait Deviations General Gait Pattern Decreased Stride Length, Decreased Feet Clearance, Flexed Trunk,Wide Based Gait Factors Limiting Gait Function Factors Limiting Gait Function Decreased Activity Tolerance, Decreased Strength,Difficulty Following Directions,Pain,Poor Balance,Poor Safety Awareness ,Respiratory Distress Comments Gait Comments Pt required intermittent increased safety cues for closer and stay within FWW, increase foot clearance and around bed obstacle mgt. Pt required 2 brief stop stand rests to assist recovery breath rate and decreased strength and endurance. Stair Climbing Assessment Comments Stair Climbing Comments unable to complete, decreased strength and endurance during gait. PT-Balance Assessment Sitting Balance and Reactions Static Sitting Balance Ability Good Dynamic Sitting Balance Ability Fair Standing Balance and Reactions Static Standing Balance Ability Fair Dynamic Standing Balance Ability Poor Device Used FWW M5 PT-IP Objective Assessments Start: 09/05/21 12:03 Freq: NEEDED Status: Active Protocol: Document 09/05/21 09:40 AB (Rec: 09/05/21 12:14 AB [id number]) Orientation Orientation/Cognition Level of Alertness Alert Orientation Name Safety Awareness Decreased Safety Awareness Memory Description Short Term Impaired,Refund Clerk Impaired Gross Range of Motion Lower Extremity ROM Assessment Within Functional Limits Strength Lower Extremity Strength Hip 3+/5 Knee 4-/5 Coordination Assessment Gross Coordination Gross Coordination WNL Sensation Assessment Sensation Gross Sensation WNL Muscle Tone Muscle Tone WNL Yes M6 PT-IP Treatment Start: 09/05/21 12:03 Freq: NEEDED Status: Active Protocol: Document 09/10/21 09:14 SP (Rec: 09/10/21 12:55 SP [id number]) Physical Therapy Treatment Education Education Provided Safety M7 PT-IP Assessment and Plan Start: 09/05/21 12:03 Freq: NEEDED Status: Active Protocol: Document 09/10/21 09:14 SP (Rec: 09/10/21 12:55 SP [id number]) PT Summary Assessment and Plan Potential Rehabilitation Potential Fair Status of Condition at Evaluation Evolving Summary Impairments Pain,ROM,Strength,Balance, Coordination,Sensation,Tone, Cognition,Bed Mobility, Transfers,Gait,Activity Tolerance Progress Towards Goals Progressing Toward Goals,Slow Progress due to Activity Tolerance Assessment Summary Pt required Min A for all mobiltiy w/ FWW fatigues quickly due to strength and endurance, cues for safety HP and positioning of FWW support . Pt will required SNF for strengthening support toward progressing functional mobiltiy. Goals Bed Mobility Goal Independent Transfer Goal Independent,Front Wheeled Walker Gait Goal Independent,Front Wheel Walker Gait Distance 150 Other Goals up/down 16 steps R rail CGA Days to Meet Goals 10 Frequency of Treatment Frequency Of Treatment Once a Day Treatment Plan Physical Therapy Treatment Plan Bed Mobility Training,Transfer Training,Gait Training, Therapeutic Exercise,Balance Retraining,Discharge Planning, Hot or Cold Pack,Neuromuscular Re-ed,Coordination Retraining Other Recommendations and Next Treatment bed mob, transfers, further Focus distance gait. Stair mgt and caregiver training will need assess when safe prior to DC. Precautions Other Precautions falls Recommendations To Nursing Amount of Assist Needed 1 Person Assist Discharge Recommendations PT Discharge Recommendations SNF Rehab Transportation Needs at Discharge Wheelchair/Cabulance
--- NOTE | 2021-09-10 10:51 | CM.DPC ---
Addendum entered by NANCY Leavitt 09/10/21 13:34: ADD: placed d/c orders to SNF and signed the med rec and no scripts needed. SW met bedside with pt again and updated on d/c to SNF today and she was hopeful for tomorrow but SW discussed medically stable for a couple days already and she acknowledged understanding and agreeable to d/c to [facility] today around 1500. SW inquired if she would like SW to call and update her spouse and she states that she already tried to call him and he didn't answer so she updated her son and her son will keep spouse updated. SW called [facility] and confirmed d/c today and JUAN Kathia kindly faxed COVID neg swab, signed med rec, PASRR for review. SW provided RN report number to RN and updated shell grader and TABLE GAMES SUPERVISOR for plan of d/c to [facility] at 1500 today via facility van. NANCY Leavitt Original Note: DCP Cont: Per MD, pt to have ultrasound for kidney due to mass and unclear if biopsy still needed prior to d/c but pt may be stable for d/c to SNF today. SW met bedside with pt and explained role and discussed [facility] and she confirms she was admitted from home where she lives with her 80 some year old spouse and pt confirms she is below baseline with ADLs and was able to ambulate in room with assist with PT this morning but quite weak and easily fatigued. SW discussed SNF rehab and pt was hopeful to be home to have [place] with her family but realizes home is likely not a safe option but if pt does not d/c today and progresses enough for safe d/c home then she would be very agreeable to but states her son could assist but is very busy and worried about me and wants me to get better and stronger. Pt aware that SNF likely needed and agreeable to [facility] for rehab. SW confirmed with [facility] that they still have insurance auth and can accept today if pt stable for d/c and tentatively set up transport for around 1500 and need updated COVID swab but have a copy of her COVID vaccination status already. SW updated RN and requested updated COVID swab for pt today for potential d/c around 1500 to SNF. Plan: SW to follow for confirming if MD feels pt stable for d/c to [facility] today around 1500 prior to safe return home with family. NANCY Leavitt
[2021-09-10] MEDS: MAGNESIUM OXIDE 400 MG TABLET PO (10:56)
[2021-09-10 12:51] LABS: COVID19 - ADMIT (NP swab/PCR) Negative (Negative)
--- NOTE | 2021-09-10 15:11 | PC.NURSE ---
report given to Judy MARION. all belongings returned to patient. IV removed. pt had a shower. pt voided and had a bm. rodríguez was removed damaris [id number]
== END 2021-09-10 15:11 | DRG 690 ==
LOC: ED 19:55 → AC 21:34
PROVIDERS: Emergency Medicine; Admitting Provider Family Medicine; Emergency Provider Emergency Medicine; Family Provider Internal Medicine; PCP Internal Medicine; Referring Provider Emergency Medicine; Visit Provider Internal Medicine
DX: N39.0 Urinary tract infection, site not specified (principal); D68.51 Activated protein C resistance; Z68.41 Body mass index [BMI] 40.0-44.9, adult; R06.03 Acute respiratory distress; E66.01 Morbid (severe) obesity due to excess calories; Z68.39 Body mass index [BMI] 39.0-39.9, adult; I12.9 Hypertensive chronic kidney disease with stage 1 through stage 4 chronic kidney disease, or unspecified chronic kidney disease; J44.9 Chronic obstructive pulmonary disease, unspecified; J98.4 Other disorders of lung; G89.29 Other chronic pain; I27.81 Cor pulmonale (chronic); I27.20 Pulmonary hypertension, unspecified; E87.70 Fluid overload, unspecified; E66.9 Obesity, unspecified; D63.1 Anemia in chronic kidney disease; F98.8 Other specified behavioral and emotional disorders with onset usually occurring in childhood and adolescence; N18.30 Chronic kidney disease, stage 3 unspecified; E03.9 Hypothyroidism, unspecified; Z20.822 Contact with and (suspected) exposure to COVID-19; Z87.891 Personal history of nicotine dependence; B96.20 Unspecified Escherichia coli [E. coli] as the cause of diseases classified elsewhere; K80.20 Calculus of gallbladder without cholecystitis without obstruction
CPT/HCPCS: 36415; 36430; 70450; 71045; 71275; 74177; 74183; 76705; 80048; 80053; 81001; 82105; 82378; 82550; 82553; 82728; 83540; 83550; 83605; 83690; 83880; 84145; 84484; 85007; 85014; 85018; 85025; 85610; 85730; 86301; 86304; 86850; 86900; 86901; 87040; 87077; 87086; 87186; 87635; 90471; 90662; 92610; 93005; 93010; 94760; 96361; 96365; 96366; 96367; 96375; 97110; 97116; 97162; 97530; 99223; 99232; 99233; 99238; 99285; C9803; P9016; A9579; J1940; J1956; J2405; J2920; J2930; Q9967

== ENCOUNTER → 2021-09-20 14:07 | Outpatient (ROUT) | payer OTHER, SELFPAY ==
[2021-09-03 22:47] VITALS: BMI 38.9
[2021-09-20 14:26] LABS: INR 3.1 (0.9-1.3)
== END ==
PROVIDERS: Family Provider Internal Medicine; PCP Internal Medicine; Visit Provider Emergency Medicine
DX: I48.91 Unspecified atrial fibrillation (principal)
CPT/HCPCS: 85610

== ENCOUNTER → 2021-09-25 13:24 | Outpatient (ROUT) | payer OTHER, SELFPAY ==
[2021-09-03 22:47] VITALS: BMI 38.9
[2021-09-25 13:47] LABS: Appearance Urine UA CLEAR; Bilirubin Urine UA NEGATIVE (NEGATIVE); Color Urine UA YELLOW; Glucose Urine UA NEGATIVE (Negative); Ketones Urine UA NEGATIVE (NEGATIVE); Leukocyte Esterase Urine UA NEGATIVE (NEGATIVE); Nitrite Urine UA NEGATIVE (Negative); Occult Blood Urine UA NEGATIVE (Negative); Protein Urine UA NEGATIVE (Negative); Urobilinogen Urine UA 0.2 E.U./dL (0.2)
[2021-09-25 14:11] LABS: Bacteria Urine None Seen; Culture Indicated Urine Cult Not Indicated; RBC Urine None Seen (0-5/HPF); WBC Urine None Seen (0-5/HPF)
[2021-09-25 14:12] LABS: pH Urine UA 5.5 (4.5-8.0)
== END ==
PROVIDERS: Family Provider Internal Medicine; PCP Internal Medicine; Visit Provider Emergency Medicine
DX: N39.0 Urinary tract infection, site not specified (principal)
CPT/HCPCS: 81001

== ENCOUNTER → 2021-09-26 13:17 | Outpatient (CLI) | payer OTHER, SELFPAY ==
[2021-09-03 22:47] VITALS: BMI 38.9
--- NOTE | 2021-09-26 | DI.RAD.S_ITS ---
PROCEDURE: XR SHOULDER RT MIN 2V INDICATIONS: MULTIPLE FALLS TECHNIQUE: 6 views of the shoulder were acquired. COMPARISON: [facility], CR, XR SHOULDER RT MIN 2V, 04/08/2020, 12:02. FINDINGS: Bones: No fractures or dislocations. Moderate to severe glenohumeral joint osteoarthritic changes are seen with joint space narrowing, subchondral sclerosis and prominent inferior marginal osteophyte formation. Mild to moderate acromioclavicular joint osteoarthritic changes are seen. No suspicious bony lesions. Visualized ribs appear intact. Soft tissues: No suspicious soft tissue calcifications. IMPRESSION: No gross acute right shoulder fracture or dislocation. 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 Dictated by: Pacheco Malloy M.D. on 09/26/2021 at 15:04 Approved by: Pacheco Malloy M.D. on 09/26/2021 at 15:04
== END ==
PROVIDERS: Family Provider Internal Medicine; PCP Internal Medicine; Referring Provider Physician Assistant; Visit Provider Physician Assistant
DX: R29.6 Repeated falls (principal); M19.011 Primary osteoarthritis, right shoulder
CPT/HCPCS: 73030

== ENCOUNTER → 2021-10-03 11:58 | Outpatient (CLI) | payer OTHER, SELFPAY ==
[2021-09-03 22:47] VITALS: BMI 38.9
[2021-10-03 12:35] LABS: Hematocrit 33.5 % (36-46); Platelet Count 372 X10^3/uL (150-400)
[2021-10-03 12:42] VITALS: BP 126/79; PULSE 82; RESP 20; TEMP 36.7; O2SAT 98
[2021-10-03 12:43] LABS: INR 1.3 (0.9-1.3); Prothrombin Time 14.7 SECONDS (10.1-12.7)
[2021-10-03 12:45] VITALS: BMI 39.3
[2021-10-03 12:56] LABS: COVID19 -Nasal RAPID Negative (Negative)
--- NOTE | 2021-10-03 14:24 | SUR.PREOP ---
Addendum entered by Mariaelena Mijares R.N. 10/03/21 14:46: 1430-ANKIT Faust RN,here,reports procedure cx. Pt in ER. She notified [facility]. Addendum entered by Mariaelena Mijares R.N. 10/03/21 14:44: 1440-clothes delivered to patient in ER along with watch and wheelchair from [facility]. Addendum entered by Mariaelena Mijares R.N. 10/03/21 14:37: 1330-iv unable to get started . attempted twice and hydraulic governor assembler x 1. ANKIT Faust here,and states will put in . To DI by katherine. Original Note: 10/03/[id number]-Qucyeiw recieved from Lab and escorted to Preop in preparation for Liver Bx. Patient fully awake, aware of here for test for abdominal pain. But adamant she is at [facility] on 2nd floor. Determined that patient a resident at [facility]. Patient denies being a resident there. States had been at hospital,told to dress, then driven by car and now here at hospital. Attempt to clarify why patient would leave hospital to be at hospital but patient still not able to comprehend. Pt gets extremely sob and unable to dress self, assisted in changing to hospital gown. pt recalls date/month / year appropriate . 1300-Patient unable to verify allergies/meds-recalls allergies when mentioned list but states no to morphine. [facility] called by charge gang weigher and med review done.. 1310-Christianne In DI here and aware of ? confusion. no report as to baseline mental status on last H&P. Reported oriented at [place].
--- NOTE | 2021-10-03 14:39 | SUR.PREOP ---
Late entry: [facility] called, med list verified with staff member I think her name natalia Stewart. I informed her pt was confused, thought she was in room 216, in this hospital, she than stated pt was not normally confused and her room at [facility] was 16 Bed 2 and that must have been what she meant. This reported to Tomsaa Caal RN who reported this to Christianne Green RN
== END | disposition home or self-care (01) ==
PROVIDERS: Family Provider Internal Medicine; PCP Internal Medicine; Referring Provider Internal Medicine; Visit Provider Internal Medicine
DX: R16.0 Hepatomegaly, not elsewhere classified (principal)
CPT/HCPCS: 36415; 85014; 85049; 85610; 87635

== ENCOUNTER 2021-10-03 14:11 | Inpatient (IN) | payer OTHER, SELFPAY ==
[2021-09-03 22:47] VITALS: BMI 38.9
[2021-10-03] VITALS (37 sets, daily range): BP systolic 70–137; BP diastolic 30–72; PULSE 73–83; RESP 15–30; TEMP 36.7; O2SAT 94–99; BMI 38.9; BMI 37.6
--- NOTE | 2021-10-03 14:26 | DI.RAD.S_ITS ---
PROCEDURE: XR CHEST 1V INDICATIONS: altered mental status TECHNIQUE: One view of the chest was acquired. COMPARISON: [facility], CR, XR CHEST 1V, 09/03/2021, 18:31. FINDINGS: Surgical changes and devices: None. Lungs and pleura: Small bilateral pleural fluid collections. Increased opacification in the lung bases which could represent atelectasis or pneumonia. Mediastinum: Mediastinal contours appear normal. Heart size is normal. Bones and chest wall: No suspicious bony lesions. Overlying soft tissues appear unremarkable. IMPRESSION: Small bilateral pleural fluid collections. Bibasilar opacities compatible with atelectasis or pneumonia. Dictated by: Michelle Smith MD, PhD on 10/03/2021 at 14:55 Approved by: Michelle Smith MD, PhD on 10/03/2021 at 14:57
[2021-10-03 14:44] LABS: Add Manual Diff / Slide Review NO; Basophils Absolute Auto 0 /uL (0-100); Basophils Percent Auto 0.3 % (0-2); Eosinophils Absolute Auto 0 /uL (0-450); Eosinophils Percent Auto 0.1 % (2-4); Hematocrit 32.2 % (36-46); Hemoglobin 10.4 g/dL (12.0-16.0); Lymphocytes Absolute Auto 300 /uL (1100-4500); Lymphocytes Percent Auto 2.5 % (25-40); Mean Corpuscular HGB Conc 32.4 % (30-36); Mean Corpuscular Hemoglobin 28.2 PG (26-34); Monocytes Absolute Auto 600 /uL (0-900); Monocytes Percent Auto 5.6 % (3-14); Neutrophils Absolute Auto 10600 /uL (1500-7000); Neutrophils Percent Auto 91.5 % (50-75); Platelet Count 340 X10^3/uL (150-400); Red Cell Distribution Width 16.4 % (11.6-14.8); White Blood Cell Count 11.6 X10^3/uL (4.5-11.0)
[2021-10-03 14:55] LABS: Ammonia (NH3) < 9 umol/L (9-30)
[2021-10-03] MEDS: SODIUM CHLORIDE 0.9% 1,000 ML 1000 ML IV (14:55)
[2021-10-03 14:56] LABS: Alanine Aminotransferase 55 IU/L (<35); Albumin 3.6 g/dL (3.5-5.0); Albumin Globulin Ratio 1.1 (1.0-2.8); Alkaline Phosphatase 199 U/L (38-126); Aspartate Aminotransferase 47 IU/L (14-36); BUN Creatinine Ratio 22.3 (6-22); Bilirubin Total 0.9 mg/dL (0.2-1.3); Blood Urea Nitrogen 55 mg/dL (7-17); Calcium 9.1 mg/dL (8.4-10.2); Carbon Dioxide 28 mmol/L (22-32); Chloride 101 mmol/L (98-107); Estimated Glomerular Filt Rate 18.9 mL/min (>60); Globulin 3.4 g/dL (1.7-4.1); Glucose 117 mg/dL (80-110); HEMOLYSIS 16 (0-50); Potassium 5.1 mmol/L (3.4-5.1); Sodium 134 mmol/L (137-145)
--- NOTE | 2021-10-03 15:25 | ED.GENADULT ---
HPI - General Adult General Chief complaint: Altered Mental Status Stated complaint: hypotension, confusion, Time Seen by Provider: 10/03/21 14:35 Source: patient and other Mode of arrival: other Limitations: no limitations History of Present Illness HPI narrative: This is a 80-year-old female who is brought to the ER for hypotension. She was set up to have an outpatient CT-guided biopsy of a liver mass. Patient was found to be with a pressure of a systolic of 70. The maximum level systolic they got was 90. Patient comes here to the ER for evaluation. She states she has felt a little bit unwell but otherwise denies any other new symptoms. She denies any headache, no lightheadedness. No chest pain. She has had some cough. No syncope. She has a little bit weak. No nausea or vomiting. No diarrhea constipation. She states normal urination with no frequency, dysuria or changes. No abdominal, back flank pain. Patient does have a history of factor 5 Leiden she is normally on warfarin this was stopped 5 days ago secondary to having her planned biopsy. She is also on Lasix, levothyroxine, lisinopril, pantoprazole and spironolactone. Her PA at her care facility states she has been on 20 mg prednisone daily and he has not been able to ascertain why he is asked family and the patient and they have told her that she has been on it for years. Her mentation she is somewhat confused. This sounds like it is normal at sort of waxes and wanes in her lucidity for the past 2 weeks while they have evaluated her and her son had told them that this is her normal. She had a recent UTI which she was hospitalized for with mental status changes and [facility] Patient's main complaint for me is that she does not feel comfortable on the gurney she is on. She states she has had her appendix out. She denies any recent tobacco, alcohol or illicit. Her primary care is Dr. Dominguez. Related Data Home Medications Medication Instructions Recorded Confirmed lisinopril 10 mg tablet 10 mg PO DAILY 09/04/21 10/03/21 Previous Rx's Medication Instructions Recorded bupropion HCl 150 mg 24 hr tablet, 150 mg PO QAM #90 tab 11/19/20 extended release duloxetine 60 mg capsule,delayed 60 mg PO DAILY #90 cap 11/19/20 release oxybutynin chloride 15 mg 15 mg PO DAILY #90 tab 01/10/21 tablet,extended release 24 hr levothyroxine 100 mcg tablet 100 mcg PO QAM #90 tab 01/24/21 spironolactone 100 mg tablet See Rx Instructions .ROUTE 01/24/21 .COMPLEX #90 tab pantoprazole 40 mg tablet,delayed 40 mg PO BID #180 tab 04/17/21 release (Protonix) furosemide 40 mg tablet 40 mg PO DAILY #30 tab 09/10/21 levofloxacin 250 mg tablet 250 mg PO DAILY #2 tab 09/10/21 magnesium oxide 400 mg (241.3 mg 400 mg PO DAILY@1100 #30 tab 09/10/21 magnesium) tablet prednisone 20 mg tablet 20 mg PO DAILY #30 tab 09/10/21 warfarin 5 mg tablet 5 mg PO DAILY #30 tab 09/10/21 Allergies Allergy/AdvReac Type Severity Reaction Status Date / Time codeine [CODEINE] Allergy Severe Rash Verified 10/03/21 14:25 morphine [MORPHINE] Allergy Severe Rash, Verified 10/03/21 14:25 Agitation crab Allergy Mild Verified 10/03/21 14:45 diphenhydramine Allergy Mild AGITATION Verified 10/03/21 14:25 [DIPHENHYDRAMINE] Iodine and Iodide Containing Allergy Mild Verified 10/03/21 14:25 Produc [IODINE AND IODIDE CONTAINING PRODUC] latex [LATEX] Allergy Mild ITCHING, Verified 10/03/21 14:25 SWELLING..BANDAIDS Penicillins [PENICILLINS] Allergy Mild Verified 10/03/21 14:25 Review of Systems Review of Systems ROS Unobtainable: All systems reviewed & are unremarkable except as noted in HPI and below Patient History Medical History Anemia in chronic kidney disease (06/17/15) Arthralgia (09/10/14) Arthralgia of both knees (09/27/15) Attention deficit disorder with hyperactivity Body mass index (BMI) of 40.0 to 44.9 in adult (12/10/16) Chronic midline thoracic back pain (01/02/16) Chronic radicular lumbar pain (09/27/15) Essential hypertension Factor 5 Leiden mutation, heterozygous Hypothyroidism group home current use of anticoagulant therapy (02/15/13) Morbid obesity with body mass index (BMI) of 40.0 to 44.9 in adult (09/27/15) VIRGEN (nonalcoholic steatohepatitis) Obstructive sleep apnea syndrome (04/17/11) Restrictive lung disease Spinal stenosis Unspecified asthma (04/17/11) Ventral incisional hernia Surgical History History of bowel resection History of gynecologic surgery S/P total abdominal hysterectomy and bilateral salpingo-oophorectomy Status post appendectomy Status post tonsillectomy and adenoidectomy (1994) Social History marital status: number of children: 2 household members: spouse lives independently: Yes caregiver/support person: No housing: house pets and animals: Yes education level: high school occupational status: other current occupational exposures/hazards: No Previous occupational history: [employer] chadd/voodoo: [employer] leisure activities: other Smoking Status: Former smoker Tobacco: How many years used: 5 Smokeless tobacco user: other quit status: quit date established second hand exposure: Yes alcohol intake: never substance use type: does not use Smoking Status: Former smoker alcohol intake frequency: 0-2 drinks per day Substance Use Type: does not use Exam Narrative Exam Narrative: GEN: , alert and oriented, patient appears to be in mild distress. Obese. HEENT: Atraumatic, pupils are equal round reactive to light, extraocular movements are intact, nares are clear, TMs are clear with no fluid, there is no conjunctival pallor. Throat is clear without any exudates, erythema, tonsillar enlargement or uvular deviation HEART: Regular rate and rhythm without murmur, clicks, rubs. Pulses are equal in upper and lower extremities LUNGS:Lungs clear to auscultation, no wheezes, rales, crackles, chest moves symmetrically, no tachypnea accessory muscle use. ABD:bowel sounds normal, soft, non-tender, no guarding, rebound, rigidity, no masses noted, no hepatosplenomegaly :No CVA tenderness MSCL: Non-tender, full range of motion. NEURO:CN 2-12 intact, sensation normal SKIN: Patient has bronzed skin tone. Initial Vital Signs Initial Vital Signs: Vital Signs Pulse Rate 77 10/03/21 14:19 Respiratory Rate 21 10/03/21 14:19 Pulse Oximetry 97 10/03/21 14:19 Course Orders Ordered: ED Orders 10/03/21 14:26 XR chest 1V Stat EKG-12 Lead Stat 10/03/21 14:35 Ammonia (NH3) Stat BNP [NT-proBNP (BNP-Adult 18+)] Stat Complete Blood Count AUTO DIFF Stat Comprehensive Metabolic Panel Stat Lactate (Lactic Acid) Stat Lipase Stat PTT [Partial Thromboplastin Time] Stat Pathologist Review (for CBC) Stat Prothrombin Time INR Stat Troponin & CK Cardiac Panel Stat 10/03/21 15:33 CT kidney ureter bladder (KUB) Stat 10/03/21 15:57 COVID19 - 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 (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/PCR) Stat COVID19 -Nasal swab/Pre-Proc Stat 10/03/21 16:23 Blood Culture Stat 10/03/21 16:38 UA Complete [Urinalysis and Microscopic] Stat Urine Culture Stat Urine Drug Screen, Rapid Stat Discontinued Medications Hydrocortisone (Hydrocortisone 100 Mg/2 Ml Vial) 100 mg IV NOW ONE Stop: 10/03/21 15:40 Last Admin: 10/03/21 16:08 Dose: 100 mg Documented by: RICA Sodium Chloride (Normal Saline 0.9%) 1,000 mls @ 1,000 mls/hr IV BOLUS ONE Stop: 10/03/21 15:40 Last Infusion: 10/03/21 16:55 Dose: 0 mls/hr Documented by: Admin: 10/03/21 14:55 Dose: 1,000 mls/hr Documented by: HARDIK Sodium Chloride (Normal Saline 0.9%) 1,000 mls @ 1,000 mls/hr IV BOLUS ONE Stop: 10/03/21 16:32 Last Admin: 10/03/21 17:24 Dose: Not Given Documented by: HORTENCIA Levofloxacin (Levaquin) 750 mg in 150 mls @ 100 mls/hr IV NOW ONE Stop: 10/03/21 17:02 Last Infusion: 10/03/21 17:49 Dose: 0 mls/hr Documented by: Infusion: 10/03/21 17:24 Dose: 100 mls/hr Documented by: Admin: 10/03/21 16:07 Dose: 100 mls/hr Documented by: RICA Consultations Consultation #1: Dr. Dominguez, agrees with plan for admission. Patient appears to have UTI with urinary retention, acute kidney injury. She had Mack catheter drained quite a bit urine immediately. Patient also possibly has pneumonia on chest x-ray. Covered her with Levaquin. She does not have a lot of other abnormalities. She did respond to fluids but was hypotensive initially. She did get a dose of Solu-Cortef which he states her prednisone is for her lung disease. Time: 17:20 Vital Signs Vital signs: Vital Signs - 8 hr 10/03/21 14:19 10/03/21 14:20 10/03/21 14:22 Temperature 98.1 F Pulse Rate 77 75 75 Respiratory Rate 21 22 18 Blood Pressure 94/51 L 94/51 L Pulse Oximetry 97 97 98 10/03/21 14:30 10/03/21 14:45 10/03/21 15:00 Temperature Pulse Rate 75 78 78 Respiratory Rate 22 15 22 Blood Pressure 94/52 L 79/34 L 70/34 L Pulse Oximetry 97 96 97 10/03/21 15:15 10/03/21 15:30 10/03/21 15:31 Temperature Pulse Rate 79 79 80 Respiratory Rate Blood Pressure 90/42 L 87/30 L Pulse Oximetry 96 97 97 10/03/21 15:45 10/03/21 15:46 10/03/21 16:00 Temperature Pulse Rate 77 78 79 Respiratory Rate 16 15 17 Blood Pressure 85/38 L Pulse Oximetry 98 98 95 10/03/21 16:06 10/03/21 16:15 10/03/21 16:18 Temperature Pulse Rate 75 77 75 Respiratory Rate 20 19 19 Blood Pressure 120/58 L 121/64 Pulse Oximetry 98 97 97 10/03/21 16:30 10/03/21 16:45 10/03/21 17:00 Temperature Pulse Rate 73 78 76 Respiratory Rate 21 Blood Pressure 126/56 L 131/61 137/66 Pulse Oximetry 99 98 97 10/03/21 17:15 Temperature Pulse Rate 77 Respiratory Rate Blood Pressure Pulse Oximetry 98 Medical Decision Making Lab Data Result diagrams: 10/03/21 14:35 10/03/21 14:35 Labs: Lab Results 10/03/21 10/03/21 10/03/21 Range/Units 14:35 14:35 14:35 WBC 11.6 H (4.5-11.0) X10^3/uL RBC 3.70 L (4.0-5.2) X10^6/uL Hgb 10.4 L (12.0-16.0) g/dL Hct 32.2 L (36-46) % MCV 87.0 (80-100) fL MCH 28.2 (26-34) PG MCHC 32.4 (30-36) % RDW 16.4 H (11.6-14.8) % Plt Count 340 (150-400) X10^3/uL Neut % (Auto) 91.5 H (50-75) % Lymph % (Auto) 2.5 L (25-40) % Bureau % (Auto) 5.6 (3-14) % Eos % (Auto) 0.1 L (2-4) % Baso % (Auto) 0.3 (0-2) % Neut # (Auto) 62177 H (4578-1581) /uL Lymph # (Auto) 300 L (3929-1375) /uL Bureau # (Auto) 600 (0-900) /uL Eos # (Auto) 0 (0-450) /uL Baso # (Auto) 0 (0-100) /uL Total Counted 100 Seg Neutrophils % 78.0 H (38-70) % Band Neutrophils % 12.0 H (3-7) % Lymphocytes % (Manual) 3.0 L (25-45) % Monocytes % (Manual) 1.0 L (2-11) % Metamyelocytes % 2.0 H (-0) % Myelocytes % 4.0 H (-0) % Neutrophils # (Manual) 08321 H (4510-1453) /uL RBC Morphology See below Polychromasia 1+ H Target Cells 1+ H PT (10.1-12.7) SECONDS INR (0.9-1.3) APTT (26.4-36.2) SECONDS Sodium 134 L (137-145) mmol/L Potassium 5.1 (3.4-5.1) mmol/L Chloride 101 (98-107) mmol/L Carbon Dioxide 28 (22-32) mmol/L BUN 55 H (7-17) mg/dL Creatinine 2.47 H (0.52-1.04) mg/dL Estimated GFR 18.9 L (>60) mL/min BUN/Creatinine Ratio 22.3 H (6-22) Glucose 117 H (80-110) mg/dL Lactate (0.7-2.1) mmol/L Calcium 9.1 (8.4-10.2) mg/dL Total Bilirubin 0.9 (0.2-1.3) mg/dL AST 47 H (14-36) IU/L ALT 55 H (<35) IU/L Alkaline Phosphatase 199 H (38-126) U/L Ammonia < 9 L (9-30) umol/L Total Creatine Kinase (30-135) U/L CK-MB (CK-2) CK-MB (CK-2) Rel Index Troponin I (0.01-0.034) ng/mL NT-Pro-B Natriuret Pep (<450) pg/mL Total Protein 7.0 (6.3-8.2) g/dL Albumin 3.6 (3.5-5.0) g/dL Globulin 3.4 (1.7-4.1) g/dL Albumin/Globulin Ratio 1.1 (1.0-2.8) Lipase (23-300) U/L Urine Color Urine Appearance Urine pH (4.5-8.0) Ur Specific Valentines (1.000-1.035) Urine Protein (Negative) Urine Glucose (UA) (Negative) g/dL Urine Ketones (NEGATIVE) Urine Occult Blood (Negative) Urine Nitrate (Negative) Urine Bilirubin (NEGATIVE) Urine Urobilinogen (0.2) E.U./dL Ur Leukocyte Esterase (NEGATIVE) Urine RBC (0-5/HPF) Urine WBC (0-5/HPF) Ur Squamous Epith Cells (0-5/HPF) Urine Bacteria (None) Ur Culture Indicated? U Opiates 300ng/mL cut (Negative) Ur Oxycodone Screen (Negative) Urine Methadone Screen (Negative) Ur Barbiturates Screen (Negative) U Tricyclic Antidepress (Negative) Ur Phencyclidine Scrn (Negative) Ur Amphetamines Screen (Negative) U Methamphetamines Scrn (Negative) Ur MDMA Scrn (Ecstasy) (Negative) U Benzodiazepines Scrn (Negative) Urine Cocaine Screen (Negative) U Marijuana (THC) Screen (Negative) SARS-CoV-2 (PCR) (Negative) 10/03/21 10/03/21 10/03/21 Range/Units 14:35 14:35 14:35 WBC (4.5-11.0) X10^3/uL RBC (4.0-5.2) X10^6/uL Hgb (12.0-16.0) g/dL Hct (36-46) % MCV (80-100) fL MCH (26-34) PG MCHC (30-36) % RDW (11.6-14.8) % Plt Count (150-400) X10^3/uL Neut % (Auto) (50-75) % Lymph % (Auto) (25-40) % Bureau % (Auto) (3-14) % Eos % (Auto) (2-4) % Baso % (Auto) (0-2) % Neut # (Auto) (4030-1196) /uL Lymph # (Auto) (6372-3069) /uL Bureau # (Auto) (0-900) /uL Eos # (Auto) (0-450) /uL Baso # (Auto) (0-100) /uL Total Counted Seg Neutrophils % (38-70) % Band Neutrophils % (3-7) % Lymphocytes % (Manual) (25-45) % Monocytes % (Manual) (2-11) % Metamyelocytes % (-0) % Myelocytes % (-0) % Neutrophils # (Manual) (2682-5486) /uL RBC Morphology Polychromasia Target Cells PT 14.8 H (10.1-12.7) SECONDS INR 1.3 (0.9-1.3) APTT 25 L D (26.4-36.2) SECONDS Sodium (137-145) mmol/L Potassium (3.4-5.1) mmol/L Chloride (98-107) mmol/L Carbon Dioxide (22-32) mmol/L BUN (7-17) mg/dL Creatinine (0.52-1.04) mg/dL Estimated GFR (>60) mL/min BUN/Creatinine Ratio (6-22) Glucose (80-110) mg/dL Lactate (0.7-2.1) mmol/L Calcium (8.4-10.2) mg/dL Total Bilirubin (0.2-1.3) mg/dL AST (14-36) IU/L ALT (<35) IU/L Alkaline Phosphatase (38-126) U/L Ammonia (9-30) umol/L Total Creatine Kinase < 20 L (30-135) U/L CK-MB (CK-2) TNP CK-MB (CK-2) Rel Index TNP Troponin I < 0.012 (0.01-0.034) ng/mL NT-Pro-B Natriuret Pep (<450) pg/mL Total Protein (6.3-8.2) g/dL Albumin (3.5-5.0) g/dL Globulin (1.7-4.1) g/dL Albumin/Globulin Ratio (1.0-2.8) Lipase 83 (23-300) U/L Urine Color Urine Appearance Urine pH (4.5-8.0) Ur Specific Valentines (1.000-1.035) Urine Protein (Negative) Urine Glucose (UA) (Negative) g/dL Urine Ketones (NEGATIVE) Urine Occult Blood (Negative) Urine Nitrate (Negative) Urine Bilirubin (NEGATIVE) Urine Urobilinogen (0.2) E.U./dL Ur Leukocyte Esterase (NEGATIVE) Urine RBC (0-5/HPF) Urine WBC (0-5/HPF) Ur Squamous Epith Cells (0-5/HPF) Urine Bacteria (None) Ur Culture Indicated? U Opiates 300ng/mL cut (Negative) Ur Oxycodone Screen (Negative) Urine Methadone Screen (Negative) Ur Barbiturates Screen (Negative) U Tricyclic Antidepress (Negative) Ur Phencyclidine Scrn (Negative) Ur Amphetamines Screen (Negative) U Methamphetamines Scrn (Negative) Ur MDMA Scrn (Ecstasy) (Negative) U Benzodiazepines Scrn (Negative) Urine Cocaine Screen (Negative) U Marijuana (THC) Screen (Negative) SARS-CoV-2 (PCR) (Negative) 10/03/21 10/03/21 10/03/21 Range/Units 14:35 14:35 15:57 WBC (4.5-11.0) X10^3/uL RBC (4.0-5.2) X10^6/uL Hgb (12.0-16.0) g/dL Hct (36-46) % MCV (80-100) fL MCH (26-34) PG MCHC (30-36) % RDW (11.6-14.8) % Plt Count (150-400) X10^3/uL Neut % (Auto) (50-75) % Lymph % (Auto) (25-40) % Bureau % (Auto) (3-14) % Eos % (Auto) (2-4) % Baso % (Auto) (0-2) % Neut # (Auto) (5049-9076) /uL Lymph # (Auto) (2298-2971) /uL Bureau # (Auto) (0-900) /uL Eos # (Auto) (0-450) /uL Baso # (Auto) (0-100) /uL Total Counted Seg Neutrophils % (38-70) % Band Neutrophils % (3-7) % Lymphocytes % (Manual) (25-45) % Monocytes % (Manual) (2-11) % Metamyelocytes % (-0) % Myelocytes % (-0) % Neutrophils # (Manual) (5257-8875) /uL RBC Morphology Polychromasia Target Cells PT (10.1-12.7) SECONDS INR (0.9-1.3) APTT (26.4-36.2) SECONDS Sodium (137-145) mmol/L Potassium (3.4-5.1) mmol/L Chloride (98-107) mmol/L Carbon Dioxide (22-32) mmol/L BUN (7-17) mg/dL Creatinine (0.52-1.04) mg/dL Estimated GFR (>60) mL/min BUN/Creatinine Ratio (6-22) Glucose (80-110) mg/dL Lactate 1.3 (0.7-2.1) mmol/L Calcium (8.4-10.2) mg/dL Total Bilirubin (0.2-1.3) mg/dL AST (14-36) IU/L ALT (<35) IU/L Alkaline Phosphatase (38-126) U/L Ammonia (9-30) umol/L Total Creatine Kinase (30-135) U/L CK-MB (CK-2) CK-MB (CK-2) Rel Index Troponin I (0.01-0.034) ng/mL NT-Pro-B Natriuret Pep 191 (<450) pg/mL Total Protein (6.3-8.2) g/dL Albumin (3.5-5.0) g/dL Globulin (1.7-4.1) g/dL Albumin/Globulin Ratio (1.0-2.8) Lipase (23-300) U/L Urine Color Urine Appearance Urine pH (4.5-8.0) Ur Specific Valentines (1.000-1.035) Urine Protein (Negative) Urine Glucose (UA) (Negative) g/dL Urine Ketones (NEGATIVE) Urine Occult Blood (Negative) Urine Nitrate (Negative) Urine Bilirubin (NEGATIVE) Urine Urobilinogen (0.2) E.U./dL Ur Leukocyte Esterase (NEGATIVE) Urine RBC (0-5/HPF) Urine WBC (0-5/HPF) Ur Squamous Epith Cells (0-5/HPF) Urine Bacteria (None) Ur Culture Indicated? U Opiates 300ng/mL cut (Negative) Ur Oxycodone Screen (Negative) Urine Methadone Screen (Negative) Ur Barbiturates Screen (Negative) U Tricyclic Antidepress (Negative) Ur Phencyclidine Scrn (Negative) Ur Amphetamines Screen (Negative) U Methamphetamines Scrn (Negative) Ur MDMA Scrn (Ecstasy) (Negative) U Benzodiazepines Scrn (Negative) Urine Cocaine Screen (Negative) U Marijuana (THC) Screen (Negative) SARS-CoV-2 (PCR) Negative (Negative) 10/03/21 10/03/21 10/03/21 Range/Units 15:57 16:38 16:38 WBC (4.5-11.0) X10^3/uL RBC (4.0-5.2) X10^6/uL Hgb (12.0-16.0) g/dL Hct (36-46) % MCV (80-100) fL MCH (26-34) PG MCHC (30-36) % RDW (11.6-14.8) % Plt Count (150-400) X10^3/uL Neut % (Auto) (50-75) % Lymph % (Auto) (25-40) % Bureau % (Auto) (3-14) % Eos % (Auto) (2-4) % Baso % (Auto) (0-2) % Neut # (Auto) (8610-2235) /uL Lymph # (Auto) (5096-9209) /uL Bureau # (Auto) (0-900) /uL Eos # (Auto) (0-450) /uL Baso # (Auto) (0-100) /uL Total Counted Seg Neutrophils % (38-70) % Band Neutrophils % (3-7) % Lymphocytes % (Manual) (25-45) % Monocytes % (Manual) (2-11) % Metamyelocytes % (-0) % Myelocytes % (-0) % Neutrophils # (Manual) (0793-7734) /uL RBC Morphology Polychromasia Target Cells PT (10.1-12.7) SECONDS INR (0.9-1.3) APTT (26.4-36.2) SECONDS Sodium (137-145) mmol/L Potassium (3.4-5.1) mmol/L Chloride (98-107) mmol/L Carbon Dioxide (22-32) mmol/L BUN (7-17) mg/dL Creatinine (0.52-1.04) mg/dL Estimated GFR (>60) mL/min BUN/Creatinine Ratio (6-22) Glucose (80-110) mg/dL Lactate (0.7-2.1) mmol/L Calcium (8.4-10.2) mg/dL Total Bilirubin (0.2-1.3) mg/dL AST (14-36) IU/L ALT (<35) IU/L Alkaline Phosphatase (38-126) U/L Ammonia (9-30) umol/L Total Creatine Kinase (30-135) U/L CK-MB (CK-2) CK-MB (CK-2) Rel Index Troponin I (0.01-0.034) ng/mL NT-Pro-B Natriuret Pep (<450) pg/mL Total Protein (6.3-8.2) g/dL Albumin (3.5-5.0) g/dL Globulin (1.7-4.1) g/dL Albumin/Globulin Ratio (1.0-2.8) Lipase (23-300) U/L Urine Color Yellow Urine Appearance Clear Urine pH 5.5 (4.5-8.0) Ur Specific Valentines 1.010 (1.000-1.035) Urine Protein Negative (Negative) Urine Glucose (UA) Negative (Negative) g/dL Urine Ketones Negative (NEGATIVE) Urine Occult Blood Negative (Negative) Urine Nitrate Positive H (Negative) Urine Bilirubin Negative (NEGATIVE) Urine Urobilinogen 0.2 (0.2) E.U./dL Ur Leukocyte Esterase Negative (NEGATIVE) Urine RBC None seen (0-5/HPF) Urine WBC 1-5/hpf (0-5/HPF) Ur Squamous Epith Cells 0-1 /hpf (0-5/HPF) Urine Bacteria Moderate (10-30) H (None) Ur Culture Indicated? Specimen cultured U Opiates 300ng/mL cut Negative (Negative) Ur Oxycodone Screen Negative (Negative) Urine Methadone Screen Negative (Negative) Ur Barbiturates Screen Negative (Negative) U Tricyclic Antidepress Negative (Negative) Ur Phencyclidine Scrn Negative (Negative) Ur Amphetamines Screen Negative (Negative) U Methamphetamines Scrn Negative (Negative) Ur MDMA Scrn (Ecstasy) Negative (Negative) U Benzodiazepines Scrn Negative (Negative) Urine Cocaine Screen Negative (Negative) U Marijuana (THC) Screen Negative (Negative) SARS-CoV-2 (PCR) Negative (Negative) Point of Care Testing Glucose POC 126 Urine Dip Bedside Urine Glucose Negative Bedside Urine Bilirubin - Negative Bedside Urine Ketone - Negative Urine Specific Valentines 1.020 Bedside Urine Occult Blood - Negative Bedside Urine pH 6.0 Bedside Urine Protein - Negative Bedside Urine Urobilinogen - Negative Bedside Urine Nitrite - Negative Bedside Urine Leukocytes - Negative Esterase Point of care testing: Point of Care Testing Glucose POC 126 Urine Dip Bedside Urine Glucose Negative Bedside Urine Bilirubin - Negative Bedside Urine Ketone - Negative Urine Specific Valentines 1.020 Bedside Urine Occult Blood - Negative Bedside Urine pH 6.0 Bedside Urine Protein - Negative Bedside Urine Urobilinogen - Negative Bedside Urine Nitrite - Negative Bedside Urine Leukocytes - Negative Esterase Imaging Data CT scan - abdomen/pelvis: Radiologist's Impression: [place] [address] CT Scan Report Signed Patient: Mirela Charles MR#: [id number] : 1940 Acct:[id number] Age/Sex: 80 / F Date of Service: 10/03/21 Loc: ED Accession Number: [id number] ?? Procedure: CT kidney ureter bladder (KUB) Ordering Provider: Kassi Willingham D.O. PROCEDURE:? CT KIDNEY URETER BLADDER (KUB) ? INDICATIONS:? liver mass, renal failure, ? TECHNIQUE:? Axial sections were acquired from the lung bases to the pubic symphysis.? Coronal and sagittal reformats were performed.? For radiation dose reduction, the following was used: ?automated exposure control, adjustment of mA and/or kV according to patient size.? ? COMPARISON:? [facility], CT, CT ABDOMEN PELVIS W CON, 09/03/2021, 18:46.? [facility], MR, MR ABDOMEN WO/W CON, 09/04/2021, 10:14.? [facility], CT, KIDNEY/ URETER/BLADDER, 09/19/2012, 19:47. ? FINDINGS:? Image quality:? There is beam hardening artifact from patient's upper extremities.? ? Lung bases:? There is atelectasis and scarring in the lung bases.? ? Heart:? Heart is normal in size. ? ABDOMEN: Liver:? Posteriorly within the right hepatic lobe, a large heterogeneous mass is redemonstrated.? Evaluation is limited in the absence of intravenous contrast on the current study but the mass appears similar in size compared to the prior exams, measuring up to approximately 9 cm in maximal dimension.? ? Gallbladder:? There are a few calcified gallstones redemonstrated in the gallbladder without associated wall thickening or pericholecystic fat stranding. Biliary ducts:? No biliary ductal dilatation.? ? Pancreas:? There is a lobulated cystic lesion within the pancreatic head measuring up to 1.7 x 1.4 cm which appears similar in size compared to the prior studies.? ? Spleen:? Surgically absent.? ? Adrenal Glands:? Unremarkable. Kidneys and ureters:? The kidneys demonstrate no hydronephrosis.? No renal stones.? Ureters are nondistended.? No ureteral stones. ? ? Stomach and Bowel:? Stomach, small bowel loops, and colon normal in caliber and wall thickness.? There are postsurgical changes redemonstrated with prior right hemicolectomy. ?There also sutures along the sigmoid colon suggestive of prior partial sigmoid colectomy. Peritoneum:? There is a small amount of perihepatic free fluid.4? No free air.? ? Ventral Wall: ? No hernia.? Abdominal Nodes:? No enlarged retroperitoneal or mesenteric lymph nodes.? Vessels:? Aorta and inferior vena cava are normal in size.? ? PELVIS: Pelvic Organs:? The uterus is surgically absent.? ? Pelvic Nodes: Unremarkable. Miscellaneous: No inguinal hernias are seen. ? ? ? Bones:? Visualized osseous structures demonstrate no suspicious focal lesions.? There is mild grade 1 anterolisthesis at L4-5.? There is a mild rightward curvature of the thoracolumbar spine centered at L1-L2. ? IMPRESSION:? ? 1.? No evidence of hydronephrosis. ? 2. Heterogeneous large right hepatic mass redemonstrated with evaluation limited on the current noncontrast study.? The findings are again nonspecific but given patient's age are suspicious for metastatic disease. ? 3. Cholelithiasis without CT evidence of acute cholecystitis. ? 4. Small cystic lesion redemonstrated within the pancreatic head, similar in size to the recent prior studies.? ? ? Dictated by: José Miguel Drake M.D. on 10/03/2021 at 16:29 ? ? Approved by: José Miguel Drake M.D. on 10/03/2021 at 16:43?? Chest x-ray: Radiologist's Impression: Launch?[place] [address] XRay Report Signed Patient: Mirela Charles MR#: [id number] : 1940 Acct:[id number] Age/Sex: 80 / F Date of Service: 10/03/21 Loc: ED Accession Number: [id number] ?? Procedure: XR chest 1V Ordering Provider: Kassi Willingham D.O. PROCEDURE:? XR CHEST 1V ? INDICATIONS:? altered mental status ? TECHNIQUE:? One view of the chest was acquired.? ? COMPARISON:? [facility], , XR CHEST 1V, 09/03/2021, 18:31. ? FINDINGS:? ? Surgical changes and devices:? None.? ? Lungs and pleura:? Small bilateral pleural fluid collections.? Increased opacification in the lung bases which could represent atelectasis or pneumonia. ? Mediastinum:? Mediastinal contours appear normal.? Heart size is normal.? ? Bones and chest wall:? No suspicious bony lesions.? Overlying soft tissues appear unremarkable.? ? IMPRESSION:? Small bilateral pleural fluid collections.? Bibasilar opacities compatible with atelectasis or pneumonia. ? ? Dictated by: Michelle Smith MD, PhD on 10/03/2021 at 14:55 ? ? Approved by: Michelle Smith MD, PhD on 10/03/2021 at 14:57?? ECG Data Attestation: I personally reviewed and interpreted this ECG as follows: Prior ECG tracings: available for review Interpretation: Sinus rhythm rate of 76 OK 152 QRS of 96 and QTC of 427. No acute ST elevation or depression. 09/03/21 appears similar. MDM Narrative Medical decision making narrative: This is a 80-year-old female who is brought in for hypotension. Patient has intermittent confusion according to her PA, and prior records. She does appear to be hypotensive in the department. She did respond to fluids. Her labs show acute kidney injury, UTI with nitrates. Possible pneumonia. Patient does not have a septic criteria but was hypotensive. She responded to fluids. Was initially with antibiotics. She did not receive a 30 cc/kilos bolus as she responded well to the fluids patient was given Solu-Cortef for potential adrenal insufficiency she is on prednisone daily. CT KUB was ordered does not show any new obstructive process or other new intra-abdominal changes. She does to continue have a mass in her kidney which is reason she was sent to IR for biopsy. She did have urinary retention urinary Mack was placed and she drained significant amount of urine immediately. Spoke with her primary care service who accepts. Discharge Plan Departure Patient Disposition: Admitted as Observation Clinical Impression: Acute UTI, Hypotension, Pneumonia, Acute urinary retention, MANOHAR (acute kidney injury) Admit Date/Time: 10/03/21 17:20 Admit Provider: Max Dominguez
--- NOTE | 2021-10-03 15:33 | DI.CT.S_ITS ---
PROCEDURE: CT KIDNEY URETER BLADDER (KUB) INDICATIONS: liver mass, renal failure, TECHNIQUE: Axial sections were acquired from the lung bases to the pubic symphysis. Coronal and sagittal reformats were performed. For radiation dose reduction, the following was used: automated exposure control, adjustment of mA and/or kV according to patient size. COMPARISON: [facility], CT, CT ABDOMEN PELVIS W CON, 09/03/2021, 18:46. [facility], MR, MR ABDOMEN WO/W CON, 09/04/2021, 10:14. [facility], CT, KIDNEY/ URETER/BLADDER, 09/19/2012, 19:47. FINDINGS: Image quality: There is beam hardening artifact from patient's upper extremities. Lung bases: There is atelectasis and scarring in the lung bases. Heart: Heart is normal in size. ABDOMEN: Liver: Posteriorly within the right hepatic lobe, a large heterogeneous mass is redemonstrated. Evaluation is limited in the absence of intravenous contrast on the current study but the mass appears similar in size compared to the prior exams, measuring up to approximately 9 cm in maximal dimension. Gallbladder: There are a few calcified gallstones redemonstrated in the gallbladder without associated wall thickening or pericholecystic fat stranding. Biliary ducts: No biliary ductal dilatation. Pancreas: There is a lobulated cystic lesion within the pancreatic head measuring up to 1.7 x 1.4 cm which appears similar in size compared to the prior studies. Spleen: Surgically absent. Adrenal Glands: Unremarkable. Kidneys and ureters: The kidneys demonstrate no hydronephrosis. No renal stones. Ureters are nondistended. No ureteral stones. Stomach and Bowel: Stomach, small bowel loops, and colon normal in caliber and wall thickness. There are postsurgical changes redemonstrated with prior right hemicolectomy. There also sutures along the sigmoid colon suggestive of prior partial sigmoid colectomy. Peritoneum: There is a small amount of perihepatic free fluid.4 No free air. Ventral Wall: No hernia. Abdominal Nodes: No enlarged retroperitoneal or mesenteric lymph nodes. Vessels: Aorta and inferior vena cava are normal in size. PELVIS: Pelvic Organs: The uterus is surgically absent. Pelvic Nodes: Unremarkable. Miscellaneous: No inguinal hernias are seen. Bones: Visualized osseous structures demonstrate no suspicious focal lesions. There is mild grade 1 anterolisthesis at L4-5. There is a mild rightward curvature of the thoracolumbar spine centered at L1-L2. IMPRESSION: 1. No evidence of hydronephrosis. 2. Heterogeneous large right hepatic mass redemonstrated with evaluation limited on the current noncontrast study. The findings are again nonspecific but given patient's age are suspicious for metastatic disease. 3. Cholelithiasis without CT evidence of acute cholecystitis. 4. Small cystic lesion redemonstrated within the pancreatic head, similar in size to the recent prior studies. Dictated by: José Miguel Drake M.D. on 10/03/2021 at 16:29 Approved by: José Miguel Drake M.D. on 10/03/2021 at 16:43
[2021-10-03 15:50] LABS: Neutrophils Absolute Manual 10440 /uL (3000-5900); Total Cells Counted 100
[2021-10-03 15:51] LABS: Polychromasia 1+; Target Cells 1+
[2021-10-03 15:57] LABS: INR 1.3 (0.9-1.3); Prothrombin Time 14.8 SECONDS (10.1-12.7)
[2021-10-03 16:00] LABS: PTT Partial Thromboplastin Tim 25 SECONDS (26.4-36.2)
[2021-10-03 16:06] LABS: Creatine Kinase < 20 U/L (30-135); Lactate (Lactic Acid) 1.3 mmol/L (0.7-2.1); Lipase 83 U/L (23-300)
[2021-10-03] MEDS: levoFLOXacin 750 MG/150 ML PIGGYBACK 100 MG IV (16:07)
[2021-10-03] MEDS: HYDROCORTISONE 100 MG/2 ML VIAL IV (16:08)
[2021-10-03 16:17] LABS: NT-proBNP (BNP-Adult 18+) 191 pg/mL (<450)
[2021-10-03 16:19] LABS: Troponin I < 0.012 ng/mL (0.01-0.034)
[2021-10-03 16:47] LABS: Appearance Urine UA CLEAR; Bilirubin Urine UA NEGATIVE (NEGATIVE); Color Urine UA YELLOW; Glucose Urine UA NEGATIVE (Negative); Ketones Urine UA NEGATIVE (NEGATIVE); Leukocyte Esterase Urine UA NEGATIVE (NEGATIVE); Nitrite Urine UA POSITIVE (Negative); Occult Blood Urine UA NEGATIVE (Negative); Protein Urine UA NEGATIVE (Negative); Urobilinogen Urine UA 0.2 E.U./dL (0.2)
[2021-10-03 16:49] LABS: UR Morphine/Opiate cutoff 300 Negative (Negative); Ur Creatinine Normal (Normal); Ur Specific Gravity Normal (Normal); Urine Amphetamines Negative (Negative); Urine Barbiturates Negative (Negative); Urine Benzodiazepines Negative (Negative); Urine Cocaine Negative (Negative); Urine MDMA Negative (Negative); Urine Methadone Negative (Negative); Urine Methamphetamines Negative (Negative); Urine Oxycodone Negative (Negative); Urine Phencyclidine Negative (Negative); Urine Tetrahydrocannabinol Negative (Negative); Urine Tricyclic Antidepressant Negative (Negative); Urine pH Normal (Normal)
[2021-10-03 16:51] LABS: COVID19 -Nasal RAPID Negative (Negative)
[2021-10-03 16:51] LABS: pH Urine UA 5.5 (4.5-8.0)
[2021-10-03 16:56] LABS: Bacteria Urine Moderate (10-30); Culture Indicated Urine Specimen Cultured; RBC Urine None Seen (0-5/HPF); Squamous Epithelial Cell Urine 0-1 /HPF (0-5/HPF); WBC Urine 1-5/HPF (0-5/HPF)
[2021-10-03 17:13] LABS: COVID19 - ADMIT (NP swab/PCR) Negative (Negative)
--- NOTE | 2021-10-03 17:13 | PC.NURSE ---
c/o increased confusion, increased hypotension, increased upper abd pain. Was at IR for liver biopsy but pt found to be hypotensive and would not tolerated procedure. alert to date/place/person but can not remember allergies, situation. Noted jaundice. Arrives w/ 20 g iv placed by DI nurse right ac.
--- NOTE | 2021-10-03 17:24 | P.HP_ITS ---
History of Present Illness History of Present Illness Date Patient Seen: 10/03/21 Chief complaint: hypotension, confusion, Narrative: 80-year-old female recently admitted with weakness and UTI found to have liver mass/Met's. Was discharged to longterm for rehabilitation. Return to [facility] for CT-guided biopsy of her liver today found to be hypotensive with blood pressure in the 70s. ER evaluation showed evidence of acute kidney injury with significant jump in creatinine. Patient also did respond to IV fluids. Also had fair amount of urine retention with about a L out after urinary catheter placed. Patient did not have her biopsy performed On further evaluation evidence of possible UTI with point of care dipstick and maybe an element of pneumonia although by my read chest x-ray is unchanged from previous. She does have a leukocytosis but this is been persistent for her over long period of time. Patient was also given a dose of IV steroids in the ER for possible adrenal insufficiency given her long-term use of corticosteroids. She is on our cor ticosteroids for her lung disease which is an element of obstructive lung disease with some benefit symptomatic Marce with steroids as well as an interstitial lung disease again patient reports some benefit with chronic steroid therapy (and no other therapies have been helpful) Patient History Medical History Anemia in chronic kidney disease (06/17/15) Arthralgia (09/10/14) Arthralgia of both knees (09/27/15) Attention deficit disorder with hyperactivity Body mass index (BMI) of 40.0 to 44.9 in adult (12/10/16) Chronic midline thoracic back pain (01/02/16) Chronic radicular lumbar pain (09/27/15) Essential hypertension Factor 5 Leiden mutation, heterozygous Hypothyroidism jail current use of anticoagulant therapy (02/15/13) Morbid obesity with body mass index (BMI) of 40.0 to 44.9 in adult (09/27/15) VIRGEN (nonalcoholic steatohepatitis) Obstructive sleep apnea syndrome (04/17/11) Restrictive lung disease Spinal stenosis Unspecified asthma (04/17/11) Ventral incisional hernia Surgical History History of bowel resection History of gynecologic surgery S/P total abdominal hysterectomy and bilateral salpingo-oophorectomy Status post appendectomy Status post tonsillectomy and adenoidectomy (1994) Family & Social History Social History: household members spouse lives independently Yes caregiver/support person No Safety & Behavioral: Feels Safe in Current Yes Environment Been Physically Hurt or No Threatened By a Person Tobacco & Substance use: Smoking Status Former smoker alcohol intake never alcohol intake frequency 0-2 drinks per day Substance Use Type does not use Meds Home Medications and Allergies Home Medications Medication Instructions Recorded Confirmed Type bupropion HCl 150 mg 24 hr tablet, 150 mg PO QAM #90 tab 11/19/20 10/03/21 Rx extended release duloxetine 60 mg capsule,delayed 60 mg PO DAILY #90 cap 11/19/20 10/03/21 Rx release oxybutynin chloride 15 mg 15 mg PO DAILY #90 tab 01/10/21 10/03/21 Rx tablet,extended release 24 hr levothyroxine 100 mcg tablet 100 mcg PO QAM #90 tab 01/24/21 10/03/21 Rx spironolactone 100 mg tablet See Rx Instructions .ROUTE 01/24/21 10/03/21 Rx .COMPLEX #90 tab pantoprazole 40 mg tablet,delayed 40 mg PO BID #180 tab 04/17/21 10/03/21 Rx release (Protonix) lisinopril 10 mg tablet 10 mg PO DAILY 09/04/21 10/03/21 History furosemide 40 mg tablet 40 mg PO DAILY #30 tab 09/10/21 10/03/21 Rx levofloxacin 250 mg tablet 250 mg PO DAILY #2 tab 09/10/21 10/03/21 Rx magnesium oxide 400 mg (241.3 mg 400 mg PO DAILY@1100 #30 tab 09/10/21 10/03/21 Rx magnesium) tablet prednisone 20 mg tablet 20 mg PO DAILY #30 tab 09/10/21 10/03/21 Rx warfarin 5 mg tablet 5 mg PO DAILY #30 tab 09/10/21 10/03/21 Rx Allergies Allergy/AdvReac Type Severity Reaction Status Date / Time codeine [CODEINE] Allergy Severe Rash Verified 10/03/21 14:25 morphine [MORPHINE] Allergy Severe Rash, Verified 10/03/21 14:25 Agitation crab Allergy Mild Verified 10/03/21 14:45 diphenhydramine Allergy Mild AGITATION Verified 10/03/21 14:25 [DIPHENHYDRAMINE] Iodine and Iodide Containing Allergy Mild Verified 10/03/21 14:25 Produc [IODINE AND IODIDE CONTAINING PRODUC] latex [LATEX] Allergy Mild ITCHING, Verified 10/03/21 14:25 SWELLING..BANDAIDS Penicillins [PENICILLINS] Allergy Mild Verified 10/03/21 14:25 Review of Systems Review of Systems ROS: Yes All systems reviewed with the patient and are negative except as otherwise documented Exam Vital Signs (past 8 hours): - 10/03/21 14:19 10/03/21 14:20 10/03/21 14:22 Temperature 98.1 F Pulse Rate 77 75 75 Respiratory Rate 21 22 18 Blood Pressure 94/51 L 94/51 L Pulse Oximetry 97 97 98 10/03/21 14:30 10/03/21 14:45 10/03/21 15:00 Temperature Pulse Rate 75 78 78 Respiratory Rate 22 15 22 Blood Pressure 94/52 L 79/34 L 70/34 L Pulse Oximetry 97 96 97 10/03/21 15:15 10/03/21 15:30 10/03/21 15:31 Temperature Pulse Rate 79 79 80 Respiratory Rate Blood Pressure 90/42 L 87/30 L Pulse Oximetry 96 97 97 10/03/21 15:45 10/03/21 15:46 10/03/21 16:00 Temperature Pulse Rate 77 78 79 Respiratory Rate 16 15 17 Blood Pressure 85/38 L Pulse Oximetry 98 98 95 10/03/21 16:06 10/03/21 16:15 10/03/21 16:18 Temperature Pulse Rate 75 77 75 Respiratory Rate 20 19 19 Blood Pressure 120/58 L 121/64 Pulse Oximetry 98 97 97 10/03/21 16:30 10/03/21 16:45 10/03/21 17:00 Temperature Pulse Rate 73 78 76 Respiratory Rate 21 Blood Pressure 126/56 L 131/61 137/66 Pulse Oximetry 99 98 97 Oxygen Delivery Method Room Air Narrative Exam Narrative: Elderly obese female in no obvious distress HEENT-unremarkable Neck-no lymphadenopathy detected Lungs-somewhat diminished breath sounds seems to be a baseline no crackles no wheezes Heart-regular rate and rhythm Abdomen-obese nontender positive bowel tones Extremities-no cyanosis or clubbing, edema unchanged from previous trace pretibial bilateral Objective Labs Result Diagrams: 10/04/21 06:55 10/04/21 06:55 Labs: Laboratory Results - last 24 hr 10/03/21 10/03/21 10/03/21 14:35 14:35 14:35 WBC 11.6 H RBC 3.70 L Hgb 10.4 L Hct 32.2 L MCV 87.0 MCH 28.2 MCHC 32.4 RDW 16.4 H Plt Count 340 Neut % (Auto) 91.5 H Lymph % (Auto) 2.5 L [place] % (Auto) 5.6 Eos % (Auto) 0.1 L Baso % (Auto) 0.3 Neut # (Auto) 18147 H Lymph # (Auto) 300 L [place] # (Auto) 600 Eos # (Auto) 0 Baso # (Auto) 0 Total Counted 100 Seg Neutrophils % 78.0 H Band Neutrophils % 12.0 H Lymphocytes % (Manual) 3.0 L Monocytes % (Manual) 1.0 L Metamyelocytes % 2.0 H Myelocytes % 4.0 H Neutrophils # (Manual) 16902 H RBC Morphology See below Polychromasia 1+ H Target Cells 1+ H PT INR APTT Sodium 134 L Potassium 5.1 Chloride 101 Carbon Dioxide 28 BUN 55 H Creatinine 2.47 H Estimated GFR 18.9 L BUN/Creatinine Ratio 22.3 H Glucose 117 H Lactate Calcium 9.1 Total Bilirubin 0.9 AST 47 H ALT 55 H Alkaline Phosphatase 199 H Ammonia < 9 L Total Creatine Kinase CK-MB (CK-2) CK-MB (CK-2) Rel Index Troponin I NT-Pro-B Natriuret Pep Total Protein 7.0 Albumin 3.6 Globulin 3.4 Albumin/Globulin Ratio 1.1 Lipase Urine Color Urine Appearance Urine pH Ur Specific [place] Urine Protein Urine Glucose (UA) Urine Ketones Urine Occult Blood Urine Nitrate Urine Bilirubin Urine Urobilinogen Ur Leukocyte Esterase Urine RBC Urine WBC Ur Squamous Epith Cells Urine Bacteria Ur Culture Indicated? U Opiates 300ng/mL cut Ur Oxycodone Screen Urine Methadone Screen Ur Barbiturates Screen U Tricyclic Antidepress Ur Phencyclidine Scrn Ur Amphetamines Screen U Methamphetamines Scrn Ur MDMA Scrn (Ecstasy) U Benzodiazepines Scrn Urine Cocaine Screen U Marijuana (THC) Screen SARS-CoV-2 (PCR) 10/03/21 10/03/21 10/03/21 14:35 14:35 14:35 WBC RBC Hgb Hct MCV MCH MCHC RDW Plt Count Neut % (Auto) Lymph % (Auto) [place] % (Auto) Eos % (Auto) Baso % (Auto) Neut # (Auto) Lymph # (Auto) [place] # (Auto) Eos # (Auto) Baso # (Auto) Total Counted Seg Neutrophils % Band Neutrophils % Lymphocytes % (Manual) Monocytes % (Manual) Metamyelocytes % Myelocytes % Neutrophils # (Manual) RBC Morphology Polychromasia Target Cells PT 14.8 H INR 1.3 APTT 25 L D Sodium Potassium Chloride Carbon Dioxide BUN Creatinine Estimated GFR BUN/Creatinine Ratio Glucose Lactate Calcium Total Bilirubin AST ALT Alkaline Phosphatase Ammonia Total Creatine Kinase < 20 L CK-MB (CK-2) TNP CK-MB (CK-2) Rel Index TNP Troponin I < 0.012 NT-Pro-B Natriuret Pep Total Protein Albumin Globulin Albumin/Globulin Ratio Lipase 83 Urine Color Urine Appearance Urine pH Ur Specific [place] Urine Protein Urine Glucose (UA) Urine Ketones Urine Occult Blood Urine Nitrate Urine Bilirubin Urine Urobilinogen Ur Leukocyte Esterase Urine RBC Urine WBC Ur Squamous Epith Cells Urine Bacteria Ur Culture Indicated? U Opiates 300ng/mL cut Ur Oxycodone Screen Urine Methadone Screen Ur Barbiturates Screen U Tricyclic Antidepress Ur Phencyclidine Scrn Ur Amphetamines Screen U Methamphetamines Scrn Ur MDMA Scrn (Ecstasy) U Benzodiazepines Scrn Urine Cocaine Screen U Marijuana (THC) Screen SARS-CoV-2 (PCR) 10/03/21 10/03/21 10/03/21 14:35 14:35 15:57 WBC RBC Hgb Hct MCV MCH MCHC RDW Plt Count Neut % (Auto) Lymph % (Auto) [place] % (Auto) Eos % (Auto) Baso % (Auto) Neut # (Auto) Lymph # (Auto) [place] # (Auto) Eos # (Auto) Baso # (Auto) Total Counted Seg Neutrophils % Band Neutrophils % Lymphocytes % (Manual) Monocytes % (Manual) Metamyelocytes % Myelocytes % Neutrophils # (Manual) RBC Morphology Polychromasia Target Cells PT INR APTT Sodium Potassium Chloride Carbon Dioxide BUN Creatinine Estimated GFR BUN/Creatinine Ratio Glucose Lactate 1.3 Calcium Total Bilirubin AST ALT Alkaline Phosphatase Ammonia Total Creatine Kinase CK-MB (CK-2) CK-MB (CK-2) Rel Index Troponin I NT-Pro-B Natriuret Pep 191 Total Protein Albumin Globulin Albumin/Globulin Ratio Lipase Urine Color Urine Appearance Urine pH Ur Specific [place] Urine Protein Urine Glucose (UA) Urine Ketones Urine Occult Blood Urine Nitrate Urine Bilirubin Urine Urobilinogen Ur Leukocyte Esterase Urine RBC Urine WBC Ur Squamous Epith Cells Urine Bacteria Ur Culture Indicated? U Opiates 300ng/mL cut Ur Oxycodone Screen Urine Methadone Screen Ur Barbiturates Screen U Tricyclic Antidepress Ur Phencyclidine Scrn Ur Amphetamines Screen U Methamphetamines Scrn Ur MDMA Scrn (Ecstasy) U Benzodiazepines Scrn Urine Cocaine Screen U Marijuana (THC) Screen SARS-CoV-2 (PCR) Negative 10/03/21 10/03/21 10/03/21 15:57 16:38 16:38 WBC RBC Hgb Hct MCV MCH MCHC RDW Plt Count Neut % (Auto) Lymph % (Auto) [place] % (Auto) Eos % (Auto) Baso % (Auto) Neut # (Auto) Lymph # (Auto) [place] # (Auto) Eos # (Auto) Baso # (Auto) Total Counted Seg Neutrophils % Band Neutrophils % Lymphocytes % (Manual) Monocytes % (Manual) Metamyelocytes % Myelocytes % Neutrophils # (Manual) RBC Morphology Polychromasia Target Cells PT INR APTT Sodium Potassium Chloride Carbon Dioxide BUN Creatinine Estimated GFR BUN/Creatinine Ratio Glucose Lactate Calcium Total Bilirubin AST ALT Alkaline Phosphatase Ammonia Total Creatine Kinase CK-MB (CK-2) CK-MB (CK-2) Rel Index Troponin I NT-Pro-B Natriuret Pep Total Protein Albumin Globulin Albumin/Globulin Ratio Lipase Urine Color Yellow Urine Appearance Clear Urine pH 5.5 Ur Specific [place] 1.010 Urine Protein Negative Urine Glucose (UA) Negative Urine Ketones Negative Urine Occult Blood Negative Urine Nitrate Positive H Urine Bilirubin Negative Urine Urobilinogen 0.2 Ur Leukocyte Esterase Negative Urine RBC None seen Urine WBC 1-5/hpf Ur Squamous Epith Cells 0-1 /hpf Urine Bacteria Moderate (10-30) H Ur Culture Indicated? Specimen cultured U Opiates 300ng/mL cut Negative Ur Oxycodone Screen Negative Urine Methadone Screen Negative Ur Barbiturates Screen Negative U Tricyclic Antidepress Negative Ur Phencyclidine Scrn Negative Ur Amphetamines Screen Negative U Methamphetamines Scrn Negative Ur MDMA Scrn (Ecstasy) Negative U Benzodiazepines Scrn Negative Urine Cocaine Screen Negative U Marijuana (THC) Screen Negative SARS-CoV-2 (PCR) Negative Assessment & Plan Assessment & Plan narrative: 1. Acute kidney injury-likely patient is somewhat dehydrated contributing to her hypotension and rising creatinine. She has responded to IV fluids with increased blood pressure in the ER. Continue with IV fluids. In addition patient was apparently started on lisinopril during her stay at longterm facility. That will be discontinued as well. Obviously she is hypotensive and she shows evidence of renal dysfunction and does not need an MICHAEL-inhibitor at this time. I would imagine patient has also had somewhat poor oral intake as well as that seems to follow her pattern as well 2. Hypotension-likely secondary to relative volume depletion. Already improved with IV fluids which will continue. Remain off of MICHAEL-inhibitor and other antihypertensives for now. This includes her diuretics as well she may have been a bit over diuresed 3. Question UTI-patient grew E coli that was sensitive to all tested antibiotics when she was here in mid August. She has been restarted on Levaquin and will continue that for now dosing based on renal function and or improvement. She receive 750 mg in the emergency department which given current renal function should be good for least 48 hours before needing another dose unless there is dramatic improvement in renal function overnight. 4. Pulmonary-patient with longstanding significant pulmonary disease poorly characterized. There is an element of interstitial lung disease as well as some obstructive lung disease with some reversibility. This is why she is chronically on steroids as she reported subjective improvement on 20 mg a day of prednisone and nothing else seems to provide any subjective improvement in her respiratory status which is at baseline quite severe. She has difficulty ambulating given across room without becoming quite dyspneic. She is not necessarily hypoxic but becomes very dyspneic. Continue her on her usual dose prednisone for now. 5. Question adrenal insufficiency-I do not believe patient is actually adrenally insufficient at this time. Will continue her usual dose prednisone but do not believe she needs stress dose steroids. 6. Liver mass-still very suspicious for primary malignancy versus metastatic disease. Really need biopsy performed and therefore will remain off of her anticoagulation 7. Factor 5 Leiden-this is why patient is chronic anticoagulated but for now I think the benefits of being able to obtain liver biopsy when patient is more clinically stable verses risk of clotting in a relatively short term duration, would suggest she should remain off anticoagulation at this time. 8. Chronic back pain with evidence of spinal stenosis etcetera-patient has been off of narcotics for some time now. Continue off narcotics and manage as able. Physical therapy would be helpful as well. 9. VTE prophylaxis-continue with SCDs. Not a candidate for anticoagulation as above 10. Code status-patient has previously requested full code although I do not think this is really in line with her long-term objectives are goals and will continue this conversation during her hospitalization. She is a full code for now however. Time Spent With Patient Critical Care time: I spent a total of [] minutes of critical care time on this patient's care today; this time is exclusive of procedural time.
[2021-10-03] MEDS: SODIUM CHLORIDE 0.45% 1,000 ML 125 ML IV (22:10)
[2021-10-03] MEDS: PANTOPRAZOLE DR 40 MG TABLET PO (22:11)
[2021-10-03] MEDS: buPROPion XL 150 MG TAB PO (22:11)
--- NOTE | 2021-10-04 01:22 | PC.NURSE ---
Pt. admitted to room 213 & admit assessment was done by Karl Mendoza RN. Will cont. POC & monitor.
[2021-10-04 03:36] VITALS: BP 125/68; PULSE 83; RESP 18; TEMP 36.6; O2SAT 98
[2021-10-04] MEDS: LEVOTHYROXINE 100 MCG TABLET PO (05:17)
[2021-10-04 07:08] LABS: Hematocrit 31.1 % (36-46); Hemoglobin 10.2 g/dL (12.0-16.0); Mean Corpuscular HGB Conc 32.6 % (30-36); Mean Corpuscular Hemoglobin 28.5 PG (26-34); Mean Corpuscular Volume 87.3 fL (80-100); Platelet Count 282 X10^3/uL (150-400); Red Blood Cell Count 3.57 X10^6/uL (4.0-5.2); Red Cell Distribution Width 16.9 % (11.6-14.8); White Blood Cell Count 11.8 X10^3/uL (4.5-11.0)
[2021-10-04 07:13] LABS: Add Manual Diff / Slide Review YES
[2021-10-04 07:20] LABS: BUN Creatinine Ratio 22.8 (6-22); Blood Urea Nitrogen 53 mg/dL (7-17); Calcium 8.6 mg/dL (8.4-10.2); Carbon Dioxide 28 mmol/L (22-32); Chloride 103 mmol/L (98-107); Estimated Glomerular Filt Rate 20.3 mL/min (>60); Glucose 97 mg/dL (80-110); HEMOLYSIS < 15 (0-50); Potassium 4.3 mmol/L (3.4-5.1); Sodium 135 mmol/L (137-145)
[2021-10-04 07:56] LABS: Neutrophils Absolute Manual 9558 /uL (3000-5900); Target Cells 1+; Total Cells Counted 100
[2021-10-04 09:00] VITALS: BP 133/56; PULSE 81; RESP 14; TEMP 36.4; O2SAT 98
[2021-10-04] MEDS: predniSONE 20 MG TABLET PO (10:03)
[2021-10-04] MEDS: buPROPion XL 150 MG TAB PO (10:04)
[2021-10-04] MEDS: PANTOPRAZOLE DR 40 MG TABLET PO ×2 (10:04→20:22)
[2021-10-04] MEDS: DULOXETINE 30 MG CAPSULE 60 MG PO (10:04)
[2021-10-04] MEDS: SODIUM CHLORIDE 0.9% FLUSH 10 ML IV ×2 (10:05→20:22)
[2021-10-04] MEDS: SODIUM CHLORIDE 0.45% 1,000 ML 125 ML IV ×2 (10:08→19:35)
--- NOTE | 2021-10-04 10:59 | P.PN_ITS ---
Subjective Subjective Date Patient Seen: 10/04/21 Time Patient Seen: 10:59 Interval history: Patient awake and alert high readily identifies me seems to be a baseline mental functioning Really has no complaints issues or problems. Denies any dyspnea any abdominal pain etcetera Has not really been up out of bed is actually happy to be here verses in the shelter facility Not sure she had great insight into the fact that her biopsy did not get perf ormed and so I still do not have any information about what is going on with this liver mass liver Mets potential cancer in her abdomen etcetera Exam Vital Signs (past 8 hours): - 10/04/21 03:36 10/04/21 09:00 Temperature 97.9 F 97.5 F L Pulse Rate 83 81 Respiratory Rate 18 14 Blood Pressure 125/68 133/56 L Pulse Oximetry 98 98 Oxygen Delivery Method Room Air Oxygen Flow Rate 98 Objective Labs Result Diagrams: 10/04/21 06:55 10/04/21 06:55 Labs: Laboratory Results - last 24 hr 10/03/21 10/03/21 10/03/21 14:35 14:35 14:35 WBC 11.6 H RBC 3.70 L Hgb 10.4 L Hct 32.2 L MCV 87.0 MCH 28.2 MCHC 32.4 RDW 16.4 H Plt Count 340 Neut % (Auto) 91.5 H Lymph % (Auto) 2.5 L Carson % (Auto) 5.6 Eos % (Auto) 0.1 L Baso % (Auto) 0.3 Neut # (Auto) 42414 H Lymph # (Auto) 300 L Carson # (Auto) 600 Eos # (Auto) 0 Baso # (Auto) 0 Total Counted 100 Seg Neutrophils % 78.0 H Band Neutrophils % 12.0 H Lymphocytes % (Manual) 3.0 L Monocytes % (Manual) 1.0 L Metamyelocytes % 2.0 H Myelocytes % 4.0 H Neutrophils # (Manual) 54857 H RBC Morphology See below Polychromasia 1+ H Target Cells 1+ H PT INR APTT Sodium 134 L Potassium 5.1 Chloride 101 Carbon Dioxide 28 BUN 55 H Creatinine 2.47 H Estimated GFR 18.9 L BUN/Creatinine Ratio 22.3 H Glucose 117 H Lactate Calcium 9.1 Magnesium Total Bilirubin 0.9 AST 47 H ALT 55 H Alkaline Phosphatase 199 H Ammonia < 9 L Total Creatine Kinase CK-MB (CK-2) CK-MB (CK-2) Rel Index Troponin I NT-Pro-B Natriuret Pep Total Protein 7.0 Albumin 3.6 Globulin 3.4 Albumin/Globulin Ratio 1.1 Lipase Urine Color Urine Appearance Urine pH Ur Specific [place] Urine Protein Urine Glucose (UA) Urine Ketones Urine Occult Blood Urine Nitrate Urine Bilirubin Urine Urobilinogen Ur Leukocyte Esterase Urine RBC Urine WBC Ur Squamous Epith Cells Urine Bacteria Ur Culture Indicated? U Opiates 300ng/mL cut Ur Oxycodone Screen Urine Methadone Screen Ur Barbiturates Screen U Tricyclic Antidepress Ur Phencyclidine Scrn Ur Amphetamines Screen U Methamphetamines Scrn Ur MDMA Scrn (Ecstasy) U Benzodiazepines Scrn Urine Cocaine Screen U Marijuana (THC) Screen SARS-CoV-2 (PCR) 10/03/21 10/03/21 10/03/21 14:35 14:35 14:35 WBC RBC Hgb Hct MCV MCH MCHC RDW Plt Count Neut % (Auto) Lymph % (Auto) Carson % (Auto) Eos % (Auto) Baso % (Auto) Neut # (Auto) Lymph # (Auto) Carson # (Auto) Eos # (Auto) Baso # (Auto) Total Counted Seg Neutrophils % Band Neutrophils % Lymphocytes % (Manual) Monocytes % (Manual) Metamyelocytes % Myelocytes % Neutrophils # (Manual) RBC Morphology Polychromasia Target Cells PT 14.8 H INR 1.3 APTT 25 L D Sodium Potassium Chloride Carbon Dioxide BUN Creatinine Estimated GFR BUN/Creatinine Ratio Glucose Lactate Calcium Magnesium Total Bilirubin AST ALT Alkaline Phosphatase Ammonia Total Creatine Kinase < 20 L CK-MB (CK-2) TNP CK-MB (CK-2) Rel Index TNP Troponin I < 0.012 NT-Pro-B Natriuret Pep Total Protein Albumin Globulin Albumin/Globulin Ratio Lipase 83 Urine Color Urine Appearance Urine pH Ur Specific [place] Urine Protein Urine Glucose (UA) Urine Ketones Urine Occult Blood Urine Nitrate Urine Bilirubin Urine Urobilinogen Ur Leukocyte Esterase Urine RBC Urine WBC Ur Squamous Epith Cells Urine Bacteria Ur Culture Indicated? U Opiates 300ng/mL cut Ur Oxycodone Screen Urine Methadone Screen Ur Barbiturates Screen U Tricyclic Antidepress Ur Phencyclidine Scrn Ur Amphetamines Screen U Methamphetamines Scrn Ur MDMA Scrn (Ecstasy) U Benzodiazepines Scrn Urine Cocaine Screen U Marijuana (THC) Screen SARS-CoV-2 (PCR) 10/03/21 10/03/21 10/03/21 14:35 14:35 15:57 WBC RBC Hgb Hct MCV MCH MCHC RDW Plt Count Neut % (Auto) Lymph % (Auto) Carson % (Auto) Eos % (Auto) Baso % (Auto) Neut # (Auto) Lymph # (Auto) Carson # (Auto) Eos # (Auto) Baso # (Auto) Total Counted Seg Neutrophils % Band Neutrophils % Lymphocytes % (Manual) Monocytes % (Manual) Metamyelocytes % Myelocytes % Neutrophils # (Manual) RBC Morphology Polychromasia Target Cells PT INR APTT Sodium Potassium Chloride Carbon Dioxide BUN Creatinine Estimated GFR BUN/Creatinine Ratio Glucose Lactate 1.3 Calcium Magnesium Total Bilirubin AST ALT Alkaline Phosphatase Ammonia Total Creatine Kinase CK-MB (CK-2) CK-MB (CK-2) Rel Index Troponin I NT-Pro-B Natriuret Pep 191 Total Protein Albumin Globulin Albumin/Globulin Ratio Lipase Urine Color Urine Appearance Urine pH Ur Specific [place] Urine Protein Urine Glucose (UA) Urine Ketones Urine Occult Blood Urine Nitrate Urine Bilirubin Urine Urobilinogen Ur Leukocyte Esterase Urine RBC Urine WBC Ur Squamous Epith Cells Urine Bacteria Ur Culture Indicated? U Opiates 300ng/mL cut Ur Oxycodone Screen Urine Methadone Screen Ur Barbiturates Screen U Tricyclic Antidepress Ur Phencyclidine Scrn Ur Amphetamines Screen U Methamphetamines Scrn Ur MDMA Scrn (Ecstasy) U Benzodiazepines Scrn Urine Cocaine Screen U Marijuana (THC) Screen SARS-CoV-2 (PCR) Negative 10/03/21 10/03/21 10/03/21 15:57 16:38 16:38 WBC RBC Hgb Hct MCV MCH MCHC RDW Plt Count Neut % (Auto) Lymph % (Auto) Carson % (Auto) Eos % (Auto) Baso % (Auto) Neut # (Auto) Lymph # (Auto) Carson # (Auto) Eos # (Auto) Baso # (Auto) Total Counted Seg Neutrophils % Band Neutrophils % Lymphocytes % (Manual) Monocytes % (Manual) Metamyelocytes % Myelocytes % Neutrophils # (Manual) RBC Morphology Polychromasia Target Cells PT INR APTT Sodium Potassium Chloride Carbon Dioxide BUN Creatinine Estimated GFR BUN/Creatinine Ratio Glucose Lactate Calcium Magnesium Total Bilirubin AST ALT Alkaline Phosphatase Ammonia Total Creatine Kinase CK-MB (CK-2) CK-MB (CK-2) Rel Index Troponin I NT-Pro-B Natriuret Pep Total Protein Albumin Globulin Albumin/Globulin Ratio Lipase Urine Color Yellow Urine Appearance Clear Urine pH 5.5 Ur Specific [place] 1.010 Urine Protein Negative Urine Glucose (UA) Negative Urine Ketones Negative Urine Occult Blood Negative Urine Nitrate Positive H Urine Bilirubin Negative Urine Urobilinogen 0.2 Ur Leukocyte Esterase Negative Urine RBC None seen Urine WBC 1-5/hpf Ur Squamous Epith Cells 0-1 /hpf Urine Bacteria Moderate (10-30) H Ur Culture Indicated? Specimen cultured U Opiates 300ng/mL cut Negative Ur Oxycodone Screen Negative Urine Methadone Screen Negative Ur Barbiturates Screen Negative U Tricyclic Antidepress Negative Ur Phencyclidine Scrn Negative Ur Amphetamines Screen Negative U Methamphetamines Scrn Negative Ur MDMA Scrn (Ecstasy) Negative U Benzodiazepines Scrn Negative Urine Cocaine Screen Negative U Marijuana (THC) Screen Negative SARS-CoV-2 (PCR) Negative 10/04/21 10/04/21 06:55 06:55 WBC 11.8 H RBC 3.57 L Hgb 10.2 L Hct 31.1 L MCV 87.3 MCH 28.5 MCHC 32.6 RDW 16.9 H Plt Count 282 Neut % (Auto) Not Reportable Lymph % (Auto) Not Reportable Carson % (Auto) Not Reportable Eos % (Auto) Not Reportable Baso % (Auto) Not Reportable Neut # (Auto) Lymph # (Auto) Not Reportable Carson # (Auto) Not Reportable Eos # (Auto) Baso # (Auto) Not Reportable Total Counted 100 Seg Neutrophils % 79.0 H Band Neutrophils % 2.0 L Lymphocytes % (Manual) 6.0 L Monocytes % (Manual) 9.0 Metamyelocytes % 3.0 H Myelocytes % 1.0 H Neutrophils # (Manual) 9558 H RBC Morphology See below Polychromasia Target Cells 1+ H PT INR APTT Sodium 135 L Potassium 4.3 Chloride 103 Carbon Dioxide 28 BUN 53 H Creatinine 2.32 H Estimated GFR 20.3 L BUN/Creatinine Ratio 22.8 H Glucose 97 Lactate Calcium 8.6 Magnesium 2.0 Total Bilirubin AST ALT Alkaline Phosphatase Ammonia Total Creatine Kinase CK-MB (CK-2) CK-MB (CK-2) Rel Index Troponin I NT-Pro-B Natriuret Pep Total Protein Albumin Globulin Albumin/Globulin Ratio Lipase Urine Color Urine Appearance Urine pH Ur Specific [place] Urine Protein Urine Glucose (UA) Urine Ketones Urine Occult Blood Urine Nitrate Urine Bilirubin Urine Urobilinogen Ur Leukocyte Esterase Urine RBC Urine WBC Ur Squamous Epith Cells Urine Bacteria Ur Culture Indicated? U Opiates 300ng/mL cut Ur Oxycodone Screen Urine Methadone Screen Ur Barbiturates Screen U Tricyclic Antidepress Ur Phencyclidine Scrn Ur Amphetamines Screen U Methamphetamines Scrn Ur MDMA Scrn (Ecstasy) U Benzodiazepines Scrn Urine Cocaine Screen U Marijuana (THC) Screen SARS-CoV-2 (PCR) [facility] Medical History Anemia in chronic kidney disease (06/17/15) Arthralgia (09/10/14) Arthralgia of both knees (09/27/15) Attention deficit disorder with hyperactivity Body mass index (BMI) of 40.0 to 44.9 in adult (12/10/16) Chronic midline thoracic back pain (01/02/16) Chronic radicular lumbar pain (09/27/15) Essential hypertension Factor 5 Leiden mutation, heterozygous Hypothyroidism long-term current use of anticoagulant therapy (02/15/13) Morbid obesity with body mass index (BMI) of 40.0 to 44.9 in adult (09/27/15) VIRGEN (nonalcoholic steatohepatitis) Obstructive sleep apnea syndrome (04/17/11) Restrictive lung disease Spinal stenosis Unspecified asthma (04/17/11) Ventral incisional hernia Surgical History History of bowel resection History of gynecologic surgery S/P total abdominal hysterectomy and bilateral salpingo-oophorectomy Status post appendectomy Status post tonsillectomy and adenoidectomy (1994) Social History marital status: number of children: 2 household members: spouse lives independently: Yes caregiver/support person: No housing: house pets and animals: Yes education level: high school occupational status: other current occupational exposures/hazards: No 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 Kidney injury/dehydration-renal function numbers are improved this morning. No evidence of volume overload. Blood pressure clearly improved with some IV fluids and or lack of medication. Will continue with IV fluids although I think I will cut back the rate a little bit. 2. UTI-still awaiting culture results. Again she received dose of Levaquin in the ER yesterday that is probably good for least 48 hours before requiring additional dosing based on current renal dysfunction 3. Pulmonary-patient is stable from a respiratory standpoint. Fairly comfortable at rest but gets dyspneic with activity. Continue with patient's chronic dose of prednisone 4. Chronic anticoagulation due to factor 5 Leiden-continue off anticoagulation as above to facilitate liver biopsy when we can arrange this and patient is clinically stable for same 5. Code status-re discussed this with patient and she still prefers to be a full code as she puts that she is not ready to go yet despite the fact that if she were to have a sudden event I pointed out to her that the likelihood of her being resuscitated to a place where she could return home is extremely low she still is not ready to not make some attempt and that is entirely appropriate for her and she will continue as a full code 6. Disposition-certainly I think would benefit from ongoing physical therapy and occupational therapy here in the hospital. Likely going to need to go back to shelter when she is clinically stable. Whether not she gets a liver biopsy while she is here really depends on her overall clinical state how long it takes and or availability of shelter beds etcetera. I would not keep her in the hospital just to facilitate her liver biopsy at this point. Note: Greater than 30 minutes total time was spent on day of service, evaluating the patient on the floor, including examining the patient, discussing clinical course with clinical and nursing staff, reviewing clinical course in the computer, preparing documentation and writing orders for continued management of care, discussing status with family as appropriate, reviewing plans for the next 24 hours with both patient/family and nursing staff as appropriate. Quality VTE Deep Vein Thrombosis/Pulmonary Embolism Present on Admission: No
--- NOTE | 2021-10-04 11:35 | OT.IPNOTE ---
Attempted to do OT eval, pt refusing at this time due to being too fatigued. Able to get prior level of care from pt. NO charge.
[2021-10-04 12:05] VITALS: BP 98/75; PULSE 78; RESP 15; TEMP 36.4; O2SAT 98
--- NOTE | 2021-10-04 12:08 | CM.DANOTE ---
DCP: Case received, EMR reviewed and met with patient. Introduced self and role. Was able to obtain some information from patient, as well as from Valentina at [facility], since patient came from this facility. DCP assessment completed with information currently available. Patient is a 80 year old female who admitted yesterday afternoon to the care of the hospitalist team. PCP: Dr. Dominguez. Payer: confirmed: [facility] Medicare Advantage. Patient came to the hospital via wheel-chair for a planned procedure, a liver biopsy. Patient became hypotensive, diastolic in the 70s and 80s. She was admitted for hypotension. Called Valentina at [facility] and confirmed that she came from this facility. Valentina was surprised she was admitted, for she was coming over for a procedure. Patient does have [facility] Medicare Advantage. Met with patient. She is alert and oriented, and stated she was here recently, and went to [facility]. Prior to that, she was living here in [place] with her spouse, Antwan. Valentina at [facility] indicated that she needs to submit a new authorization with her insurance, as her coverage at [facility] on the . She also indicated that for her to be covered, she needs P.T. notes. Updated Dr. Dominguez, and he indicated that he was going to order P.T. He did put in P.T. and O.T. orders. Updated [facility] at [facility]. P: DCP to continue to follow. Plan is for patient to return to [facility] once auth is obtained, and she is deemed medically stable. [facility] is initiating new referral, but will need to work with P.T. first. Britni Thomas RN/Electric Deicer Assembler Discharge Planning/Care Management CM Discharge Assessment Start: 10/04/21 12:06 Freq: Status: Active Protocol: Document 10/04/21 12:06 (Rec: 10/04/21 12:07 [id number]) Discharge Planning Assessment Assigned Package Car Driver Britni Thomas RN/Electric Deicer Assembler Advance Directives? No History Provided By Patient,Medical Record Prior Living Arrangements House Household Members spouse Type of transporation used prior to Relies on Others admit Facility Name Admitted From: [facility] Willing to Return to Facility? Yes Independent with ADL's No Is patient alert and oriented? Yes Needs Assistance With Bathing,Grooming,Meal Prep, Toileting,Managing Medications ,Home Chores / Shopping Caregiver for Another No DME Already Rented / Owned Wheelchair,FWW / Walker Patient/Family Preference Longterm Facility Barriers to Discharge Yes Comment [facility] will need to submit a new referral to [employer]. Discharge Plan Longterm Facility Transportation Arrangement Facility Referrals Initiated Longterm If patient plan is SNF: Has PASSR been Yes completed? Whiteboard Updated in Patient Room with Yes name and ext. # of Package Car Driver Review Status In Process Next Review Type Continued Stay Review
[2021-10-04] MEDS: ACETAMINOPHEN 325 MG TABLET 650 MG PO (14:47)
[2021-10-04] MEDS: MAGNESIUM OXIDE 400 MG TABLET PO (14:48)
--- NOTE | 2021-10-04 16:43 | PT-IP ANOTE ---
checked on pt ~1415 and refused PT. stated that she has shoulder pain, abdominal pain and just had tylenol. informed pt regarding importance of PT and agreed for PT to check back on her later. Checked back on pt after ~ 30 min and continues to refuse. stated that she just had a lot of pain and other issues and does not want to do PT today. will f/u.
[2021-10-04] MEDS: OXYCODONE IR 5 MG TABLET PO (17:13)
--- NOTE | 2021-10-04 17:14 | PC.NURSE ---
Addendum entered by Bia Valdez R.N. 10/04/21 18:22: pt much more relaxed and pain level at 6 from an 8. bed alarmed and call light within reach. Original Note: pt has c/o headache and right shoulder pain, and abd pain 04/29 medicated with tylenol and pain level continues to be a 04/29. Dr. Dominguez notified and orders rec'd. medicated with oxycodone 5mg will monitor.
[2021-10-04 17:15] VITALS: BP 131/70; PULSE 86; RESP 18; TEMP 37.1; O2SAT 97
[2021-10-04 20:36] VITALS: BP 100/55; PULSE 84; RESP 20; TEMP 36.6; O2SAT 96
[2021-10-04 21:37] VITALS: O2SAT 95
[2021-10-05] VITALS (9 sets, daily range): BP systolic 95–134; BP diastolic 50–69; PULSE 80–93; RESP 15–20; TEMP 35.6–36.6; O2SAT 95–100
[2021-10-05] MEDS: OXYCODONE IR 5 MG TABLET PO ×3 (00:55→20:02)
[2021-10-05] MEDS: ACETAMINOPHEN 325 MG TABLET 650 MG PO ×3 (00:55→20:01)
[2021-10-05] MEDS: SODIUM CHLORIDE 0.45% 1,000 ML 125 ML IV ×3 (03:36→20:03)
[2021-10-05] MEDS: LEVOTHYROXINE 100 MCG TABLET PO (06:41)
[2021-10-05 08:36] LABS: BUN Creatinine Ratio 23.4 (6-22); Blood Urea Nitrogen 48 mg/dL (7-17); Calcium 8.7 mg/dL (8.4-10.2); Carbon Dioxide 25 mmol/L (22-32); Chloride 101 mmol/L (98-107); Estimated Glomerular Filt Rate 23.4 mL/min (>60); Glucose 89 mg/dL (80-110); HEMOLYSIS < 15 (0-50); Potassium 4.6 mmol/L (3.4-5.1); Sodium 132 mmol/L (137-145)
[2021-10-05] MEDS: predniSONE 20 MG TABLET PO (09:47)
[2021-10-05] MEDS: PANTOPRAZOLE DR 40 MG TABLET PO ×2 (09:48→20:02)
[2021-10-05] MEDS: DULOXETINE 30 MG CAPSULE 60 MG PO (09:48)
[2021-10-05] MEDS: buPROPion XL 150 MG TAB PO (09:48)
[2021-10-05] MEDS: SODIUM CHLORIDE 0.9% FLUSH 10 ML IV (09:49)
--- NOTE | 2021-10-05 10:27 | P.PN_ITS ---
Subjective Subjective Date Patient Seen: 10/05/21 Time Patient Seen: 10:27 Interval history: Patient declined to participate with physical therapy x2 yesterday Complaining of pain and did receive some oxycodone Urine culture growing very resistant Proteus and also Enterococcus. Lab work shows improvement in renal function. Blood pressure continues to be up and down peaking in the 130 systolic with a low of 95, patient asymptomatic throughout Exam Vital Signs (past 8 hours): - 10/05/21 05:27 Temperature 97.8 F Pulse Rate 83 Respiratory Rate 18 Blood Pressure 95/50 L Pulse Oximetry 97 Oxygen Delivery Method Room Air Oxygen Flow Rate 0 Objective Labs Result Diagrams: 10/04/21 06:55 10/05/21 08:05 Labs: Laboratory Results - last 24 hr 10/05/21 08:05 Sodium 132 L Potassium 4.6 Chloride 101 Carbon Dioxide 25 BUN 48 H Creatinine 2.05 H Estimated GFR 23.4 L BUN/Creatinine Ratio 23.4 H Glucose 89 Calcium 8.7 PFSH Medical History Anemia in chronic kidney disease (06/17/15) Arthralgia (09/10/14) Arthralgia of both knees (09/27/15) Attention deficit disorder with hyperactivity Body mass index (BMI) of 40.0 to 44.9 in adult (12/10/16) Chronic midline thoracic back pain (01/02/16) Chronic radicular lumbar pain (09/27/15) Essential hypertension Factor 5 Leiden mutation, heterozygous Hypothyroidism FDC current use of anticoagulant therapy (02/15/13) Morbid obesity with body mass index (BMI) of 40.0 to 44.9 in adult (09/27/15) VIRGEN (nonalcoholic steatohepatitis) Obstructive sleep apnea syndrome (04/17/11) Restrictive lung disease Spinal stenosis Unspecified asthma (04/17/11) Ventral incisional hernia Surgical History History of bowel resection History of gynecologic surgery S/P total abdominal hysterectomy and bilateral salpingo-oophorectomy Status post appendectomy Status post tonsillectomy and adenoidectomy (1994) Social History marital status: number of children: 2 household members: spouse lives independently: Yes caregiver/support person: No housing: house pets and animals: Yes education level: high school occupational status: other current occupational exposures/hazards: No 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 Acute kidney injury/dehydration-improving with some IV fluid administration. Continue with IV fluids given the persistence of her abnormal creatinine and her modest hypotension. No evidence of volume overload and no expectation of same at this time. Will discontinue her diuretic therapy long-term I think 2. UTI-patient with very resistant Proteus as well as Enterococcus. Patient had as a an allergy to penicillin but not an anaphylactic allergy. The only really appropriate antibiotics for her Proteus are either penicillins cephalosporins or advanced beta lactams. I am going to go ahead and put her on ceftriaxone given her non anaphylactic reaction (hives) to penicillin which hopefully treat the Enterococcus as well as Proteus. Sensitivities still pending on Enterococcus. 3. Pulmonary-patient is stable from this standpoint. Not very physically active as above most of her symptoms are with activity 4. Chronic anticoagulation-continue to hold anticipation of possible liver biopsy in the near term future 5. Weakness-patient does need to participate with physical therapy so we can assess her ability/disability whether not she is able to go home or will need to go back to alf. I anticipate she will need to go to alf but we need her to participate with therapy and this is been discussed with her a great length both currently as well as her previous hospitalization where she displayed similar lack of participation 6. Disposition-anticipate patient going back to alf as I do not believe she is ready for return home at this point but again she needs to participate with at least a physical therapy evaluation etcetera Note: Greater than 30 minutes total time was spent on day of service, evaluating the patient on the floor, including examining the patient, discussing clinical course with clinical and nursing staff, reviewing clinical course in the computer, preparing documentation and writing orders for continued management of care, discussing status with family as appropriate, reviewing plans for the next 24 hours with both patient/family and nursing staff as appropriate. Quality VTE Deep Vein Thrombosis/Pulmonary Embolism Present on Admission: No
--- NOTE | 2021-10-05 10:40 | PT.IIE ---
Surgical History (Last Reviewed 10/03/21 @ 17:24 by Max Dominguez MD) History of bowel resection S/P total abdominal hysterectomy and bilateral salpingo-oophorectomy Status post appendectomy Status post tonsillectomy and adenoidectomy (1994) Medical History (Last Reviewed 10/03/21 @ 17:24 by Max Dominguez MD) Anemia in chronic kidney disease (06/17/15) Arthralgia (09/10/14) Arthralgia of both knees (09/27/15) Attention deficit disorder with hyperactivity Body mass index (BMI) of 40.0 to 44.9 in adult (12/10/16) Chronic midline thoracic back pain (01/02/16) Chronic radicular lumbar pain (09/27/15) Essential hypertension Factor 5 Leiden mutation, heterozygous Hypothyroidism [facility] current use of anticoagulant therapy (02/15/13) Morbid obesity with body mass index (BMI) of 40.0 to 44.9 in adult (09/27/15) VIRGEN (nonalcoholic steatohepatitis) Obstructive sleep apnea syndrome (04/17/11) Restrictive lung disease Spinal stenosis Unspecified asthma (04/17/11) Ventral incisional hernia Physical Therapy Inpatient Evaluation/Re-Eval M1 PT/OT-IP Prior Functional Status Start: 10/05/21 09:09 Freq: NEEDED Status: Active Protocol: Document 10/05/21 13:15 AW (Rec: 10/05/21 13:50 AW [id number]) Medical Review Prior Functional Status Medical History Reviewed Yes Communication Pt is able to make her needs known. Mobility and Gait Pt states she typically uses no assistive device for household mobility but does use her 4WW when she feels she needs it for balance and for yzm-oh-ckglt mobility. Activities of Daily Living and IADL's Pt states she is able to get herself dressed and take care of toileting needs. She admits to SBA for showers but says she can get in and out of the shower on her own. Prior Functional Level (Other details) Pt was at [facility] -09/10 with sepsis related to UTI. She discharged to SNF. She returned for an outpatient liver biopsy but ended up in the ED with hypotension and MANOHAR. Social History Household Members spouse Living Arrangements House Number of Floors (Floors) Two Floors Number of Stairs To Enter/Railing? 5 [place] with B rails. Inside, pt climbs 16 steps with R rail to the bedroom level. Pt states she is usually able to manage the stairs without assist. Home Environment Standard Height Toilet,Walk in Shower,Built-In Shower Seat Home Equipment Front Wheel Walker,Four Wheel Walker,Hand Held Shower,Grab Bars In Shower Additional Social History Comment Pt lives in [place] with her spouse, Antwan. 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 Physical Therapy Visit Comments Patient Comments Pt is willing to mobilize with PT Therapy Pain Assessment Pain When Pain Assessed During Mobility Pain Present Pain Present Pain Reported Location Abdomen Scale Used pt c/o RUQ pain but does not quantify M4 PT-IP Mobility and Gait Start: 10/05/21 09:09 Freq: NEEDED Status: Active Protocol: Document 10/05/21 13:15 AW (Rec: 10/05/21 13:50 AW [id number]) PT-Bed Mobility Assessment Supine to Sit Supine to Sit Maximum Assistance,1 Person Assistance,Head of Bed Elevated,Bedrails Sit to Supine Sit to Supine Maximum Assistance,1 Person Assistance Scooting Scooting Up and Down in Bed Dependent PT-Transfer Assessment Comments Mobility Comments Pt was lying in the bed as PT arrived. BP 107/54 HR 84 SpO2 96% on room air. She presented with some confusion but was oriented to day, place, and situation. She agreed to get up, needing max assist for supine to sit with multiple rest breaks. Pt required assist to maintain balance in half-sitting as she held herself between supine and sitting. PT assisted pt to move her legs off the bed and pt did attempt to right her trunk several times. Pt was dyspneic with all exertion and required frequent cues to attend to her breathing. She sat with legs off the bed several minutes but was unable to scoot herself forward due to dyspnea, anxiety, and reported abdmoninal pain. PT assisted pt back to bed max A x 1. SpO2 recovered to 99% within two minutes. Informed RN of pt's mobility and oxygen saturation. Gait Assessment Comments Gait Comments Unable to progress to gait this date. PT-Balance Assessment Sitting Balance and Reactions Static Sitting Balance Ability Poor Dynamic Sitting Balance Ability Poor M5 PT-IP Objective Assessments Start: 10/05/21 09:09 Freq: NEEDED Status: Active Protocol: Document 10/05/21 13:15 AW (Rec: 10/05/21 13:50 AW [id number]) Orientation Orientation/Cognition Level of Alertness Confusional State Orientation Name,Day of Week,Place, Situation Language Function Ability No Deficits Noted Safety Awareness Understands Safety Issues Memory Description Short Term Impaired Gross Range of Motion Lower Extremity ROM Assessment Within Functional Limits Strength Lower Extremity Strength Assessment Bilaterally Impaired Hip 3+/5 Knee 3+/5 Sensation Assessment Sensation Gross Sensation WNL Muscle Tone Muscle Tone WNL Yes M6 PT-IP Treatment Start: 10/05/21 09:09 Freq: NEEDED Status: Active Protocol: Document 10/05/21 13:15 AW (Rec: 10/05/21 13:50 AW [id number]) Physical Therapy Treatment Education Education Provided Safety M7 PT-IP Assessment and Plan Start: 10/05/21 09:09 Freq: NEEDED Status: Active Protocol: Document 10/05/21 13:15 AW (Rec: 10/05/21 13:50 AW [id number]) PT Summary Assessment and Plan Potential Rehabilitation Potential Fair Status of Condition at Evaluation Evolving Summary Impairments Pain,ROM,Strength,Balance, Cognition,Bed Mobility, Transfers,Gait,Activity Tolerance Assessment Summary Mirela is a 80 yo woman who was admitted with sepsis 09/03 -09/08/2021. She discharged to SNF and returned to for an outpatient biopsy for newly- identified liver mass. She was hypotensive and did not have her procedure. Instead, she was re-admitted. On assessment today, pt is requiring max assist for bed mobility and is limited by RUQ abdominal pain , dyspnea on exertion, and poor activity tolerance. Stairs are a barrier to home entry. Pt will require SNF rehab to improve strength and mobility. Goals Bed Mobility Goal Standby Assistance Transfer Goal Standby Assistance,Front Wheeled Walker Gait Goal Standby Assistance,Front Wheel Walker Gait Distance 150 Other Goals - up/down 16 steps R rail CGA (if going home) Days to Meet Goals 10 Frequency of Treatment Frequency Of Treatment Once a Day Treatment Plan Physical Therapy Treatment Plan Bed Mobility Training,Transfer Training,Gait Training, Therapeutic Exercise,Balance Retraining,Discharge Planning, Hot or Cold Pack,Neuromuscular Re-ed Other Recommendations and Next Treatment bed mobility, transfers, Focus diaphragmatic breathing as tolerated. progress to gait when able Precautions Other Precautions falls Recommendations To Nursing Amount of Assist Needed 2 Person Assist Discharge Recommendations PT Discharge Recommendations SNF Rehab Transportation Needs at Discharge Wheelchair/Cabulance
[2021-10-05] MEDS: MAGNESIUM OXIDE 400 MG TABLET PO (12:06)
[2021-10-05] MEDS: cefTRIAXone 2,000 MG in SODIUM CHLORIDE 0.9% 100 ML 200 ML IV (12:10)
--- NOTE | 2021-10-05 12:29 | CM.DPC ---
DCP Cont: Attempted to call [employer] to follow up with authorization, but office is closed. Valentina at [facility] has been working on obtaining a new authorization since patient was out of the facility for over 24 hours. The other barrier is that she did not want to work with P.T. yesterday, and this is needed in order to skill her. Will see how she does with P.T. today. P: DCP to continue to follow. Plan is for patient to go back to [facility] as long as her [employer] will approve her. Britni Thomas RN/Staff Physician
--- NOTE | 2021-10-05 17:40 | PC.NURSE ---
Pt has slept most of day, denies pain in the afternoon. awake for meals and up with PT. pleasantly confused to time and place reoriented easily. bed alarmed and call light with in reach. rodríguez intact and patent draining yellow clear urine. ivf infusing. taking po well.
[2021-10-06] VITALS (8 sets, daily range): BP systolic 102–147; BP diastolic 54–83; PULSE 80–87; RESP 16–21; TEMP 35.8–37.2; O2SAT 94–100
--- NOTE | 2021-10-06 03:57 | PC.NURSE ---
Addendum entered by Cayla العلي R.N. 10/06/21 05:21: Spoke to Dr. Dominguez this am and he gave orders for patient to have a PICC LINE PLACEMENT. Order entered. Original Note: pt iv to right ac became infiltrated. Tried to start an IV using the vein finder twice without any success. ICU nurse tried twice and unsuccessful. will notify Dr. Dominguez early this morning around 0530.
[2021-10-06] MEDS: LEVOTHYROXINE 100 MCG TABLET PO (05:48)
--- NOTE | 2021-10-06 08:04 | P.PN_ITS ---
Subjective Subjective Date Patient Seen: 10/06/21 Time Patient Seen: 08:04 Interval history: Pretty uneventful day yesterday. Patient did participate with physical therapy still requiring maximum assist for any sort of activity whether that be in bed or to barely stand etcetera. Lost her IV access waiting on PICC line placement. She is likely going to need IV antibiotics for least a week to adequately treat her UTI since there are no oral antibiotics available for this Hoping on getting her CT guided liver biopsy done today or tomorrow Exam Vital Signs (past 8 hours): - 10/06/21 05:56 Temperature 96.5 F L Pulse Rate 85 Respiratory Rate 16 Blood Pressure 134/83 Pulse Oximetry 96 Oxygen Delivery Method Room Air Oxygen Flow Rate 0 Objective Labs Result Diagrams: 10/04/21 06:55 10/05/21 08:05 Labs: Laboratory Results - last 24 hr 10/05/21 08:05 Sodium 132 L Potassium 4.6 Chloride 101 Carbon Dioxide 25 BUN 48 H Creatinine 2.05 H Estimated GFR 23.4 L BUN/Creatinine Ratio 23.4 H Glucose 89 Calcium 8.7 PFSH Medical History Anemia in chronic kidney disease (06/17/15) Arthralgia (09/10/14) Arthralgia of both knees (09/27/15) Attention deficit disorder with hyperactivity Body mass index (BMI) of 40.0 to 44.9 in adult (12/10/16) Chronic midline thoracic back pain (01/02/16) Chronic radicular lumbar pain (09/27/15) Essential hypertension Factor 5 Leiden mutation, heterozygous Hypothyroidism detention current use of anticoagulant therapy (02/15/13) Morbid obesity with body mass index (BMI) of 40.0 to 44.9 in adult (09/27/15) VIRGEN (nonalcoholic steatohepatitis) Obstructive sleep apnea syndrome (04/17/11) Restrictive lung disease Spinal stenosis Unspecified asthma (04/17/11) Ventral incisional hernia Surgical History History of bowel resection History of gynecologic surgery S/P total abdominal hysterectomy and bilateral salpingo-oophorectomy Status post appendectomy Status post tonsillectomy and adenoidectomy (1994) Social History marital status: number of children: 2 household members: spouse lives independently: Yes caregiver/support person: No housing: house pets and animals: Yes education level: high school occupational status: other current occupational exposures/hazards: No 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 Acute kidney injury/dehydration-patient currently without IV and in part because of that labs are pending. I would continue with IV fluids when IV access is reestablished 2. UTI-patient going to need to continue on parental antibiotics as really are no oral antibiotics effective against her particular organism. This will need to probably continue when she is discharged back to [facility]. PICC line placement in progress 3. Pulmonary-patient remained stable. Continue on prednisone for this indication 4. Chronic anticoagulation-patient remains off anticoagulation preparation for CT-guided biopsy. Will restart once this is been performed 5. Liver mass-hopefully we can get her CT biopsy done today or tomorrow 6. Weakness-patient remains profoundly weak is clearly going to need to return to [facility] when her need for inpatient hospitalization and is Note: Greater than 20 minutes total time was spent on day of service, evaluating the patient on the floor, including examining the patient, discussing clinical course with clinical and nursing staff, reviewing clinical course in the computer, preparing documentation and writing orders for continued management of care, discussing status with family as appropriate, reviewing plans for the next 24 hours with both patient/family and nursing staff as appropriate. Quality VTE Deep Vein Thrombosis/Pulmonary Embolism Present on Admission: No
[2021-10-06] MEDS: DULOXETINE 30 MG CAPSULE 60 MG PO (09:34)
[2021-10-06] MEDS: OXYCODONE IR 5 MG TABLET PO ×3 (09:34→21:10)
[2021-10-06] MEDS: predniSONE 20 MG TABLET PO (09:34)
[2021-10-06] MEDS: PANTOPRAZOLE DR 40 MG TABLET PO ×2 (09:34→21:11)
[2021-10-06] MEDS: buPROPion XL 150 MG TAB PO (09:39)
[2021-10-06] MEDS: SODIUM CHLORIDE 0.9% FLUSH 10 ML IV ×2 (10:09→21:11)
--- NOTE | 2021-10-06 10:25 | DI.RAD.S_ITS ---
PROCEDURE: XR CHEST FOR PICC 1V INDICATIONS: PICC placement COMPARISON: [facility], , XR CHEST 1V, 10/03/2021, 14:39. FINDINGS: PICC was placed by the intravenous therapy team from the right side. Fluoroscopic spot film demonstrates the tip of PICC projecting to the area of distal SVC. Mild bilateral effusions remain present, slightly increased compared to prior exam. IMPRESSION: Tip of PICC projects to the area of distal SVC. Dictated by: Laina Flynn M.D. on 10/06/2021 at 10:51 Approved by: Laina Flynn M.D. on 10/06/2021 at 10:51
[2021-10-06 11:04] LABS: BUN Creatinine Ratio 24.2 (6-22); Blood Urea Nitrogen 40 mg/dL (7-17); Calcium 8.5 mg/dL (8.4-10.2); Carbon Dioxide 24 mmol/L (22-32); Chloride 105 mmol/L (98-107); Estimated Glomerular Filt Rate 30.1 mL/min (>60); Glucose 111 mg/dL (80-110); HEMOLYSIS < 15 (0-50); Potassium 4.8 mmol/L (3.4-5.1); Sodium 133 mmol/L (137-145)
[2021-10-06] MEDS: SODIUM CHLORIDE 0.45% 1,000 ML 125 ML IV (11:27)
[2021-10-06] MEDS: cefTRIAXone 2,000 MG in SODIUM CHLORIDE 0.9% 100 ML 200 ML IV (11:28)
[2021-10-06] MEDS: MAGNESIUM OXIDE 400 MG TABLET PO (11:28)
[2021-10-06 11:47] LABS: INR 1.3 (0.9-1.3); Prothrombin Time 15.2 SECONDS (10.1-12.7)
--- NOTE | 2021-10-06 13:07 | OT.IP.TRT ---
Current Diagnoses Urinary tract infection, site not specified (10/03/21) Occupational Therapy Treatment Note M2 OT-IP Current Condition Start: 10/06/21 13:13 Freq: Status: Active Protocol: Document 10/06/21 12:47 [facility] (Rec: 10/06/21 13:34 [facility] [id number]) Occupational Therapy Current Condition Current Condition Evaluation Date 10/06/21 Treatment Diagnosis UTI,MANOHAR, decreased mobility Diagnosis Onset Date 10/03/21 M3 OT- IP Subjective and Pain Start: 10/06/21 13:13 Freq: Status: Active Protocol: Document 10/06/21 12:47 [facility] (Rec: 10/06/21 13:34 [facility] [id number]) OT- Subjective Occupational Therapy Visit Type Type Initial Evaluation Visit Start Time 12:47 Visit Stop Time 13:07 Total Visit Minutes 20 Occupational Therapy Visit Comments Patient Comments Pt agreed to get up after eating her lunch. Patient/Caregiver Goals To get better. OT Pain Assessment Pain When Pain Assessed During Mobility Pain Present Pain Present Pain Reported M4 OT- IP ADL's Start: 10/06/21 13:13 Freq: Status: Active Protocol: Document 10/06/21 12:47 [facility] (Rec: 10/06/21 13:34 [facility] [id number]) OT WTV-Oibd-Apwegyr General Evaluation Self-Feeding Ability Standby Assistance OT ADL-Grooming Comments OT Grooming Comments Not performed. OT ADL-Oral Care Comments Oral Care Comments Not performed. OT ADL-Dressing General Eval Lower Body Dressing Ability Total Assistance OT ADL-Toileting General Evaluation Toileting Ability Total Assistance Comments OT Toileting Comments Mack in place. OT ADL-Bathing Comments OT Bathing Comments Sponge bath more appropriate at this time. M5 OT- IP IADL's Start: 10/06/21 13:13 Freq: Status: Active Protocol: Document 10/06/21 12:47 [facility] (Rec: 10/06/21 13:34 [facility] [id number]) OT-Instrumental Activities of Daily Living Medication Management Medication Management Comments Pt states does her own at home . Money Management Money Management Comments Pt states does on her own at home. Relay Dispatcher Relay Dispatcher Caregiver Provides Assist M6 OT- IP Functional Cognition Start: 10/06/21 13:13 Freq: Status: Active Protocol: Document 10/06/21 12:47 [facility] (Rec: 10/06/21 13:34 [facility] [id number]) Cognitive Factors Limiting Selfcare Function Cognitive Ability Level of Alertness Alert Patient Orientation Name,Place,Situation Attention Span Ability Capable of Focused Attention, Capable of Sustained Attention Ability to Follow Commands Able to Follow One Step Commands Cognitive Comments Cognitive Assessment Comments Pt a little anxious and needing step by step cues to follow while getting out of bed with OT/PT. OT- Vision and Hearing OT- Hearing Assessment OT- Hearing Assessment WFL OT- Vision Assessment Visual Acuity Glasses All The Time M7 OT- IP Mobility and Balance Start: 10/06/21 13:13 Freq: Status: Active Protocol: Document 10/06/21 12:47 [facility] (Rec: 10/06/21 13:34 [facility] [id number]) OT- Bed Mobility Assessment Supine to Sit Supine to Sit Assist Moderate Assistance,2 Person Assistance OT-Transfer Assessment Sit to and From Stand Sit to and from Stand Moderate Assistance,2 Person Assistance Transfers Transfer Ability Moderate Assistance,2 Person Assistance Technique Transfer Destination Bed,Chair Transfer Technique Stand Step Pivot Devices Transfer Assistive Devices Gait Belt,Front Wheeled Walker Comments Mobility Comments Heavy assist with green pad to help get her hips to the edge of the bed and trunk/legs out of the bed. MODA X 2 with FWW assist to guide FWW and fo balance to transfer to the recliner. OT- Gait Assessment Comments Gait Ability Comments transfer only at this time OT- Balance Assessment Sitting Balance and Reactions Static Sitting Balance Ability Fair Dynamic Sitting Balance Ability Fair Standing Balance and Reactions Static Standing Balance Ability Poor Dynamic Standing Balance Ability Poor M8 OT- IP Objective Assessments Start: 10/06/21 13:13 Freq: Status: Active Protocol: Document 10/06/21 12:47 [facility] (Rec: 10/06/21 13:34 [facility] [id number]) OT Gross Range of Motion Upper Extremity Range of Motion Assessment Right Impaired ROM Impairments Impaired due to pain with PICC line in her arm. OT-Muscle Tone Assessment Muscle Tone WNL Yes M9 OT- IP Assessment and Plan Start: 10/06/21 13:13 Freq: Status: Active Protocol: Document 10/06/21 12:47 [facility] (Rec: 10/06/21 13:34 [facility] [id number]) OT Summary Assessment and Plan Potential Rehabilitation Potential Good Analytic Complexity at Evaluation Moderate Summary OT Impairments Pain,Range of Motion,Strength, Balance,Functional Cognition, Functional Mobility,Grooming, Dressing,Toileting,Bathing, Toilet Transfers,Shower Transfers,Activity Tolerance Progress Towards Goals Slow Progress due to Pain,Slow Progress due to Medical Issues,Slow Progress due to Activity Tolerance Assessment Summary Pt MOD complexity and here due to UTi and MANOHAR and now needing two person assist for Adl and mobility needs. Pt is cooperative but needing encouragement to participate. Pt looking to go to skilled rehab when medically stable. Goals Grooming Goal Independent Dressing Goal Minimal Assistance Toileting Goal Independent Bathing Goal Minimal Assistance Toilet Transfer Goal Independent Shower Transfer Goal Independent Days to Meet Goals 20 Frequency of Treatment Frequency Of Treatment Once a Day Treatment Plan OT Treatment Plan ADL Training,Functional Cognition Training,Functional Mobility,Patient/Family Education,Discharge Planning Other Treatment Recommendations and Next osteopathic medicine teacher front of sink for Treatment Focus grooming needs wtih recliner behind her. Discharge Recommendations OT Discharge Recommendations SNF Rehab Transportation Needs at Discharge Wheelchair/Cabulance
--- NOTE | 2021-10-06 13:08 | PT.IPTN ---
Current Diagnoses Urinary tract infection, site not specified (10/03/21) Physical Therapy Treatment Note M2 PT-IP Current Condition Start: 10/05/21 09:09 Freq: NEEDED Status: Active Protocol: Document 10/05/21 13:15 AW (Rec: 10/05/21 13:50 AW [id number]) Physical Therapy Current Condition Current Condition Evaluation Date 10/05/21 Treatment Diagnosis MANOHAR, UTI; impaired mobility and gait Onset Date 10/03/21 M3 PT-IP Subjective Start: 10/05/21 09:09 Freq: NEEDED Status: Active Protocol: Document 10/06/21 13:08 AW (Rec: 10/06/21 13:23 AW [id number]) Subjective Physical Therapy Visit Type Type Treatment Note Visit Start Time 12:47 Visit Stop Time 13:04 Total Visit Minutes 17 Notes Pt had PICC placed this morning in RUE. Co-tx with OT due to mobility assist needs. Number of FRONT OFFICE REPRESENTATIVE Visits 0 Physical Therapy Visit Comments Patient Comments Pt is willing to mobilize with PT. Therapy Pain Assessment Pain When Pain Assessed During Mobility Pain Present Pain Present Pain Reported Location Abdomen Scale Used pt c/o RUQ pain but does not quantify M4 PT-IP Mobility and Gait Start: 10/05/21 09:09 Freq: NEEDED Status: Active Protocol: Document 10/06/21 13:08 AW (Rec: 10/06/21 13:23 AW [id number]) PT-Bed Mobility Assessment Supine to Sit Supine to Sit Moderate Assistance,2 Person Assistance,Head of Bed Elevated,Bedrails Scooting Scooting to Edge of Bed Moderate Assistance,Maximum Assistance PT-Transfer Assessment Sit to and From Stand Sit to and from Stand Moderate Assistance,2 Person Assistance,Use of Upper Extremities Equipment Transfer Assistive Device Gait Belt,Front Wheeled Walker Transfers Transfer Destination Chair Transfer Technique Stand Step Pivot Transfer Ability Level of Assist Moderate Assistance,2 Person Assistance,Use of Upper Extremities Comments Mobility Comments Pt was finishing lunch sitting up in bed as PT and OT arrived. Initial BP with large adult cuff on left upper arm was 88/59; pt was asymptomatic . Repeat BP with regular cuff on left forearm was 136/67 HR 93. Pt needed HOB elevated and mod A x 2 for supine to sit with heavy use of draw pad to swivel toward right side of the bed. Pt was dyspneic and needed cues for deep breathing . SpO2 was steady high 90's. Pt was able to sit with UE support SBA. Mod A x 2 to stand and transfer to chair on her right side. Min A x 1 to scoot back on the chair. Pt was left with OT for further assessment. Gait Assessment Comments Gait Comments Steps taken during transfer only. PT-Balance Assessment Sitting Balance and Reactions Static Sitting Balance Ability Fair Dynamic Sitting Balance Ability Fair Standing Balance and Reactions Static Standing Balance Ability Poor Dynamic Standing Balance Ability Poor Device Used FWW M5 PT-IP Objective Assessments Start: 10/05/21 09:09 Freq: NEEDED Status: Active Protocol: Document 10/05/21 13:15 AW (Rec: 10/05/21 13:50 AW [id number]) Orientation Orientation/Cognition Level of Alertness Confusional State Orientation Name,Day of Week,Place, Situation Language Function Ability No Deficits Noted Safety Awareness Understands Safety Issues Memory Description Short Term Impaired Gross Range of Motion Lower Extremity ROM Assessment Within Functional Limits Strength Lower Extremity Strength Assessment Bilaterally Impaired Hip 3+/5 Knee 3+/5 Sensation Assessment Sensation Gross Sensation WNL Muscle Tone Muscle Tone WNL Yes M6 PT-IP Treatment Start: 10/05/21 09:09 Freq: NEEDED Status: Active Protocol: Document 10/06/21 13:08 AW (Rec: 10/06/21 13:23 AW [id number]) Physical Therapy Treatment Education Education Provided Safety M7 PT-IP Assessment and Plan Start: 10/05/21 09:09 Freq: NEEDED Status: Active Protocol: Document 10/06/21 13:08 AW (Rec: 10/06/21 13:23 AW [id number]) PT Summary Assessment and Plan Summary Progress Towards Goals Slow Progress due to Pain,Slow Progress due to Medical Issues,Slow Progress due to Activity Tolerance Assessment Summary Chelsea needed mod A x 2 for all mobility this date including bed mobility and transfer with FWW. She is dyspneic with all activity but SpO2 is stable in the high 90's. Pt would benefit from SNF rehab to improve strength and mobility. Goals Bed Mobility Goal Standby Assistance Transfer Goal Standby Assistance,Front Wheeled Walker Gait Goal Standby Assistance,Front Wheel Walker Gait Distance 150 Other Goals - up/down 16 steps R rail CGA (if going home) Days to Meet Goals 10 Frequency of Treatment Frequency Of Treatment Once a Day Treatment Plan Physical Therapy Treatment Plan Bed Mobility Training,Transfer Training,Gait Training, Therapeutic Exercise,Balance Retraining,Discharge Planning, Hot or Cold Pack,Neuromuscular Re-ed Other Recommendations and Next Treatment bed mobility, transfers, Focus diaphragmatic breathing as tolerated. progress to gait when able Precautions Other Precautions falls Recommendations To Nursing Amount of Assist Needed 2 Person Assist Discharge Recommendations PT Discharge Recommendations SNF Rehab Transportation Needs at Discharge Wheelchair/Cabulance
[2021-10-06] MEDS: VANCOMYCIN 750 MG/150 ML PIGGYBACK 150 MG IV (13:47)
[2021-10-06] MEDS: ACETAMINOPHEN 325 MG TABLET 650 MG PO ×2 (14:05→21:11)
--- NOTE | 2021-10-06 15:15 | CM.DPC ---
DCP SNF Planning SW recieved a call from [facility] stating they received pt's [place] MCR auth for SNF and is good for a couple days and pt's current IV-Abx Ceftriaxone is well covered for SNF and if changed to a penum abx then would not be covered well enough by insurance for SNF. [facility] also states that [facility] will only cover SNF if pt willing to participate some in PT/OT and that [facility] w/c should be bedside in pt room since they brought pt in for procedure with it. SW met bedside with pt and explained role and confirmed [facility] w/c is bedside and will be used for transport at d and SW updated pt that insurance auth for SNF was obtained today but that pt will need to participate in therapies for ongoing coverage and pt acknowledges understanding and confirms she is agreeable with return to [facility] SNF at d/. Updated COVID neg swab will need to be obtained on day of discharge. Plan: SW to follow tomorrow to determine if stable for d/c to [facility] as insurance auth has been obtained today. Cece Houston MSW
[2021-10-07] VITALS (7 sets, daily range): BP systolic 117–147; BP diastolic 68–79; PULSE 83–89; RESP 18–22; TEMP 36.3–37; O2SAT 94–97
[2021-10-07 05:58] LABS: BUN Creatinine Ratio 23.7 (6-22); Blood Urea Nitrogen 37 mg/dL (7-17); Calcium 8.7 mg/dL (8.4-10.2); Carbon Dioxide 26 mmol/L (22-32); Chloride 104 mmol/L (98-107); Estimated Glomerular Filt Rate 32.1 mL/min (>60); Glucose 92 mg/dL (80-110); HEMOLYSIS < 15 (0-50); Potassium 4.7 mmol/L (3.4-5.1); Sodium 133 mmol/L (137-145)
[2021-10-07] MEDS: ACETAMINOPHEN 325 MG TABLET 650 MG PO ×2 (06:07→16:13)
[2021-10-07] MEDS: OXYCODONE IR 5 MG TABLET PO ×2 (06:07→16:13)
[2021-10-07] MEDS: LEVOTHYROXINE 100 MCG TABLET PO (06:07)
--- NOTE | 2021-10-07 08:54 | P.PN_ITS ---
Subjective Subjective Date Patient Seen: 10/07/21 Time Patient Seen: 07:45 Interval history: Patient basically doing okay. [place] like yesterday was a better day, able to do more with less pain I reviewed her situation with Radiology in preparation for hopefully is CT- guided biopsy. Radiologist reviewed her imaging to date and actually went up stairs saw her with a bedside ultrasound and tried to position her. Basically radiology feel strongly that this is a high risk biopsy no matter what modality is used. She will need to be laying on her side and holding her breath to get her pleura out of the way so that there is no pneumothorax since the lesion in question on her liver is really on the dome of the liver. Patient was completely unable to lay on her side because of pain and is completely unable to hold her breath because of her respiratory disease. Radiology did not feel like this was clearly a malignant process it is really not clear what this thing at the dome of the liver is or what it represents on any the imaging be that the MRI or the CT scans. This is solitary and there is no evidence of other metastatic disease if indeed this is a metastatic lesion. She has no known history of malignancy either current or past to have spread etcetera Exam Vital Signs (past 8 hours): - 10/07/21 03:22 Temperature 97.6 F Pulse Rate 84 Respiratory Rate 18 Blood Pressure 147/69 H Pulse Oximetry 97 Oxygen Delivery Method Room Air Oxygen Flow Rate 0 Objective Labs Result Diagrams: 10/04/21 06:55 10/08/21 06:00 Labs: Laboratory Results - last 24 hr 10/06/21 10/06/21 10/07/21 10:43 10:45 05:10 PT 15.2 H INR 1.3 Sodium 133 L 133 L Potassium 4.8 4.7 Chloride 105 104 Carbon Dioxide 24 26 BUN 40 H 37 H Creatinine 1.65 H 1.56 H Estimated GFR 30.1 L 32.1 L BUN/Creatinine Ratio 24.2 H 23.7 H Glucose 111 H 92 Calcium 8.5 8.7 PFSH Medical History Anemia in chronic kidney disease (06/17/15) Arthralgia (09/10/14) Arthralgia of both knees (09/27/15) Attention deficit disorder with hyperactivity Body mass index (BMI) of 40.0 to 44.9 in adult (12/10/16) Chronic midline thoracic back pain (01/02/16) Chronic radicular lumbar pain (09/27/15) Essential hypertension Factor 5 Leiden mutation, heterozygous 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 (02/15/13) Morbid obesity with body mass index (BMI) of 40.0 to 44.9 in adult (09/27/15) VIRGEN (nonalcoholic steatohepatitis) Obstructive sleep apnea syndrome (04/17/11) Restrictive lung disease Spinal stenosis Unspecified asthma (04/17/11) Ventral incisional hernia Surgical History History of bowel resection History of gynecologic surgery S/P total abdominal hysterectomy and bilateral salpingo-oophorectomy Status post appendectomy Status post tonsillectomy and adenoidectomy (1994) Social History marital status: number of children: 2 household members: spouse lives independently: Yes caregiver/support person: No housing: house pets and animals: Yes education level: high school occupational status: other current occupational exposures/hazards: No 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 Acute kidney injury/dehydration-patient off IV fluids and renal function is at baseline. I believe we have resolved her acute kidney injury/dehydration. She will remain off of furosemide and off of lisinopril for now 2. UTI-patient with resistant Enterococcus as well as of course the Proteus. Requiring vancomycin in addition to the ceftriaxone to fully treat both organisms. This will have to be parental for a full course and I would recom mend 7-10 days at least. PICC line was placed yesterday in preparation for ongoing need for antibiotic infusion 3. Liver mass-as above and as described yesterday in my addendum this is a high risk situation to try and biopsy and is not all clear what this mass represents. If it is neoplastic it would be most consistent with metastatic disease but patient has no known primary nor history of a primary to have metastasized like this. I discussed with patient and unfortunately I do not have her son who often is involved in her healthcare available as he is out of the area for the next couple of days. In essence I described to her the high risk situation to try and biopsy this given her inability to position and hold her breath. I suppose we could put her under general and do it that way but that seems like increasing risk even further. In addition she has such as debilitated state th at even if this proved to be a malignancy she would not be a good candidate for any sort of intervention or treatment specifically thinking chemotherapy At this point I would suggest a more conservative approach by monitoring this over time. Is already been sometime since this was 1st identified I would suggest perhaps repeat CT or even ultrasound imaging to reassess her liver in another 4 weeks or so rather than biopsy for all of the reasons as above. Also would continue work on getting her performance status up so that she would be candidate for more aggressive therapy should that prove to be necessary Patient is in agreement she does not feel like she would be a candidate for any sort of chemotherapy or any treatment given how she feels in her current disability and therefore undergoing risk of trying to biopsy this is probably not appropriate I think she understands that in that fashion Therefore I am going to re anticoagulate her and not address this during this hospitalization but plan probably to discharge back to [facility] to continued rehab and plan to repeat imaging in October 24. Chronic anticoagulation due to factor 5 Leiden-I am going to reinitiate warfa rin today by giving her a double dose today and then her routine dose tomorrow will need a protime checked on the 09 of October 5. Weakness-patient continues to be quite globally weak although improved slightly with physical therapy yesterday. Continue with skilled therapies and plan for discharge back to [facility] whenever a bed can be arranged, although I want to give her additional doses of IV antibiotics here in the hospital earliest she would be medically ready for discharge to be tomorrow the 08 of October. Note: Greater than 30 minutes total time was spent on day of service, evaluating the patient on the floor, including examining the patient, discussing clinical course with clinical and nursing staff, reviewing clinical course in the computer, preparing documentation and writing orders for continued management of care, discussing status with family as appropriate, reviewing plans for the next 24 hours with both patient/family and nursing staff as appropriate. Quality VTE Deep Vein Thrombosis/Pulmonary Embolism Present on Admission: No
[2021-10-07] MEDS: SODIUM CHLORIDE 0.9% FLUSH 10 ML IV ×2 (09:30→20:31)
[2021-10-07] MEDS: cefTRIAXone 2,000 MG in SODIUM CHLORIDE 0.9% 100 ML 200 ML IV (09:51)
[2021-10-07] MEDS: predniSONE 20 MG TABLET PO (09:51)
[2021-10-07] MEDS: DULOXETINE 30 MG CAPSULE 60 MG PO (09:51)
[2021-10-07] MEDS: PANTOPRAZOLE DR 40 MG TABLET PO ×2 (09:51→20:31)
[2021-10-07] MEDS: buPROPion XL 150 MG TAB PO (09:51)
[2021-10-07] MEDS: MAGNESIUM OXIDE 400 MG TABLET PO (12:33)
[2021-10-07] MEDS: VANCOMYCIN 750 MG/150 ML PIGGYBACK 150 MG IV (15:15)
--- NOTE | 2021-10-07 15:15 | OT.IP.TRT ---
Current Diagnoses Urinary tract infection, site not specified (10/03/21) Occupational Therapy Treatment Note M2 OT-IP Current Condition Start: 10/06/21 13:13 Freq: Status: Active Protocol: Document 10/06/21 12:47 [facility] (Rec: 10/06/21 13:34 [facility] [id number]) Occupational Therapy Current Condition Current Condition Evaluation Date 10/06/21 Treatment Diagnosis UTI,MANOHAR, decreased mobility Diagnosis Onset Date 10/03/21 M3 OT- IP Subjective and Pain Start: 10/06/21 13:13 Freq: Status: Active Protocol: Document 10/07/21 15:33 [facility] (Rec: 10/07/21 15:42 [facility] [id number]) OT- Subjective Occupational Therapy Visit Type Type Treatment Note Visit Start Time 14:15 Visit Stop Time 13:15 Total Visit Minutes 60 Occupational Therapy Visit Comments Patient Comments Pt sitting on the edge of the bed with OT came in to see pt. KNOCKER OUT/OT cotxt as pt needing extensive assist for mobility needs. Patient/Caregiver Goals To get better. OT Pain Assessment Pain When Pain Assessed At Rest Pain Present Pain Present Denied Pain M4 OT- IP ADL's Start: 10/06/21 13:13 Freq: Status: Active Protocol: Document 10/07/21 15:33 [facility] (Rec: 10/07/21 15:42 [facility] [id number]) OT ADL-Grooming General Evaluation Grooming Ability Standby Assistance OT ADL-Oral Care Comments Oral Care Comments Not performed. OT ADL-Dressing General Eval Lower Body Dressing Ability Total Assistance OT ADL-Toileting General Evaluation Toileting Ability Total Assistance Areas Needing Assistance Empty Catheter or Colostomy, Manage Clothing,Perform Perineal Hygiene Comments OT Toileting Comments Pt able to stand with MODA X 2 to FWW while aid able to clean the pt. Pt getting to tired and wanting to sit down immediately after just standing up so that the aid could assist to clean her. Pt only able to tolerate standing for 5-15 seconds at a time, before having to sit down. OT ADL-Bathing Comments OT Bathing Comments Pt not wanting to sponge off at this time. Bed bath more appropriate at this time. M5 OT- IP IADL's Start: 10/06/21 13:13 Freq: Status: Active Protocol: Document 10/06/21 12:47 [facility] (Rec: 10/06/21 13:34 [facility] [id number]) OT-Instrumental Activities of Daily Living Medication Management Medication Management Comments Pt states does her own at home . Money Management Money Management Comments Pt states does on her own at home. Director Global Director Global Caregiver Provides Assist M6 OT- IP Functional Cognition Start: 10/06/21 13:13 Freq: Status: Active Protocol: Document 10/07/21 15:33 [facility] (Rec: 10/07/21 15:42 [facility] [id number]) Cognitive Factors Limiting Selfcare Function Cognitive Ability Level of Alertness Alert Patient Orientation Name,Place,Situation Attention Span Ability Capable of Focused Attention, Capable of Sustained Attention Ability to Follow Commands Able to Follow One Step Commands Cognitive Comments Cognitive Assessment Comments Pt needing cues to slow down her breathing. Pt not ready to get up and would state, Just give me a chance. When asking what the pt meant by that statement, she states that she is not ready to get up yet even though several minutes have passed. Able to set a timer to help initiate pt to be able to get up. Pt needing step by step vc for safety with FWW and reminders to push up form the armrest of the BSC to stand. M7 OT- IP Mobility and Balance Start: 10/06/21 13:13 Freq: Status: Active Protocol: Document 10/07/21 15:33 [facility] (Rec: 10/07/21 15:42 [facility] [id number]) OT- Bed Mobility Assessment Sit to Supine Sit to Supine Assist Maximum Assistance,2 Person Assistance OT-Transfer Assessment Sit to and From Stand Sit to and from Stand Moderate Assistance,2 Person Assistance Transfers Transfer Ability Moderate Assistance,2 Person Assistance Technique Transfer Destination Bed,Bedside Commode Transfer Technique Stand Step Pivot Devices Transfer Assistive Devices Gait Belt,Front Wheeled Walker Comments Mobility Comments MODAx2 to stand to FWW and vc to push up on the armrest of the BSC. Assist for balance and to help guide the FWW to turn. OT- Gait Assessment Comments Gait Ability Comments transfer only at this time OT- Balance Assessment Sitting Balance and Reactions Static Sitting Balance Ability Fair Dynamic Sitting Balance Ability Fair Standing Balance and Reactions Static Standing Balance Ability Poor Dynamic Standing Balance Ability Poor M8 OT- IP Objective Assessments Start: 10/06/21 13:13 Freq: Status: Active Protocol: Document 10/06/21 12:47 [facility] (Rec: 10/06/21 13:34 [facility] [id number]) OT Gross Range of Motion Upper Extremity Range of Motion Assessment Right Impaired ROM Impairments Impaired due to pain with PICC line in her arm. OT-Muscle Tone Assessment Muscle Tone WNL Yes M9 OT- IP Assessment and Plan Start: 10/06/21 13:13 Freq: Status: Active Protocol: Document 10/07/21 15:33 [facility] (Rec: 10/07/21 15:42 [facility] [id number]) OT Summary Assessment and Plan Potential Rehabilitation Potential Good Analytic Complexity at Evaluation Moderate Summary OT Impairments Pain,Range of Motion,Strength, Balance,Functional Cognition, Functional Mobility,Grooming, Dressing,Toileting,Bathing, Toilet Transfers,Shower Transfers,Activity Tolerance Progress Towards Goals Slow Progress due to Pain,Slow Progress due to Medical Issues,Slow Progress due to Activity Tolerance,Slow Progress due to Cognition Assessment Summary Pt needing two person assist for mobility needs and ADl at this time. Pt having decreased activity tolerance,strength, and balance. Pt would benefit from skilled rehab. Goals Grooming Goal Independent Dressing Goal Minimal Assistance Toileting Goal Independent Bathing Goal Minimal Assistance Toilet Transfer Goal Independent Shower Transfer Goal Independent Days to Meet Goals 20 Frequency of Treatment Frequency Of Treatment Once a Day Treatment Plan OT Treatment Plan ADL Training,Functional Cognition Training,Functional Mobility,Patient/Family Education,Discharge Planning Other Treatment Recommendations and Next metalworking instructor front of sink for Treatment Focus grooming needs with recliner behind her. Discharge Recommendations OT Discharge Recommendations SNF Rehab Transportation Needs at Discharge Wheelchair/Cabulance
--- NOTE | 2021-10-07 15:15 | OT.IP.TRT ---
Current Diagnoses Urinary tract infection, site not specified (10/03/21) Occupational Therapy Treatment Note M2 OT-IP Current Condition Start: 10/06/21 13:13 Freq: Status: Active Protocol: Document 10/06/21 12:47 [facility] (Rec: 10/06/21 13:34 [facility] [id number]) Occupational Therapy Current Condition Current Condition Evaluation Date 10/06/21 Treatment Diagnosis UTI,MANOHAR, decreased mobility Diagnosis Onset Date 10/03/21 M3 OT- IP Subjective and Pain Start: 10/06/21 13:13 Freq: Status: Active Protocol: Document 10/07/21 15:33 [facility] (Rec: 10/07/21 15:42 [facility] [id number]) OT- Subjective Occupational Therapy Visit Type Type Treatment Note Visit Start Time 14:15 Visit Stop Time 13:15 Total Visit Minutes 60 Occupational Therapy Visit Comments Patient Comments Pt sitting on the edge of the bed with OT came in to see pt. AUTOMOTIVE VEHICLE INSPECTOR/OT cotxt as pt needing extensive assist for mobility needs. Able to notify pt's nurse that pt will have to be cleaned in bed as did not have enough endurance to get cleaned thoroughly while standing. Patient/Caregiver Goals To get better. OT Pain Assessment Pain When Pain Assessed At Rest Pain Present Pain Present Pain M4 OT- IP ADL's Start: 10/06/21 13:13 Freq: Status: Active Protocol: Document 10/07/21 15:33 [facility] (Rec: 10/07/21 15:42 [facility] [id number]) OT ADL-Grooming General Evaluation Grooming Ability Standby Assistance OT ADL-Oral Care Comments Oral Care Comments Not performed. OT ADL-Dressing General Eval Lower Body Dressing Ability Total Assistance OT ADL-Toileting General Evaluation Toileting Ability Total Assistance Areas Needing Assistance Empty Catheter or Colostomy, Manage Clothing,Perform Perineal Hygiene Comments OT Toileting Comments Pt able to stand with MODA X 2 to FWW while aid able to clean the pt. Pt getting to tired and wanting to sit down immediately after just standing up so that the aid could assist to clean her. OT ADL-Bathing Comments OT Bathing Comments Pt not wanting to sponge off at this time. Bed bath more appropriate at this time. M5 OT- IP IADL's Start: 10/06/21 13:13 Freq: Status: Active Protocol: Document 10/06/21 12:47 [facility] (Rec: 10/06/21 13:34 [facility] [id number]) OT-Instrumental Activities of Daily Living Medication Management Medication Management Comments Pt states does her own at home . Money Management Money Management Comments Pt states does on her own at home. Tunnel Drier Operator Tunnel Drier Operator Caregiver Provides Assist M6 OT- IP Functional Cognition Start: 10/06/21 13:13 Freq: Status: Active Protocol: Document 10/07/21 15:33 [facility] (Rec: 10/07/21 15:42 [facility] [id number]) Cognitive Factors Limiting Selfcare Function Cognitive Ability Level of Alertness Alert, confused Patient Orientation Name,Place,Situation Attention Span Ability Capable of Focused Attention, Capable of Sustained Attention Ability to Follow Commands Able to Follow One Step Commands Cognitive Comments Cognitive Assessment Comments Pt needing cues to slow down her breathing. Pt not ready to get up and would state, Just give me a chance. When asking what the pt meant by that statement, she states that she is not ready to get up yet even though several minutes have passed. Able to set a timer to help initiate pt to be able to get up. Pt needing step by step vc for safety with FWW and reminders to push up from the armrest of the BSC to stand. Pt appears more confused today and not seeming understanding that therapist wanting her to stand up so able to take off her dirty brief. In addition when transferring the pt from the bed to BSC, pt did not realize that the green pad was soiled from her. M7 OT- IP Mobility and Balance Start: 10/06/21 13:13 Freq: Status: Active Protocol: Document 10/07/21 15:33 [facility] (Rec: 10/07/21 15:42 [facility] [id number]) OT- Bed Mobility Assessment Sit to Supine Sit to Supine Assist Total A,2 Person Assistance OT-Transfer Assessment Sit to and From Stand Sit to and from Stand Moderate Assistance,2 Person Assistance Transfers Transfer Ability Moderate Assistance,2 Person Assistance Technique Transfer Destination Bed,Bedside Commode Transfer Technique Stand Step Pivot Devices Transfer Assistive Devices Gait Belt,Front Wheeled Walker Comments Mobility Comments MODAx2 to stand to FWW and vc to push up on the armrest of the BSC. Assist for balance and to help guide the FWW to turn. OT- Gait Assessment Comments Gait Ability Comments transfer only at this time OT- Balance Assessment Sitting Balance and Reactions Static Sitting Balance Ability Fair Dynamic Sitting Balance Ability Fair Standing Balance and Reactions Static Standing Balance Ability Poor Dynamic Standing Balance Ability Poor M8 OT- IP Objective Assessments Start: 10/06/21 13:13 Freq: Status: Active Protocol: Document 10/06/21 12:47 [facility] (Rec: 10/06/21 13:34 [facility] [id number]) OT Gross Range of Motion Upper Extremity Range of Motion Assessment Right Impaired ROM Impairments Impaired due to pain with PICC line in her arm. OT-Muscle Tone Assessment Muscle Tone WNL Yes M9 OT- IP Assessment and Plan Start: 10/06/21 13:13 Freq: Status: Active Protocol: Document 10/07/21 15:33 [facility] (Rec: 10/07/21 15:42 [facility] [id number]) OT Summary Assessment and Plan Potential Rehabilitation Potential Good Analytic Complexity at Evaluation Moderate Summary OT Impairments Pain,Range of Motion,Strength, Balance,Functional Cognition, Functional Mobility,Grooming, Dressing,Toileting,Bathing, Toilet Transfers,Shower Transfers,Activity Tolerance Progress Towards Goals Slow Progress due to Pain,Slow Progress due to Medical Issues,Slow Progress due to Activity Tolerance,Slow Progress due to Cognition Assessment Summary Pt needing two person assist for mobility needs and ADl at this time. Pt having decreased activity tolerance,strength, and balance. Pt would benefit from skilled rehab. Goals Grooming Goal Independent Dressing Goal Minimal Assistance Toileting Goal Independent Bathing Goal Minimal Assistance Toilet Transfer Goal Independent Shower Transfer Goal Independent Days to Meet Goals 20 Frequency of Treatment Frequency Of Treatment Once a Day Treatment Plan OT Treatment Plan ADL Training,Functional Cognition Training,Functional Mobility,Patient/Family Education,Discharge Planning Other Treatment Recommendations and Next pharmacy clinical coordinator front of sink for Treatment Focus grooming needs with recliner behind her. Discharge Recommendations OT Discharge Recommendations SNF Rehab Transportation Needs at Discharge Wheelchair/Cabulance
--- NOTE | 2021-10-07 15:26 | PC.NURSE ---
Pt resting at intervals T/O shift. Refusing to do much w/staff & PT ABBY PICC intact/patent. SpO2 94% RA Mack cath patent clear urine Call light w/in reach, bed alarm on for pt safety. Continue w/plan of care.
--- NOTE | 2021-10-07 15:30 | PT.IPTN ---
Current Diagnoses Urinary tract infection, site not specified (10/03/21) Physical Therapy Treatment Note M2 PT-IP Current Condition Start: 10/05/21 09:09 Freq: NEEDED Status: Active Protocol: Document 10/07/21 14:10 [facility] (Rec: 10/07/21 16:41 [facility] [id number]) Physical Therapy Current Condition Current Condition Evaluation Date 10/05/21 Treatment Diagnosis MANOHAR, UTI; impaired mobility and gait Onset Date 10/03/21 M3 PT-IP Subjective Start: 10/05/21 09:09 Freq: NEEDED Status: Active Protocol: Document 10/07/21 14:10 [facility] (Rec: 10/07/21 16:41 [facility] [id number]) Subjective Physical Therapy Visit Type Type Treatment Note Visit Start Time 14:10 Visit Stop Time 15:30 Total Visit Minutes 80 Notes AUTO REPAIR TECHNICIAN assisted with bed mob initially. Co tx with OT safety assist with scoot bed mobility and transfers. 3rd person AUTO REPAIR TECHNICIAN for assist pericare in standing. Pt unable to tolerated time to stand for pericare, AUTO REPAIR TECHNICIAN notified when tx completed and pt back in bed to return complete hygiene pericare. Vital taken during tx: supine: BP 129/70 HR 87 SaP2 97% on RA. seated post transfer mobility: SaO2 Number of CHAIN SALES REPRESENTATIVE Visits 1 Physical Therapy Visit Comments Patient Comments Pt willing to mobilize post request to ask nurse if ok to move. Therapy Pain Assessment Pain When Pain Assessed During Mobility Pain Present Pain Present Pain Reported Location Abdomen Scale Used pt c/o RUQ pain, arms, all over but does not quantify Description With Movement Pain Behaviors Restlessness Pain Management Techniques Distraction,Modification of Treatment M4 PT-IP Mobility and Gait Start: 10/05/21 09:09 Freq: NEEDED Status: Active Protocol: Document 10/07/21 14:10 [facility] (Rec: 10/07/21 16:41 [facility] [id number]) PT-Bed Mobility Assessment Rolling Type of Rolling Log Rolling,Roll to Right Level of Assist Moderate Assistance,Maximal Assistance,1 Person Assistance Supine to Sit Supine to Sit Maximum Assistance,2 Person Assistance,Head of Bed Elevated,Bedrails Sit to Supine Sit to Supine Maximum Assistance,2 Person Assistance,Bedrails Scooting Scooting to Edge of Bed Maximum Assistance Scooting Up and Down in Bed Dependent PT-Transfer Assessment Sit to and From Stand Sit to and from Stand Moderate Assistance,2 Person Assistance,Use of Upper Extremities Equipment Transfer Assistive Device Gait Belt,Front Wheeled Walker Transfers Transfer Destination Bed,Bedside Commode Transfer Technique Stand Step Pivot Transfer Ability Level of Assist Moderate Assistance,2 Person Assistance,Use of Upper Extremities Comments Mobility Comments Pt more anxious today, required extra time to transition between activities, education slower breath rate due to noted accessory breath rate (cued pause inhale with slow pursed lip exhale). Give me a minute, I need to relax (approx 5- 20 min at times required). Log roll on to R side Mod A x1 with cues for UE and LE positioning, rest needed. R SL>sit support for trunk righting w/ RHR, pull from therapist hand LUE and support at upper back AUTO REPAIR TECHNICIAN, rest required. OT took over from AUTO REPAIR TECHNICIAN, Pt scoot to EOB Mod A x2 for trunk support and wt shift each LE forward scoot to EOB. STS from EOB x2 up to 15 sec each w/ NEWHALEN and cued push from bed stand/ reach back sit. SPT bed>chair Mod A x2 w/ FWW, assist for FWW repositioning, cued sequencing LE and body positioning. Hand over hand reach back Mod A sloe descent to chair. Pt sat in chair required 10 min+ rest /recovery, approx 100 % on RA. CHAIN SALES REPRESENTATIVE/OT noted loose BM on bedding, pt unaware and brief was on. SPT to BSC Mod A x2 w / FWW with immediate need to sit, unable to remove brief. Pt required 10min rest + in chair before return to standing briefly Mod- Max A x2 person w/FWW, 3rd person for grief removal mgt. Pt required 20 min+ seated rest, Max A x2 Sit>stand multiple times for pericare, unable to complete seated and standing. Assisted SPT Mod A x2 w/ FWW BSC >bed, Sit>supine Max A x2 for trunk and LE support into bed. Dependent lateral scoot center bed then scoot up to HOB via transfer pad, bed in trendelenburg positioning. Pt requested HOB slightly elevated but LEs flat. Nursing notified tx complete and pt needing further pericare assist. Pt had call light and all needs in reach with bed alarmed before left. Gait Assessment Comments Gait Comments steps taken during transfer only at this time Stair Climbing Assessment Comments Stair Climbing Comments unable to assess. PT-Balance Assessment Sitting Balance and Reactions Static Sitting Balance Ability Poor Dynamic Sitting Balance Ability Poor Standing Balance and Reactions Static Standing Balance Ability Poor Dynamic Standing Balance Ability Poor Device Used FWW M5 PT-IP Objective Assessments Start: 10/05/21 09:09 Freq: NEEDED Status: Active Protocol: Document 10/05/21 13:15 [facility] (Rec: 10/05/21 13:50 [facility] [id number]) Orientation Orientation/Cognition Level of Alertness Confusional State Orientation Name,Day of Week,Place, Situation Language Function Ability No Deficits Noted Safety Awareness Understands Safety Issues Memory Description Short Term Impaired Gross Range of Motion Lower Extremity ROM Assessment Within Functional Limits Strength Lower Extremity Strength Assessment Bilaterally Impaired Hip 3+/5 Knee 3+/5 Sensation Assessment Sensation Gross Sensation WNL Muscle Tone Muscle Tone WNL Yes M6 PT-IP Treatment Start: 10/05/21 09:09 Freq: NEEDED Status: Active Protocol: Document 10/07/21 14:10 [facility] (Rec: 10/07/21 16:41 [facility] [id number]) Physical Therapy Treatment Education Education Provided Safety Other Treatments Other Treatment Performed CHAIN SALES REPRESENTATIVE ed and cued for diaphramatic breath, improved slow breath with pause at inhale with slow pursed lip exhale throughout tx for normalizing breath rate during seated recovery. M7 PT-IP Assessment and Plan Start: 10/05/21 09:09 Freq: NEEDED Status: Active Protocol: Document 10/07/21 14:10 [facility] (Rec: 10/07/21 16:41 [facility] [id number]) PT Summary Assessment and Plan Potential Rehabilitation Potential Fair Status of Condition at Evaluation Evolving Summary Impairments Pain,ROM,Strength,Balance, Cognition,Bed Mobility, Transfers,Gait,Activity Tolerance Progress Towards Goals Slow Progress due to Pain,Slow Progress due to Medical Issues,Slow Progress due to Activity Tolerance Assessment Summary Pt anxious this tx, unaware of BM. She had decreased strength, endurance, limited activity with SOB and tiring quickly requiring mulitiple rest breaks and increase assist this tx. Max A for bed mob, Mod A x2 w/ FWW for transfers, 3rd person during toileting. Pt will require SNF for strengthen and functional independence in mobility. Goals Bed Mobility Goal Standby Assistance Transfer Goal Standby Assistance,Front Wheeled Walker Gait Goal Standby Assistance,Front Wheel Walker Gait Distance 150 Other Goals - up/down 16 steps R rail CGA (if going home) Days to Meet Goals 10 Frequency of Treatment Frequency Of Treatment Once a Day Treatment Plan Physical Therapy Treatment Plan Bed Mobility Training,Transfer Training,Gait Training, Therapeutic Exercise,Balance Retraining,Discharge Planning, Hot or Cold Pack,Neuromuscular Re-ed Other Recommendations and Next Treatment bed mobility, transfers, Focus diaphragmatic breathing as tolerated. progress to gait when able Precautions Other Precautions falls Recommendations To Nursing Amount of Assist Needed 1 Person Assist,2 Person Assist Discharge Recommendations PT Discharge Recommendations SNF Rehab Transportation Needs at Discharge Wheelchair/Cabulance
[2021-10-07] MEDS: WARFARIN 5 MG TABLET 10 MG PO (17:54)
[2021-10-08] VITALS: BP 113/68; PULSE 86; RESP 18; TEMP 36.7; O2SAT 97
[2021-10-08] MEDS: ACETAMINOPHEN 325 MG TABLET 650 MG PO (05:55)
[2021-10-08] MEDS: LEVOTHYROXINE 100 MCG TABLET PO (05:55)
[2021-10-08] MEDS: OXYCODONE IR 5 MG TABLET PO (05:55)
[2021-10-08 06:24] LABS: BUN Creatinine Ratio 26.1 (6-22); Blood Urea Nitrogen 37 mg/dL (7-17); Calcium 8.5 mg/dL (8.4-10.2); Carbon Dioxide 24 mmol/L (22-32); Chloride 104 mmol/L (98-107); Estimated Glomerular Filt Rate 35.8 mL/min (>60); Glucose 93 mg/dL (80-110); HEMOLYSIS < 15 (0-50); Potassium 4.3 mmol/L (3.4-5.1); Sodium 131 mmol/L (137-145)
--- NOTE | 2021-10-08 07:58 | PM.DS.1 ---
History of Present Illness History of Present Illness Date Patient Seen: 10/08/21 Time Patient Seen: 07:59 Chief complaint: hypotension, confusion, Narrative: 80-year-old female recently admitted with weakness and UTI found to have liver mass/Met's. Was discharged to nursing home for rehabilitation. Return to [facility] for CT-guided biopsy of her liver today found to be hypotensive with blood pressure in the 70s. ER evaluation showed evidence of acute kidney injury with significant jump in creatinine. Patient also did respond to IV fluids. Also had fair amount of urine retention with about a L out after urinary catheter placed. Patient did not have her biopsy performed On further evaluation evidence of possible UTI with point of care dipstick and maybe an element of pneumonia although by my read chest x-ray is unchanged from previous. She does have a leukocytosis but this is been persistent for her over long period of time. Patient was also given a dose of IV steroids in the ER for possible adrenal insufficiency given her long-term use of corticosteroids. She is on our corticosteroids for her lung disease which is an element of obstructive lung disease with some benefit symptomatic Marce with steroids as well as an interstitial lung disease again patient reports some benefit with chronic steroid therapy (and no other therapies have been helpful) Discharge Providers Provider Date of admission: 10/03/21 17:20 Discharge Date: 10/08/21 Primary care physician: Max Dominguez MD Consults: 10/03/21 21:39 Consult to Discharge Planning Routine Comment: back to SNF upon discharge 10/04/21 10:55 Consult to Physical Therapy Evaluate & Treat Comment: Physician Instructions: Evaluate and Treat 10/04/21 10:56 Consult to Occupational Therapy Evaluate & Treat Comment: Physician Instructions: Evaluate and treat Discharge provider: Max Dominguez MD Summary Hospital Course Discharge Diagnosis: 1. Acute kidney injury, resolved 2. Chronic renal failure stage III 3. UTI with Proteus and Enterococcus 4. Acute urinary retention 5. Factor 5 Leiden mutation, heterozygous on chronic anticoagulation 6. Chronic pain syndrome 7. Obesity with BMI 39 8. Mass dome of liver, uncertain etiology 9. Generalized weakness 10. Severe restrictive lung disease 11. Severe interstitial lung disease on chronic steroid therapy Hospital Course: Patient was admitted after presenting for a potential CT biopsy of known liver lesion and found to be hypotensive and upon further testing found to have evidence of acute kidney injury in addition to her chronic renal failure. She is felt to be somewhat dehydrated. She had been on diuretics and had had a restart of her MICHAEL-inhibitor during her recent nursing home stay. She was given IV fluids with a response in her blood pressure and continue on IV fluids with an improvement in her renal function. By the time of discharge her renal function and return to normal and stayed there while off IV fluids. Her diuretics and lisinopril had been discontinued. She had adequate control of her blood pressure without the lisinopril or the furosemide Her warfarin which she normally takes chronically because of her factor 5 Leiden mutation and history of clotting was held in preparation for biopsy. Radiology again evaluated the location of the lesion on the dome of the liver and was not felt to be safe to access this via ultrasound or CT guidance as patient was unable to participate with proper positioning and or breath-holding. Discussion was held with Radiology and then further held with patient regarding the uncertain nature of this lesion is not clearly neoplastic nor is it clearly not neoplastic in origin. There is no evidence that this is an abscess or other infectious etiology based on her clinical course. Therefore given the danger in trying to biopsy this and difficulty in obtaining a sample any other fashion it was elected to continue to conservatively monitor this lesion over time at least over the next 4-8 weeks with repeat imaging rather than try to biopsy at this time. Patient's urine culture also grew both a resistant Proteus species as well as Enterococcus. Based on bacterial sensitivities as well as patient has allergies the only real antibiotics available to treat these dual infections we are parental. Patient was started on appropriate parental antibiotics and he has a need to be continued I would advocate for total of [address] her treatment through 16 October 2021. Patient continue be quite weak with difficulty performing basic ADLs etcetera. She continue to work with physical therapy and was felt to need continued nursing home assistance and will be placed back in nursing home upon discharge Exam Vital Signs (past 8 hours): - 10/08/21 00:00 Temperature 98.0 F Pulse Rate 86 Respiratory Rate 18 Blood Pressure 113/68 Pulse Oximetry 97 Oxygen Delivery Method Room Air Oxygen Flow Rate 0 Objective Labs Result Diagrams: 10/04/21 06:55 10/08/21 06:00 Labs: Laboratory Results - last 24 hr 10/08/21 06:00 Sodium 131 L Potassium 4.3 Chloride 104 Carbon Dioxide 24 BUN 37 H Creatinine 1.42 H Estimated GFR 35.8 L BUN/Creatinine Ratio 26.1 H Glucose 93 Calcium 8.5 [facility] Medical History Anemia in chronic kidney disease (06/17/15) Arthralgia (09/10/14) Arthralgia of both knees (09/27/15) Attention deficit disorder with hyperactivity Body mass index (BMI) of 40.0 to 44.9 in adult (12/10/16) Chronic midline thoracic back pain (01/02/16) Chronic radicular lumbar pain (09/27/15) Essential hypertension Factor 5 Leiden mutation, heterozygous Hypothyroidism [facility] current use of anticoagulant therapy (02/15/13) Morbid obesity with body mass index (BMI) of 40.0 to 44.9 in adult (09/27/15) VIRGEN (nonalcoholic steatohepatitis) Obstructive sleep apnea syndrome (04/17/11) Restrictive lung disease Spinal stenosis Unspecified asthma (04/17/11) Ventral incisional hernia Surgical History History of bowel resection History of gynecologic surgery S/P total abdominal hysterectomy and bilateral salpingo-oophorectomy Status post appendectomy Status post tonsillectomy and adenoidectomy (1994) Social History marital status: number of children: 2 household members: spouse lives independently: Yes caregiver/support person: No housing: house pets and animals: Yes education level: high school occupational status: other current occupational exposures/hazards: No 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: [employer] leisure activities: other Smoking Status: Former smoker Tobacco: How many years used: 5 Smokeless tobacco user: other quit status: quit date established second hand exposure: Yes alcohol intake: never substance use type: does not use Discharge Assessment & Plan Assessment and Plan Plan of Treatment: Return to nursing home Monitor lesion in liver Remain off of lisinopril and furosemide at the current time Restart warfarin with need for recheck of protime on the 09 of October and then depending on that result in the future as well Discharge Plan Discharge Plan Patient Disposition: SNF Transfer to: [facility] Consult as needed: Dental, Hearing, Mental health, Podiatry and Vision Discharge orders & Medications Prescriptions: New ceftriaxone 2 gram Recon Soln 2,000 mg IV Q24H 10 Days 0RF Rx Instructions: Last day of treatment is 10/16/21 vancomycin-water inject (PEG) 750 mg/150 mL Piggyback 750 mg IV Q24H 10 Days Qty: 1500 0RF Rx Instructions: Last day of treatment is 10/16/21 Continued duloxetine 60 mg capsule,delayed release(DR/EC) 60 mg PO DAILY Qty: 90 3RF bupropion HCl 150 mg tablet extended release 24 hr 150 mg PO QAM Qty: 90 3RF oxybutynin chloride 15 mg tablet extended release 24 hr 15 mg PO DAILY Qty: 90 3RF levothyroxine 100 mcg tablet 100 mcg PO QAM Qty: 90 2RF spironolactone 100 mg tablet See Rx Instructions .ROUTE .COMPLEX Qty: 90 2RF Dose Instruction: TAKE 1-2 TABLETS BY MOUTH IN THE MORNING DAILY Rx Instructions: takes 100mg in the morning. pantoprazole [Protonix] 40 mg tablet,delayed release (DR/EC) 40 mg PO BID Qty: 180 3RF magnesium oxide 400 mg (241.3 mg magnesium) Tablet 400 mg PO DAILY@1100 Qty: 30 0RF prednisone 20 mg Tablet 20 mg PO DAILY Qty: 30 0RF warfarin 5 mg tablet 5 mg PO DAILY Qty: 30 0RF Label Comments: held for planned liver biopsy 10/03/21 Discontinued lisinopril 10 mg Tablet 10 mg PO DAILY 0RF furosemide 40 mg Tablet 40 mg PO DAILY Qty: 30 0RF levofloxacin 250 mg Tablet 250 mg PO DAILY Qty: 2 0RF Rx Instructions: Last day of treatment is 09/13/21 Follow up/Referrals: Max Dominguez MD [Primary Care Provider] - Discharge Health Status Multidrug resistant organism: No MDRO Precautions: [place] Diet/Activity/Treatments Diet: Diet as Tolerated Liquid consistency: Normal/Thin Food texture: Regular Special Rehabilitation Services Reason for rehabilitation: Recovery r/t decondition Rehab type: Physical therapy and Occupational therapy Discharge Data Primary Care Provider: Max Dominguez Quality VTE Deep Vein Thrombosis/Pulmonary Embolism Present on Admission: No
[2021-10-08 08:05] VITALS: PULSE 86; RESP 16; O2SAT 97
--- NOTE | 2021-10-08 10:17 | CM.DPC ---
DCP Cont: Patient has discharge orders to go back to [facility] today. Dr. Dominguez had not done med sheets. Called his office and spoke to him and he was going to walk them over here. Asked nurse, Kathy, and nursing unit clerk, Agueda, if they can get a rapid COVID on her. Dr. Dominguez brought up signed med orders. Kathia, urgent care physician assistant, is faxing them over to [facility], along with DC Summary. Confirmed fiber picker time with February at 11:30. P: Patient is discharging back to [facility] today. Britni Thomas, DONI/Vehicle Controls Engineer
[2021-10-08 10:42] LABS: COVID19 -Nasal RAPID Negative (Negative)
[2021-10-08] MEDS: PANTOPRAZOLE DR 40 MG TABLET PO (10:56)
[2021-10-08] MEDS: DULOXETINE 30 MG CAPSULE 60 MG PO (10:57)
[2021-10-08] MEDS: predniSONE 20 MG TABLET PO (10:58)
[2021-10-08] MEDS: SODIUM CHLORIDE 0.9% FLUSH 10 ML IV (11:00)
[2021-10-08] MEDS: buPROPion XL 150 MG TAB PO (11:00)
[2021-10-08] MEDS: MAGNESIUM OXIDE 400 MG TABLET PO (11:15)
[2021-10-08] MEDS: cefTRIAXone 2,000 MG in SODIUM CHLORIDE 0.9% 100 ML 200 ML IV (11:15)
== END 2021-10-08 11:42 | DRG 683 ==
LOC: ED 17:21 → AC 10-04 14:20
PROVIDERS: Admitting Provider Internal Medicine; Emergency Provider Emergency Medicine; Family Provider Internal Medicine; PCP Internal Medicine; Referring Provider Emergency Medicine; Visit Provider Internal Medicine
DX: N17.9 Acute kidney failure, unspecified (principal); N39.0 Urinary tract infection, site not specified; Z16.24 Resistance to multiple antibiotics; D68.51 Activated protein C resistance; I95.9 Hypotension, unspecified; E86.0 Dehydration; R33.9 Retention of urine, unspecified; R16.0 Hepatomegaly, not elsewhere classified; B95.2 Enterococcus as the cause of diseases classified elsewhere; B96.4 Proteus (mirabilis) (morganii) as the cause of diseases classified elsewhere; E03.9 Hypothyroidism, unspecified; I10 Essential (primary) hypertension; Z87.891 Personal history of nicotine dependence; Z20.822 Contact with and (suspected) exposure to COVID-19; Z79.01 Long term (current) use of anticoagulants
CPT/HCPCS: 36415; 36569; 71045; 74176; 80048; 80053; 80305; 81001; 81003; 82140; 82550; 82962; 83605; 83690; 83735; 83880; 84484; 85007; 85014; 85025; 85049; 85610; 85730; 87040; 87077; 87086; 87186; 87635; 93005; 93010; 94760; 94762; 96361; 96365; 96366; 96375; 97162; 97166; 97530; 97535; 99222; 99232; 99233; 99238; 99285; C9803; J0696; J1642; J1720; J1956; J7050

== ENCOUNTER 2021-10-15 23:59 | Emergency (ER) | payer OTHER, SELFPAY ==
[2021-10-03 21:47] VITALS: BMI 37.6
--- NOTE | 2021-10-16 01:18 | PC.NURSE ---
Please see paper charting for code documentation
--- NOTE | 2021-10-16 01:30 | ED_ITS ---
HPI - CPR General Chief Complaint: Cardiac Arrest/CPR Stated Complaint: Stroke Time Seen by Provider: 10/16/21 00:00 Source: EMS Mode of arrival: EMS History of Present Illness HPI narrative: 80 year old female, former smoker with extensive medical history including a liver mass, factor 5 Leiden, on anticoagulation, recent questionable liver mass presents from a local nursing facility and a chief complaint of altered mental status, concerns for stroke and last known normal at about 2245. For when medics arrived they state there is significant question as to the actual onset of her change in mentation, she was initially considered to be code stroke, however given her initial presentation we went to trauma 2 instead. She was noted to have a fixed right upward gaze with agonal respirations and no pulse. A code blue was initiated. There is little firm info noted otherwise Related Data Previous Rx's Medication Instructions Recorded bupropion HCl 150 mg 24 hr tablet, 150 mg PO QAM #90 tab 11/19/20 extended release duloxetine 60 mg capsule,delayed 60 mg PO DAILY #90 cap 11/19/20 release oxybutynin chloride 15 mg 15 mg PO DAILY #90 tab 01/10/21 tablet,extended release 24 hr levothyroxine 100 mcg tablet 100 mcg PO QAM #90 tab 01/24/21 spironolactone 100 mg tablet See Rx Instructions .ROUTE 01/24/21 .COMPLEX #90 tab pantoprazole 40 mg tablet,delayed 40 mg PO BID #180 tab 04/17/21 release (Protonix) magnesium oxide 400 mg (241.3 mg 400 mg PO DAILY@1100 #30 tab 09/10/21 magnesium) tablet prednisone 20 mg tablet 20 mg PO DAILY #30 tab 09/10/21 warfarin 5 mg tablet 5 mg PO DAILY #30 tab 09/10/21 Allergies Allergy/AdvReac Type Severity Reaction Status Date / Time codeine [CODEINE] Allergy Severe Rash Verified 10/03/21 14:25 morphine [MORPHINE] Allergy Severe Rash, Verified 10/03/21 14:25 Agitation crab Allergy Mild Verified 10/03/21 14:45 diphenhydramine Allergy Mild AGITATION Verified 10/03/21 14:25 [DIPHENHYDRAMINE] Iodine and Iodide Containing Allergy Mild Verified 10/03/21 14:25 Produc [IODINE AND IODIDE CONTAINING PRODUC] latex [LATEX] Allergy Mild ITCHING, Verified 10/03/21 14:25 SWELLING..BANDAIDS Penicillins [PENICILLINS] Allergy Mild Hives Verified 10/05/21 11:22 Review of Systems Review of Systems ROS Unobtainable: Unobtainable due to mental status/LOC Patient History Medical History Anemia in chronic kidney disease (06/17/15) Arthralgia (09/10/14) Arthralgia of both knees (09/27/15) Attention deficit disorder with hyperactivity Body mass index (BMI) of 40.0 to 44.9 in adult (12/10/16) Chronic midline thoracic back pain (01/02/16) Chronic radicular lumbar pain (09/27/15) Essential hypertension Factor 5 Leiden mutation, heterozygous Hypothyroidism [facility] current use of anticoagulant therapy (02/15/13) Morbid obesity with body mass index (BMI) of 40.0 to 44.9 in adult (09/27/15) VIRGEN (nonalcoholic steatohepatitis) Obstructive sleep apnea syndrome (04/17/11) Restrictive lung disease Spinal stenosis Unspecified asthma (04/17/11) Ventral incisional hernia Surgical History History of bowel resection History of gynecologic surgery S/P total abdominal hysterectomy and bilateral salpingo-oophorectomy Status post appendectomy Status post tonsillectomy and adenoidectomy (1994) Social History marital status: number of children: 2 household members: spouse lives independently: Yes caregiver/support person: No housing: house pets and animals: Yes education level: high school occupational status: other current occupational exposures/hazards: No 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 Obviously in critical condition, fixed rightward gaze, agonal respirations, no pulse HEAD: Atraumatic. Normocephalic. EYES: Pupils equal round and unreactive, fixed up in right. ENT: Nose without bleeding, purulent drainage. Throat without erythema, tonsillar hypertrophy or exudate. Airway patent. NECK: Trachea midline. Non tender CARDIOVASCULAR: Asystole RESPIRATORY: Agonal respirations GASTROINTESTINAL: Abdomen soft, non-tender, nondistended. EXTREMITIES: No edema or joint tenderness. Chronic venous stasis bilaterally below the knees BACK: Nontender without deformity or crepitance. No flank tenderness. NEURO: Unresponsive, agonal, no purposeful movement SKIN: No rash or erythema of visible areas Procedures Intubation Time out performed: Yes sedative: Ketamine Mg Given: 104 paralytic: Rocuronium Laryngoscope: other Assist Device Used: Bougie ET Tube Size: 7 ET Tube Uncuffed: No Tube Secured Depth (cm): 24 Tube Secured Location: lips Tube Placement Confirmation: Visualized tube passing through cords, Equal breath sounds bilaterally, No breath sounds over epigastrium and Confirmation by capnometry Intubation Complications: none Course Orders Ordered: ED Orders 10/16/21 01:50 COVID19 -Nasal swab/Pre-Proc Stat MDM - Cardiac Arrest/CPR Lab Data Labs: Lab Results 10/16/21 Range/Units 01:50 SARS-CoV-2 (PCR) Negative (Negative) MDM Narrative Medical decision making narrative: Patient arrived in critical condition and code blue initiated nearly immediately. She was pulseless and in PA for the duration of our code. Multiple rounds of ACLS resulted in no meaningful organized rhythm, shockable rhythm, palpable pulse or improvement in end-tidal CO2. Given her reported history of renal failure bicarb was added to the typical ACLS approach. She became difficult to bag with blood in her airway and was clenching, ketamine was added at this point and allowed for the placement of an LMA, initially a size 4 did not provide adequate seal and was quickly replaced with a size 5. End- tidal continue be poor as were sats, after multiple rounds of ACLS we attempted to place ETT first by EMS and then by myself. A 7ETT was placed by [employer] , bright red blood noted in the airway. Call placed to family and we attempted to keep the code running, but once we completed multiple rounds after airway secur ed the code was called at 0045. No imaging obtained, but given fixed upward gaze and use of anticoagulants i am concerned that she may have had an intracranial hemorrhage. Discharge Plan Departure Patient Disposition: Clinical Impression: Cardiac arrest, Chronic anticoagulation, Chronic kidney disease, Liver disease Date/Time: 10/16/21 00:45
--- NOTE | 2021-10-16 01:48 | PC.NURSE ---
Addendum entered by Татьяна Hill R.N. 10/16/21 01:51: donor case # [id number], coroners case # [id number] Original Note: notified [facility] at 0115, [facility]
[2021-10-16 02:07] LABS: COVID19 -Nasal RAPID Negative (Negative)
--- NOTE | 2021-10-16 04:18 | PC.NURSE ---
attempted to call organ appraisal coordinator for the 3rd time to know if we can call the home to transfer patient. Primary Health Care Nurse took message and says she wasn't able to give ok to transport pt to without the coordinator
--- NOTE | 2021-10-16 04:48 | PC.NURSE ---
Organ wedding coordinator called back and stated due to mass in liver, not a potential donor, called [facility] and set up lemon picker.
--- NOTE | 2021-10-16 04:51 | PC.NURSE ---
Removed ET tube, rodríguez catheter and picc line at this time before arrival of home
--- NOTE | 2021-10-16 04:55 | PC.NURSE ---
Pt wearing 2 rings, one on left ring finger, yellow metal with 5 white stones, the other on right ring finger yellow metal with green stone. in place for transport
== END 2021-10-16 05:17 | disposition expired ==
PROVIDERS: Emergency Provider Emergency Medicine; Family Provider Internal Medicine; PCP Internal Medicine
DX: I46.9 Cardiac arrest, cause unspecified (principal); Z79.01 Long term (current) use of anticoagulants; N18.9 Chronic kidney disease, unspecified; K76.9 Liver disease, unspecified; Z87.891 Personal history of nicotine dependence; Z20.822 Contact with and (suspected) exposure to COVID-19; I12.9 Hypertensive chronic kidney disease with stage 1 through stage 4 chronic kidney disease, or unspecified chronic kidney disease
CPT/HCPCS: 31500; 87635; 92950; 94799; 99281; C9803; J0171